=== PATIENT | male | born 2000 | race Caucasian/White ===

== ENCOUNTER 2022-02-22 08:19 | Emergency (ER) | payer MEDICAID ==
[~2022-02-22] VITALS: Ht 160 cm; Wt 54.4 kg
[2022-02-22 08:25] VITALS: BP 165/115
[2022-02-22 09:10] LABS: BASOPHILS # (AUTO) 0.1 K/uL (0.00-0.22); BASOPHILS % (AUTO) 0.5 % (0.0-2.0); EOSINOPHILS # (AUTO) 0.2 K/uL (0-0.4); EOSINOPHILS % (AUTO) 1.3 % (0.0-4.0); HEMATOCRIT 35.9 % (36-52); HEMOGLOBIN 12.3 g/dL (12.0-18.0); LYMPHOCYTES # (AUTO) 1.4 K/uL (2.0-11.5); LYMPHOCYTES % (AUTO) 11.9 % (20.5-51.1); MEAN CORPUSCULAR HEMOGLOBIN 30 pg (27-31); MEAN CORPUSCULAR HGB CONC 34 g/dL (33-37); MONOCYTES # (AUTO) 0.7 K/uL (0.8-1.0); MONOCYTES % (AUTO) 5.7 % (1.7-9.3); NEUTROPHILS # (AUTO) 9.6 K/uL (1.8-7.7); NEUTROPHILS % (AUTO) 80.6 % (42.2-75.2); PLATELET COUNT (AUTO) 443 K/uL (140-450); RED BLOOD CELL COUNT(AUTO) 4.17 MIL/uL (4.20-6.10); RED CELL DISTRIBUTION WIDTH 16.3 % (11.6-13.7); WHITE BLOOD COUNT (AUTO) 11.9 K/uL (4.8-10.8)
[2022-02-22 09:27] LABS: ALBUMIN 3.1 g/dL (3.4-5.0); ANION GAP 14.7 (8-16); CARBON DIOXIDE 23.2 mmol/L (21-32); CREATININE 0.6 mg/dL (0.6-1.3); POTASSIUM 3.9 mmol/L (3.5-5.1); TOTAL BILIRUBIN 0.1 mg/dL (0.0-1.0)
[2022-02-22] MEDS: NACL 0.9% 1,000 ML IV ONE (09:35)
[2022-02-22 10:50] VITALS: BP 146/104
[2022-02-22 12:05] VITALS: BP 146/86
[2022-02-22] MEDS ORDERED: LORazepam 2 MG/ML VIAL IVP ONE (12:05)
[2022-02-23] MEDS ORDERED: RISP0.5T3 PO (04:13)
[2022-02-23] MEDS ORDERED: PTU50 PO (04:15)
[2022-02-23] MEDS ORDERED: BACL10TA4 PO (04:16)
[2022-02-23] MEDS ORDERED: VALP250S5 GT (04:29)
[2022-02-23] MEDS ORDERED: SCOP0.333 TD (04:29)
[2022-02-23] MEDS ORDERED: ONDA-188 IVP (04:29)
[2022-02-23] MEDS ORDERED: PB65I GT (04:29)
[2022-02-23] MEDS ORDERED: DIAZ10TA7 GT (04:29)
[2022-02-23] MEDS ORDERED: LANS15EC28 GT (04:29)
[2022-02-23] MEDS ORDERED: BENZ-315 GT (04:29)
== END 2022-02-22 12:08 ==
LOC: MED 08:19
DX: R11.10 Vomiting, unspecified (principal); Z20.822 Contact with and (suspected) exposure to COVID-19; J44.9 Chronic obstructive pulmonary disease, unspecified; K21.9 Gastro-esophageal reflux disease without esophagitis; I10 Essential (primary) hypertension; Z79.899 Other long term (current) drug therapy; Z98.890 Other specified postprocedural states; Z86.73 Personal history of transient ischemic attack (TIA), and cerebral infarction without residual deficits
CPT/HCPCS: 36415; 71045; 80053; 83605; 83690; 85025; 86886; 86900; 86901; 87426; 93005; 96360; 99285; J7030; Q0092

== ENCOUNTER 2022-02-23 03:46 | Inpatient (IN) | payer MEDICAID ==
--- NOTE | 2022-01-31 19:42 | NUR ---
GET THE REPORT FROM MORNING NURSE ANNAMARIE, CALL LIGHT IS WITHIN THE REACH ,WILL CONTINUE TO MONITOR PATIENT.
[~2022-02-23] VITALS: Ht 157.5 cm; Wt 54.0 kg
[2022-02-23] VITALS (7 sets, daily range): BP systolic 137–161; BP diastolic 76–115
--- NOTE | 2022-02-23 03:47 | NUR ---
Tequila alfonso in [facility] - 02/23/22 at 0348 by [facility] PT BIBA ALS TO ER BED 10
--- NOTE | 2022-02-23 03:48 | NUR ---
JOSSELINE RODRÍGUEZ ALS TO ER BED 01
[2022-02-23] MEDS ORDERED: PANTOPRAZOLE 40 MG INJ VIAL IVP ONE (03:55)
[2022-02-23] MEDS ORDERED: ONDANSETRON 4 MG/2 ML VIAL IVP ONE (03:55)
[2022-02-23] MEDS ORDERED: NACL 0.9% 1,000 ML IV SCH (04:05)
[2022-02-23] MEDS ORDERED: RISP0.5T3 PO (04:13)
[2022-02-23] MEDS ORDERED: PTU50 PO (04:15)
[2022-02-23] MEDS ORDERED: BACL10TA4 PO (04:16)
[2022-02-23] MEDS ORDERED: BENZ-315 GT (04:29)
[2022-02-23] MEDS ORDERED: VALP250S5 GT (04:29)
[2022-02-23] MEDS ORDERED: ONDA-188 IVP (04:29)
[2022-02-23] MEDS ORDERED: PB65I GT (04:29)
[2022-02-23] MEDS ORDERED: LANS15EC28 GT (04:29)
[2022-02-23] MEDS ORDERED: SCOP0.333 TD (04:29)
[2022-02-23] MEDS ORDERED: DIAZ10TA7 GT (04:29)
--- NOTE | 2022-02-23 04:44 | NUR ---
pt transported to CT with RT.
--- NOTE | 2022-02-23 05:32 | NUR ---
pt is a hard stick. unable to draw labs.
--- NOTE | 2022-02-23 06:30 | NUR ---
pt was found putting his finger in the back of his throat making himself vommit. pt vomitted green emesis. Pt was cleaned and was repositioned sidelying facing right with HOB at 30 degrees.
--- NOTE | 2022-02-23 06:40 | NUR ---
autopsy assistant at bedside
[2022-02-23 07:15] LABS: BASOPHILS # (AUTO) 0.1 K/uL (0.00-0.22); BASOPHILS % (AUTO) 0.5 % (0.0-2.0); EOSINOPHILS % (AUTO) 0.1 % (0.0-4.0); HEMATOCRIT 39.7 % (36-52); HEMOGLOBIN 13.4 g/dL (12.0-18.0); LYMPHOCYTES # (AUTO) 1.8 K/uL (2.0-11.5); LYMPHOCYTES % (AUTO) 10.7 % (20.5-51.1); MEAN CORPUSCULAR HEMOGLOBIN 29 pg (27-31); MEAN CORPUSCULAR HGB CONC 34 g/dL (33-37); MEAN CORPUSCULAR VOLUME 85.5 fL (80-94); MONOCYTES % (AUTO) 5.7 % (1.7-9.3); NEUTROPHILS # (AUTO) 14.2 K/uL (1.8-7.7); PLATELET COUNT (AUTO) 501 K/uL (140-450); RED BLOOD CELL COUNT(AUTO) 4.64 MIL/uL (4.20-6.10); RED CELL DISTRIBUTION WIDTH 16.3 % (11.6-13.7); WHITE BLOOD COUNT (AUTO) 17.1 K/uL (4.8-10.8)
[2022-02-23 07:16] LABS: ANION GAP 20.3 (8-16); CARBON DIOXIDE 21.1 mmol/L (21-32); CREATININE 0.9 mg/dL (0.6-1.3); POTASSIUM 3.4 mmol/L (3.5-5.1)
--- NOTE | 2022-02-23 07:17 | NUR ---
handoff to JAYDEN Hernandez. Pt is awake, afebrile. IV fluids still infusing. Bed lock and low. Vital signs stable.
--- NOTE | 2022-02-23 07:24 | NUR ---
ASSUMED CARE FOR PT. PT AWAKE. IV FLUIDS INFUSING, VS: BP 143/112, R 24, O2 98% ROOM AIR, HR 126.
[2022-02-23 07:26] LABS: TOTAL BILIRUBIN 0.3 mg/dL (0.0-1.0)
[2022-02-23 07:27] LABS: ALBUMIN 3.4 g/dL (3.4-5.0)
--- NOTE | 2022-02-23 07:35 | NUR ---
patient arrived from outside facility with sutures in trach - wounds noted under and around flange where sutures were in place - after old sutures were removed a new dressing was placed. will inform nursing of wounds from old sutures for documentation. noted also old wound under/near trach tie that appears from a line that was placed in patients neck at some point.
--- NOTE | 2022-02-23 07:51 | NUR ---
PT MOVED TO BED 03, RT AT BEDSIDE TO ASSIST.
--- NOTE | 2022-02-23 08:10 | NUR ---
# 15 FR Straight catheter utilizing sterile technique. Immediate return of 80 ml lane/clear urine noted. Urine sample collected and sent to lab. Pt tolerated procedure well
--- NOTE | 2022-02-23 08:14 | NUR ---
ESTEFANIA handed to CPT Aaliyah at ER bedside
[2022-02-23] MEDS ORDERED: MORPHINE SULFATE 4 MG/ML SYR IVP PRN (08:55)
--- NOTE | 2022-02-23 08:56 | NUR ---
XR AT PT BEDSIDE
[2022-02-23] MEDS ORDERED: KCL 20 MEQ/WATER INJ PREMIX 100 ML IV ONE (09:00)
[2022-02-23 09:12] LABS: PROTHROMBIN TIME 10.5 secs (10.8-13.4)
[2022-02-23 09:15] LABS: APPEARANCE,URINE HAZY (CLEAR); BILIRUBIN,URINE NEGATIVE (NEGATIVE); BLOOD, URINE NEGATIVE (NEGATIVE); COLOR,URINE YELLOW (YELLOW); LEUKOCYTE ESTERASE ,URINE NEGATIVE (NEGATIVE); NITRITE, URINE NEGATIVE (NEGATIVE); UGLUCOSE NEGATIVE (NEGATIVE)
--- NOTE | 2022-02-23 09:17 | NUR ---
Patient will be admitted to care of . Admited to ICU . Will go to room 3. Belongings list completed. Report to JAYDEN DE LUNA.
--- NOTE | 2022-02-23 09:20 | NUR ---
Transported patient to icu from ED - patient placed back on vent in the icu - no distress noted.
--- NOTE | 2022-02-23 09:30 | NUR ---
RECEIVED PATIENT FROM ER NURSE VIA ELSY. PT ADMITTED FOR SMALL BOWEL OBSTRUCTION. PT IS AOX0, NONVERBAL. RESPIRATIONS EVEN AND UNLABORED. ON TRACH TO VENT AC/PC FIO2 28%, RATE 24, PEEP 5. NO DISTRESS NOTED. SKIN IS WARM, DRY, AND INTACT. IV SITE ON LAC 20 INFUSING FLUIDS WELL. ABD IS SOFT, ROUND AND DISTENDED. NG TUBE PLACED, NO RESIDUAL NOTED. FLACC 0. PLAN OF CARE DISCUSSED. SAFETY PRECAUTIONS IN PLACE. CALL LIGHT WITHIN REACH. WILL CONTINUE TO MONITOR.
[2022-02-23 09:34] LABS: RBC,URINE 0 /HPF (0-5); WBC,URINE 0-5 /HPF (0-5)
[2022-02-23 09:35] LABS: HYALINE CASTS, URINE 0-10 /LPF (None Seen); URINE AMORPHOUS URATE 1+ /HPF (None Seen)
[2022-02-23] MEDS ORDERED: HYDROcodone/APAP 5/325 MG 1 TAB TAB PO PRN (09:45)
[2022-02-23] MEDS ORDERED: MAG SULF 2000 MG/WATER PREMIX 50 ML IV PRN (09:45)
[2022-02-23] MEDS ORDERED: POTASSIUM CHLORIDE 10 MEQ TABER PO PRN (09:45)
[2022-02-23] MEDS ORDERED: DOCUSATE SODIUM 100 MG GELCAP PO PRN (09:45)
[2022-02-23] MEDS ORDERED: ACETAMINOPHEN 325 MG TAB PO PRN (09:45)
[2022-02-23] MEDS ORDERED: ZOLPIDEM 5 MG TAB PO PRN (09:45)
--- NOTE | 2022-02-23 09:45 | NUR ---
REQUESTED NON-BEHAVIORAL RESTRAINTS FROM . NOTIFIED MD THAT PT KEEPS PULLING LINES AND TUBES AND IS AWARE.
--- NOTE | 2022-02-23 09:50 | NUR ---
XR TECH AT BEDSIDE TO VERIFY TUBE PLACEMENT
[2022-02-23] MEDS: NACL 0.9% 1,000 ML IV SCH (09:59)
--- NOTE | 2022-02-23 10:00 | NUR ---
SOFT WRIST RESTRAINTS ORDERED AND PLACED ON PATIENT. WILL MONITOR FOR SKIN BREAKDOWN
[2022-02-23 10:18] LABS: CHOL/HDL RATIO 3.1 (1-4.5); MAGNESIUM 2.6 mg/dL (1.8-2.4); PHOSPHORUS 4.5 mg/dL (2.5-4.9); THYROID STIMULATING HORMONE 1.75 uIU/mL (0.34-3.74)
[2022-02-23] MEDS ORDERED: VALPROIC ACID 250 MG GT/PO SCH (13:00)
[2022-02-23] MEDS: PIPERACILLIN/TAZOBACTAM 3.375 GM in DEXTROSE 5% 50 ML IV SCH ×2 (13:17→21:00)
[2022-02-23] MEDS: diazePAM 5 MG TAB GT SCH ×2 (13:17→17:00)
[2022-02-23] MEDS: VALPROIC ACID 250 MG/5 ML UDC GT SCH ×2 (13:17→17:00)
--- NOTE | 2022-02-23 13:37 | NUR ---
ALL SCHEDULED MEDS GIVEN. PT IS STABLE. NO DISTRESS NOTED. WILL CONTINUE TO MONITOR
[2022-02-23 14:12] LABS: BARBITURATE, URINE POSITIVE ng/ml (NEG <=200); BENZODIAZEPINE, URINE POSITIVE ng/mL (NEG <=200); CANNABINOID, URINE NEGATIVE ng/mL (NEG <=50); COCAINE, URINE NEGATIVE ng/mL (NEG <=300); OPIATE, URINE NEGATIVE ng/mL (NEG <=2000); PHENCYCLIDINE SCREEN,URINE NEGATIVE ng/mL (NEG <=25)
--- NOTE | 2022-02-23 15:30 | NUR ---
RT AT BEDSIDE
--- NOTE | 2022-02-23 17:34 | NUR ---
RECEIVED ORDERS FOR PATIENT TO BE ON LOW INTERMITTENT SUCTION
--- NOTE | 2022-02-23 19:11 | NUR ---
RECEIVED PT TRACH TO VENT WITH A SHILEY 8 ON A Akashi The[employer]SCAPE R860 VENTILATOR SETTINGS AC/PC 26, RR18, PEEP+5, FIO2 25%. NO SIGNS OF RESPIRATORY DISTRESS NOTED AT THIS TIME PT'S CURRENT SATURATION IS 100%. ANTERIOR AUSCULTATION REVEALED BS COARSE CRACKLES THROUGHOUT ALL LUNG LARSEN, SXN SMALL WHITE FROTHY SECRETIONS, STRONG COUGH AND GAG NOTED. SUCTION ALANIS AND HME REPLACED, ORAL CARE DONE, HOB ELEVATED, AMBU BAG AT BEDSIDE, VENT PLUGGED INTO RED OUTLET. WILL CONTINUE TO MONITOR.
--- NOTE | 2022-02-23 19:21 | NUR ---
ENDORSED TO MANAGER SOCIAL RESPONSIBILITY NURSE FOR CONTINUITY OF CARE. PT IS STABLE.
--- NOTE | 2022-02-23 20:45 | NUR ---
TRANSFERRED PT TO [facility]/TELE ROOM 108 ON VENT WITH NO COMPLICATIONS. MACHINE IS PLUGGED INTO RED OUTLET, ALARMS ARE ON AND AUDIBLE, BVM AT BED SIDE, SUCTION WAS SETUP, CONTINUOS MONITOR IN ROOM, HOB ELEVATED. WILL CONTINUE TO MONITOR.
--- NOTE | 2022-02-23 20:45 | NUR ---
PT TRANSFERRED BY RT AND RN'S TO [facility] FLOOR ROOM 108A. TELEPHONE REPORT GIVEN TO JAYDEN CHAHAL. PT IN NO ACUTE DISTRESS AT THE TIME OF TRANSFER TOLERATED WELL. PT IN ROOM 108A ON TRACH TO VENT ON SETTINGS ACPC, FIO2 28%, R 24, PEEP 5%, O2 SAT 96%. PT AWAKE, NON VERBAL, MADE EYE CONTACT. 20 G TO LEFT AC PRESENT. PEG TUBE AND NGT TO LEFT NARES PRESENT. PT INCONTINENT WITH NO VELASCO CATHETER. SKIN INTACT. BILATERAL SOFT WRIST RESTRAINTS PRESENT WITH NO SIGNS OF INJURY. ALL SAFETY MEASURES IN PLACE, BED LOCKED AT LOWEST POSITION IN SEMI FOWLERS POSITION.
[2022-02-23] MEDS: BENZTROPINE 1 MG TAB GT SCH (21:00)
[2022-02-23] MEDS: risperiDONE 1 MG TAB PO SCH (21:00)
[2022-02-23] MEDS ORDERED: PHENobarbital 65 MG/ML VIAL IM SCH (21:00)
[2022-02-23] MEDS ORDERED: NON-FORMULARY ITEM (Lansoprazole* (Prevacid 24Hr*) 15 MG) GT/PO SCH (21:00)
[2022-02-24] VITALS: BP 158/90
--- NOTE | 2022-02-24 00:04 | NUR ---
PATIENT CAME FROM ICU TO 108-A ROOM 2041 PATIENT AWAKE SMILING NO SIGNS OF PAIN OR DISTRESS. IV OUT AT UPPER LEFT ARM. START A 22 GA IN LEFT INDEX FINGER. PATIENT IV INFUSING NS 60 HOUR. PATIENT HUNG ZOSYN 3.375MG DUE AGAIN AT 05. TEMP 97.5 LUNGS CLEAR HAS GT-TUBE CLAMPED AND NGT TO LOW SUCTION. NO DRIN YET. PATIENT NPO.
--- NOTE | 2022-02-24 00:10 | NUR ---
PATIENT HAS WRIST RESTRAINT ON TO RENEW IN A.M AT 10 A.M.
[2022-02-24 04:00] VITALS: BP 149/94
[2022-02-24] MEDS: PIPERACILLIN/TAZOBACTAM 3.375 GM in DEXTROSE 5% 50 ML IV SCH ×3 (05:00→20:20)
--- NOTE | 2022-02-24 05:43 | NUR ---
AT 0030 PATIENT HAS X1 EPISODE OF EMESIS DAEK GREEN IN COLOR. PATIENT HAS 150 OF DRAINAGE IN CANISTER GREEN IN COLOR R.T. WITNESS EMESIS.
[2022-02-24] MEDS: LANSOPRAZOLE 30 MG CAPDR PO SCH (06:29)
[2022-02-24] MEDS: NACL 0.9% 1,000 ML IV SCH ×2 (06:30→21:00)
--- NOTE | 2022-02-24 07:10 | NUR ---
Received report from pm nurse. Pt resting in bed, awake, no signs of distress. NGT to left nostril intact, remains on low intermittent suction. Trach to vent in place: AC/PC 24% FiO2. Left hand IV 22G intact with ongoing IVF NS @ 60ml/hr. HOB elevated @ 35.
[2022-02-24 07:27] LABS: BASOPHILS # (AUTO) 0.1 K/uL (0.00-0.22); BASOPHILS % (AUTO) 0.5 % (0.0-2.0); EOSINOPHILS % (AUTO) 0.1 % (0.0-4.0); HEMATOCRIT 36.9 % (36-52); HEMOGLOBIN 12.5 g/dL (12.0-18.0); LYMPHOCYTES # (AUTO) 1.8 K/uL (2.0-11.5); LYMPHOCYTES % (AUTO) 9.9 % (20.5-51.1); MEAN CORPUSCULAR HEMOGLOBIN 30 pg (27-31); MEAN CORPUSCULAR HGB CONC 34 g/dL (33-37); MEAN CORPUSCULAR VOLUME 86.8 fL (80-94); MONOCYTES # (AUTO) 1.2 K/uL (0.8-1.0); MONOCYTES % (AUTO) 6.5 % (1.7-9.3); NEUTROPHILS # (AUTO) 15.1 K/uL (1.8-7.7); PLATELET COUNT (AUTO) 428 K/uL (140-450); RED BLOOD CELL COUNT(AUTO) 4.25 MIL/uL (4.20-6.10); RED CELL DISTRIBUTION WIDTH 16.2 % (11.6-13.7); WHITE BLOOD COUNT (AUTO) 18.2 K/uL (4.8-10.8)
[2022-02-24 07:41] LABS: MAGNESIUM 2.5 mg/dL (1.8-2.4); PHOSPHORUS 2.9 mg/dL (2.5-4.9)
[2022-02-24 08:00] VITALS: BP 126/72
[2022-02-24 08:11] LABS: ANION GAP 20.5 (8-16); CARBON DIOXIDE 21.9 mmol/L (21-32); CREATININE 0.8 mg/dL (0.6-1.3); POTASSIUM 3.4 mmol/L (3.5-5.1)
--- NOTE | 2022-02-24 08:35 | NUR ---
PATIENT HAS BEEN SCREENED AND CATEGORIZED HIGH NUTRITION RISK. PATIENT WILL BE SEEN WITHIN 1-2 DAYS OF ADMISSION. 02/24/22 RECEIVED REFERRAL FOR TUBE FEEDING AND VOMITING OVER THREE DAYS LEON[address] SU [address]
--- NOTE | 2022-02-24 08:42 | NUR ---
PT. WITH LOW LIZ SCALE AT MODERATE TO HIGH RISK, CONTINUE TO FOLLOW PRESSURE INJURY PREVENTION INTERVENTIONS. -POSITIONING: TURN AND REPOSITION PATIENT Q 2H OR SOONER USE PILLOWS TO KEEP BONY PROMINENCES FROM DIRECT CONTACT WITH SURFACES USE REPOSITIONING WEDGES TO PROVIDE 30-DEGREE ANGLE FOR SIDE LYING POSITIONS OFFLOADING OR FOAM DRESSING TO ALL TUBING TO PREVENT MEDICAL DEVICES RELATED PRESSURE INJURY -RE-EVALUATING AND MANAGING INCONTINENCE MONITOR SKIN CONDITION DURING POSITION CHANGE DO NOT MASSAGE REDNESS, BONY PROMINENCES FREQUENT NITISH-CARE AND PROVIDE BARRIER CREAMS PRN IF SOILING MOISTURE CONTROL BY OFFER BED MACEDO/URINAL /ABSORBENT PAD TO WICK AND HOLD MOISTURE KEEP SKIN DRY AND PROTECT FROM FRICTION -MANAGE FRICTION/SHEAR/MOBILITY KEEP HOB AT THE LOWEST LEVEL OF ELEVATION NO MORE THAN 30 DEGREE UNLESS OTHERWISE CONTRAINDICATED USE LIFT SHEET OR TRANSFER DEVICE TO MOVE PATIENT AND PREVENT LATERAL SHEER. PROTECT HEELS, ELBOWS BONY PROMINENCES WITH SKIN BERRIES OR FOAM DRESSING IF EXPOSED TO FRICTION OFFLOAD BILATERAL HEELS BY PLACING PILLOWS UNDER CALVES AT ALL TIMES, UNLESS OTHERWISE CONTRAINDICATED -PRESSURE REDISTRIBUTION SURFACE THERAPY BERE ISOFLEX MATTRESS -NUTRITION: PLEASE FOLLOW RD RECOMMENDATIONS AND OFFER NUTRITION SUPPLEMENTS IF ORDERED. PLEASE CONTACT WOUND CARE NURSE FOR ANY QUESTION AND CHANGE OF WOUND CONDITION.
[2022-02-24] MEDS: VALPROIC ACID 250 MG/5 ML UDC GT SCH ×3 (08:49→17:10)
[2022-02-24] MEDS: risperiDONE 1 MG TAB PO SCH ×2 (08:51→21:00)
[2022-02-24] MEDS: diazePAM 5 MG TAB GT SCH ×3 (08:51→17:10)
[2022-02-24] MEDS: BACLOFEN 10 MG TAB PO SCH (08:51)
[2022-02-24] MEDS: BENZTROPINE 1 MG TAB GT SCH ×2 (08:52→20:16)
[2022-02-24] MEDS ORDERED: propylthiouraciL 50 MG TAB PO SCH (09:00)
--- NOTE | 2022-02-24 09:40 | NUR ---
NGT suction held. Oral contrast administered via GT. Per radiologist, ok to use GT for contrast for small bowel follow-thru exam. Pt HOB kept elevated. No episode of vomiting.
[2022-02-24 12:00] VITALS: BP 135/91
--- NOTE | 2022-02-24 12:16 | NUR ---
02/24/22 RD INITIAL ASSESSMENT COMPLETED PLEASE REFER TO NUTRITION ASSESSMENT UNDER CARE ACTIVITY FOR ESTIMATED NUTRITIONAL NEEDS. 1. WHEN/IF MEDICALLY APPROPRIATE, RECOMMEND OSMOLITE 1.5 WITH A GOAL RATE OF 40 ML/HR -FWF: 50 ML Q6H OR PER MD -START AT 10 ML/HR AND INCREASE BY 10 ML Q6H TOLERATED -WILL PROVIDE 1440 KCAL AND 60 GM PROTEIN, MEETING 89% ESTIMATED KCAL AND 100% ESTIMATED PROTEIN NEEDS; ADEQUATE 2. MONITOR GI SYMPTOMS AND GASTRIC RESIDUALS 3. RD TO FOLLOW-UP 2-3 DAYS, HIGH RISK LEONCIO SU RD
--- NOTE | 2022-02-24 12:40 | NUR ---
PEG tube pulled out on accident during echocardiogram. Balloon intact and inflated. Peristoma intact, no bleeding. Saxena 16Fr inserted in place of GT. Dr Talha Mejias notified.
[2022-02-24 16:00] VITALS: BP 128/86
--- NOTE | 2022-02-24 16:48 | NUR ---
DC PLANNIN YRS OLD MALE PATIENT WAS ADMITTED FROM [facility] WITH A DX OF SMALL BOWEL OBSTRUCTION. 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 CT ABD/PELVIS SHOWED SBO. CXR NEGATIVE. RAPID COVID TEST NEGATIVE. ADMINISTERED IVF, IV ABX ZOSYN. CONSULTED WITH SURGEON DR PRESTON AND ID. ORDERED SMALL BOWEL SERIES XRAY. DC PLAN TO RETURN TO [facility] WHEN STABLE CM TO FOLLOW Addendum: 02/26/22 at 1606 by Yuliya Milner RN DC PLANNING: REPEAT KUB SHOED BOWEL GAS PATTERN SUGGESTED PARALYTIC ILEUS, PARTIAL OBSTRUCTION CAN NOT BE COMPLETELY EXCLUDED. CONTINUE IVF AND IV ABX ZOSYN. NEPHRO, GI,ID, AND SURGEON FOLLOWING. CM TO FOLLOW Addendum: 02/28/22 at 1155 by Yuliya Milner RN DC PLANNING: IMAGING STILL SHOWED SMALL BOWEL OBSTRUCTION ,NEW LAXATIVE REGIMEN ORDERED , WILL REPEAT KUB TOMORROW. CONTINUED IVF , AND HOME MEDS . NEPHRO AND ID FOLLOWING. DC PLAN TO RETURN TO [facility] OVER THE WEEKEND WHEN STABLE CM TO FOLLOW Addendum: 03/03/22 at 1038 by Yuliya Milner RN DC PLANNING: PATIENT HAS A DC ORDER TO RETURN TO [facility], FAXED PAPERWORK TO [facility] , SPOKE WITH KEYUR AT [facility] AND PATIENT CAN GO TO ROOM 3B UNDER THE CARE OF DR JASSO. ARRANGED TRANSPORT WILL CALL WITH [facility] . PER NURSE CURRAN PATIENT IS VOMITING AT THIS TIME AWAITING FOR MD CLEARANCE TO DISCHARGE. CM TO FOLLOW Addendum: 03/03/22 at 1457 by Yuliya Milner RN DC PLANNING: PATIENT IS GOING TO [facility] CAN GO TO ROOM NUMBER TO GIVE REPORT [phone] ARRANGED TRANSPORT WITH [facility] PROJECT GEOLOGIST TIME 4 PM NOTIFIED CADENCE CHARGE NURSE. CM TO FOLLOW
--- NOTE | 2022-02-24 17:11 | NUR ---
P.T. NOTES P.T. EVAL COMPLETED; REFER TO EVAL FOR DETAILS.
--- NOTE | 2022-02-24 18:50 | NUR ---
PT ON PC 26, RR18, PEEP5, AT 24%. VENT PLUGGED INTO RED OUTLET AND AMBU BAG IN PRESENT. PT WAS SLEEPING AND IN NO DISTRESS.
--- NOTE | 2022-02-24 19:50 | NUR ---
[id number] REPORT FROM WES Wheatley RN FOR CONTINUITY OF CARE. PT AWAKE , APHASIC, NPO EXCEPT MEDS. NGT TO LOW INTERMITTENT SUCTION. IV 24G L HAND POINTER FINGER INFUSING NS @60 ML/HR. SKIN INTACT. BILATERAL SOFT WRIST RESTRAINTS IN PLACE. CALL LIGHT WITHIN REACH. WILL CONTINUE WITH FREQ ROUNDS.
[2022-02-24 20:00] VITALS: BP 136/92
--- NOTE | 2022-02-24 20:30 | NUR ---
ARNULFO FROM CT CAME TO TRANSPORT PT FOR CT OF ABD WITHOUT CONTRAST. RT AT BEDSIDE BAGGING PT DURING TRANSPORT. ON PORTABLE TELE MONITOR RN ACCOMPANIED PT FOR TEST.
--- NOTE | 2022-02-24 20:30 | NUR ---
TOOK PT TO CT. NO COMPLICATIONS. PUT PT BACK ON VENT WHEN RETURNED.
--- NOTE | 2022-02-24 22:15 | NUR ---
FREQ ROUNDS. FOUND NG TUBE LYING ON BED. PT SNAGGED NG TUBE CONSTANTLY MOVING HEAD. REINSERTED 14FR NG TUBE IN L NARES. XRAY ORDERED TO CHECK FOR PLACEMENT AT 22:28. 22:45 RESULTS NG TUBE IN STOMACH. HOOKED NG TUBE TO LOW INTERMITTENT SUCTION. CALL LIGHT WITHIN REACH WILL CONTINUE TO MONITOR.
[2022-02-25] VITALS: BP 136/72
--- NOTE | 2022-02-25 00:30 | NUR ---
FREQ ROUNDS.PT RESTING IN BED THRASHING HEAD FROM SIDE TO SIDE. REMAINS TRACH TO VENT: FIO2 24%, RATE 18, PEEP- 5 TV-45. BILATERAL SOFT WRIST RESTRAINTS IN PLACE TO DETER PT FROM PULLING AT LINES. CALL LIGHT WITHIN REACH. VSS AFEBRILE. O2 SAT 99%. NAD. CONTINUE TO MONITOR.
[2022-02-25] MEDS: NACL 0.9% 1,000 ML IV SCH (01:30)
--- NOTE | 2022-02-25 03:30 | NUR ---
FREQ ROUNDS CHECKED PT STABLE AND ASLEEP RR EVEN AND UNLABORED TRACH TO VENT WITH EQUAL CHEST RISE..ALL SAFETY MEASURES REMAIN IN PLACE. WILL CONTINUE TO MONITOR.
[2022-02-25 04:00] VITALS: BP 135/99
[2022-02-25] MEDS: PIPERACILLIN/TAZOBACTAM 3.375 GM in DEXTROSE 5% 50 ML IV SCH ×3 (04:04→20:26)
[2022-02-25] MEDS: LANSOPRAZOLE 30 MG CAPDR PO SCH (06:07)
--- NOTE | 2022-02-25 06:30 | NUR ---
FREQ ROUNDS CHECKED PT. PREVACID GRANULES GIVEN THROUGH NGT WITH WATER FLUSH. NG TUBE DRAINED 100 CC STOMACH CONTENTS. PT AWAKE, EYES OPEN DOES NOT TRACK WITH EYES. IV SITE L INDEX FINGER INTACT AND PATENT IVF NS @ 60CC/HR INFUSING PER PUMP. RR EVEN AND UNLABORED WITH EQUAL CHEST RISE. ALL SAFETY MEASURES IN PLACE. WILL CONTINUE TO MONITOR.
[2022-02-25 07:05] LABS: BASOPHILS % (AUTO) 0.4 % (0.0-2.0); EOSINOPHILS % (AUTO) 0.4 % (0.0-4.0); HEMATOCRIT 31.2 % (36-52); HEMOGLOBIN 10.7 g/dL (12.0-18.0); LYMPHOCYTES # (AUTO) 1.4 K/uL (2.0-11.5); MEAN CORPUSCULAR HEMOGLOBIN 30 pg (27-31); MEAN CORPUSCULAR HGB CONC 34 g/dL (33-37); MEAN CORPUSCULAR VOLUME 85.9 fL (80-94); MONOCYTES % (AUTO) 10.4 % (1.7-9.3); NEUTROPHILS # (AUTO) 7.6 K/uL (1.8-7.7); NEUTROPHILS % (AUTO) 74.8 % (42.2-75.2); PLATELET COUNT (AUTO) 378 K/uL (140-450); RED BLOOD CELL COUNT(AUTO) 3.64 MIL/uL (4.20-6.10); RED CELL DISTRIBUTION WIDTH 16.1 % (11.6-13.7); WHITE BLOOD COUNT (AUTO) 10.1 K/uL (4.8-10.8)
[2022-02-25 07:15] LABS: ANION GAP 16.4 (8-16); CARBON DIOXIDE 23.2 mmol/L (21-32); CREATININE 0.8 mg/dL (0.6-1.3)
[2022-02-25 07:25] LABS: MAGNESIUM 2.2 mg/dL (1.8-2.4); PHOSPHORUS 3.8 mg/dL (2.5-4.9)
[2022-02-25 07:36] LABS: POTASSIUM 2.6 mmol/L (3.5-5.1)
[2022-02-25 08:00] VITALS: BP 126/80
--- NOTE | 2022-02-25 08:00 | NUR ---
ENDORSED REPORT TO AM NURSE BROOKS RN FOR CONTINUITY OF CARE. PT IS STABLE.
[2022-02-25] MEDS ORDERED: KCL 20 MEQ/WATER INJ PREMIX 200 ML IV SCH (08:10)
[2022-02-25] MEDS: BACLOFEN 10 MG TAB PO SCH (09:37)
[2022-02-25] MEDS: BENZTROPINE 1 MG TAB GT SCH ×2 (09:38→20:23)
[2022-02-25] MEDS: diazePAM 5 MG TAB GT SCH ×3 (09:41→16:40)
[2022-02-25] MEDS: SCOPOLAMINE 1.5 MG/72 HR PATCH TD SCH (10:00)
--- NOTE | 2022-02-25 10:03 | NUR ---
received patient with hob >45. vent in place and trach . kept patient comfortable in bed.
[2022-02-25 12:00] VITALS: BP 163/113
[2022-02-25] MEDS: VALPROIC ACID 250 MG/5 ML UDC GT SCH ×3 (12:26→16:38)
--- NOTE | 2022-02-25 15:55 | NUR ---
DR PRESTON CALLED AND MADE AWARE OF THE G TUBE CT DONE AND ORDERED TO START FEEDING THRU G TUBEPER BRANCH ACCOUNT EXECUTIVE/ PATRON ATTENDANT RECOMMENDATION. DC NG TUBE. 25 ML OUTPUT.
[2022-02-25 16:00] VITALS: BP 147/90
--- NOTE | 2022-02-25 16:12 | NUR ---
DC PLANNING SW ATTEMPTED TO MEET WITH PATIENT AT BEDSIDE HOWEVER, PATIENT IS NONVERBAL AND UNABLE TO RESPOND TO SW. SW OUTREACHED TO PATIENTS [facility], [facility]. SW SPOKE WITH PAULETTE ([facility] MOTION PICTURE OPERATOR) WHO REPORTED THAT PATIENT HAS BEEN IN [facility]ARE SINCE 02/15/22. PAULETTE REPORTS THAT PATIENT IS TRAYC TO VENT DEPENDENT AND HAS A GTUBE IN PLACE. PAULETTE REPORTS THAT PATIENT IS FULL ASSIST AND IS BED RIDDEN. PAULETTE REPORTS THAT FATHER IS ACTIVE IN PATIENTS CARE AND VISITS PATIENT OFTEN. DC PLAN IS FOR PATIENT TO RETURN BACK TO [facility] ONCE MEDICALLY CLEARED.
[2022-02-25] MEDS: risperiDONE 1 MG TAB PO SCH ×2 (16:49→20:24)
--- NOTE | 2022-02-25 19:30 | NUR ---
RECEIVED REPORT FROM AM NURSE FOR CONTINUITY OF CARE. PLAN OF CARE DISCUSSED. PLAN IS FOR PT TO GO BACK TO [facility] ONCE MEDICALLY CLEARED.PT IS BEDBOUND, TRACH TO VENT. G-TUBE FEEDING PATTIE AF TO BE STARTED. ALL SAFETY MEASURES IN PLACE. PT IS STABLE.
[2022-02-25 20:00] VITALS: BP 131/80
--- NOTE | 2022-02-25 21:30 | NUR ---
STARTED PT ON TUBE FEEDING PATTIE AF1.2 @ 10CC/HR. WITH 120CC H2O FLUSH Q 4HRS. HOLD TUBE FEEDING FOR 1 HR FOR RESIDUAL >200CC. CHECK RESIDUAL AFTER 1 HR.RESUME IF RESIDUAL <150. CONTINUE TO INCREASE RATE 20CC Q 2HRS TO A GOAL OF 5OCC/HR. HS MEDS GIVEN VIA G-TUBE AND TOLERATED WELL. ALL SAFETY MEASURES IN PLACE. WILL CONTINUE WITH FREQ ROUNDS.
[2022-02-25 22:50] LABS: CARBON DIOXIDE 21.9 mmol/L (21-32); CREATININE 0.6 mg/dL (0.6-1.3)
[2022-02-25 23:59] LABS: ANION GAP 17.3 (8-16); POTASSIUM 3.2 mmol/L (3.5-5.1)
[2022-02-26] VITALS: BP 121/94
--- NOTE | 2022-02-26 | NUR ---
TUBE FEEDING INCREASED TO 30CC/HR. PT TOLERATING IT WELL WITH NO RESIDUAL. INC BOWEL AND BLADDER. TURNED AND REPOSITIONED Q2HRS. NAD. VSS. CONTINUE WITH FREQ ROUNDS.
[2022-02-26 04:00] VITALS: BP 127/77
[2022-02-26] MEDS: NACL 0.9% 1,000 ML IV SCH ×2 (04:25→21:41)
[2022-02-26] MEDS: PIPERACILLIN/TAZOBACTAM 3.375 GM in DEXTROSE 5% 50 ML IV SCH ×3 (04:57→20:46)
--- NOTE | 2022-02-26 05:00 | NUR ---
INCREASED TUBE FEEDING RATE TO 30CC/ HR. BOWEL SOUNDS ACTIVE.TURNED AND REPOSITIONED Q 2HRS. SKIN IS INTACT. WILL CONTINUE TO MONITOR.
[2022-02-26] MEDS: LANSOPRAZOLE 30 MG CAPDR PO SCH (06:13)
[2022-02-26 07:06] LABS: BASOPHILS % (AUTO) 0.5 % (0.0-2.0); EOSINOPHILS # (AUTO) 0.3 K/uL (0-0.4); EOSINOPHILS % (AUTO) 2.8 % (0.0-4.0); HEMATOCRIT 29.8 % (36-52); LYMPHOCYTES # (AUTO) 1.8 K/uL (2.0-11.5); MEAN CORPUSCULAR HEMOGLOBIN 29 pg (27-31); MEAN CORPUSCULAR HGB CONC 34 g/dL (33-37); MEAN CORPUSCULAR VOLUME 86.8 fL (80-94); MONOCYTES % (AUTO) 10.2 % (1.7-9.3); NEUTROPHILS # (AUTO) 6.5 K/uL (1.8-7.7); NEUTROPHILS % (AUTO) 67.5 % (42.2-75.2); PLATELET COUNT (AUTO) 319 K/uL (140-450); RED BLOOD CELL COUNT(AUTO) 3.43 MIL/uL (4.20-6.10); RED CELL DISTRIBUTION WIDTH 16.3 % (11.6-13.7); WHITE BLOOD COUNT (AUTO) 9.7 K/uL (4.8-10.8)
--- NOTE | 2022-02-26 07:10 | NUR ---
ENDORSED REPORT TO AM NURSE ANNAMARIE FOR CONTINUITY OF CARE. PT IS AWAKE TRACH TO VENT. IV 22G TO L INDEX FINGER WITH STABILIZATION BOARD INFUSING NS @60CC/HR. G-TUBE FEEDING VITAL AF 1.2 @ GOAL OF 50CC/HR NOW. NO RESIDUAL NOTED.REAINS ON BILATERAL SOFT WRIST RESTRAINTS TO PREVENT PT FROM PULLING .AT LINES AND EQUIPMENT. CALL LIGHT NEXT TO HEAD WITHIN REACH. CONTINUE TO MONITOR. PT IS STABLE.
--- NOTE | 2022-02-26 07:12 | NUR ---
RECEIVED PATIENT FROM BROADCAST DESIGNER NURSE FOR CONTINUITY OF CARE. PT IS AOX1, NONVERBAL. ABLE TO TRACK WITH EYES. RESPIRATIONS EVEN AND UNLABORED. ON TRACH TO VENT AC/PC FIO2 24%, RATE 18, PEEP 5. NO DISTRESS NOTED. SKIN IS WARM, DRY, AND INTACT. IV SITE ON LAC 20 INFUSING FLUIDS WELL. G-TUBE IN PLACE INFUSING TUBE FEEDING, NO RESIDUAL NOTED. FLACC 0. PLAN OF CARE DISCUSSED. SAFETY PRECAUTIONS IN PLACE. CALL LIGHT WITHIN REACH. WILL CONTINUE TO MONITOR.
[2022-02-26 07:16] LABS: MAGNESIUM 2.2 mg/dL (1.8-2.4)
[2022-02-26 07:28] LABS: ANION GAP 15.4 (8-16); CARBON DIOXIDE 20.7 mmol/L (21-32); CREATININE 0.6 mg/dL (0.6-1.3); POTASSIUM 3.1 mmol/L (3.5-5.1)
[2022-02-26 08:00] VITALS: BP 117/79
[2022-02-26] MEDS: SCOPOLAMINE 1.5 MG/72 HR PATCH TD SCH (08:45)
[2022-02-26] MEDS: VALPROIC ACID 250 MG/5 ML UDC GT SCH ×3 (08:47→16:58)
[2022-02-26] MEDS: BENZTROPINE 1 MG TAB GT SCH ×2 (08:47→20:44)
[2022-02-26] MEDS: propylthiouraciL 50 MG TAB PO SCH (08:48)
[2022-02-26] MEDS: risperiDONE 1 MG TAB PO SCH ×2 (08:48→20:45)
[2022-02-26] MEDS: diazePAM 5 MG TAB GT SCH ×3 (08:48→16:58)
[2022-02-26] MEDS: BACLOFEN 10 MG TAB PO SCH (08:48)
--- NOTE | 2022-02-26 09:00 | NUR ---
ALL SCHEDULED MEDS GIVEN. PT IS STABLE. NO DISTRESS NOTED. WILL CONTINUE TO MONITOR.
[2022-02-26 12:00] VITALS: BP_SYST 131; BP_DIAS 7; BP_DIAS 77
--- NOTE | 2022-02-26 12:30 | NUR ---
ALL SCHEDULED MEDS GIVEN. PT IS STABLE. NO DISTRESS NOTED. WILL CONTINUE TO MONITOR.
[2022-02-26] MEDS: POTASSIUM CHLORIDE 20% 40 MEQ/15 ML UDC GT PRN (12:41)
--- NOTE | 2022-02-26 13:20 | NUR ---
02/26/22 RD FOLLOW UP COMPLETED PLEASE REFER TO NUTRITION ASSESSMENT UNDER CARE ACTIVITY FOR ESTIMATED NUTRITIONAL NEEDS. 1. CONTINUE VITAL AF 1.2 @ 50 ML/HR TOLERATED -FWF: 150 ML Q4H -PROVIDES 1440 KCAL AND 90 GM PROTEIN, MEETING 89% ESTIMATED KCAL AND 100% ESTIMATED PROTEIN NEEDS; ADEQUATE 2. MONITOR GI SYMPTOMS AND GASTRIC RESIDUALS 3. RD TO FOLLOW-UP 2-3 DAYS, HIGH RISK LEONCIO SU RD
--- NOTE | 2022-02-26 14:10 | NUR ---
ASSISTED WITH CHANGING PATIENT. KEPT PATIENT CLEAN AND DRY. NO SIGNS OF SKIN BREAKDOWN. WILL CONTINUE TO MONITOR.
[2022-02-26 16:00] VITALS: BP 116/79
--- NOTE | 2022-02-26 17:30 | NUR ---
CHECKED ON PATIENT. PT IS STABLE. NO DISTRESS NOTED. WILL CONTINUE TO MONITOR.
--- NOTE | 2022-02-26 19:23 | NUR ---
ENDORSED TO CISCO CERTIFIED INTERNETWORK EXPERT NURSE FOR CONTINUITY OF CARE. PT IS STABLE.
--- NOTE | 2022-02-26 19:27 | NUR ---
RECEIVED REPORT FROM DAY SHIFT NURSE FOR CONTINUITY OF CARE. PT NON-VERBAL, ON TRACH TO VENT, FIO2 24%. G-TUBE FEEDING VITAL AF 1.2 RUNNING 50MLS/HR. ALL SAFETY MEASURES IN PLACE. WILL CONTINUE TO MONITOR.
[2022-02-26 20:00] VITALS: BP 139/96
--- NOTE | 2022-02-26 21:30 | NUR ---
DUE MEDICATIONS GIVEN. NO RESIDUAL NOTED. PT TOLERATED WELL. WILL CONTINUE TO MONITOR.
[2022-02-27] VITALS: BP 120/91
--- NOTE | 2022-02-27 | NUR ---
VITAL STABLE. NO S/SX OF DISTRESS. GIVEN PRN AMBIEN FOR SLEEP. WILL CONTINUE TO MONITOR.
[2022-02-27 04:00] VITALS: BP 137/89
[2022-02-27] MEDS: PIPERACILLIN/TAZOBACTAM 3.375 GM in DEXTROSE 5% 50 ML IV SCH ×3 (05:12→20:42)
--- NOTE | 2022-02-27 05:12 | NUR ---
TUBE FEEDING CHANGED. PT TOLERATED WELL. WILL CONTINUE TO MONITOR.
--- NOTE | 2022-02-27 06:00 | NUR ---
DUE MEDICATIONS GIVEN. NO RESIDUAL NOTED. PT CLEANED AND REPOSITIONED.PT TOLERATED WELL. WILL CONTINUE TO MONITOR
[2022-02-27] MEDS: LANSOPRAZOLE 30 MG CAPDR PO SCH (06:08)
--- NOTE | 2022-02-27 06:53 | NUR ---
PT IS STABLE. NO ACUTE EVENTS THROUGHOUT THE NIGHT. NO S/SX OF DISTRESS NOTED. NO COMPLAINS OF PAIN AT THIS MOMENT. ALL NEEDS ATTENDED. ALL PRECAUTIONS IN PLACE. WILL ENDORSE TO AM SHIFT NURSE.
[2022-02-27 07:06] LABS: BASOPHILS # (AUTO) 0.1 K/uL (0.00-0.22); BASOPHILS % (AUTO) 0.6 % (0.0-2.0); EOSINOPHILS # (AUTO) 0.3 K/uL (0-0.4); EOSINOPHILS % (AUTO) 2.9 % (0.0-4.0); HEMOGLOBIN 10.5 g/dL (12.0-18.0); LYMPHOCYTES # (AUTO) 1.9 K/uL (2.0-11.5); LYMPHOCYTES % (AUTO) 18.8 % (20.5-51.1); MEAN CORPUSCULAR HEMOGLOBIN 29 pg (27-31); MEAN CORPUSCULAR HGB CONC 34 g/dL (33-37); MEAN CORPUSCULAR VOLUME 85.8 fL (80-94); MONOCYTES # (AUTO) 0.6 K/uL (0.8-1.0); NEUTROPHILS # (AUTO) 7.3 K/uL (1.8-7.7); NEUTROPHILS % (AUTO) 71.7 % (42.2-75.2); PLATELET COUNT (AUTO) 269 K/uL (140-450); RED BLOOD CELL COUNT(AUTO) 3.61 MIL/uL (4.20-6.10); WHITE BLOOD COUNT (AUTO) 10.2 K/uL (4.8-10.8)
[2022-02-27 07:10] LABS: ANION GAP 15.4 (8-16); CARBON DIOXIDE 21.6 mmol/L (21-32); CREATININE 0.4 mg/dL (0.6-1.3)
[2022-02-27 07:27] LABS: MAGNESIUM 2.1 mg/dL (1.8-2.4); PHOSPHORUS 3.1 mg/dL (2.5-4.9)
[2022-02-27 08:00] VITALS: BP 135/83
--- NOTE | 2022-02-27 08:00 | NUR ---
RECEIVED REPORT FROM [facility]. PT RESPONSIVE TO VERBAL STIMULI. HOB ELEVATED. NO SOB OR RESPIRATORY DISTRESS. TRACH TO VENT. FIO2 @ 21%. GTUBE FEEDING INFUSING. NO SIGNS OF NAUSEA. IVF INFUSING. DRESSING C/D/I. NEEDS ALL MET AT THIS TIME. SAFETY MEASURES IN PLACE. WILL CONTINUE TO MONITOR CLOSELY.
--- NOTE | 2022-02-27 08:26 | NUR ---
RECEIVED PT ON PC 26, RR18, +5, AND 24% FIO2. AWAKE AND IN NO DISTRESS. CHANGED OUT DRAIN SPONGE, ORAL CARE AND SUCTIONED MODERATE AMOUNT OF YELLOW SECRETIONS.
[2022-02-27] MEDS: diazePAM 5 MG TAB GT SCH ×3 (09:22→17:35)
[2022-02-27] MEDS: VALPROIC ACID 250 MG/5 ML UDC GT SCH ×3 (09:22→17:35)
[2022-02-27] MEDS: BENZTROPINE 1 MG TAB GT SCH ×2 (09:22→20:41)
[2022-02-27] MEDS: propylthiouraciL 50 MG TAB PO SCH (09:23)
[2022-02-27] MEDS: risperiDONE 1 MG TAB PO SCH ×2 (09:23→20:42)
[2022-02-27] MEDS: BACLOFEN 10 MG TAB PO SCH (09:23)
[2022-02-27] MEDS: POTASSIUM CHLORIDE 20% 40 MEQ/15 ML UDC GT PRN (09:23)
--- NOTE | 2022-02-27 09:35 | NUR ---
SCHEDULED MEDS GIVEN VIA GTUBE. 0 ML RESIDUAL. PT TOLERATED WELL. HOB ELEVATED. TRACH TO VENT. PT IN NO DISTRESS. NEEDS ALL MET. SOFT WRIST RESTRAINTS IN PLACE. BILATERAL UPPER EXTREMITIES WITH GOOD C/S/M. SAFETY MEASURES IN PLACE.
[2022-02-27 12:00] VITALS: BP 125/91
--- NOTE | 2022-02-27 12:00 | NUR ---
PT RESTING. HOB ELEVATED. NO SOB OR RESPIRATORY DISTRESS. TRACH TO VENT. 0 RESIDUAL OF GTUBE FEEDING. PT TOLERATING WELL. IVF INFUSING. PT WITH GOOD C/S/M ON BILATERAL UPPER EXTREMITIES. NEEDS ALL MET AT THIS TIME. SAFETY MEASURES IN PLACE.
[2022-02-27] MEDS: NACL 0.9% 1,000 ML IV SCH (12:15)
[2022-02-27 16:00] VITALS: BP 120/98
--- NOTE | 2022-02-27 18:40 | NUR ---
PT WITH 0 RESIDUAL VIA GTUBE. HOB ELEVATED. TOLERATING GTUBE FEEDING. IVF INFUSING. TRACH TO VENT. NO SOB OR RESPIRATORY DISTRESS NOTED. BILATERAL SOFT RESTRAINTS IN PLACE. PT WITH GOOD C/S/M ON BILATERAL EXTREMITIES. ROUNDS CONDUCTED THROUGHOUT MY SHIFT. SAFETY MEASURES IN PLACE.
--- NOTE | 2022-02-27 19:00 | NUR ---
REPORT GIVEN TO NIGHTSHIFT RN FOR CONTINUITY OF CARE.
[2022-02-27 20:00] VITALS: BP 139/85
--- NOTE | 2022-02-27 20:00 | NUR ---
RECEIVED REPORT FROM DAY SHIFT NURSE FOR CONTINUITY OF CARE. PT NON-VERBAL, ON TRACH TO VENT, FIO2 24%. G-TUBE FEEDING VITAL AF 1.2 RUNNING 50MLS/HR. ST ON TELE 111.ALL SAFETY MEASURES IN PLACE. WILL CONTINUE TO MONITOR.
[2022-02-27] MEDS ORDERED: CRUSHER, PILL MC ONE (20:38)
--- NOTE | 2022-02-27 21:00 | NUR ---
DUE MEDICATIONS GIVEN. 15MLS RESIDUAL ASPIRATED. PT TOLERATED WELL. WILL CONTINUE TO MONITOR.
[2022-02-28] VITALS: BP 127/91
--- NOTE | 2022-02-28 | NUR ---
VITAL STABLE.PT ASLEEP. NO S/SX OF DISTRESS.BREATHING EQUAL AND UNLABORED.ALL PRECAUTIONS IN PLACE.WILL CONTINUE TO MONITOR
--- NOTE | 2022-02-28 02:23 | NUR ---
CLEANED AND CHANGED. PT TOLERATED WELL. NO DISTRESS NOTED. ALL PRECAUTIONS IN PLACE. WILL CONTINUE TO MONITOR.
[2022-02-28 04:00] VITALS: BP 120/94
[2022-02-28] MEDS: LANSOPRAZOLE 30 MG CAPDR PO SCH (05:54)
--- NOTE | 2022-02-28 05:54 | NUR ---
TUBE FEEDING CHANGED. PT TOLERATED WELL. WILL CONTINUE TO MONITOR.
--- NOTE | 2022-02-28 05:58 | NUR ---
DUE MEDICATIONS GIVEN. PT TOLERATED WELL. NO DISTRESS NOTED.WILL CONTINUE TO MONITOR.
[2022-02-28] MEDS: NACL 0.9% 1,000 ML IV SCH ×2 (06:32→23:05)
[2022-02-28 07:08] LABS: BASOPHILS % (AUTO) 0.5 % (0.0-2.0); EOSINOPHILS # (AUTO) 0.6 K/uL (0-0.4); HEMATOCRIT 27.8 % (36-52); HEMOGLOBIN 9.6 g/dL (12.0-18.0); LYMPHOCYTES # (AUTO) 2.3 K/uL (2.0-11.5); LYMPHOCYTES % (AUTO) 35.2 % (20.5-51.1); MEAN CORPUSCULAR HEMOGLOBIN 30 pg (27-31); MEAN CORPUSCULAR HGB CONC 35 g/dL (33-37); MEAN CORPUSCULAR VOLUME 86.2 fL (80-94); MONOCYTES # (AUTO) 0.4 K/uL (0.8-1.0); MONOCYTES % (AUTO) 6.1 % (1.7-9.3); NEUTROPHILS # (AUTO) 3.3 K/uL (1.8-7.7); NEUTROPHILS % (AUTO) 49.2 % (42.2-75.2); PLATELET COUNT (AUTO) 276 K/uL (140-450); RED BLOOD CELL COUNT(AUTO) 3.22 MIL/uL (4.20-6.10); WHITE BLOOD COUNT (AUTO) 6.7 K/uL (4.8-10.8)
[2022-02-28 07:17] LABS: MAGNESIUM 1.9 mg/dL (1.8-2.4)
[2022-02-28 07:20] LABS: ANION GAP 15.8 (8-16); CARBON DIOXIDE 20.6 mmol/L (21-32); CREATININE 0.4 mg/dL (0.6-1.3); POTASSIUM 3.4 mmol/L (3.5-5.1)
[2022-02-28 08:00] VITALS: BP 133/91
--- NOTE | 2022-02-28 08:00 | NUR ---
RECEIVED REPORT FROM NIGHTSHIFT RN. PT RESPONSIVE TO VERBAL STIMULI. HOB ELEVATED. NO SOB OR RESPIRATORY DISTRESS. TRACH TO VENT. FIO2 @ 24%. GTUBE FEEDING INFUSING. 0 RESIDUAL. NO SIGNS OF NAUSEA. IVF INFUSING. DRESSING C/D/I. BILATERAL SOFT WRIST RESTRAINTS ON WITH GOOD C/S/M. NEEDS ALL MET AT THIS TIME. SAFETY MEASURES IN PLACE. WILL CONTINUE TO MONITOR CLOSELY.
[2022-02-28] MEDS: BACLOFEN 10 MG TAB PO SCH (08:48)
[2022-02-28] MEDS: VALPROIC ACID 250 MG/5 ML UDC GT SCH ×3 (08:48→16:45)
[2022-02-28] MEDS: risperiDONE 1 MG TAB PO SCH ×2 (08:49→21:00)
[2022-02-28] MEDS: propylthiouraciL 50 MG TAB PO SCH (08:49)
[2022-02-28] MEDS: diazePAM 5 MG TAB GT SCH ×3 (08:49→16:46)
[2022-02-28] MEDS: BENZTROPINE 1 MG TAB GT SCH ×2 (08:50→21:00)
[2022-02-28] MEDS: SCOPOLAMINE 1.5 MG/72 HR PATCH TD SCH (08:55)
[2022-02-28] MEDS ORDERED: bisacodyL 10 MG SUPP RC PRN (09:00)
[2022-02-28] MEDS ORDERED: bisacodyL 10 MG SUPP RC SCH (09:15)
--- NOTE | 2022-02-28 10:56 | NUR ---
RECEIVED ON A [employer]APE R860 VENTILATOR PLUGGED INTO RED OUTLET TOLERATING WELL WITHOUT ADVERSE REACTIONS NOTED TO A ALYSSALEY #8 AIRWAY SECURED WITH A MARGO TRACH TIE CUFF PRESSURE CHECKED NOTED AMBI BAG AT BEDSIDE RESTING WELL GOOD CHEST RISE NO SUCTIONING AT THIS TIME AIRWAY PATENT JOB HONER TO MONITOR
[2022-02-28 12:00] VITALS: BP 132/97
--- NOTE | 2022-02-28 13:00 | NUR ---
PT REPOSITIONED. HOB ELEVATED. IN NO DISTRESS. FIO2 24%. VSS. 0 ML RESIDUAL VIA GTUBE. GTUBE FEEDING RESTARTED. NEEDS ALL MET. SAFETY MEASURES IN PLACE. WILL MONITOR.
[2022-02-28] MEDS: DOCUSATE 100 MG/10 ML UDC GT SCH ×2 (13:04→21:00)
[2022-02-28 16:00] VITALS: BP 151/102
--- NOTE | 2022-02-28 16:00 | NUR ---
CONTACTED DR YIP REGARDING PT'S HEART RATE IN THE 120'S. DR YORK FOR EKG.
[2022-02-28] MEDS: POTASSIUM CHLORIDE 20% 40 MEQ/15 ML UDC GT PRN (16:45)
--- NOTE | 2022-02-28 17:33 | NUR ---
RESTING COMFORTABLY TOLERATING VENTILATORY SUPPORT WITHOUT COMPLICATIONS NOTED EQUAL CHEST RISE DEEP TRACHEAL SUCTION FOR LARGE THIN PALE YELLOW SECRETIONS AIRWAY PATENT
--- NOTE | 2022-02-28 18:15 | NUR ---
CONTACTED DR. YIP AND DR. MCFARLAND AND ENDORSED EKG RESULTS. NEW ORDERS INPUTTED. SEE ORDER HISTORY.
--- NOTE | 2022-02-28 18:35 | NUR ---
KUB COMPLETED AT BEDSIDE.
--- NOTE | 2022-02-28 18:47 | NUR ---
GTUBE DRESSING CHANGED. CLEANSED SITE WITH NS, PAT DRY WITH GAUZE, DRESSING APPLIED. PT WITH 0 ML RESIDUAL. HOB ELEVATED. NO SOB. IN NO ACUTE DISTRESS. TRACH TO VENT. FIO2 24%. HR CURRENTLY 118. PT REPOSITIONED. NEEDS ALL MET. WILL ENDORSE POC TO NIGHTSHIFT.
--- NOTE | 2022-02-28 19:33 | NUR ---
REPORT GIVEN TO NIGHTSHIFT RNTIRSO FOR CONTINUITY OF CARE.
[2022-02-28 20:00] VITALS: BP 130/72
[2022-02-28] MEDS: METOPROLOL 25 MG TAB GT SCH (21:00)
[2022-03-01] VITALS: BP 127/70
--- NOTE | 2022-03-01 | NUR ---
PATIENT AWAKE NOT ALERT HAS TRACH TO VENT AC 16, TV 500, FI02 24%, PEEP5, SAT 100%. LUNGS DIMINISH SINUS TACH. TEMP 97 HAS NS INFUSING IN LEFT FINGER 22GA. PATIENT. PATIENT HAS VITAL 50 HOUR 10CC RESIDUAL 2000. MID NITE 25CC. PATIENT RECEIVING 120CC H20 Q FOUR HOURS. PATIENT INCONTINENT SKIN INTACT. SUCTION THIN SECRETION, NO DISTRESS NOTED. PATIENT HAS WRIST RESTRAINTS ON BOTH WRIST. PATIENT IS MENTALLY CHALLENGE.
[2022-03-01 04:00] VITALS: BP 129/72
[2022-03-01] MEDS: METOPROLOL 25 MG TAB GT SCH ×3 (05:30→21:34)
[2022-03-01] MEDS: LANSOPRAZOLE 30 MG CAPDR PO SCH (06:30)
[2022-03-01] MEDS: ONDANSETRON 4 MG/2 ML VIAL IM/IVP PRN (06:45)
--- NOTE | 2022-03-01 07:30 | NUR ---
RECEIVED PATIENT FROM CORE MICROARCHITECT NURSE FOR CONTINUITY OF CARE. PT IS AOX1, NONVERBAL. ABLE TO TRACK WITH EYES. RESPIRATIONS EVEN AND UNLABORED. ON TRACH TO VENT AC/PRVC FIO2 24%, RATE 16, PEEP 5. NO DISTRESS NOTED. SKIN IS WARM, DRY, AND INTACT. IV SITE ON L INDEX FINGER INFUSING FLUIDS WELL. G-TUBE IN PLACE INFUSING TUBE FEEDING, NO RESIDUAL NOTED. FLACC 0. PLAN OF CARE DISCUSSED. SAFETY PRECAUTIONS IN PLACE. CALL LIGHT WITHIN REACH. WILL CONTINUE TO MONITOR.
--- NOTE | 2022-03-01 07:40 | NUR ---
RECEIVED ON A GE CARESCAPE R860 WITH COMPRESSOR ON AND FUNCTIONING WELL PLUGGED INTO RED OUTLET TOLERATING WELL WITHOUT ADVERSE REACTIONS NOTED TO SELENA #8 AIRWAY SECURED WITH A MARGO TRACH TIE CUFF PRESSURE CHECKED NOTED AMBU BAG AT BEDSIDE LOC AWAKE GOOD CHEST RISE DEEP TRACHEAL SUCTION FOR LARGE THIN/FROTHY PALE YELLOW SECRETIONS AIRWAY PATENT PATIENT PRESENTING WITH EMESIS AT THIS TIME TRACH CARE PROVIDED KENNEDI/RN AWARE
--- NOTE | 2022-03-01 07:41 | NUR ---
WITH EPISODE OF EMESIS, WILL GIVE ZOFRAN WHEN DUE, TUBE FEEDING TURNED OFF, ORAL CARE AND TRACH CARE DONE BY RT
[2022-03-01 08:00] VITALS: BP 114/64
[2022-03-01] MEDS: risperiDONE 1 MG TAB PO SCH ×2 (09:00→21:34)
[2022-03-01] MEDS: BACLOFEN 10 MG TAB PO SCH (09:00)
[2022-03-01] MEDS: propylthiouraciL 50 MG TAB PO SCH (09:00)
[2022-03-01 09:15] LABS: BASOPHILS # (AUTO) 0.1 K/uL (0.00-0.22); BASOPHILS % (AUTO) 0.5 % (0.0-2.0); EOSINOPHILS # (AUTO) 0.3 K/uL (0-0.4); EOSINOPHILS % (AUTO) 2.6 % (0.0-4.0); HEMATOCRIT 34.4 % (36-52); HEMOGLOBIN 11.5 g/dL (12.0-18.0); LYMPHOCYTES # (AUTO) 1.4 K/uL (2.0-11.5); LYMPHOCYTES % (AUTO) 13.8 % (20.5-51.1); MEAN CORPUSCULAR HEMOGLOBIN 29 pg (27-31); MEAN CORPUSCULAR HGB CONC 33 g/dL (33-37); MEAN CORPUSCULAR VOLUME 86.5 fL (80-94); MONOCYTES # (AUTO) 0.6 K/uL (0.8-1.0); MONOCYTES % (AUTO) 5.7 % (1.7-9.3); NEUTROPHILS # (AUTO) 7.9 K/uL (1.8-7.7); NEUTROPHILS % (AUTO) 77.4 % (42.2-75.2); PLATELET COUNT (AUTO) 323 K/uL (140-450); RED BLOOD CELL COUNT(AUTO) 3.98 MIL/uL (4.20-6.10); WHITE BLOOD COUNT (AUTO) 10.2 K/uL (4.8-10.8)
--- NOTE | 2022-03-01 09:20 | NUR ---
DUE MEDS GIVEN VIA GT, TOLERATED WELL
[2022-03-01 09:55] LABS: ANION GAP 13.1 (8-16); CARBON DIOXIDE 28.1 mmol/L (21-32); CREATININE 0.5 mg/dL (0.6-1.3); POTASSIUM 3.2 mmol/L (3.5-5.1)
[2022-03-01] MEDS: DOCUSATE 100 MG/10 ML UDC GT SCH ×2 (09:59→21:00)
[2022-03-01] MEDS: diazePAM 5 MG TAB GT SCH ×3 (09:59→16:56)
[2022-03-01] MEDS: VALPROIC ACID 250 MG/5 ML UDC GT SCH ×3 (09:59→16:56)
[2022-03-01] MEDS: BENZTROPINE 1 MG TAB GT SCH ×2 (09:59→21:32)
[2022-03-01] MEDS ORDERED: POLYETHYLENE GLYCOL 17 GM/PKT PO SCH (10:15)
[2022-03-01] MEDS ORDERED: SODIUM PHOSPHATE 118 ML ENEM RC SCH (10:15)
--- NOTE | 2022-03-01 10:25 | NUR ---
(03/01/22) RD FOLLOW UP COMPLETED PLEASE REFER TO NUTRITION PROGRESS NOTE UNDER CARE ACTIVITY FOR ESTIMATED NUTRITION NEEDS. RD RECOMMENDATIONS: 1. CONTINUE VITAL AF 1.2 @ 50 ML/HR TOLERATED -FWF: 150 ML Q4H -PROVIDES 1440 KCAL AND 90 GM PROTEIN, MEETING 89% ESTIMATED KCAL AND 100% ESTIMATED PROTEIN NEEDS; ADEQUATE 2. MONITOR GI SYMPTOMS AND GASTRIC RESIDUALS 3. RD TO FOLLOW-UP 2-3 DAYS, HIGH RISK JOAN DAVIS, , RDN
--- NOTE | 2022-03-01 11:21 | NUR ---
NO INDICATION FOR PULMONARY DISTRESS NOTED EQUAL CHEST RISE DEEP TRACHEA; SUCTION FOR LARGE THIN/FROTHY SECRETIONS AIRWAY PATENT
[2022-03-01 12:00] VITALS: BP 119/87
[2022-03-01] MEDS ORDERED: HYDRAGUARD CREAM TP SCH (12:15)
--- NOTE | 2022-03-01 12:17 | NUR ---
PT ASLEEP IN BED AT THIS TIME, NO APPARENT DISTRESS
--- NOTE | 2022-03-01 13:00 | NUR ---
ENEMA GIVEN ORDERED
--- NOTE | 2022-03-01 13:50 | NUR ---
PT WAS STABLE ASLEEP. SUCTIONED FOR MODERATE CLEAR FROTHY SECRETIONS. CHEST HAD EVEN CHEST RISE. TATI PERAZA
--- NOTE | 2022-03-01 14:00 | NUR ---
WITH MODERATE BM, NITISH CARE DONE
[2022-03-01] MEDS: NACL 0.9% 1,000 ML IV SCH (14:58)
[2022-03-01 16:00] VITALS: BP 120/87
--- NOTE | 2022-03-01 17:31 | NUR ---
STABLE RESTING COMFORTABLY TOLERATING VENTILATORY SUPPORT WITHOUT ADVERSE REACTIONS NOTED EQUAL CHEST RISE DEEP TRACHEAL SUCTION FOR SMALL THIN PALE YELLOW SECRETIONS AIRWAY PATENT
--- NOTE | 2022-03-01 18:41 | NUR ---
RESPIRATIONS EVEN AND UNLABORED WITH NO APPARENT S/SX OF ACUTE DISTRESS.
[2022-03-01] MEDS: POTASSIUM CHLORIDE 20% 40 MEQ/15 ML UDC GT PRN (19:30)
[2022-03-01 20:00] VITALS: BP 119/72
[2022-03-01] MEDS: POLYETHYLENE GLYCOL 17 GM/PKT GT SCH (21:00)
--- NOTE | 2022-03-01 22:35 | NUR ---
PATIENT SLEEPING HAS TRACH TO VENT RATE 16, TV 500, FI02 24% PEEP 5 SAT 98% LUNGS DIMINISH ON MONITOR SINUS TEMP 97.3 HAS GT-TUBE VITAL 50 HOUR INFUSING WITH WATER FLUSH 120 CC EVERY FOUR HOURS. 1999 NO RESIDUAL. HAS NS INFUSING 60 HOUR. NO DISTRESS NOTED.
[2022-03-02] VITALS: BP 104/54
[2022-03-02] MEDS: LORazepam 2 MG/ML VIAL IM/IVP PRN ×2 (02:51→11:02)
[2022-03-02 04:00] VITALS: BP 106/55
[2022-03-02] MEDS: METOPROLOL 25 MG TAB GT SCH ×3 (04:51→21:06)
[2022-03-02] MEDS: ONDANSETRON 4 MG/2 ML VIAL IM/IVP PRN (05:45)
[2022-03-02] MEDS: LANSOPRAZOLE 30 MG CAPDR PO SCH (06:15)
[2022-03-02] MEDS: NACL 0.9% 1,000 ML IV SCH (06:48)
--- NOTE | 2022-03-02 07:30 | NUR ---
RECEIVED PATIENT FROM PERMIT AGENT NURSE FOR CONTINUITY OF CARE. PT IS AOX1, NONVERBAL. ABLE TO TRACK WITH EYES. RESPIRATIONS EVEN AND UNLABORED. ON TRACH TO VENT AC/PRVC FIO2 24%, VT 500 RATE 16, PEEP 5. NO DISTRESS NOTED. SKIN IS WARM, DRY, AND INTACT. IV SITE ON L INDEX FINGER INFUSING FLUIDS WELL. G-TUBE IN PLACE INFUSING TUBE FEEDING, NO RESIDUAL NOTED. FLACC 0. PLAN OF CARE DISCUSSED. SAFETY PRECAUTIONS IN PLACE. CALL LIGHT WITHIN REACH. WILL CONTINUE TO MONITOR.
[2022-03-02 08:00] VITALS: BP 138/90
--- NOTE | 2022-03-02 09:45 | NUR ---
ALL SCHEDULED MEDS GIVEN. PT IS STABLE. NO DISTRESS NOTED. WILL CONTINUE TO MONITOR.
[2022-03-02] MEDS: diazePAM 5 MG TAB GT SCH ×3 (09:46→16:58)
[2022-03-02] MEDS: BACLOFEN 10 MG TAB PO SCH (09:47)
[2022-03-02] MEDS: BENZTROPINE 1 MG TAB GT SCH ×2 (09:47→21:06)
[2022-03-02] MEDS: risperiDONE 1 MG TAB PO SCH ×2 (09:47→21:05)
[2022-03-02] MEDS: POLYETHYLENE GLYCOL 17 GM/PKT GT SCH ×2 (09:50→21:07)
[2022-03-02] MEDS: VALPROIC ACID 250 MG/5 ML UDC GT SCH ×3 (09:50→16:58)
[2022-03-02] MEDS: propylthiouraciL 50 MG TAB PO SCH (09:51)
[2022-03-02] MEDS: DOCUSATE 100 MG/10 ML UDC GT SCH ×2 (09:59→21:07)
--- NOTE | 2022-03-02 11:02 | NUR ---
PATIENT SHOWED INCREASED AGITATION. ADMINISTERED PRN ATIVAN PER MD ORDERED
[2022-03-02 12:00] VITALS: BP 113/70
[2022-03-02] MEDS: POTASSIUM CHLORIDE 20% 40 MEQ/15 ML UDC GT PRN (12:36)
--- NOTE | 2022-03-02 15:45 | NUR ---
CHECKED ON PATIENT. PT IS STABLE. NO DISTRESS NOTED. WILL CONTINUE TO MONITOR.
[2022-03-02 16:00] VITALS: BP 136/97
--- NOTE | 2022-03-02 17:30 | NUR ---
GET REPORT FROM MORNING NURSE ANNAMARIE, WILL CONTINUE TO MONITOR PATIENT. Addendum: 03/02/22 at 2136 by Precious Aguirre RN THIS IS FOR 0 ACCIDENTALLY PUT WRONG TIME.
--- NOTE | 2022-03-02 18:00 | NUR ---
DR. SANDOVAL AT PATIENT'S BEDSIDE ASSESSING PATIENT.
[2022-03-02] MEDS ORDERED: KCL 20 MEQ/WATER INJ PREMIX 200 ML IV ONE ×2 (18:20)
[2022-03-02] MEDS ORDERED: KCL 20 MEQ/WATER INJ PREMIX 200 ML IV SCH (18:40)
[2022-03-02 19:09] LABS: BASOPHILS % (AUTO) 0.5 % (0.0-2.0); EOSINOPHILS # (AUTO) 0.3 K/uL (0-0.4); EOSINOPHILS % (AUTO) 3.7 % (0.0-4.0); HEMATOCRIT 29.9 % (36-52); HEMOGLOBIN 10.2 g/dL (12.0-18.0); LYMPHOCYTES # (AUTO) 2.1 K/uL (2.0-11.5); LYMPHOCYTES % (AUTO) 26.6 % (20.5-51.1); MEAN CORPUSCULAR HEMOGLOBIN 30 pg (27-31); MEAN CORPUSCULAR HGB CONC 34 g/dL (33-37); MEAN CORPUSCULAR VOLUME 86.5 fL (80-94); MONOCYTES # (AUTO) 0.6 K/uL (0.8-1.0); MONOCYTES % (AUTO) 7.2 % (1.7-9.3); NEUTROPHILS # (AUTO) 4.8 K/uL (1.8-7.7); PLATELET COUNT (AUTO) 275 K/uL (140-450); RED BLOOD CELL COUNT(AUTO) 3.46 MIL/uL (4.20-6.10); RED CELL DISTRIBUTION WIDTH 17.2 % (11.6-13.7); WHITE BLOOD COUNT (AUTO) 7.8 K/uL (4.8-10.8)
[2022-03-02 19:18] LABS: CARBON DIOXIDE 22.8 mmol/L (21-32); CREATININE 0.4 mg/dL (0.6-1.3); POTASSIUM 3.8 mmol/L (3.5-5.1)
--- NOTE | 2022-03-02 19:35 | NUR ---
ENDORSED TO TURF FARMER NURSE FOR CONTINUITY OF CARE. PT IS STABLE.
[2022-03-02 20:00] VITALS: BP 115/64
--- NOTE | 2022-03-02 20:00 | NUR ---
PATIENT IS LYING ON BED, PATIENT IS ON VENT MODE AC /PRVC . PEEP-5. FIO2 -24 VT-500, PATIENT HAS PATENT G- TUBE,VITAL SIGN IS WITHIN THE NORMAL RANGE, CALL LIGHT IS WITHIN THE RANGE, WILL CONTINUE TO MONITOR PATIENT.
--- NOTE | 2022-03-02 21:27 | NUR ---
ALL SCHEDULE MEDICATION IS GIVEN PER DOCTOR ORDER,WILL CONTINUE TO MONITOR PATIENT.
[2022-03-03] VITALS: BP 104/61
--- NOTE | 2022-03-03 | NUR ---
PATIENT IS LYING ON BED, VITAL SIGH IS WITHIN THE NORMAL RANGE ,CALL LIGHT IS WITHIN THE REACH,WILL CONTINUE TO MONITOR PATIENT.
[2022-03-03] MEDS: NACL 0.9% 1,000 ML IV SCH (00:35)
[2022-03-03 04:00] VITALS: BP 139/97
--- NOTE | 2022-03-03 04:00 | NUR ---
PATIENT IS LYING ON BED, VITAL SIGH IS WITHIN THE NORMAL RANGE ,CALL LIGHT IS WITHIN THE REACH,WILL CONTINUE TO MONITOR PATIENT.
[2022-03-03] MEDS: METOPROLOL 25 MG TAB GT SCH ×2 (05:40→13:00)
[2022-03-03] MEDS: LANSOPRAZOLE 30 MG CAPDR PO SCH (05:41)
--- NOTE | 2022-03-03 06:18 | NUR ---
PATIENT IS LYING ON BED, VITAL SIGH IS WITHIN THE NORMAL RANGE ,ALL SCHEDULE MEDS ARE GIVEN PER DR ORDER,CALL LIGHT IS WITHIN THE REACH,WILL CONTINUE TO MONITOR PATIENT.
--- NOTE | 2022-03-03 07:18 | NUR ---
GAVE REPORT MORNING NURSE MAGDY FOR CONTINUS OF CARE,PATIENT IS STABLE.
--- NOTE | 2022-03-03 08:14 | NUR ---
REPORT RECEIVED, PT AWAKE IN BED, [id number]
[2022-03-03] MEDS: DOCUSATE 100 MG/10 ML UDC GT SCH (09:00)
[2022-03-03] MEDS: diazePAM 5 MG TAB GT SCH ×2 (09:00→13:18)
[2022-03-03] MEDS: SCOPOLAMINE 1.5 MG/72 HR PATCH TD SCH ×3 (09:00→13:18)
[2022-03-03] MEDS: POLYETHYLENE GLYCOL 17 GM/PKT GT SCH (09:00)
[2022-03-03] MEDS: BENZTROPINE 1 MG TAB GT SCH (09:00)
[2022-03-03] MEDS: risperiDONE 1 MG TAB PO SCH (09:00)
[2022-03-03] MEDS: BACLOFEN 10 MG TAB PO SCH (09:00)
[2022-03-03] MEDS: VALPROIC ACID 250 MG/5 ML UDC GT SCH ×2 (09:00→13:18)
[2022-03-03] MEDS ORDERED: BISA-218 RC (09:32)
[2022-03-03] MEDS ORDERED: PHEN20EL30 GT (09:32)
[2022-03-03] MEDS ORDERED: VALP-22 GT (09:32)
[2022-03-03] MEDS ORDERED: POLY17PD46 GT (09:32)
[2022-03-03] MEDS ORDERED: METO25TA GT (09:32)
[2022-03-03] MEDS ORDERED: LANS30EC68 PO (09:32)
[2022-03-03] MEDS ORDERED: DOCU150L25 GT (09:32)
[2022-03-03] MEDS: propylthiouraciL 50 MG TAB PO SCH (09:39)
[2022-03-03] MEDS: ONDANSETRON 4 MG/2 ML VIAL IM/IVP PRN (11:05)
[2022-03-03 12:36] VITALS: BP 111/67
--- NOTE | 2022-03-03 16:36 | NUR ---
PT LEFT TI [facility] WITH AMBULANCE , iV [id number]
== END 2022-03-03 15:57 | DRG 720 ==
LOC: MED 03:46 → MIC 08:47 → MTU 20:40
PROC: 5A1955Z Respiratory Ventilation, Greater than 96 Consecutive Hours (ICD-10-PCS; principal; 2022-02-23)
DX: A41.9 Sepsis, unspecified organism (principal); J18.9 Pneumonia, unspecified organism; J96.10 Chronic respiratory failure, unspecified whether with hypoxia or hypercapnia; J44.9 Chronic obstructive pulmonary disease, unspecified; E87.0 Hyperosmolality and hypernatremia; K56.7 Ileus, unspecified; K92.0 Hematemesis; E86.0 Dehydration; E83.41 Hypermagnesemia; F29 Unspecified psychosis not due to a substance or known physiological condition; F79 Unspecified intellectual disabilities; G40.909 Epilepsy, unspecified, not intractable, without status epilepticus; I10 Essential (primary) hypertension; R25.2 Cramp and spasm; E87.6 Hypokalemia; G80.9 Cerebral palsy, unspecified; K21.9 Gastro-esophageal reflux disease without esophagitis; Z20.822 Contact with and (suspected) exposure to COVID-19; E05.90 Thyrotoxicosis, unspecified without thyrotoxic crisis or storm; N39.0 Urinary tract infection, site not specified; Z93.1 Gastrostomy status; Z98.2 Presence of cerebrospinal fluid drainage device; Z93.0 Tracheostomy status; Z79.899 Other long term (current) drug therapy; Z86.73 Personal history of transient ischemic attack (TIA), and cerebral infarction without residual deficits
CPT/HCPCS: 36415; 71045; 74018; 74150; 74250; 80048; 80053; 80184; 80305; 81001; 82140; 83036; 83605; 83690; 83735; 83880; 84100; 84134; 84436; 84443; 85025; 85610; 85730; 87040; 93005; 94003; 96374; 96375; 97163-GP; 99285; C9113; J2060; J2405; J2543; J3480; J7060; Q0092

== ENCOUNTER 2022-03-03 21:22 | Emergency (ER) | payer MEDICAID ==
[~2022-03-03] VITALS: Ht 154.9 cm; Wt 49.9 kg
[~2022-03-03 21:22] MED LIST: BACL10TA4 PO; BENZ-315 GT; BISA-218 RC; DIAZ10TA7 GT; DOCU150L25 GT; LANS15EC28 GT; LANS30EC68 PO; METO25TA GT; ONDA-188 IVP; PB65I GT; PHEN20EL30 GT; POLY17PD46 GT; PTU50 PO; RISP0.5T3 PO; SCOP0.333 TD; VALP-22 GT; VALP250S5 GT
[2022-03-03 21:27] VITALS: BP 120/82
--- NOTE | 2022-03-03 21:28 | NUR ---
21 YO/[place] [facility] [place]OD[place] OF EMESIS OF BLOOD DESCRIBED TARRY DARK RED BLOOD. PER [facility] PT WAS HERE EARLIER TODAY AT 1600 AND DISCHARGED. PT IS TRACH TO VENT W SETTINGS AT AC/VC, 50% FiO2, 400Vt, PEEP 5, NON-VERBAL GCS 10, PT HAS G-TUBE. NO SIGNS OF PAIN, N/V AT THIS TIME. PT LAYING IN BED LOCKED IN LOWEST POSITION, X2 SIDERAILS UP, IN GOWN, CONNECTED TO MONITOR. BREATHING EVEN AND UNLABORED. WILL CONTINUE TO MONITOR. NKA PMH: CEREBRAL PALSY, CHRONIC RESP FAILURE, EPILEPSY, HTN(SEE CHART)
--- NOTE | 2022-03-03 21:29 | NUR ---
PT BIBA AND PLACED ON AC/VC 400 +5 f12 50% ALARMS ARE ON AND AUDIBLE VENT PLUGGED INTO RED OUTLET PT HAS PATENT/SECURED SHILEY FLEXIBLE TRACH ( 8CN85h - 7.5 INNER CANNULA) TRACH CUFF WAS DEFLATED AND WAS RE-INFLATED TO MOV AND RECIEVING ADEQUATE VOL AT THIS TIME WILL CONTINUE TO MONITOR
[2022-03-03 21:38] VITALS: BP 120/82
--- NOTE | 2022-03-03 22:11 | NUR ---
VENT SETTING CHANGED TO 30% FiO2, O2 SAT 99%, BREATHING EVEN AND UNLABORED.
[2022-03-03 22:33] LABS: BASOPHILS # (AUTO) 0.1 K/uL (0.00-0.22); BASOPHILS % (AUTO) 0.5 % (0.0-2.0); EOSINOPHILS # (AUTO) 0.1 K/uL (0-0.4); EOSINOPHILS % (AUTO) 1.1 % (0.0-4.0); HEMATOCRIT 33.3 % (36-52); HEMOGLOBIN 11.1 g/dL (12.0-18.0); LYMPHOCYTES # (AUTO) 1.7 K/uL (2.0-11.5); LYMPHOCYTES % (AUTO) 14.3 % (20.5-51.1); MEAN CORPUSCULAR HEMOGLOBIN 29 pg (27-31); MEAN CORPUSCULAR HGB CONC 33 g/dL (33-37); MEAN CORPUSCULAR VOLUME 86.3 fL (80-94); MONOCYTES # (AUTO) 0.8 K/uL (0.8-1.0); MONOCYTES % (AUTO) 6.8 % (1.7-9.3); NEUTROPHILS # (AUTO) 9.1 K/uL (1.8-7.7); NEUTROPHILS % (AUTO) 77.3 % (42.2-75.2); PLATELET COUNT (AUTO) 309 K/uL (140-450); RED BLOOD CELL COUNT(AUTO) 3.87 MIL/uL (4.20-6.10); RED CELL DISTRIBUTION WIDTH 17.5 % (11.6-13.7); WHITE BLOOD COUNT (AUTO) 11.7 K/uL (4.8-10.8)
[2022-03-03 22:55] LABS: PROTHROMBIN TIME 10.5 secs (10.8-13.4)
[2022-03-03 23:02] LABS: ANION GAP 12.9 (8-16); CARBON DIOXIDE 28.4 mmol/L (21-32); POTASSIUM 3.3 mmol/L (3.5-5.1)
[2022-03-03 23:03] LABS: ALBUMIN 3.3 g/dL (3.4-5.0); CREATININE 0.5 mg/dL (0.6-1.3); TOTAL BILIRUBIN 0.2 mg/dL (0.0-1.0)
--- NOTE | 2022-03-03 23:22 | NUR ---
XRAY AT BEDSIDE
--- NOTE | 2022-03-03 23:35 | NUR ---
PT AWAKE IN BED, SMILING, NO SIGNS OF PAIN, NAUSEA, NO EMESIS EPISODES. CONNECTED TO MONITOR, BREATHING EVEN AND UNLABORED. WILL CONTINUE TO MONITOR.
--- NOTE | 2022-03-04 01:15 | NUR ---
SPOKE W PHYLLIS FROM [facility] [place] TO PROVIDE W UPDATE ON PT STATUS DISCHARGE AND INFORMED TRANSPORTATION BACK TO [facility] [place] IS BEING ARRANGED.
[2022-03-04 01:56] VITALS: BP 133/72
--- NOTE | 2022-03-04 03:19 | NUR ---
PT APPEARS TO BE RESTING W EYES CLOSED IN SUPINE POSITION HOB ELEVATED. CONNECTED TO MONITOR. BREATHING EVEN AND UNLABORED. WILL CONTINUE TO MONITOR.
--- NOTE | 2022-03-04 03:22 | NUR ---
Patient discharged with v/s stable. Written and verbal after care instructions sent with [facility] to nursing facility. [facility] transport to senior living. Advised to follow up with PMD.
[2022-03-04 03:27] VITALS: BP 116/79
== END 2022-03-04 03:22 | disposition home or self-care (01) ==
LOC: MED 21:22
DX: R11.10 Vomiting, unspecified (principal); J44.9 Chronic obstructive pulmonary disease, unspecified; K21.9 Gastro-esophageal reflux disease without esophagitis; I10 Essential (primary) hypertension; J96.10 Chronic respiratory failure, unspecified whether with hypoxia or hypercapnia; Z86.73 Personal history of transient ischemic attack (TIA), and cerebral infarction without residual deficits; Z86.69 Personal history of other diseases of the nervous system and sense organs; Z98.890 Other specified postprocedural states; Z79.899 Other long term (current) drug therapy
CPT/HCPCS: 36415; 74018; 80053; 85025; 85610; 85730; 86886; 86900; 86901; 99285; Q0092

== ENCOUNTER 2022-05-17 14:37 | Inpatient (IN) | payer MEDICAID ==
[~2022-05-17] VITALS: Ht 152.4 cm; Wt 63.5 kg
[~2022-05-17 14:37] MED LIST changes: +CALC667C3 PO; +CEFE1SOL IV; +METO-485 PO; -METO25TA GT; +METO50TA99 GT; +PANT40EC PO
[2022-05-17 14:40] VITALS: BP 120/90
[2022-05-17 14:48] VITALS: BP 108/55
--- NOTE | 2022-05-17 14:58 | NUR ---
TRANSFERRED TO RADIOLOGY FOR CT SCAN OF THE HEAD REMOVED FROM VENTILATOR PLACED ON SUPPLEMENTAL OXYGEN VIA E-TANK AT 15 LPM TO E/INLINE SUCTION CATHETER/TRACHEOSTOMY TUBE BAG DEPRESSION EVERY 6 SECONDS TOLERATED TRANSFER AND PROCEDURE WELL WITHOUT ANY COMPLICATIONS SATURATION 100% HR 108 Addendum: 05/17/22 at 1622 by SILVANO CORRECT TRANSFER TIME 9320
--- NOTE | 2022-05-17 15:01 | NUR ---
DR FLOWER AT BEDSIDE EVALUATING PT
--- NOTE | 2022-05-17 15:16 | NUR ---
RAD AT BEDSIDE
--- NOTE | 2022-05-17 16:05 | NUR ---
PATIENT TAKEN TO CT VIA JAYDEN CHIN AND RT ACCOMPANIED PRODUCTION LINE
--- NOTE | 2022-05-17 16:31 | NUR ---
MADELINE SWAB COLLECTED AND WALKED TO LAB
--- NOTE | 2022-05-17 16:55 | NUR ---
LAB BEDSIDE FOR BLOOD DRAW
--- NOTE | 2022-05-17 17:00 | NUR ---
# 15 FR STRAIGHT catheter utilizing sterile technique INSERTED. Immediate return of 20 ML YELLOW CLOUDY urine noted. Urine sample collected and sent to lab. Pt tolerated procedure .
--- NOTE | 2022-05-17 17:10 | NUR ---
21/M [place] [facility] [place] EMS STAFF CALLED 911 STATING PATIENT WAS "MORE ALTERED THAN USUAL." PATIENT IS NONVERBAL AND NONAMBULATORY AT BASELINE, EMS STATING THAT STAFF ALSO STATED "PATIENT APPEARED SOB" PATIENT IS TRACH TO VENT, OXYGEN 99% ON SCENE AND UPON ARRIVAL TO ED. PATIENT PLACED IN GOWN ON BEDSIDE SUPERVISOR COMPUTER OPERATIONS, DR. CHING GUAN UPON PATIENTS ARRIVAL.
[2022-05-17 17:13] LABS: BASOPHILS # (AUTO) 0.1 K/uL (0.00-0.22); BASOPHILS % (AUTO) 0.5 % (0.0-2.0); EOSINOPHILS % (AUTO) 0.3 % (0.0-4.0); HEMATOCRIT 34.5 % (36-52); HEMOGLOBIN 11.1 g/dL (12.0-18.0); LYMPHOCYTES # (AUTO) 2.3 K/uL (2.0-11.5); LYMPHOCYTES % (AUTO) 18.8 % (20.5-51.1); MEAN CORPUSCULAR HEMOGLOBIN 26 pg (27-31); MEAN CORPUSCULAR HGB CONC 32 g/dL (33-37); MEAN CORPUSCULAR VOLUME 81.6 fL (80-94); MONOCYTES # (AUTO) 0.8 K/uL (0.8-1.0); MONOCYTES % (AUTO) 6.4 % (1.7-9.3); PLATELET COUNT (AUTO) 500 K/uL (140-450); RED BLOOD CELL COUNT(AUTO) 4.22 MIL/uL (4.20-6.10); RED CELL DISTRIBUTION WIDTH 18.8 % (11.6-13.7); WHITE BLOOD COUNT (AUTO) 12.1 K/uL (4.8-10.8)
--- NOTE | 2022-05-17 17:30 | NUR ---
PATIENT NOTED WITH RIGHT UPPER ARM PICC LINE, PER DR. CHING BREWSTER OKAY TO BE USED.
[2022-05-17 17:41] VITALS: BP 120/87
[2022-05-17] MEDS ORDERED: METOPROLOL 50 MG TAB GT ONE (18:00)
[2022-05-17] MEDS ORDERED: VALPROIC ACID 250 MG/5 ML UDC GT SCH (18:00)
[2022-05-17 18:18] LABS: APPEARANCE,URINE CLEAR (CLEAR); BILIRUBIN,URINE 1+ (NEGATIVE); BLOOD, URINE NEGATIVE (NEGATIVE); COLOR,URINE DARK YELLOW (YELLOW); LEUKOCYTE ESTERASE ,URINE NEGATIVE (NEGATIVE); NITRITE, URINE NEGATIVE (NEGATIVE); UGLUCOSE NEGATIVE (NEGATIVE)
[2022-05-17] MEDS ORDERED: risperiDONE 1 MG TAB GT SCH (18:25)
[2022-05-17] MEDS ORDERED: CRUSHER, PILL MC ONE (18:26)
[2022-05-17] MEDS ORDERED: METOPROLOL 5 MG/5 ML VIAL IVP ONE (18:40)
--- NOTE | 2022-05-17 19:30 | NUR ---
Pt report given to NENA CARPENTER. Transfer of care at this time.
--- NOTE | 2022-05-17 19:33 | NUR ---
HANDOFF RECEIVED FROM YOUNG CARPENTER
[2022-05-17 19:35] VITALS: BP 110/66
[2022-05-17 20:44] LABS: ALBUMIN 2.8 g/dL (3.4-5.0); ANION GAP 16.2 (8-16); ASPARTATE AMINOTRANSFERASE 19 U/L (15-37); CARBON DIOXIDE 31.3 mmol/L (21-32); CHLORIDE 101 mmol/L (98-107); GFR ARICAN-AMERICAN 120 mL/min (>90); GLUCOSE 94 mg/dL (74-106); SODIUM SERUM 146 mmol/L (136-145); TOTAL BILIRUBIN 0.2 mg/dL (0.0-1.0); UREA NITROGEN, BLOOD 48 mg/dL (7-18)
[2022-05-17 20:48] LABS: POTASSIUM 2.5 mmol/L (3.5-5.1)
--- NOTE | 2022-05-17 20:48 | NUR ---
LAB CALLED CRITICAL VALUE POTASSIUM 2.7 AWARE
[2022-05-17] MEDS ORDERED: POTASSIUM CHLORIDE 20% 40 MEQ/15 ML UDC GT ONE (20:50)
[2022-05-17] MEDS ORDERED: KCL 20 MEQ/WATER INJ PREMIX 100 ML IV ONE ×2 (20:50→20:56)
[2022-05-17] MEDS ORDERED: POTASSIUM CHLORIDE 20% 40 MEQ/15 ML UDC ONE (20:55)
[2022-05-17] MEDS ORDERED: NACL 0.9% 1,000 ML IV ONE (21:35)
[2022-05-17] MEDS ORDERED: CEFEPIME 1,000 MG in DEXTROSE 5% 50 ML IV ONE (22:05)
[2022-05-17] MEDS ORDERED: LACTULOSE 20 GM/30 ML UDC GT ONE (22:10)
[2022-05-17] MEDS ORDERED: CEFEPIME 1,000 MG VIAL ONE (23:31)
[2022-05-17] MEDS ORDERED: LACTULOSE 20 GM/30 ML UDC ONE (23:31)
[2022-05-18] MEDS ORDERED: HYDROcodone/APAP 7.5/325 MG 1 TAB PO PRN (01:05)
[2022-05-18] MEDS ORDERED: ONDANSETRON 4 MG/2 ML VIAL IM/IVP PRN (01:05)
[2022-05-18] MEDS ORDERED: ACETAMINOPHEN 325 MG TAB PO PRN (01:05)
[2022-05-18] MEDS ORDERED: guaiFENesin DM 200/20 MG-10 ML 10 ML UDC PO PRN (01:05)
[2022-05-18] MEDS ORDERED: POTASSIUM CHLORIDE 10 MEQ TABER PO PRN (01:05)
[2022-05-18] MEDS ORDERED: DOCUSATE SODIUM 100 MG GELCAP PO PRN (01:05)
[2022-05-18] MEDS ORDERED: ZOLPIDEM 5 MG TAB PO PRN (01:05)
[2022-05-18] MEDS ORDERED: ALBUTEROL SULFATE/IPRATROPIU 3 ML SOL IH PRN (01:10)
[2022-05-18] MEDS ORDERED: NACL 0.9% 1,500 ML IV ONE (01:10)
[2022-05-18] MEDS ORDERED: BACLOFEN 10 MG TAB PO PRN ×2 (01:15→07:27)
[2022-05-18] MEDS: NACL 0.9% 1,000 ML IV SCH ×3 (01:50→23:19)
[2022-05-18] MEDS ORDERED: PIPERACILLIN/TAZOBACTAM 3.375 GM VIAL IV ONE ×3 (02:29→20:34)
[2022-05-18] MEDS: PIPERACILLIN/TAZOBACTAM 3.375 GM in DEXTROSE 5% 50 ML IV SCH ×4 (02:42→20:38)
[2022-05-18] MEDS ORDERED: CRUSHER, PILL MC ONE (05:14)
[2022-05-18] MEDS: METOPROLOL 50 MG TAB GT SCH ×3 (05:43→21:00)
--- NOTE | 2022-05-18 05:49 | NUR ---
PATIENT SHOWING SIGNS OF RESTLESSNESS DURING SLEEPING HOURS. ATTEMPTED MULTIPLE TIMES TO ADJUST PATIENT FOR COMFORT. COMFORT MEASURES SUCCESSFUL. PATIENT DISLODGED TRACH TUBE 5 TIMES. RT NOTIFIED AND TRACH SECUREMENT DEVICE PUT IN PLACE. PATIENT TOLERATED G-TUBE MEDS OK. NO SIGNS OF RESPIRATORY DEPRESSION DURING SLEEP.
[2022-05-18 07:24] LABS: BASOPHILS # (AUTO) 0.1 K/uL (0.00-0.22); BASOPHILS % (AUTO) 0.5 % (0.0-2.0); EOSINOPHILS % (AUTO) 0.4 % (0.0-4.0); HEMATOCRIT 29.7 % (36-52); HEMOGLOBIN 9.6 g/dL (12.0-18.0); LYMPHOCYTES # (AUTO) 1.6 K/uL (2.0-11.5); LYMPHOCYTES % (AUTO) 13.5 % (20.5-51.1); MEAN CORPUSCULAR HEMOGLOBIN 26 pg (27-31); MEAN CORPUSCULAR HGB CONC 32 g/dL (33-37); MEAN CORPUSCULAR VOLUME 81.6 fL (80-94); MONOCYTES # (AUTO) 0.6 K/uL (0.8-1.0); MONOCYTES % (AUTO) 4.8 % (1.7-9.3); NEUTROPHILS # (AUTO) 9.4 K/uL (1.8-7.7); NEUTROPHILS % (AUTO) 80.8 % (42.2-75.2); PLATELET COUNT (AUTO) 482 K/uL (140-450); RED BLOOD CELL COUNT(AUTO) 3.64 MIL/uL (4.20-6.10); RED CELL DISTRIBUTION WIDTH 18.4 % (11.6-13.7); WHITE BLOOD COUNT (AUTO) 11.6 K/uL (4.8-10.8)
--- NOTE | 2022-05-18 07:30 | NUR ---
REPORT RECEIVED FROM NENA CARPENTER. TRANSFER OF CARE AT THIS TIME
[2022-05-18 07:39] LABS: PROTHROMBIN TIME 10.4 secs (10.8-13.4)
[2022-05-18 07:46] LABS: ANION GAP 15.7 (8-16); CREATININE 0.7 mg/dL (0.6-1.3); POTASSIUM 3.7 mmol/L (3.5-5.1)
[2022-05-18 08:19] VITALS: BP 110/90
[2022-05-18] MEDS: ALBUTEROL SULFATE/IPRATROPIU 3 ML SOL IH SCH ×3 (08:19→19:13)
[2022-05-18] MEDS ORDERED: risperiDONE 1 MG TAB GT SCH (09:00)
[2022-05-18] MEDS ORDERED: METOCLOPRAMIDE 10 MG TAB PO SCH (09:00)
[2022-05-18] MEDS ORDERED: DIVALPROEX 500 MG TABEC PO ONE (10:14)
[2022-05-18 10:21] VITALS: BP 148/95
[2022-05-18] MEDS: BENZTROPINE 1 MG TAB GT SCH ×2 (10:39→21:56)
[2022-05-18] MEDS: risperiDONE 1 MG TAB PO SCH ×2 (10:42→21:58)
[2022-05-18 10:46] LABS: MAGNESIUM 3.1 mg/dL (1.8-2.4); PHOSPHORUS 3.6 mg/dL (2.5-4.9); THYROID STIMULATING HORMONE 1.51 uIU/mL (0.34-3.74)
[2022-05-18] MEDS: VALPROIC ACID 250 MG/5 ML UDC GT SCH ×3 (10:46→18:27)
[2022-05-18] MEDS: PANTOPRAZOLE 40 MG TABEC PO SCH (10:50)
[2022-05-18] MEDS: PHENobarbital 30 MG TAB GT SCH ×2 (10:52→21:57)
--- NOTE | 2022-05-18 11:00 | NUR ---
PT SOILED GOWN AND LINENS CHANGED. PT PROVIDED WITH NEW BLANKETS. PT REPOSITIONED.
[2022-05-18 11:26] LABS: FREE T4 (FREE THYROXINE) 0.81 ng/dL (0.76-1.46)
--- NOTE | 2022-05-18 11:40 | NUR ---
PT AT REST AND NON COMBATIVE, RESPIRATIONS EVEN AND UNLABORED. NO VISIBLE DISTRESS
[2022-05-18 11:46] LABS: CHOL/HDL RATIO 4.1 (1-4.5)
[2022-05-18 13:13] VITALS: BP 129/89
[2022-05-18 13:19] LABS: VALPROIC ACID 28 ug/ml (50-100)
[2022-05-18] MEDS ORDERED: METOPROLOL 50 MG TAB ONE (14:21)
[2022-05-18 14:30] LABS: PHENOBARBITAL 40 ug/ml (15-40)
[2022-05-18] MEDS: METOCLOPRAMIDE 10 MG TAB PO SCH ×2 (16:12→18:28)
--- NOTE | 2022-05-18 16:15 | NUR ---
PT PULLED IV OUT. PICC LINE ORDER IN PLACE
--- NOTE | 2022-05-18 17:49 | NUR ---
Patient will be admitted to care of [facility]. Admited to TELE. Will go to roomB 108. Belongings list completed. Report to JEREMY CARPENTER.
--- NOTE | 2022-05-18 18:00 | NUR ---
RECEIVED PT FROM EMERGENCY DEPARTMENT VIA [employer]. PT BREATHING EFFORTLESSLY ON TRACH TO VENT WITH SETTINGS: FIO2-24, VT-450, R-16, FLOW-35, PEEP-5, PMAX-40. PT HAS PICC LINE AT RIGHT UPPER ARM BUT, PER REPORT FROM NURSE VAZQUEZ, LINE IS NOT FUNCTIONING. PER REPORT FROM NURSE VAZQUEZ, PERIPHERAL IV LINE PLACEMENT ATTEMPTED IN ED BUT NOT SUCCESSFUL AND ORDER HAS BEEN PLACED FOR ANOTHER PICC LINE--SAME CANNOT BE DONE UNTIL TOMORROW. PT HAS G-TUBE IN PLACE AND, PER REPORT, PT LAST RECEIVED MEDS VIA G-TUBE IN ED AT 1500. VITAL SIGNS UPON ADMISSION: T-97.9, P-96, BP-115/75, R-16, O2 SAT 100%. SKIN INTACT EXCEPT FOR DRESSING AT CHIN WHICH REPORTING NURSE VAZQUEZ STATED IS DUE TO SKIN TEAR FROM PT SCRATCHING HIMSELF TODAY. Addendum: 05/18/22 at 2022 by Kelsie Aceves RN PER NURSE VAZQUEZ, DR YIP HAS ALREADY BEEN MADE AWARE THAT PT'S CURRENT PICC LINE IS NOT WORKING, NEW PICC LINE PLACEMENT CANNOT BE DONE UNTIL TOMORROW, AND ATTEMPTS AT PLACING A PERIPHERAL IV LINE WERE NOT SUCCESSFUL.
--- NOTE | 2022-05-18 18:30 | NUR ---
MRSA NASAL SWAB TAKEN AT 1810 AND SENT TO LAB. NO RESIDUAL FROM G-TUBE--1700 MED (NOT YET ADMIN IN ED), ALONG WITH 1900 MED, ADMIN VIA G-TUBE.
--- NOTE | 2022-05-18 19:50 | NUR ---
REPORT PROVIDED TO RETAIL BUSINESS DEVELOPMENT MANAGER NURSES, ADAN. SAFETY MEASURES ARE IN PLACE.
--- NOTE | 2022-05-18 19:51 | NUR ---
RECEIVED PT FROM MORNING SHIFT NURSE. PT IS APHASIC AND BEDBOUND. PT IS ON TRACH TO VENT WITH FI01 24%, VT 450, RATE OF 16 AND PEEP OF 5. PT PICC LINE IS NOT WORKING, MORNING SHIFT NURSE ENDORSE THAT TOMORROW MORNING WILL INSERT A NEW ONE. PT HAS A TUBE FEEDING OF GLUCERNA 1.2 START WITH 10ML AND INCREASE TO 10 ML EVERY 6 HRS. WITH THE WATER FLUSH OF 200 EVERY 4 HRS AND THE GOAL IS 40. PT HAS SKIN TEAR ON HIS CHIN. ALL SAFETY MEASURES IMPLEMENTED. CALL LIGHT WITHIN REACH, BED IN LOW POSITION AND BED WHEELS LOCK.
[2022-05-18 20:00] VITALS: BP 115/73
--- NOTE | 2022-05-18 20:15 | NUR ---
PT INSERTED IV ON LEFT HAND GAUGE 24. IV IS PATENT AND INTACT, COVERED WITH BANDAGE FOR SECURITY. ALL SAFETY MEASURES IMPLEMENTED. CALL LIGHT WITHIN REACH. BED WHEELS LOCK AND IN LOW POSITION.
--- NOTE | 2022-05-18 20:38 | NUR ---
SCHEDULE MEDICATION WAS GIVEN TO PT PER MD ORDER. PT TOLERATE IT WELL. ALL SAFETY MEASURES IMPLEMENTED. CALL LIGHT WITHIN REACH, BED WHEELS ON LOCK AND BED PLACE IN LOW POSITION.
--- NOTE | 2022-05-18 20:40 | NUR ---
G-TUBE FEEDING OF GLUCERNA 1.2 RUNNING AT 10ML WITH WATER FLUSH OF 200 EVERY 4 HRS. WAS GIVEN. PT TOLERATE IT WELL. ALL SAFETY MEASURES IMPLEMENTED. CALL LIGHT WITHIN REACH, BED WHEELS ON LOCK AND BED IN LOW POSITION.
--- NOTE | 2022-05-18 21:56 | NUR ---
NOTIFIED DR. YIP REGARDING GIVING LOPRESSOR 50MG WITH BP 115/[address] YIP REPLIED AND SAID TO HOLD THE LOPRESSOR 50MG TONIGHT.
--- NOTE | 2022-05-18 21:58 | NUR ---
ALL SCHEDULED MEDICATION WAS GIVEN TO PT PER MD ORDER. PT TOLERATE IT WELL. ALL SAFETY MEASURES IMPLEMENTED. CALL LIGHT WITHIN REACH, BED WHEELS LOCKED AND PLACE IN LOW POSITION.
[2022-05-19] VITALS: BP 131/91
[2022-05-19] MEDS ORDERED: PIPERACILLIN/TAZOBACTAM 3.375 GM VIAL IV ONE (01:54)
[2022-05-19] MEDS: PIPERACILLIN/TAZOBACTAM 3.375 GM in DEXTROSE 5% 50 ML IV SCH ×4 (01:58→20:46)
--- NOTE | 2022-05-19 01:58 | NUR ---
SCHEDULED MEDICATION WAS GIVEN TO PT PER MD ORDER. PT TOLERATE IT WELL. CALL LIGHT WITHIN REACH. ALL SAFETY MEASURES IMPLEMENTED.
[2022-05-19 04:00] VITALS: BP 120/74
--- NOTE | 2022-05-19 04:30 | NUR ---
MORNING CARE WAS DON TO PT. CLEANED AND CHANGED DIAPER AND LINENS. ORAL CARE, SUCTION WAS ALSO DONE. ALL SAFETY MEASURES IMPLEMENTED. CALL LIGHT WITHIN REACH. WHEEL BED LOCK AND BED IN LOW POSITION.
[2022-05-19] MEDS: METOPROLOL 50 MG TAB GT SCH ×3 (05:00→21:00)
--- NOTE | 2022-05-19 05:52 | NUR ---
NOTIFIED DR. YIP REGARDING GIVING LOPRESSOR 50MG WITH BP 120/74 AND P 97. WILL WAIT FOR THE RESPONSE OF DR. YIP
--- NOTE | 2022-05-19 06:30 | NUR ---
LOPRESSOR NOT GIVEN, NOTIFIED DR. YIP AWAITING FOR REPLY. WILL ENDORSE TO MORNING NURSE.
--- NOTE | 2022-05-19 07:00 | NUR ---
RECEIVED PT ON AC 450, RR16, +5, 24%. AMBUBAG AT BEDSIDE, ALARMS ARE SET AND AUDIBLE, WHEELS ARE LOCKED. BILATERAL COARSE BREATH SOUNDS, MODERATE THICK YELLOW SECRETIONS WHEN SUCTIONED, PT TOLERATED BREATHING TREATMENT WELL, CHANGED TRACH DRESSING, YELLOW SECRETIONS ON DRESSING. EQUAL CHEST RISE. PT RESTING. WILL CONTINUE TO MONITOR.
[2022-05-19 07:02] LABS: ANION GAP 12.5 (8-16); CARBON DIOXIDE 29.4 mmol/L (21-32); CREATININE 0.7 mg/dL (0.6-1.3)
[2022-05-19 07:05] LABS: BASOPHILS % (AUTO) 0.7 % (0.0-2.0); EOSINOPHILS # (AUTO) 0.1 K/uL (0-0.4); EOSINOPHILS % (AUTO) 1.6 % (0.0-4.0); HEMATOCRIT 27.4 % (36-52); LYMPHOCYTES # (AUTO) 1.4 K/uL (2.0-11.5); LYMPHOCYTES % (AUTO) 21.2 % (20.5-51.1); MEAN CORPUSCULAR HEMOGLOBIN 27 pg (27-31); MEAN CORPUSCULAR HGB CONC 33 g/dL (33-37); MEAN CORPUSCULAR VOLUME 82.3 fL (80-94); MONOCYTES # (AUTO) 0.4 K/uL (0.8-1.0); MONOCYTES % (AUTO) 6.3 % (1.7-9.3); NEUTROPHILS # (AUTO) 4.7 K/uL (1.8-7.7); NEUTROPHILS % (AUTO) 70.2 % (42.2-75.2); PLATELET COUNT (AUTO) 401 K/uL (140-450); RED BLOOD CELL COUNT(AUTO) 3.33 MIL/uL (4.20-6.10); RED CELL DISTRIBUTION WIDTH 18.2 % (11.6-13.7); WHITE BLOOD COUNT (AUTO) 6.7 K/uL (4.8-10.8)
--- NOTE | 2022-05-19 07:30 | NUR ---
RECEIVED REPORT FROM CLERICAL ADVISER FOR CONTINUE CARE. PT IN RESTING ON BED, ON TRACH VENT. PT IS APHASIC, IV ON LEFT AND WITH 24G. PER REPORT, PT HAS SKIN TEAR ON RIGHT SMALLS. PT ON GLUCERNA 1.2 20ML/HR CURRENTLY. PENDING PICC LINE INSERTION TODAY. POINT OF CARE DISCUSSES. WILL CONTINUE TO MONITOR.
--- NOTE | 2022-05-19 07:32 | NUR ---
PT IS STABLE. ENDORSED PT TO MORNING SHIFT NURSE FOR CONTINUITY OF CARE.
[2022-05-19] MEDS: ALBUTEROL SULFATE/IPRATROPIU 3 ML SOL IH SCH ×3 (07:35→19:10)
[2022-05-19 07:42] LABS: POTASSIUM 2.9 mmol/L (3.5-5.1)
--- NOTE | 2022-05-19 07:42 | NUR ---
RECEIVED REPORT FOR LAB FOR CRITICAL LAB VALUE K 2.9, CONTACTED YEE AREVALO MD TO RESPONSE.
[2022-05-19 08:00] VITALS: BP 139/97
--- NOTE | 2022-05-19 08:36 | NUR ---
PT. WITH LOW LIZ SCALE AT MODERATE TO HIGH RISK, CONTINUE TO FOLLOW PRESSURE INJURY PREVENTION INTERVENTIONS. -POSITIONING: TURN AND REPOSITION PATIENT Q 2H OR SOONER USE PILLOWS TO KEEP BONY PROMINENCES FROM DIRECT CONTACT WITH SURFACES USE REPOSITIONING WEDGES TO PROVIDE 30-DEGREE ANGLE FOR SIDE LYING POSITIONS OFFLOADING OR FOAM DRESSING TO ALL TUBING TO PREVENT MEDICAL DEVICES RELATED PRESSURE INJURY -RE-EVALUATING AND MANAGING INCONTINENCE MONITOR SKIN CONDITION DURING POSITION CHANGE DO NOT MASSAGE REDNESS, BONY PROMINENCES FREQUENT NITISH-CARE AND PROVIDE BARRIER CREAMS PRN IF SOILING MOISTURE CONTROL BY OFFER BED MACEDO/URINAL /ABSORBENT PAD TO WICK AND HOLD MOISTURE KEEP SKIN DRY AND PROTECT FROM FRICTION -MANAGE FRICTION/SHEAR/MOBILITY KEEP HOB AT THE LOWEST LEVEL OF ELEVATION NO MORE THAN 30 DEGREE UNLESS OTHERWISE CONTRAINDICATED USE LIFT SHEET OR TRANSFER DEVICE TO MOVE PATIENT AND PREVENT LATERAL SHEER. PROTECT HEELS, ELBOWS BONY PROMINENCES WITH SKIN BERRIES OR FOAM DRESSING IF EXPOSED TO FRICTION OFFLOAD BILATERAL HEELS BY PLACING PILLOWS UNDER CALVES AT ALL TIMES, UNLESS OTHERWISE CONTRAINDICATED -PRESSURE REDISTRIBUTION SURFACE THERAPY BERE ISOFLEX MATTRESS -NUTRITION: PLEASE FOLLOW RD RECOMMENDATIONS AND OFFER NUTRITION SUPPLEMENTS IF ORDERED. PLEASE CONTACT WOUND CARE NURSE FOR ANY QUESTION AND CHANGE OF WOUND CONDITION
--- NOTE | 2022-05-19 08:50 | NUR ---
PATIENT HAS BEEN SCREENED AND CATEGORIZED HIGH NUTRITION RISK. PATIENT WILL BE SEEN WITHIN 1-2 DAYS OF ADMISSION. 05/19/[address]
[2022-05-19] MEDS: PANTOPRAZOLE 40 MG TABEC PO SCH (09:27)
[2022-05-19] MEDS: PHENobarbital 30 MG TAB GT SCH ×2 (09:28→21:00)
[2022-05-19] MEDS: VALPROIC ACID 250 MG/5 ML UDC GT SCH ×3 (09:28→16:03)
[2022-05-19] MEDS: risperiDONE 1 MG TAB PO SCH ×2 (09:28→21:00)
[2022-05-19] MEDS: BENZTROPINE 1 MG TAB GT SCH ×2 (09:28→21:00)
--- NOTE | 2022-05-19 09:28 | NUR ---
MEDICATION ADMINISTERED VIA G TUBE, NOTED 10ML RESIDUAL, FLUSHED 30ML WATER BEFORE AND AFTER MEDICATION, PT TOLERATED WELL. ALL SAFETY MEASURE IN PLACE, CALL LIGHT WITHIN REACH.
[2022-05-19] MEDS: KCL 20 MEQ/WATER INJ PREMIX 200 ML IV SCH ×2 (09:30→13:37)
[2022-05-19] MEDS ORDERED: CRUSHER, PILL MC ONE (09:33)
[2022-05-19] MEDS: NACL 0.9% 1,000 ML IV SCH ×2 (09:36→21:33)
--- NOTE | 2022-05-19 10:30 | NUR ---
PT RESTING ON BED, NO DISTRESS NOTED. NOTED PT HAS ONE TIME BM AT THIS TIME, STAFF HELPED CLEANED PT AND REPOSITIONED. WILL CONTINUE TO MONITOR.
[2022-05-19] MEDS: METOCLOPRAMIDE 10 MG TAB PO SCH ×3 (10:40→18:59)
--- NOTE | 2022-05-19 10:40 | NUR ---
SPUTUM CULTURE COLLECTED.
--- NOTE | 2022-05-19 10:53 | NUR ---
NOTIFIED PICC SERVICE
[2022-05-19 12:00] VITALS: BP 132/88
--- NOTE | 2022-05-19 13:34 | NUR ---
CALLED PHARMACY REGARDING NEED 20MEQ/100ML POTASSIUM DUE TO MD ORDER 40MEQ, 20MEQ ADMIN AT 0930, NEED ADMIN SECOND 20MEQ.
--- NOTE | 2022-05-19 14:27 | NUR ---
CALLED CONTACT FROM PATIENTS MEDICAL LIST TO OBTAIN CONSENT FOR PICC PLACEMENT. NONFUNCTION PHONE NUMBERS FOR FATHER. ZAC UNAVAILABLE. NOTIFIED MD, STATED HE IS CONSERVED AND IT IS MEDICALLY NECESSITY, DOES NOT NEED CONSENT. TE REAL NOTIFIED, NEEDING KIT. US VASCULAR GUIDED ACCESS ORDER PLACED.
--- NOTE | 2022-05-19 14:36 | NUR ---
RIGHT UPPER ARM PICC LINE REMOVED, CATH IN PLACE. PT TOLERATED REMOVAL. ALL SAFETY MEASURES IN PLACE, CALL LIGHT WITHIN REACH. WILL CONTINUE TO MONITOR.
[2022-05-19 16:00] VITALS: BP 120/79
--- NOTE | 2022-05-19 16:03 | NUR ---
PT FLACC SCORE 6, MEDICATED PT WITH PAIN MEDICATION MD ORDERED.
--- NOTE | 2022-05-19 16:27 | NUR ---
05/19/22 RD INITIAL ASSESSMENT COMPLETED PLEASE REFER TO NUTRITION ASSESSMENT UNDER CARE ACTIVITY FOR ESTIMATED NUTRITIONAL NEEDS. 1. RECOMMEND VITAL AF 1.2 WITH A GOAL RATE OF 50 ML/HR -FWF: 200 ML Q6H OR PER MD -START AT 20 ML/HR AND INCREASE BY 20 ML Q4H TOLERATED -WILL PROVIDE 100% OF ESTIMATED NUTRIENT NEEDS AND GASTRIC RESIDUALS 2. MONITOR NUTRITION-RELATED LAB VALUES 3. RD TO FOLLOW-UP 2-3 DAYS, HIGH RISK LEONCIO SU RD
--- NOTE | 2022-05-19 16:38 | NUR ---
MIDLINE PLACED TO LEFT UPPER ARM, DOUBLE LUMEN. PT TOLERATED INSERTION. PER HOUSE SOUP, NO CXR NEEDED FOR MIDLINE. ALL SAFETY MEASURES IN PLACE, CALL LIGHT WITHIN REACH. WILL CONTINUE TO MONITOR.
--- NOTE | 2022-05-19 17:21 | NUR ---
PT TOLERATING TUBE FEEDING, INCREASED PER RECOMMENDATION OF FNS BY 20ML, REACHED FEEDING GOAL OF 50. PT MIDLINE PATENT AND INTACT, POTASSIUM COMPLETED ADMINISTERING, SWITCHED TO NS. ALL SAFETY MEASURES IN PLACE. CALL LIGHT WITHIN REACH. WILL CONTINUE TO MONITOR.
--- NOTE | 2022-05-19 19:00 | NUR ---
PT RESTING ON BED WITH TRACH VENT, G TUBE SIDE INTACT. WILL ENDORSE TO CLOTHES PRESSER FOR CONTINUE CARE. POINT OF CARE WILL BE DISCUSSED. PT STABLE AT THIS TIME.
--- NOTE | 2022-05-19 19:16 | NUR ---
RECEIVED ENDORSEMENT FROM DAY SHIFT NURSE FOR CONTINUITY OF PT CARE.
[2022-05-19 20:00] VITALS: BP 132/97
--- NOTE | 2022-05-19 20:25 | NUR ---
PT IS AWAKE, NON VERBAL. PT IS ON STABLE CONDITION. RESPONSIVE ON STIMULI.
[2022-05-20] VITALS (7 sets, daily range): BP systolic 115–157; BP diastolic 70–100
--- NOTE | 2022-05-20 00:40 | NUR ---
PT HAS LARGE BM, SLIGHTLY LOOSE.
[2022-05-20] MEDS: PIPERACILLIN/TAZOBACTAM 3.375 GM in DEXTROSE 5% 50 ML IV SCH ×3 (02:34→14:12)
--- NOTE | 2022-05-20 03:00 | NUR ---
PT SLEEPING ON & OFF, NO FACIAL GRIMACING OR DISCOMFORT.
[2022-05-20] MEDS: METOPROLOL 50 MG TAB GT SCH ×2 (05:25→12:22)
[2022-05-20] MEDS: ALBUTEROL SULFATE/IPRATROPIU 3 ML SOL IH SCH (07:06)
[2022-05-20 07:15] LABS: ANION GAP 14.6 (8-16); CARBON DIOXIDE 27.3 mmol/L (21-32); CREATININE 0.5 mg/dL (0.6-1.3); POTASSIUM 3.9 mmol/L (3.5-5.1)
[2022-05-20 07:31] LABS: BASOPHILS % (AUTO) 0.4 % (0.0-2.0); EOSINOPHILS # (AUTO) 0.3 K/uL (0-0.4); EOSINOPHILS % (AUTO) 2.7 % (0.0-4.0); HEMOGLOBIN 10.8 g/dL (12.0-18.0); LYMPHOCYTES % (AUTO) 9.8 % (20.5-51.1); MEAN CORPUSCULAR HEMOGLOBIN 27 pg (27-31); MEAN CORPUSCULAR HGB CONC 33 g/dL (33-37); MEAN CORPUSCULAR VOLUME 83.1 fL (80-94); MONOCYTES # (AUTO) 0.4 K/uL (0.8-1.0); NEUTROPHILS # (AUTO) 8.9 K/uL (1.8-7.7); NEUTROPHILS % (AUTO) 83.1 % (42.2-75.2); PLATELET COUNT (AUTO) 456 K/uL (140-450); RED BLOOD CELL COUNT(AUTO) 3.96 MIL/uL (4.20-6.10); RED CELL DISTRIBUTION WIDTH 17.8 % (11.6-13.7); WHITE BLOOD COUNT (AUTO) 10.7 K/uL (4.8-10.8)
--- NOTE | 2022-05-20 07:36 | NUR ---
RECEIVED REPORT FROM BRIM PLATER NURSE FOR CONTINUITY OF CARE. PT AWAKE IN BED, NON VERBAL. ON TRACH TO VENT WITH SETTINGS FIO2 24% PEEP 5 VT 450 RATE 16. FLACC O. WITH HERI PICC LINE ON SALINE LOCK. GT IN PLACE BUT FEEDING PUMP CURRENTLY OFF, PER BRIM PLATER NURSE GT WAS TURNED OFF DUE TO PT HAD EPISODE OF X1 VOMITING AROUND 6AM. ALSO NOTED WITH BILATERAL FOOT NON PITTING EDEMA. ALL SAFETY MEASURES IN PLACE.
[2022-05-20] MEDS: PANTOPRAZOLE 40 MG TABEC PO SCH (08:54)
[2022-05-20] MEDS: VALPROIC ACID 250 MG/5 ML UDC GT SCH ×2 (08:54→13:12)
[2022-05-20] MEDS: PHENobarbital 30 MG TAB GT SCH (08:55)
[2022-05-20] MEDS: BENZTROPINE 1 MG TAB GT SCH (08:55)
[2022-05-20] MEDS: risperiDONE 1 MG TAB PO SCH (08:55)
[2022-05-20] MEDS: NACL 0.9% 1,000 ML IV SCH (09:18)
--- NOTE | 2022-05-20 09:18 | NUR ---
SCHEDULED AM MEDICATIONS GIVEN ORDERED. NO GT RESIDUAL NOTED. PRN ZOFRAN GIVEN, PT HAD X1 EPISODE OF SMALL VOMIT. ALSO NOTED PT PUTTING HIS HAND INSIDE HIS MOUTH THEN GAGGING. ENCOURAGED PT NOT TO. WILL MONITOR.
--- NOTE | 2022-05-20 10:08 | NUR ---
DR YIP MADE AWARE OF PT'S ST [id number] ON THE MONITOR. AWAITING RESPONSE
[2022-05-20] MEDS: METOCLOPRAMIDE 10 MG TAB PO SCH (10:55)
[2022-05-20] MEDS ORDERED: IV Zosyn IA (12:01)
--- NOTE | 2022-05-20 13:41 | NUR ---
PT FOR DISCHARGE, TRIED TO CALL FATHER [phone] BUT UNABLE TO REACH. CALLED ZAC [phone] AND SPOKE WITH BERHANE AND STATED SHE WILL LET ZAC KNOW ABOUT THE CALL.
--- NOTE | 2022-05-20 13:54 | NUR ---
CALLED [facility] SPOKE WITH JAYDEN PLAZA AND GAVE REPORT.
[2022-05-20 15:06] LABS: T4 (THYROXINE) 5.1 ug/dL (4.5-12.0)
--- NOTE | 2022-05-20 15:35 | NUR ---
PT DISCHARGED TO [facility] [place] PICKED UP BY [facility] VIA GURNEY WITH BELONGINGS AND PAPERWORKS. PICC LINE AND RIGHT HAND IV LINE REMAINS PT WILL CONTINUE IV ATB AT [facility].
[2022-05-27] MEDS ORDERED: IV Vancomycin IV (11:07)
[2022-05-27] MEDS ORDERED: IV Zosyn IA (11:07)
== END 2022-05-20 15:15 | DRG 720 ==
LOC: MED 14:37 → MTU 22:11
PROVIDERS: ADMIT Family Medicine; ATTEND Family Medicine
PROC: 5A1945Z Respiratory Ventilation, 24-96 Consecutive Hours (ICD-10-PCS; principal; 2022-05-17)
PROC: 05HY33Z Insertion of Infusion Device into Upper Vein, Percutaneous Approach (ICD-10-PCS; 2022-05-19)
PROC: B54NZZA Ultrasonography of Left Upper Extremity Veins, Guidance (ICD-10-PCS; 2022-05-19)
DX: A41.9 Sepsis, unspecified organism (principal); J96.20 Acute and chronic respiratory failure, unspecified whether with hypoxia or hypercapnia; J69.0 Pneumonitis due to inhalation of food and vomit; G93.41 Metabolic encephalopathy; E43 Unspecified severe protein-calorie malnutrition; D63.8 Anemia in other chronic diseases classified elsewhere; E87.0 Hyperosmolality and hypernatremia; Z99.11 Dependence on respirator [ventilator] status; Z93.0 Tracheostomy status; E86.0 Dehydration; G80.9 Cerebral palsy, unspecified; R13.10 Dysphagia, unspecified; G40.909 Epilepsy, unspecified, not intractable, without status epilepticus; E87.6 Hypokalemia; I10 Essential (primary) hypertension; Z20.822 Contact with and (suspected) exposure to COVID-19; E78.2 Mixed hyperlipidemia; R62.50 Unspecified lack of expected normal physiological development in childhood; Z68.27 Body mass index [BMI] 27.0-27.9, adult; Z79.899 Other long term (current) drug therapy; Z98.2 Presence of cerebrospinal fluid drainage device
CPT/HCPCS: 36415; 70450; 71045; 80048; 80053; 80184; 81003; 82140; 82150; 83036; 83605; 83690; 83735; 84100; 84436; 84439; 84443; 84479; 84484; 85025; 85610; 85730; 87040; 87070; 87081; 87205; 89220; 93005; 94002; 94003; 94640; 96365; 96375; 99285; J0692; J2405; J2543; J3480; J3490; J7060; J8597; Q0092

== ENCOUNTER 2022-07-30 17:18 | Inpatient (IN) | payer MEDICAID ==
[~2022-07-30] VITALS: Ht 147.3 cm; Wt 36.7 kg
[~2022-07-30 17:18] MED LIST changes: -BENZ-315 GT; -BISA-218 RC; -CEFE1SOL IV; +IV Vancomycin IV; +IV Zosyn IA; -LANS15EC28 GT; -LANS30EC68 PO; +MAGN400S60 GT; +MULT-1328 GT; -ONDA-188 IVP; -PB65I GT; -PHEN20EL30 GT; +PHEN20EL30 PO; -RISP0.5T3 PO; -SCOP0.333 TD; +SCOP0.333 TP; -VALP-22 GT; +ZINC220C9 GT
--- NOTE | 2022-07-30 17:19 | NUR ---
PT BIBA TO BED 01.
[2022-07-30 17:22] VITALS: BP 126/76
[2022-07-30 17:37] VITALS: BP 126/85
--- NOTE | 2022-07-30 17:50 | NUR ---
21/M BIBA FROM [facility] D/T FOREIGN OBJECT FOUND ON KUB DONE TODAY. PER EMS, KUB SHOWED METALLIC OBJECT IN RLQ. PT IS TRACHED AND VENTED. RT AT BEDSIDE FOR VENT SETUP. PT DOES NOT APPEAR TO BE IN DISTRESS. VITALS STABLE. IV ESTABLISHED ON R AC 20G. PRESENTS WITH IV ON R HAND PRIOR TO ARRIVAL. NKA PMH: COPD, EPILEPSY, CEREBRAL PALSY, GERD, ULCERATIVE ESOPHAGITIS
--- NOTE | 2022-07-30 17:52 | NUR ---
PRESENTS WITH NG TUBE INSERTED PRIOR TO ARRIVAL. ERMD AWARE.
--- NOTE | 2022-07-30 18:03 | NUR ---
XR AT BEDSIDE
[2022-07-30 18:14] LABS: BASOPHILS % (AUTO) 0.4 % (0.0-2.0); EOSINOPHILS # (AUTO) 0.2 K/uL (0-0.4); EOSINOPHILS % (AUTO) 1.8 % (0.0-4.0); HEMATOCRIT 31.9 % (36-52); HEMOGLOBIN 10.3 g/dL (12.0-18.0); LYMPHOCYTES # (AUTO) 1.5 K/uL (2.0-11.5); LYMPHOCYTES % (AUTO) 15.1 % (20.5-51.1); MEAN CORPUSCULAR HEMOGLOBIN 28 pg (27-31); MEAN CORPUSCULAR HGB CONC 32 g/dL (33-37); MEAN CORPUSCULAR VOLUME 86.5 fL (80-94); MONOCYTES # (AUTO) 0.6 K/uL (0.8-1.0); MONOCYTES % (AUTO) 6.3 % (1.7-9.3); NEUTROPHILS # (AUTO) 7.8 K/uL (1.8-7.7); NEUTROPHILS % (AUTO) 76.4 % (42.2-75.2); PLATELET COUNT (AUTO) 291 K/uL (140-450); RED BLOOD CELL COUNT(AUTO) 3.68 MIL/uL (4.20-6.10); RED CELL DISTRIBUTION WIDTH 17.7 % (11.6-13.7); WHITE BLOOD COUNT (AUTO) 10.2 K/uL (4.8-10.8)
--- NOTE | 2022-07-30 18:39 | NUR ---
COVID SWAB COLLECTED
[2022-07-30 18:51] LABS: ALBUMIN 2.1 g/dL (3.4-5.0); ANION GAP 12.3 (8-16); CARBON DIOXIDE 27.7 mmol/L (21-32); CREATININE 0.7 mg/dL (0.6-1.3); TOTAL BILIRUBIN 0.2 mg/dL (0.0-1.0)
[2022-07-30] MEDS ORDERED: MORPHINE SULFATE 2 MG/ML SYR IVP PRN (19:15)
[2022-07-30] MEDS ORDERED: DOCUSATE SODIUM 100 MG GELCAP PO PRN (19:15)
[2022-07-30] MEDS ORDERED: MAG SULF 2000 MG/WATER PREMIX 50 ML IV PRN (19:15)
[2022-07-30] MEDS ORDERED: POTASSIUM CHLORIDE 10 MEQ TABER PO PRN (19:15)
[2022-07-30] MEDS ORDERED: ZOLPIDEM 10 MG TAB PO PRN (19:15)
[2022-07-30] MEDS ORDERED: ACETAMINOPHEN 325 MG TAB PO PRN (19:15)
[2022-07-30] MEDS ORDERED: INSULIN LISPRO SLIDING SCALE 100 UNITS/ML VIAL SUBQ PRN (19:20)
--- NOTE | 2022-07-30 19:21 | NUR ---
RECEIVED REPORT FROM AM RN FOR CONTINUATION OF CARE. PT ELEVATED TO 45 DEGREES AWAKE AND ATTACHED TO TRACH TO VENT. ELEVATED HEART RATE AT 100-115, BP SUSTAINED-WNL. PT IV SITE TO THE RIGHT AC AND THE RIGHT HAND ARE ABLE TO FLUSH WELL WITHOUT PAIN, REDNESS, WARMTH, AND DISCHARGE AT THE SITE. PT SAFETY MEASURES ARE IN PLACE AND ATTACHED TO THE SECOND RIGGER.
[2022-07-30 19:52] VITALS: BP 108/73
[2022-07-30] MEDS: DEXT 5% /NACL 0.9% 1,000 ML IV SCH (20:22)
[2022-07-30] MEDS: DOCUSATE 100 MG/10 ML UDC GT SCH (21:00)
[2022-07-30] MEDS: POLYETHYLENE GLYCOL 17 GM/PKT GT SCH (21:00)
[2022-07-30] MEDS: BLOOD GLUCOSE MONITORING 1 DEV DEV FS SCH (21:00)
--- NOTE | 2022-07-30 22:07 | NUR ---
PT DISCONNECTED SELF OFF THE TRACH TUBING. PT DESATURATED DOWN TO 80s. PT CONNECTED BACK ON THE VENTILATED AND BROUGHT BACK UP TO 95% AND ABOVE. SUCTIONED PT WELL- THICK WHTIE MUCUS EXCRETIONS CAME OUT.
[2022-07-30] MEDS: METOPROLOL 50 MG TAB GT SCH (22:20)
[2022-07-31 00:45] VITALS: BP 72/31
--- NOTE | 2022-07-31 01:31 | NUR ---
provided pericare for patient. patient tolerated well.
--- NOTE | 2022-07-31 01:41 | NUR ---
Patient will be admitted to care of MD Hercules. Admited to telemetry. Will go to room 124b. Belongings list completed. Report to Diana CARPENTER.
--- NOTE | 2022-07-31 01:48 | NUR ---
TRANSFERRED PT FROM ER BED 1 TO RM 124B ON VENT NO SIGNS OF RESPIRATORY DISTRESS NOTED AT THIS TIME. DEEP TRACHEAL SXN FOR SMALL PALE/YELLOW THICK SECRETIONS. HOB ELEVATED, AMBU BAG AT BEDSIDE, VENT PLUGGED INTO RED OUTLET, ALARMS ARE ON AND AUDIBLE. WILL CONTINUE TO MONITOR.
--- NOTE | 2022-07-31 02:00 | NUR ---
NEW ADMISSION PT ARRIVED ON [facility] UNIT VIA GURNEY ACCOMPANIED BY RT. PT TRACH TO VENT NONVERBAL A&OX0 DX: FOREIGN BODY IN ABDOMEN RLQ. MENTALLY DELAYED. TRANSFERRED FROM [facility] TO ER TO [facility]. NG-TUBE TO GRAVITY. G-TUBE DEPENDENT. NPO. NO FOOD. IV D5NS@50CC/HR RAC 20G. IV 24G R HAND 24G. VENT SETTINGS: FIO2-32%, TV-450, RATE-14BPM, PEEP-5. VSS; BP-149/97, P-111, RR-22, T4CNJ=11% T-98.5 TEMPORAL. SKIN WITH HEALED COCCYX ULCER. ON TELE ST HR 104 BPM. PT IS BEDBOUND. SEIZURE PRECAUTIONS IN PLACE. FALL PRECAUTIONS IN PLACE. BED KIN LOW AND LOCKED POSITION. CONTINUE TO CLOSELY MONITOR. PT PLACED CLOSE TO NURSES STATION.
[2022-07-31 04:51] VITALS: BP 126/76
[2022-07-31] MEDS: METOPROLOL 50 MG TAB GT SCH ×3 (05:00→20:57)
[2022-07-31 05:56] LABS: BASOPHILS % (AUTO) 0.3 % (0.0-2.0); EOSINOPHILS # (AUTO) 0.1 K/uL (0-0.4); HEMATOCRIT 30.8 % (36-52); HEMOGLOBIN 10.2 g/dL (12.0-18.0); LYMPHOCYTES # (AUTO) 1.2 K/uL (2.0-11.5); LYMPHOCYTES % (AUTO) 11.7 % (20.5-51.1); MEAN CORPUSCULAR HEMOGLOBIN 28 pg (27-31); MEAN CORPUSCULAR HGB CONC 33 g/dL (33-37); MEAN CORPUSCULAR VOLUME 85.5 fL (80-94); MONOCYTES # (AUTO) 0.6 K/uL (0.8-1.0); MONOCYTES % (AUTO) 5.9 % (1.7-9.3); NEUTROPHILS # (AUTO) 8.1 K/uL (1.8-7.7); NEUTROPHILS % (AUTO) 81.1 % (42.2-75.2); PLATELET COUNT (AUTO) 271 K/uL (140-450); RED CELL DISTRIBUTION WIDTH 17.6 % (11.6-13.7)
[2022-07-31 06:36] LABS: ANION GAP 12.9 (8-16); CARBON DIOXIDE 27.5 mmol/L (21-32); CREATININE 0.4 mg/dL (0.6-1.3); POTASSIUM 3.4 mmol/L (3.5-5.1)
[2022-07-31] MEDS: BLOOD GLUCOSE MONITORING 1 DEV DEV FS SCH ×4 (07:15→21:05)
--- NOTE | 2022-07-31 07:59 | NUR ---
ENDORSED PATIENT TO AM NURSE YENNY RN FOR CONTINUITY OF CARE. BS=82 NO INSULIN COVERAGE PER SLIDING SCALE GIVEN. PT IS STABLE. ALL NEEDS MET THROUGHOUT THE SHIFT.
[2022-07-31 08:00] VITALS: BP 141/92
--- NOTE | 2022-07-31 08:00 | NUR ---
RECEIVE ENDORSEMENT FROM PM SHIFT NURSE THAT PATIENT REST IN BED, AMBULATORY, D5NS INFUSING VIA PIV AT R. FOREARM 22G. ON ROOM AIR, WILL CONTINUE TO MONITOR Addendum: 07/31/22 at 1806 by Ninoska Ray RN WRONG PATIENT RECEIVE ENDORSEMENT FROM PM SHIFT NURSE THAT PATIENT REST IN BED, NON-VERBAL, NG-TUBE FOR DRAIN BY GRAVITY, PIV AT RAC 20G INFUSING D5NS @50ML/HR. WILL CONTINUE TO MONITOR
--- NOTE | 2022-07-31 08:08 | NUR ---
RECEIVED ON A [employer] R860 VENTILATOR PLUGGED INTO RED OUTLET TOLERATING WELL WITHOUT ADVERSE REACTIONS NOTED TO A PORTEX #8 AIRWAY CUFF PRESSURE CHECKED NOTED LOC AWAKE STABLE EQUAL CHEST RISE DEEP TRACHEAL SUCTION FOR MODERATE THIN YELLOW SECRETIONS AIRWAY PATENT
[2022-07-31] MEDS: diazePAM 5 MG TAB GT SCH ×3 (08:53→17:18)
[2022-07-31] MEDS: CALCIUM ACETATE 667 MG TAB PO SCH ×3 (08:53→17:19)
[2022-07-31] MEDS: BACLOFEN 10 MG TAB PO SCH ×3 (08:54→17:18)
[2022-07-31] MEDS: propylthiouraciL 50 MG TAB PO SCH (08:54)
[2022-07-31] MEDS: DOCUSATE 100 MG/10 ML UDC GT SCH ×2 (08:55→20:57)
[2022-07-31] MEDS: POLYETHYLENE GLYCOL 17 GM/PKT GT SCH ×2 (08:55→20:57)
[2022-07-31] MEDS: MAGNESIUM HYDROXIDE 2400 MG/30 ML UDC GT SCH (08:55)
--- NOTE | 2022-07-31 09:19 | NUR ---
PATIENT HAS BEEN SCREENED AND CATEGORIZED HIGH NUTRITION RISK. PATIENT WILL BE SEEN WITHIN 1-2 DAYS OF ADMISSION. CONSULT RECEIVED FOR TUBE FEEDING LEONCIO SU RD
[2022-07-31 12:00] VITALS: BP 138/89
--- NOTE | 2022-07-31 12:02 | NUR ---
07/31/22 RD INITIAL ASSESSMENT COMPLETED PLEASE REFER TO NUTRITION ASSESSMENT UNDER CARE ACTIVITY FOR ESTIMATED NUTRITIONAL NEEDS. 1. WHEN/IF MEDICALLY APPROPRIATE, RECOMMEND JEVITY 1.2 WITH A GOAL RATE OF 50 ML/HR WITH PROSOURCE BID -FWF: 150 ML Q6H OR PER MD -START AT 20 ML/HR AND INCREASE BY 10 ML Q4H TOLERATED -WILL PROVIDE 1440 KCAL AND 66 GM PROTEIN, MEETING 100% OF ESTIMATED NUTRIENT NEEDS 2. MONITOR NUTRITION-RELATED LAB VALUES 3. RD TO FOLLOW-UP 2-3 DAYS, HIGH RISK LEONCIO SU RD
--- NOTE | 2022-07-31 14:14 | NUR ---
DC PLANNING PATIENT ATTEMPTED TO MEET WITH PATIENT AT BEDSIDE HOWEVER, PATIENT IS NONVERBAL. SW OUTREACHED TO PATIENTS [facility]. SW SPOKE WITH PAULETTE ([facility] [employer]) AND INNA ([facility] SW) WHO REPORT THAT PATIENT HAS BEEN IN [facility]ARE SINCE 02/15/22. PATIENT IS TRAYC/VENT DEPENDENT AND HAS GTUBE IN PLACE. PATIENT IS TOTAL CARE AND IS BEDBOUND. PATIENT IS [facility] CONNECTED, IR WORKER IS ASAD FERREIRA [phone]. PAULETTE REPORTS THAT FATHER IS NOT ACTIVE IN PATIENTS CARE. PAULETTE REPORTS ATTEMPTING TO GET FATHERS PHNE NUMBER FROM IRC WORKER HOWEVER, PHONE NUMBER IS NOT A WORKING PHONE NUMBER. DC PLAN IS FOR PATIENT TO RETURN BACK TO [facility] ONCE MEDICALLY CLEARED. Addendum: 08/08/22 at 1551 by Carlitos Presley SS SPOKE WITH PAULETTE [phone], [facility] ADMIN, WHO REPORTS THAT PATIENT WILL BE GOING TO ROOM 20A. CALLED [facility] AND SPOKE WITHUMER. TRANSPORTATION COSMETIC MAKER, SET FOR 1900. ENDORSE TO PT NURSE.
--- NOTE | 2022-07-31 14:17 | NUR ---
STABLE RESTING COMFORTABLY GOOD CHEST RISE DEEP TRACHEAL SUCTION FOR MODERATE THIN YELLOW SECRETIONS AIRWAY PATENT
--- NOTE | 2022-07-31 15:00 | NUR ---
CALL PATIENT'S SON, MATT ([phone]), AND INFORM HIM THAT PATIENT IS DISCHARGE TODAY. PER MATT, FAMILY IS UNABLE TO PICK PATIENT UP AFTER 1600. WILL CONTINUE TO MONITOR Addendum: 07/31/22 at 1754 by Ninoska Ray RN WRONG PATIENT
[2022-07-31] MEDS: DEXT 5% /NACL 0.9% 1,000 ML IV SCH (15:29)
[2022-07-31 16:00] VITALS: BP 144/80
--- NOTE | 2022-07-31 19:28 | NUR ---
ENDORSE PATIENT TO PM SHIFT NURSE WHILE PATIENT REST IN BED, NON-VERBAL, NG-TUBE FOR DRAIN BY GRAVITY, PIV AT RAC 20G INFUSING D5NS @50ML/HR, TRACH TO VENT FIO2 @28% PEEP=5
--- NOTE | 2022-07-31 19:30 | NUR ---
RECEIVED BEDSIDE REPORT FROM DAY SHIFT RN FOR CONTINUITY OF CARE. PT AWAKE. PT IS APHASIC. PT IS TRACH TO VENT. SETTINGS: FIO2 28%, VT 450, RT 14, PEEP 5. PT HAS GTUBE WITH NO FEEDING. PT HAS NG TUBE PLACED GRAVITY SUCTION. PT HAS RIGHT AC 20 GAUGE WITH D5 NS AT 50 CC/HR. WILL CONTINUE TO MONITOR THE PT.
[2022-07-31 20:00] VITALS: BP 120/85
--- NOTE | 2022-07-31 21:11 | NUR ---
SCHEDULE MEDS GIVEN. NO ADVERSE REACTION NOTED. WILL CONTINUE TO MONITOR THE PT.
--- NOTE | 2022-07-31 23:16 | NUR ---
PT MAGNESIUM IS 1.7. MAG RIDER GIVEN PER MD ORDER.
[2022-08-01] VITALS: BP 149/71
--- NOTE | 2022-08-01 | NUR ---
PT WAS CLEANED AND CHANGED. TOLERATED IT WELL. PT SATING 97%. WILL CONTINUE TO MONITOR THE PT.
--- NOTE | 2022-08-01 03:20 | NUR ---
PT IS AWAKE IN BED. PT IS NOT IN ANY RESPIRATORY DISTRESS. PT IS SATING 98%. PT WAS CLEANED AND CHANGED. PT HAD SMALL BM. WILL CONTINUE TO MONITOR THE PT.
[2022-08-01 04:00] VITALS: BP 130/96
[2022-08-01] MEDS: METOPROLOL 50 MG TAB GT SCH ×3 (05:27→21:47)
--- NOTE | 2022-08-01 05:38 | NUR ---
SCHEDULE MEDICATIONS GIVEN. NO ADVERSE REACTION NOTED. WILL CONTINUE TO MONITOR THE PT.
[2022-08-01 05:49] LABS: BASOPHILS % (AUTO) 0.3 % (0.0-2.0); EOSINOPHILS # (AUTO) 0.2 K/uL (0-0.4); HEMATOCRIT 32.8 % (36-52); HEMOGLOBIN 10.8 g/dL (12.0-18.0); LYMPHOCYTES # (AUTO) 1.3 K/uL (2.0-11.5); LYMPHOCYTES % (AUTO) 18.4 % (20.5-51.1); MEAN CORPUSCULAR HEMOGLOBIN 28 pg (27-31); MEAN CORPUSCULAR HGB CONC 33 g/dL (33-37); MEAN CORPUSCULAR VOLUME 85.3 fL (80-94); MONOCYTES # (AUTO) 0.5 K/uL (0.8-1.0); MONOCYTES % (AUTO) 6.5 % (1.7-9.3); NEUTROPHILS # (AUTO) 5.1 K/uL (1.8-7.7); NEUTROPHILS % (AUTO) 71.8 % (42.2-75.2); PLATELET COUNT (AUTO) 302 K/uL (140-450); RED BLOOD CELL COUNT(AUTO) 3.85 MIL/uL (4.20-6.10); RED CELL DISTRIBUTION WIDTH 17.8 % (11.6-13.7); WHITE BLOOD COUNT (AUTO) 7.1 K/uL (4.8-10.8)
[2022-08-01 05:55] LABS: ANION GAP 14.8 (8-16); CARBON DIOXIDE 25.7 mmol/L (21-32); CREATININE 0.5 mg/dL (0.6-1.3); POTASSIUM 3.5 mmol/L (3.5-5.1)
[2022-08-01] MEDS: BLOOD GLUCOSE MONITORING 1 DEV DEV FS SCH ×4 (06:48→21:00)
--- NOTE | 2022-08-01 07:10 | NUR ---
RECEIVED ON A [employer]System[employer]APE R860 VENTILATOR PLUGGED INTO RED OUTLET TOLERATING WELL WITHOUT ADVERSE REACTIONS NOTED TO PORTEX DCT #8 AIRWAY SECURED WITH A MARGO TRACH TIE CUFF PRESSURE CHECKED NOTED AMBU BAG AT BEDSIDE LOC AWAKE STABLE EQUAL CHEST RISE DEEP TRACHEAL SUCTION FOR SMALL THIN PALE YELLOW SECRETIONS AIRWAY
--- NOTE | 2022-08-01 07:32 | NUR ---
ENDORSED PT TO DAY SHIFT RN FOR CONTINUITY OF CARE. PT IS STABLE.
[2022-08-01 08:00] VITALS: BP 133/93
[2022-08-01] MEDS: POLYETHYLENE GLYCOL 17 GM/PKT GT SCH ×2 (08:57→21:46)
[2022-08-01] MEDS: MAGNESIUM HYDROXIDE 2400 MG/30 ML UDC GT SCH (08:57)
[2022-08-01] MEDS: DOCUSATE 100 MG/10 ML UDC GT SCH ×2 (08:58→21:46)
[2022-08-01] MEDS: CALCIUM ACETATE 667 MG TAB PO SCH ×3 (08:58→16:06)
[2022-08-01] MEDS: propylthiouraciL 50 MG TAB PO SCH (08:58)
[2022-08-01] MEDS: diazePAM 5 MG TAB GT SCH ×3 (08:59→16:06)
[2022-08-01] MEDS: BACLOFEN 10 MG TAB PO SCH ×3 (08:59→16:06)
[2022-08-01] MEDS: DEXT 5% /NACL 0.9% 1,000 ML IV SCH (09:17)
--- NOTE | 2022-08-01 10:13 | NUR ---
CALLED DR. LAN BENITO AT [facility] [phone] TO REVIEW PATIENT PULMONARY STATUS JUVENAL/EXCHANGE TO PAGE PURVI GALVEZ; PATIENT INFORMATION AND CALL BACK NUMBER GIVEN
--- NOTE | 2022-08-01 10:16 | NUR ---
CALL BACK FROM DR. LAN BENITO ; REVIEWED PATIENT PULMONARY STATUS; TORBO: HHN Q6WA AND Q4 PRN FOR SOB/WHEEZE; OXYGEN SATURATION GREATER THAN 90%
--- NOTE | 2022-08-01 11:12 | NUR ---
1112- BLOOD GLUCOSE 69. PATIENT NPO. D50 1AMP IVP GIVEN. Abilio VALADEZ RN
[2022-08-01] MEDS: DEXTROSE 50% 50 ML SYR IVP PRN ×2 (11:56→16:06)
--- NOTE | 2022-08-01 11:58 | NUR ---
BLOOD GLUCOSE RECHECKED AND IS 159. PATIENT STABLE. Abilio VALADEZ RN
[2022-08-01 12:00] VITALS: BP 123/87
--- NOTE | 2022-08-01 12:00 | NUR ---
STABLE GOOD CHEST RISE DEEP TRACHEAL SUCTION FOR MODERATE THIN PALE YELLOW SECRETIONS AIRWAY PATENT
[2022-08-01] MEDS ORDERED: ALBUTEROL SULFATE/IPRATROPIU 3 ML SOL IH PRN (12:30)
--- NOTE | 2022-08-01 13:38 | NUR ---
ASLEEP RESTING COMFORTABLY EQUAL CHEST RISE DEEP TRACHEAL SUCTION FOR MODERATE THIN YELLOW "WATERY" SECRETIONS AIRWAY PATENT
[2022-08-01 16:00] VITALS: BP 125/88
--- NOTE | 2022-08-01 16:05 | NUR ---
NO EVIDENCE FOR PULMONARY DISTRESS NOTED STABLE GOOD CHEST RISE
--- NOTE | 2022-08-01 16:10 | NUR ---
PATIENT BLOOD GLUCOSE IS 67. PATIENT IS ASYMPTOMATIC BUT NPO WITH NO TUBE FEEDING INFUSING AT THIS TIME. 1 AMP D50 IV GIVEN. WILL NOTIFY DOCTOR AND FOLLOW UP BLOOD SUGAR LEVEL. Abilio VALADEZ RN.
--- NOTE | 2022-08-01 16:36 | NUR ---
DR. BENITO CALLED AND NOTIFIED OF LOW BLOOD GLUCOSE LEVELS AND INTERVENTIONS. NEW ORDERS TO CHANGE IVF TO DEXTROSE 10%@50ML/HR. Abilio VALADEZ RN.
--- NOTE | 2022-08-01 17:05 | NUR ---
PATIENT BLOOD GLUCOSE NOW 173. Abilio VALADEZ RN.
[2022-08-01] MEDS: DEXTROSE 10% 1,000 ML IV SCH (17:07)
--- NOTE | 2022-08-01 19:00 | NUR ---
PT RECEIVED FROM DAY SHIFT RT ON AC/VC 450VT, RR14, PEEP5, 28% FIO2. PT IS NOT IN ANY CURRENT RESPIRATORY DISTRESS. PT IS ASSESSED AND GIVEN BREATHING TREATMENT. PT TOLERATED TX WELL. VENT IS PLUGGED INTO RED OUTLET, WHEELS LOCKED, AMBU BAG AT BEDSIDE, ALARMS ARE SET AND AUDIBLE.
--- NOTE | 2022-08-01 19:20 | NUR ---
RECEIVED BEDSIDE REPORT FROM DAY SHIFT RN FOR CONTINUITY OF CARE. PT AWAKE. PT IS APHASIC. PT IS TRACH TO VENT. SETTINGS: FIO2 28%, VT 450, RT 14, PEEP 5. PT HAS GTUBE WITH NO FEEDING. PT HAS NG TUBE PLACED GRAVITY SUCTION. PT HAS RIGHT AC 20 GAUGE WITH D10 AT 50 CC/HR. WILL CONTINUE TO MONITOR THE PT.
[2022-08-01 20:00] VITALS: BP 128/90
--- NOTE | 2022-08-01 21:00 | NUR ---
PT REMOVED NG TUBE. SCLEROSCOPE TESTER DOCTOR PHI MADE AWARE. DOCTOR REPLIED TO KEEP NG TUBE OFF AND WILL BE SEEN IN THE MORNING. NO ORDERS TO REINSERT NG TUBE.
--- NOTE | 2022-08-01 21:50 | NUR ---
SCHEDULE MEDICATIONS GIVEN.. NO ADVERSE REACTION NOTED. WILL CONTINUE TO MONITOR THE PT.
[2022-08-02] VITALS: BP 127/57
--- NOTE | 2022-08-02 01:00 | NUR ---
RT ASSISTED IN TRACH CARE WITH FELLOW RT. PT TOLERATED TRACH CARE WELL AND NURSE MADE AWARE OF IRRITATED STOMA SITE.
[2022-08-02 04:00] VITALS: BP 137/95
[2022-08-02] MEDS: METOPROLOL 50 MG TAB GT SCH ×3 (04:19→21:21)
--- NOTE | 2022-08-02 04:25 | NUR ---
SCHEDULE MEDICATION GIVEN. NO ADVERSE REACTION NOTED. WILL CONTINUE TO MONITOR THE PT.
--- NOTE | 2022-08-02 04:57 | NUR ---
PT WAS CLEANED AND CHANGED. PT HAD SMALL BM. NO FOREIGN OBJECT FOUND. TOLERATED IT WELL. WILL CONTINUE TO MONITOR THE PT.
--- NOTE | 2022-08-02 05:30 | NUR ---
ASSISTED IN TRANSPORT OF PT WITH VENTILATOR TO ICU BED #2. PT TOLERATED TRANSPORT WELL, PT IS NOT IN ANY CURRENT RESPIRATORY DISTRESS, AMBU BAG AT BEDSIDE, VENTILATOR WHEELS LOCKED AND ALARMS ARE SET AND AUDIBLE.
--- NOTE | 2022-08-02 05:45 | NUR ---
PT TRANSPORTED TO ICU BED 2 SAFELY AND PT IS STABLE. GAVE REPORT TO
[2022-08-02] MEDS: BLOOD GLUCOSE MONITORING 1 DEV DEV FS SCH ×4 (06:26→21:27)
[2022-08-02] MEDS: ALBUTEROL SULFATE/IPRATROPIU 3 ML SOL IH SCH ×3 (07:16→19:00)
[2022-08-02 07:29] LABS: BASOPHILS % (AUTO) 0.5 % (0.0-2.0); EOSINOPHILS # (AUTO) 0.3 K/uL (0-0.4); HEMATOCRIT 35.1 % (36-52); HEMOGLOBIN 11.5 g/dL (12.0-18.0); LYMPHOCYTES # (AUTO) 1.4 K/uL (2.0-11.5); LYMPHOCYTES % (AUTO) 18.1 % (20.5-51.1); MEAN CORPUSCULAR HEMOGLOBIN 28 pg (27-31); MEAN CORPUSCULAR HGB CONC 33 g/dL (33-37); MONOCYTES # (AUTO) 0.4 K/uL (0.8-1.0); MONOCYTES % (AUTO) 5.4 % (1.7-9.3); NEUTROPHILS # (AUTO) 5.4 K/uL (1.8-7.7); PLATELET COUNT (AUTO) 327 K/uL (140-450); RED BLOOD CELL COUNT(AUTO) 4.13 MIL/uL (4.20-6.10); RED CELL DISTRIBUTION WIDTH 18.2 % (11.6-13.7); WHITE BLOOD COUNT (AUTO) 7.5 K/uL (4.8-10.8)
--- NOTE | 2022-08-02 07:30 | NUR ---
RECEIVED PT ON TV450, RR14, +5, 28%. VENT PLUGGED INTO RED OUTLET, WHEELS ARE LOCKED AND AMBUBAG AT BEDSIDE, ALARMS ARE SET AND AUDIBLE. BREATH SOUNDS ARE COARSE ON AUSCULTATION, SATURATION ON 28% IS 99%.
[2022-08-02 07:35] LABS: ANION GAP 13.5 (8-16); CARBON DIOXIDE 26.7 mmol/L (21-32); CREATININE 0.6 mg/dL (0.6-1.3); POTASSIUM 3.2 mmol/L (3.5-5.1)
[2022-08-02 08:00] VITALS: BP 139/76
--- NOTE | 2022-08-02 08:15 | NUR ---
PATIENT AWAKE AND ALERT. NONVERBAL. NO COMMANDS FOLLOWED. LEGS CONTRACTED. MOVES ARMS.SPONTANEOUSLY. HEART SOUNDS REGULAR. MONITOR ST. PERIPHERAL PULSES PALPABLE. NO EDEMA NOTED. ANTERIOR/LATERAL BREATH SOUNDS CLEAR. TRACH TO VENT. AC/VC FIO2 28%/VT 450/RATE 14/PEEP5. SAO2 97%. ABDOMEN WITH ACTIVE BOWEL SOUNDS. ABDOMEN FLAT AND SOFT. INCONTINENT OF SOFT STOOL. GREEN IN COLOR. INCONTINENT OF URINE.
[2022-08-02] MEDS: CALCIUM ACETATE 667 MG TAB PO SCH ×3 (08:41→17:26)
[2022-08-02] MEDS: DOCUSATE 100 MG/10 ML UDC GT SCH ×2 (08:42→21:21)
[2022-08-02] MEDS: MAGNESIUM HYDROXIDE 2400 MG/30 ML UDC GT SCH (08:43)
[2022-08-02] MEDS: POLYETHYLENE GLYCOL 17 GM/PKT GT SCH ×2 (08:43→21:21)
[2022-08-02] MEDS: BACLOFEN 10 MG TAB PO SCH ×3 (08:44→17:25)
[2022-08-02] MEDS: diazePAM 5 MG TAB GT SCH ×3 (08:44→17:25)
[2022-08-02] MEDS: propylthiouraciL 50 MG TAB PO SCH (08:45)
[2022-08-02 12:00] VITALS: BP 107/89
[2022-08-02] MEDS: DEXTROSE 10% 1,000 ML IV SCH (13:12)
[2022-08-02] MEDS: POTASSIUM CHLORIDE 20% 40 MEQ/15 ML UDC GT PRN (13:27)
[2022-08-02 16:00] VITALS: BP 108/80
[2022-08-02] MEDS ORDERED: HYDRAGUARD CREAM TP ONE (16:10)
[2022-08-02] MEDS ORDERED: HYDRAGUARD CREAM TP PRN (16:20)
--- NOTE | 2022-08-02 19:13 | NUR ---
REPORT GIVEN TO JAYDEN HARP. PATIENT STABLE AND SLEEPING.
--- NOTE | 2022-08-02 19:28 | NUR ---
RECEIVED REPORT FROM JAYDEN BREWER. PT. BASHIR AT THIS TIME. PER REPORT PT. IS NON-VERBAL, BILATERAL LOWER EXTREMITIES CONTRACTED. ON TRACH TO VENT A/C VC RATE 14, TV 450, FIO2 28&, PEEP 5. IV TO RIGHT AC 20G RUNNING D10 AT 60 ML/HR. SINUS RHYTHM ON THE MONITOR. URINE INCONTINENT. NO S/S OF PAIN NOTED. WILL CONT. TO MONITOR.
[2022-08-02 20:00] VITALS: BP 122/93
--- NOTE | 2022-08-02 20:56 | NUR ---
TEXTED DR. YIP IF I CAN GIVE THE MEDS IN GT. PT. HAS AN EXISTING PEG TUBE AND NPO. PT. HAS A SCHEDULE MEDS FOR 2100 AND ACCORDING TO THE PREVIOUS REPORT, MEDS TAB GIVEN IN NGT. HOWEVER NGT PULLED OUT ON 08/01. WILL WAIT FOR HIS RESPONSE.
--- NOTE | 2022-08-02 21:09 | NUR ---
DR. YIP ANSWERED AND OK TO GIVE GT MED.
--- NOTE | 2022-08-02 22:30 | NUR ---
PT. DRESSING OF THE PERIPHERAL IV 20G, RIGHT AC CAME OFF. DRESSING CHANGED TO RIGHT AC. SITE NO S/S OF INFILTRATION, NO S/S OF INFECTION, SITE PATENT AND INTACT.
[2022-08-03] VITALS: BP 93/43
[2022-08-03 04:00] VITALS: BP 93/43
--- NOTE | 2022-08-03 04:53 | NUR ---
LAB CAME TO DRAW BLOOD AND PT. STRONGLY REFUSED. PER LAB THEY WILL COME LATER TO DRAW AGAIN. WILL ENDORSE TO THE NEXT SHIFT.
[2022-08-03] MEDS: METOPROLOL 50 MG TAB GT SCH ×3 (05:29→22:00)
[2022-08-03 07:18] LABS: BASOPHILS % (AUTO) 0.1 % (0.0-2.0); EOSINOPHILS % (AUTO) 0.2 % (0.0-4.0); HEMATOCRIT 36.8 % (36-52); HEMOGLOBIN 12.4 g/dL (12.0-18.0); LYMPHOCYTES # (AUTO) 0.8 K/uL (2.0-11.5); LYMPHOCYTES % (AUTO) 5.4 % (20.5-51.1); MEAN CORPUSCULAR HEMOGLOBIN 28 pg (27-31); MEAN CORPUSCULAR HGB CONC 34 g/dL (33-37); MEAN CORPUSCULAR VOLUME 82.8 fL (80-94); MONOCYTES # (AUTO) 0.6 K/uL (0.8-1.0); MONOCYTES % (AUTO) 3.7 % (1.7-9.3); NEUTROPHILS # (AUTO) 14.1 K/uL (1.8-7.7); NEUTROPHILS % (AUTO) 90.6 % (42.2-75.2); PLATELET COUNT (AUTO) 370 K/uL (140-450); RED BLOOD CELL COUNT(AUTO) 4.44 MIL/uL (4.20-6.10); WHITE BLOOD COUNT (AUTO) 15.6 K/uL (4.8-10.8)
[2022-08-03 07:26] LABS: ANION GAP 14.5 (8-16); CARBON DIOXIDE 24.7 mmol/L (21-32); CREATININE 0.5 mg/dL (0.6-1.3); POTASSIUM 3.2 mmol/L (3.5-5.1)
--- NOTE | 2022-08-03 07:30 | NUR ---
RECEIVED REPORT FROM JAYDEN HARP. PATIENT VOMITTING LIQUID BROWN FLUID. VOLUME APPROXIMATELY 200CC.
[2022-08-03] MEDS: BLOOD GLUCOSE MONITORING 1 DEV DEV FS SCH ×3 (07:38→18:02)
--- NOTE | 2022-08-03 07:43 | NUR ---
REPORT GIVEN TO JAYDEN ROBLERO FOR CONTINUITY OF CARE.
[2022-08-03 08:00] VITALS: BP 118/57
--- NOTE | 2022-08-03 08:15 | NUR ---
PATIENT AROUSES, SLEEPING CURRENTLY. MOVES EXTREMITIES. LEGS AND HANDS SLIGHTLY CONTRACTED. PATIENT NONVERBAL. HEART SOUNDS REGULAR. MONITOR ST WITH RATE 130'S. PATIENT AFEBRILE. PERIPHERAL PULSES PALPABLE. NO EDEMA. LEFT FA #22G IV WITH D10 AT 50CC/HR. TRACH TO VENT AC/VC FIO2 28%/VT 450/RATE 14/PEEP 5. SAO2 93-98%. ANTERIOR/LATERAL BREATH SOUNDS CTA BILATERALLY. ABDOMEN FLAT/SOFT. HYPERACTIVE BOWEL SOUNDS IN ALL QUAD. INCONTINENT OF URINE. BILATERAL MITTENS ON.
[2022-08-03] MEDS: propylthiouraciL 50 MG TAB PO SCH (09:02)
[2022-08-03] MEDS: POLYETHYLENE GLYCOL 17 GM/PKT GT SCH ×2 (09:02→22:00)
[2022-08-03] MEDS: diazePAM 5 MG TAB GT SCH ×3 (09:02→17:28)
[2022-08-03] MEDS: BACLOFEN 10 MG TAB PO SCH ×3 (09:02→17:28)
[2022-08-03] MEDS: DEXTROSE 10% 1,000 ML IV SCH (09:03)
[2022-08-03] MEDS: CALCIUM ACETATE 667 MG TAB PO SCH ×3 (09:03→17:28)
[2022-08-03] MEDS: MAGNESIUM HYDROXIDE 2400 MG/30 ML UDC GT SCH (09:03)
[2022-08-03] MEDS: DOCUSATE 100 MG/10 ML UDC GT SCH ×2 (09:03→22:00)
[2022-08-03] MEDS: POTASSIUM CHLORIDE 20% 40 MEQ/15 ML UDC GT PRN (09:05)
--- NOTE | 2022-08-03 11:00 | NUR ---
DR. YIP HERE TO SEE. UPDATED ON CONDITION, EMESIS, AND INCREASED HR. ORDER RECEIVED TO START TUBE FEEDING AT 20CC/HR.
[2022-08-03 12:00] VITALS: BP 105/73
--- NOTE | 2022-08-03 12:11 | NUR ---
08/03/22 RD FOLLOW UP COMPLETED. PLEASE REFER TO NUTRITION ASSESSMENT UNDER CARE ACTIVITY FOR ESTIMATED NUTRITIONAL NEEDS. 1. WHEN/IF MEDICALLY APPROPRIATE, RECOMMEND JEVITY 1.[address] 07/31/22 WITH A GOAL RATE OF 50 ML/HR WITH PROSOURCE BID -FWF: 150 ML Q6H OR PER MD -START AT 20 ML/HR AND INCREASE BY 10 ML Q4H TOLERATED -WILL PROVIDE 1440 KCAL AND 66 GM PROTEIN, MEETING 100% OF ESTIMATED NUTRIENT NEEDS 2. MONITOR NUTRITION-RELATED LAB VALUES 3. RD TO FOLLOW-UP 2-3 DAYS, HIGH RISK ANA WYATT RD
--- NOTE | 2022-08-03 13:00 | NUR ---
#22G IV BECAME DISLODGED. ARM SLIGHTLY EDEMATOUS AT UPPER ARM, POSSIBLE INFILTRATION OF IV. #22G PLACED IN LEFT AC. GOOD BLOOD RETURN. FLUSHES EASILY. MULTIPLE ATTEMPTS TO PLACE IV.
[2022-08-03 16:00] VITALS: BP 143/82
[2022-08-03] MEDS: ALBUTEROL SULFATE/IPRATROPIU 3 ML SOL IH SCH ×2 (17:39→20:50)
--- NOTE | 2022-08-03 19:30 | NUR ---
REPORT GIVEN TO JAYDEN CARTER. PATIENT TRANSFERRED VIA BED WITH RT.
[2022-08-03 20:00] VITALS: BP 153/115
--- NOTE | 2022-08-03 20:20 | NUR ---
RECEIVED PATIENT FROM ELECTRONICS LEAD EMMA FOR CONTINUITY OF CARE. PATIENT IS A&O X 0. PATIENT IS ON TRACH TO VENT, BREATHING IS NORMAL WITH SYMMETRICAL RISE AND FALL OF CHEST. IV IS A 22G LAC, RUNNING D10 AT 50. PATIENT HAS G-TUBE. PATIENT IS LYING IN BED SUPINE, MOVING HIS HEAD AROUND. BED IS IN LOWEST POSITION, WHEELS LOCKED, CALL LIGHT IN PLACE. WILL CONTINUE TO OBSERVE PATIENT.
--- NOTE | 2022-08-03 20:45 | NUR ---
TAM FROM RADIOLOGY CAME TO UNIT. INFORMED ME THAT PATIENT HAS A CT SCAN FOR ABDOMEN AND PELVIS IN THE MORNING PER DR TURCIOS OH. TAM INFORMED ME THAT PATIENT MUST BE TAKEN OFF FOOD AT 0600 TOMORROW FOR SCAN. I INFORMED TAM THAT PATIENT WILL BE TAKEN OFF FEEDING AT 0600.
--- NOTE | 2022-08-03 22:10 | NUR ---
ADMINISTERED 2100 MEDICATIONS TO PATIENT VIA G-TUBE. PATIENT TOLERATED WELL. PATIENT IS LYING ON RIGHT SIDE, MOVING ARMS UP AND DOWN AND MOVING HEAD BACK AND FORTH. BREATHING IS NORMAL WITH SYMMETRICAL RISE AND FALL OF CHEST. WILL CONTINUE TO OBSERVE PATIENT.
[2022-08-03] MEDS ORDERED: CRUSHER, PILL MC ONE (22:23)
[2022-08-04] VITALS (8 sets, daily range): BP systolic 90–158; BP diastolic 56–107
[2022-08-04] MEDS: BLOOD GLUCOSE MONITORING 1 DEV DEV FS SCH ×4 (00:31→18:00)
--- NOTE | 2022-08-04 00:32 | NUR ---
PATIENT WAS CHANGED AND NITISH CARE WAS GIVEN BY JORDYN CROSS. PATIENT'S BS WAS 122, NO COVERAGE WAS NEEDED. PATIENT TOLERATED BS CHECK AND CHANGING WELL. PATIENT IS LYING ON SIDE. PATIENT HAS BEEN ACTIVE, BUT SEEMS TO BE SETTLING DOWN. WILL CONTINUE TO OBSERVE PATIENT.
--- NOTE | 2022-08-04 02:30 | NUR ---
LOOKED IN ON PATIENT. PATIENT WAS VERY CALM, RESTING. VENTILATOR WAS WORKING APPROPRIATELY, O2 WAS 94%. IV WAS RUNNING D10 AT 50ML/HR. WILL CONTINUE TO OBSERVE PATIENT.
[2022-08-04 05:30] LABS: BASOPHILS # (AUTO) 0.1 K/uL (0.00-0.22); BASOPHILS % (AUTO) 0.4 % (0.0-2.0); EOSINOPHILS # (AUTO) 0.5 K/uL (0-0.4); EOSINOPHILS % (AUTO) 2.8 % (0.0-4.0); HEMATOCRIT 39.6 % (36-52); HEMOGLOBIN 13.2 g/dL (12.0-18.0); LYMPHOCYTES # (AUTO) 2.2 K/uL (2.0-11.5); LYMPHOCYTES % (AUTO) 13.1 % (20.5-51.1); MEAN CORPUSCULAR HEMOGLOBIN 28 pg (27-31); MEAN CORPUSCULAR HGB CONC 33 g/dL (33-37); MEAN CORPUSCULAR VOLUME 83.8 fL (80-94); MONOCYTES % (AUTO) 5.6 % (1.7-9.3); NEUTROPHILS # (AUTO) 13.3 K/uL (1.8-7.7); NEUTROPHILS % (AUTO) 78.1 % (42.2-75.2); PLATELET COUNT (AUTO) 415 K/uL (140-450); RED BLOOD CELL COUNT(AUTO) 4.73 MIL/uL (4.20-6.10); WHITE BLOOD COUNT (AUTO) 17.1 K/uL (4.8-10.8)
[2022-08-04] MEDS: DEXTROSE 10% 1,000 ML IV SCH (05:40)
[2022-08-04] MEDS: METOPROLOL 50 MG TAB GT SCH ×3 (05:41→21:00)
[2022-08-04 05:47] LABS: ANION GAP 12.8 (8-16); CARBON DIOXIDE 27.8 mmol/L (21-32); CREATININE 0.7 mg/dL (0.6-1.3); POTASSIUM 3.6 mmol/L (3.5-5.1)
--- NOTE | 2022-08-04 05:55 | NUR ---
ADMINISTERED 0500 MEDICATION VIA G-TUBE. PATIENT TOLERATED WELL. FEEDING WAS TURNED OFF AND BS WAS OBTAINED. BS WAS 110, NO COVERAGE WAS NEEDED. PATIENT'S O2 IS 95%. WILL CONTINUE TO OBSERVE PATIENT.
--- NOTE | 2022-08-04 06:30 | NUR ---
CHANGED PATIENT WITH JORDYN [place]. PATIENT HAD VOIDED AND HAD ONE BM. PATIENT'S SHEETS WERE CHANGED. PATIENT TOLERATED WELL. WILL CONTINUE TO OBSERVE PATIENT.
--- NOTE | 2022-08-04 07:12 | NUR ---
ENDORSED TO DAY SHIFT NURSE DARLIN FOR CONTINUITY OF CARE. PATIENT IS STABLE.
--- NOTE | 2022-08-04 07:30 | NUR ---
RECEIVED REPORT FROM NIGHTSHIFT NURSE. PT APHASIC. ST ON MONITOR TRACH TO VENT WITH FIO2 @ 24%. O2 SATURATION @ 93%, ON CONTINUOUS PULSE OX. HOB ELEVATED. NPO SINCE 0600. D10 @ 50 ML/HR ON LAC #22. NEEDS ALL MET AT THIS TIME. ALL SAFETY MEASURES IN PLACE.
--- NOTE | 2022-08-04 08:03 | NUR ---
TRANSFERRED TO RADIOLOGY FOR CT SCAN OF THE ABDOMEN/[place] [facility] REMOVED FROM VENTILATOR PLACED ON SUPPLEMENTAL OXYGEN AT 15 LPM VIA E-TANK AT 15LPM TO AMBU BAG/HME/INLINE SUCTION CATHETER/ENDOTRACHEAL TUBE BAG DEPRESSION VERY SIX SECONDS TOLERATED TRANSFERS AND PROCEDURE WELL WITHOUT COMPLICATIONS SATURATION 98%-100% HR LOW 120"S
[2022-08-04] MEDS: ALBUTEROL SULFATE/IPRATROPIU 3 ML SOL IH SCH ×3 (08:31→19:19)
--- NOTE | 2022-08-04 08:31 | NUR ---
RECEIVED ON A [employer]APE R860 VENTILATOR PLUGGED INTO RED OUTLET TOLERATING WELL WITHOUT ADVERSE REACTIONS NOTED TO A PORTEX DCT#8 AIRWAY SECURED WITH A MARGO TRACH TIE CUFF PRESSURE CHECKED NOTED AMBU BAG AT BEDSIDE STABLE EQUAL CHEST RISE DEEP TRACHEAL SUCTION FOR COPIOUS FROTHY TO THIN WHITE SECRETIONS AIRWAY PATENT
[2022-08-04] MEDS: CALCIUM ACETATE 667 MG TAB PO SCH ×3 (08:37→16:25)
[2022-08-04] MEDS: diazePAM 5 MG TAB GT SCH ×3 (08:37→16:25)
[2022-08-04] MEDS: MAGNESIUM HYDROXIDE 2400 MG/30 ML UDC GT SCH (08:37)
[2022-08-04] MEDS: DOCUSATE 100 MG/10 ML UDC GT SCH ×2 (08:37→21:00)
[2022-08-04] MEDS: POLYETHYLENE GLYCOL 17 GM/PKT GT SCH ×2 (08:38→21:00)
[2022-08-04] MEDS: BACLOFEN 10 MG TAB PO SCH ×3 (08:39→16:25)
[2022-08-04] MEDS: propylthiouraciL 50 MG TAB PO SCH (08:40)
--- NOTE | 2022-08-04 09:24 | NUR ---
VENTILATOR ALARM BEEPING. PT NOTED WITH VOMIT. 02 DESAT TO 86%. EXTRA PULSE OX APPLIED TO L BIG TOE. O2 SATURATION @ 90%. PT DESATURATING TO 86%. CONTACTED RT TO COME TO BEDSIDE.
--- NOTE | 2022-08-04 09:25 | NUR ---
CONTACTED DR. BENITO REGARDING PT WITH POSSIBLE ASPIRATION. PT NOTED WITH VOMIT. O2 SATURATION DESAT TO 82%. HEART RATE 125. ORDER TO TRANSFER TO ICU.
--- NOTE | 2022-08-04 09:26 | NUR ---
CONTACTED SPEECH LANGUAGE PATHOLOGY ASSISTANT FOR PT TRANSFER TO ICU.
--- NOTE | 2022-08-04 09:34 | NUR ---
PT CURRENTLY AT 92%. HR 139. CONTACTED RT AGAIN.
--- NOTE | 2022-08-04 09:38 | NUR ---
O2 SATURATION @ 84%. HR 138. RT AT BEDSIDE.
--- NOTE | 2022-08-04 09:41 | NUR ---
RT LEFT BEDSIDE. PT O2 SATURATION @ 90% CONTINUOUS PULSE OX. PT CHANGED. HOB @ HIGH FOWLERS. ALL SAFETY MEAUSURES IN PLACE.
--- NOTE | 2022-08-04 09:45 | NUR ---
RT BACK AT BEDSIDE AND STATES PT FIO2 CHANGED TO 45%. O2 SATURATION @ 98%. HOB ON HIGH FOWLERS. MITTENS RESTRAINTS IN PLACE. D10 @ 50 ML/HR ON LAC #22. NPO EXCEPT MEDS. NEEDS ALL MET AT THIS TIME. ALL SAFETY MEASURES IN PLACE.
--- NOTE | 2022-08-04 09:52 | NUR ---
CHANGED MODE TO PRVC TO MAINTAIN ADEQUATE Vt; INCREASED FIO2 TO 45% TO KEEP SATURATION GREATER THAN 90% DARLIN/RN NOTIFIED
--- NOTE | 2022-08-04 09:52 | NUR ---
RT CALLED TO BEDSIDE PRIOR PATIENT PRESENTING WITH EMESIS POSSIBLE ASPIRATION AND TRANSFER TO ICU LOC AWAKE AND ALERT GOOD CHEST RISE BREATH SOUNDS COARSE RALES BILATERAL DEEP TRACHEAL SUCTION FOR MODERATE THIN CLEAR TO BROWN SECRETIONS AIRWAY PATENT ENVIRONMENTAL HEALTH NURSE AT BEDSIDE FOR PATIENT PHYSICAL HYGIENE AND REPOSITION
--- NOTE | 2022-08-04 10:00 | NUR ---
TRANSFER TO ICU CANCELLED.
[2022-08-04] MEDS ORDERED: VANCOMYCIN PER PHARMACY MC PRN (10:55)
[2022-08-04] MEDS: PIPERACILLIN/TAZOBACTAM 3.375 GM in DEXTROSE 5% 50 ML IV SCH ×2 (12:24→18:15)
[2022-08-04] MEDS: VANCOMYCIN 500 MG in DEXTROSE 5% 100 ML IV SCH (12:37)
--- NOTE | 2022-08-04 14:25 | NUR ---
CONTACTED DR. BENITO REGARDING PT'S HR IN THE 156-161. ORDER METOPROLOL 12.5 MG VIA GTUBE ONCE. SEE EMAR FOR MEDICATION ADMINISTRATION. PT'S HOB HIGH FOWLERS. PRVC, FIO2 @ 45%, TV 450, PEEP, 5, RR 14. O2 SATURATION @ 98%. RR EVEN & UNLABORED. IVF INFUSING. NEEDS ALL MET AT THIS TIME. ALL SAFETY MEASURES IN PLACE.
--- NOTE | 2022-08-04 14:47 | NUR ---
STABLE GOOD CHEST RISE DEEP TRACHEAL SUCTION FOR SMALL THIN WHITES SECRETIONS
[2022-08-04] MEDS ORDERED: METOPROLOL 25 MG TAB GT SCH (15:00)
--- NOTE | 2022-08-04 15:49 | NUR ---
STABLE GOOD CHEST RISE AND AERATION THROUGHOUT BILATERAL LUNG LARSEN AIRWAY PATENT SATURATION 99% ON FIO2 OF 45% PEEP 5 cmH2O TITRATED FIO2 TO 40% DARLIN/RN NOTIFIED
--- NOTE | 2022-08-04 15:50 | NUR ---
CONTACTED MD REGARDING PT EMESIS AND HR IN THE 160'S. ORDER TO HOLD 1700 GTUBE MEDICATIONS. PRN ATIVAN AND ZOFRAN GIVEN. RT COMPLETED ASSESSMENT AT BEDSIDE. FIO2 DECREASED TO 40%, O2 SATURATION @ 98%. HOB SEMI-FOWLERS. PT REPOSITIONED. TOLERATED WELL. ALL SAFETY MEASURES IN PLACE.
[2022-08-04] MEDS: LORazepam 2 MG/ML VIAL IVP PRN (16:01)
[2022-08-04] MEDS: ONDANSETRON 4 MG/2 ML VIAL IVP PRN (16:04)
--- NOTE | 2022-08-04 16:30 | NUR ---
HR IN THE 140'S. O2 SATURATION @ 98%. HOB ELEVATED. PT STABLE AT THIS TIME. SOFT MITTENS IN PLACE. IVF INFUSING.
--- NOTE | 2022-08-04 18:55 | NUR ---
HR RANGE FROM 115-121. AFEBRILE. TRACH TO VENT WITH FIO2 @ 40%. O2 SATURATION @ 98%. HOB ELEVATED, SEMI FOWLERS. NEEDS ALL MET AT THIS TIME. ALL SAFETY MEASURES IN PLACE. PT STABLE.
--- NOTE | 2022-08-04 19:07 | NUR ---
REPORT GIVEN TO NIGHTSORFT NURSETANNER FOR CONTINUITY OF CARE.
--- NOTE | 2022-08-04 21:32 | NUR ---
BP : 90/ 58 , HAD WATERY BM - HOLD SCHED . METOPROLOL AT THIS TIME , AND SCHEDULED LAXATIVES - WILL CONT. TO MONITOR , WOF PROGRESSION OF WATERY BM AND HYPOTENSION . THE AM NURSE JUST GIVE STAT METOPROLOL THRU GT 6 HRS AGO , ON TELE MONITOR HR 115 . IVF INFUSING WELL - HOLD G TUBE FEEDING FOR THE MEANTIME ORDERED . Addendum: 08/04/22 at 2136 by Mandy Healy RN SLEEPY , BUT EASILY AROUSABLE - JUST GOT ATIVAN FROM AM SHIFT , O2 SAT 99 % - TRACH TO VENT . Addendum: 08/04/22 at 2137 by Mandy Healy RN BP 90/ 58 , BP MEAN 72 . NO S/SX OF ACUTE DISTRESS NOTED , RT AT BEDSIDE
--- NOTE | 2022-08-04 21:55 | NUR ---
DR CARDOZO AGREED W/ DR. BENITO - HOLD FEEDING EXCEPTS MED .- HE SAID HE WILL CHECK THE G TUBE PLACEMENT JOSHUA.
--- NOTE | 2022-08-04 23:04 | NUR ---
BP 130/85 , O2 SAT 99 % , HR 121 - WILL CONT. TO MONITOR . NO S/SX OF ACUTE DISTRESS NOTED .
[2022-08-05] VITALS: BP 130/80
[2022-08-05] MEDS: DEXTROSE 10% 1,000 ML IV SCH ×2 (00:25→20:25)
[2022-08-05] MEDS: BLOOD GLUCOSE MONITORING 1 DEV DEV FS SCH ×4 (00:32→17:55)
[2022-08-05] MEDS: PIPERACILLIN/TAZOBACTAM 3.375 GM in DEXTROSE 5% 50 ML IV SCH ×4 (00:38→17:57)
[2022-08-05] MEDS: VANCOMYCIN 500 MG in DEXTROSE 5% 100 ML IV SCH ×2 (01:00→12:47)
[2022-08-05 04:00] VITALS: BP 140/80
--- NOTE | 2022-08-05 05:30 | NUR ---
BP 140/82 , HR 130 - WILL GIVE SCHED . METOPROLOL / GT .
[2022-08-05] MEDS: METOPROLOL 50 MG TAB GT SCH ×3 (05:39→21:20)
--- NOTE | 2022-08-05 05:41 | NUR ---
DR Marlene CARDOZO MANIPULATED THE G TUBE - HE ADDED 5 CC ML OF WATER IN B TUBE BALLOON - WILL MONITOR IF THERE IS RE OCCURENCE OF VOMITING .
[2022-08-05 06:00] LABS: ANION GAP 13.2 (8-16); CARBON DIOXIDE 31.2 mmol/L (21-32); CREATININE 0.8 mg/dL (0.6-1.3); POTASSIUM 3.4 mmol/L (3.5-5.1)
--- NOTE | 2022-08-05 06:43 | NUR ---
NO OCCURENCE OF VOMITING NOTED UP TO THIS TIME , WILL ENDORSE TO AM SHIFT TO RESUME G TUBE FEEDING .
--- NOTE | 2022-08-05 07:22 | NUR ---
NO VOMITING , ENDORSED TO JAYDEN SAEED SHE HAVE TO RESUME G TUBE FEEDING DR. CARDOZO ORDERED , DARLIN RN VERBALIZES UNDERSTANDING . + BM 2X NOT WATERY .
--- NOTE | 2022-08-05 07:30 | NUR ---
RECEIVED PT FROM NIGHTSHIFT NURSE, TANNER. PT'S HOB ELEVATED. TRACH TO VENT. O2 SATURATION @ 96%. FIO2 @ 30%, PRVC. D10 INFUSING ON LAC #22. NEEDS ALL MET AT THIS TIME. ALL SAFETY MEASURES IN PLACE. PLAN TO CONTINUE GT FEEDING.
[2022-08-05 08:00] VITALS: BP 117/85
[2022-08-05] MEDS: CALCIUM ACETATE 667 MG TAB PO SCH ×3 (08:00→17:17)
[2022-08-05] MEDS: ALBUTEROL SULFATE/IPRATROPIU 3 ML SOL IH SCH ×3 (08:55→20:43)
[2022-08-05] MEDS: DOCUSATE 100 MG/10 ML UDC GT SCH ×2 (09:00→21:20)
[2022-08-05] MEDS: POLYETHYLENE GLYCOL 17 GM/PKT GT SCH ×2 (09:00→21:20)
[2022-08-05] MEDS: MAGNESIUM HYDROXIDE 2400 MG/30 ML UDC GT SCH (09:00)
--- NOTE | 2022-08-05 09:20 | NUR ---
PRN ZOFRAN GIVEN BEFORE MEDICATION ADMINISTRATION TO PREVENT PT VOMITING.
[2022-08-05] MEDS: ONDANSETRON 4 MG/2 ML VIAL IVP PRN ×2 (09:23→17:24)
[2022-08-05] MEDS: BACLOFEN 10 MG TAB PO SCH ×3 (09:50→17:16)
[2022-08-05] MEDS: POTASSIUM CHLORIDE 20% 40 MEQ/15 ML UDC GT PRN (09:50)
[2022-08-05] MEDS: propylthiouraciL 50 MG TAB PO SCH (09:50)
[2022-08-05] MEDS: diazePAM 5 MG TAB GT SCH ×3 (09:50→17:16)
--- NOTE | 2022-08-05 10:00 | NUR ---
ALL DUE MEDS ADMINISTERED. PT VOMITTED. PT SUCTIONED. O2 SATURATION @ 96% ON CONTINUOUS PULSE OX. CONTACTED DIGITAL COORDINATOR FOR HYGIENIC CARE. HOB HIGH FOWLERS. NEEDS ALL MET AT THIS TIME. ALL SAFETY MEASURES IN PLACE.
[2022-08-05 11:44] LABS: BASOPHILS % (AUTO) 0.3 % (0.0-2.0); EOSINOPHILS # (AUTO) 0.1 K/uL (0-0.4); EOSINOPHILS % (AUTO) 0.6 % (0.0-4.0); HEMATOCRIT 36.9 % (36-52); HEMOGLOBIN 12.5 g/dL (12.0-18.0); LYMPHOCYTES # (AUTO) 1.7 K/uL (2.0-11.5); LYMPHOCYTES % (AUTO) 12.8 % (20.5-51.1); MEAN CORPUSCULAR HEMOGLOBIN 28 pg (27-31); MEAN CORPUSCULAR HGB CONC 34 g/dL (33-37); MEAN CORPUSCULAR VOLUME 82.8 fL (80-94); MONOCYTES # (AUTO) 0.8 K/uL (0.8-1.0); MONOCYTES % (AUTO) 5.8 % (1.7-9.3); NEUTROPHILS # (AUTO) 10.6 K/uL (1.8-7.7); NEUTROPHILS % (AUTO) 80.5 % (42.2-75.2); PLATELET COUNT (AUTO) 404 K/uL (140-450); RED BLOOD CELL COUNT(AUTO) 4.46 MIL/uL (4.20-6.10); WHITE BLOOD COUNT (AUTO) 13.2 K/uL (4.8-10.8)
[2022-08-05 12:00] VITALS: BP 140/96
--- NOTE | 2022-08-05 12:00 | NUR ---
CONTACTED DR. BENITO AND DR. COLEY REGARDING PT VOMITING WITH EVERY GTUBE MEDICATION ADMINISTRATION AND FEEDING. DR. BENITO ORDER FOR NPO EXCEPT MEDS AND TO HOLD GT FEEDING FOR NOW.
--- NOTE | 2022-08-05 12:27 | NUR ---
PT HIGH FOWLERS. SCHEDULED MEDICATIONS GIVEN VIA GTUBE. PT VOMITED. O2 DESATURATION TO 86%. PT SUCTIONED WITH FIO2 @ 100%. PT CURRENTLY ON FIO2 30%, PRVC, WITH O2 SATURATION @ 97%. NEEDS ALL MET AT THIS TIME. ALL SAFETY MEASURES IN PLACE.
--- NOTE | 2022-08-05 15:34 | NUR ---
08/05/22 RD FOLLOW UP COMPLETED. PLEASE REFER TO NUTRITION ASSESSMENT UNDER CARE ACTIVITY FOR ESTIMATED NUTRITIONAL NEEDS. 1. WHEN/IF MEDICALLY APPROPRIATE, RECOMMEND JEVITY 1.[address] 07/31/22 WITH A GOAL RATE OF 50 ML/HR -FWF: 150 ML Q6H OR PER MD -START AT 20 ML/HR AND INCREASE BY 10 ML Q4H TOLERATED -WILL PROVIDE 1440 KCAL AND 66 GM PROTEIN, MEETING 100% OF ESTIMATED NUTRIENT NEEDS 2. WHEN/IF MEDICALLY APPROPRIATE, RECOMMEND PROSOURCE TID TO OPTIMIZE NUTRITIONAL NEEDS 3. MONITOR NUTRITION-RELATED LAB VALUES 4. RD TO FOLLOW-UP IN 2-3 DAYS PATIENT IS HIGH RISK. ANA WYATT RD
[2022-08-05 16:00] VITALS: BP 119/79
--- NOTE | 2022-08-05 17:30 | NUR ---
PRN ZOFRAN GIVEN. PT VOMIT AFTER GTUBE MEDS WERE GIVEN. PT TURNED ON LEFT SIDE, SUCTIONED. NO SIGNS OF ASPIRATION. NO O2 DESATURATION. O2 SATURATION @ 99%. PT CHANGED AND REPOSITIONED. HOB ELEVATED. NEEDS ALL MET AT THIS TIME. ALL SAFETY MEASURES IN PLACE.
--- NOTE | 2022-08-05 19:10 | NUR ---
REPORT GIVEN TO [facility] NURSE BROWN FOR CONTINUITY OF CARE.
--- NOTE | 2022-08-05 19:20 | NUR ---
REPORT RECEIVED FROM TRENT RN. CARE TAKEN OVER. PT IS WITH MITTENS RESTRAINTS, RELEASED AND CHECKED CIRCULATION AND SAFETY, PT WITH NO INJURIES. PLACED MITTEN RESTRAINTS BACK ON FOR PTS SAFETY. PT ON VENTILATOR, NO VELASCO. GTUBE, BUT NPO AT THIS TIME EXCEPT MEDS. PLAN OF CARE DISCUSSED. CALL LIGHT WITHIN REACH. WILL CONTINUE TO MONITOR.
[2022-08-05] MEDS: LORazepam 2 MG/ML VIAL IVP PRN (20:36)
[2022-08-05 21:17] VITALS: BP 149/111
--- NOTE | 2022-08-05 22:00 | NUR ---
PT WITH HEART RATE 145. GAVE ATIVAN AND MORPHINE PRN PER ORDERS. GAVE LOPRESSOR PER ORDER. HR REMAINS 136-146. NOTIFIED MD AND AT THIS TIME MD AWARE AND WILL CONTINUE TO MONITOR.
[2022-08-06] VITALS: BP 150/102
--- NOTE | 2022-08-06 | NUR ---
PT ASLEEP. NO S/SX OF DISTRESS. WILL CONTINUE TO MONITOR.
--- NOTE | 2022-08-06 03:00 | NUR ---
PT CLEANED AND CHANGED. PT TOLERATED WELL. NO DISTRESS NOTED. WILL CONTINUE TO MONITOR.
[2022-08-06 04:00] VITALS: BP 140/106
[2022-08-06] MEDS: METOPROLOL 50 MG TAB GT SCH ×3 (05:00→21:00)
--- NOTE | 2022-08-06 05:00 | NUR ---
SCHEDULED ANTIBIOTICS GIVEN.PT TOLERATED WELL. WILL CONTINUE TO MONITOR.
[2022-08-06 06:00] LABS: BASOPHILS % (AUTO) 0.3 % (0.0-2.0); EOSINOPHILS % (AUTO) 0.1 % (0.0-4.0); HEMATOCRIT 36.3 % (36-52); HEMOGLOBIN 12.2 g/dL (12.0-18.0); LYMPHOCYTES # (AUTO) 1.7 K/uL (2.0-11.5); LYMPHOCYTES % (AUTO) 10.7 % (20.5-51.1); MEAN CORPUSCULAR HEMOGLOBIN 28 pg (27-31); MEAN CORPUSCULAR HGB CONC 34 g/dL (33-37); MONOCYTES # (AUTO) 1.5 K/uL (0.8-1.0); MONOCYTES % (AUTO) 9.6 % (1.7-9.3); NEUTROPHILS # (AUTO) 12.6 K/uL (1.8-7.7); NEUTROPHILS % (AUTO) 79.3 % (42.2-75.2); PLATELET COUNT (AUTO) 417 K/uL (140-450); RED BLOOD CELL COUNT(AUTO) 4.33 MIL/uL (4.20-6.10); RED CELL DISTRIBUTION WIDTH 17.6 % (11.6-13.7); WHITE BLOOD COUNT (AUTO) 15.9 K/uL (4.8-10.8)
[2022-08-06 06:09] LABS: ANION GAP 13.8 (8-16); CARBON DIOXIDE 32.2 mmol/L (21-32)
[2022-08-06] MEDS: PIPERACILLIN/TAZOBACTAM 3.375 GM in DEXTROSE 5% 50 ML IV SCH ×5 (06:32→18:00)
[2022-08-06] MEDS: BLOOD GLUCOSE MONITORING 1 DEV DEV FS SCH ×4 (06:42→18:07)
--- NOTE | 2022-08-06 06:50 | NUR ---
PT STABLE. NO ACUTE S/SX OF DISTRESS AT THIS MOMENT. ALL NEEDS MET. ALL PRECAUTIONS IN PLACE.CALL LIGHT WITHIN REACH.WILL ENDORSE TO AM SHIFT NURSE.
[2022-08-06] MEDS: ALBUTEROL SULFATE/IPRATROPIU 3 ML SOL IH SCH ×3 (07:00→19:00)
[2022-08-06 08:00] VITALS: BP 134/96
[2022-08-06] MEDS: diazePAM 5 MG TAB GT SCH ×3 (09:02→17:59)
[2022-08-06] MEDS: propylthiouraciL 50 MG TAB PO SCH (09:03)
[2022-08-06] MEDS: CALCIUM ACETATE 667 MG TAB PO SCH ×3 (09:03→17:59)
[2022-08-06] MEDS: BACLOFEN 10 MG TAB PO SCH ×3 (09:03→17:59)
[2022-08-06] MEDS: DOCUSATE 100 MG/10 ML UDC GT SCH ×2 (09:03→21:00)
[2022-08-06] MEDS: MAGNESIUM HYDROXIDE 2400 MG/30 ML UDC GT SCH (09:04)
[2022-08-06] MEDS: POLYETHYLENE GLYCOL 17 GM/PKT GT SCH ×2 (09:04→21:00)
--- NOTE | 2022-08-06 10:27 | NUR ---
RECEIVE ENDORSEMENT FROM PM SHIFT WHILE PATIENT RES TIN BED, ON TEL.MONITOR, TRACH TO AYDEN ON AC/PRVC, FIO2 30, D10 INFUSING VIA L. AC 22g. WILL CONTINUE TO MONITOR
[2022-08-06] MEDS: POTASSIUM CHLORIDE 20% 40 MEQ/15 ML UDC GT PRN (11:01)
[2022-08-06 12:00] VITALS: BP 124/104
[2022-08-06] MEDS: VANCOMYCIN 500 MG in DEXTROSE 5% 100 ML IV SCH ×3 (12:47)
[2022-08-06] MEDS ORDERED: fentaNYL citrate 0.05 MG/ML VIAL ONE (12:57)
[2022-08-06] MEDS ORDERED: diphenhydrAMINE 50 MG/ML VIAL ONE (12:57)
[2022-08-06] MEDS ORDERED: MIDAZOLAM 2 MG/2 ML VIAL ONE ×2 (12:57→12:58)
--- NOTE | 2022-08-06 14:32 | NUR ---
OR GI TEAM IS HERE FOR EGD, FAN FOUND ABOUT 200ML CLEAR MIX WITH DARK BROWN STIP MUCUS LIKE FLUID ON THE RI SIDE OF BED AND SOME BROWN SLIMY ON PATIENT'S L. SHOULDER. WILL CONTINUE TO MONITOR
[2022-08-06] MEDS ORDERED: fentaNYL citrate 0.05 MG/ML VIAL IVP ONE (15:00)
[2022-08-06] MEDS ORDERED: MIDAZOLAM 2 MG/2 ML VIAL IVP ONE (15:00)
[2022-08-06 16:00] VITALS: BP 113/72
[2022-08-06] MEDS: DEXTROSE 10% 1,000 ML IV SCH (16:41)
--- NOTE | 2022-08-06 19:40 | NUR ---
ENDORSE PATIENT TO PM SHIFT NURSE WHILE PATIENT RESTING IN BED, ON TEL.MONITOR, TRACH TO AYDEN ON AC/PRVC, FIO2 30, D10 INFUSING VIA L. AC 22G. EGD DONE TODAY
[2022-08-06 20:00] VITALS: BP 125/72
--- NOTE | 2022-08-06 21:22 | NUR ---
CONTRAST PER GT GIVEN BY DR. MARGUERITE BURRELL VOMITING - FOR UPPER GI SERIES W/ KUB .
--- NOTE | 2022-08-06 23:23 | NUR ---
INFORM DR. SHANKS REGARDING SKIPPED SCHEDULED MEDS INCLUDING METOPROLOL 50MG/ GT BVEC. DR. EVERETT PUT PT. ON NPO , BECAUSE DR. EVERETT PLANNING TO DO PROCEDURE GI SERIES . BP 1217/ 69 , HR 122
[2022-08-06] MEDS ORDERED: LABETALOL 100 MG/20 ML VIAL IV SCH (23:55)
[2022-08-07] VITALS: BP 127/68
[2022-08-07] MEDS ORDERED: LABETALOL 20 MG/4 ML VIAL IVP ONE (00:31)
[2022-08-07] MEDS: VANCOMYCIN 500 MG in DEXTROSE 5% 100 ML IV SCH ×2 (00:55→12:28)
[2022-08-07] MEDS: BLOOD GLUCOSE MONITORING 1 DEV DEV FS SCH ×5 (01:00→23:34)
[2022-08-07] MEDS: PIPERACILLIN/TAZOBACTAM 3.375 GM in DEXTROSE 5% 50 ML IV SCH ×5 (01:00→23:34)
--- NOTE | 2022-08-07 01:11 | NUR ---
BP RE CHECK 110/ 62 - HR 118 , WILL CONT . TO MONITOR .
--- NOTE | 2022-08-07 02:39 | NUR ---
SIGNS OF NAUSEA NOTED VOMITED SMALL AMOUNT - WILL MEDICATE .
[2022-08-07] MEDS: ONDANSETRON 4 MG/2 ML VIAL IVP PRN (02:40)
[2022-08-07 04:00] VITALS: BP 117/72
--- NOTE | 2022-08-07 04:30 | NUR ---
FU;;Y AWAKE , NO S/SX OF ACUTE DISTRESS NOTED AT THIS TIME , PO2 SAT 99 %
[2022-08-07] MEDS: METOPROLOL 50 MG TAB GT SCH ×4 (05:00→22:00)
[2022-08-07 05:44] LABS: BASOPHILS % (AUTO) 0.3 % (0.0-2.0); EOSINOPHILS % (AUTO) 0.2 % (0.0-4.0); HEMATOCRIT 33.8 % (36-52); HEMOGLOBIN 11.3 g/dL (12.0-18.0); LYMPHOCYTES # (AUTO) 2.2 K/uL (2.0-11.5); LYMPHOCYTES % (AUTO) 17.7 % (20.5-51.1); MEAN CORPUSCULAR HEMOGLOBIN 28 pg (27-31); MEAN CORPUSCULAR HGB CONC 34 g/dL (33-37); MEAN CORPUSCULAR VOLUME 82.4 fL (80-94); MONOCYTES # (AUTO) 0.7 K/uL (0.8-1.0); MONOCYTES % (AUTO) 5.8 % (1.7-9.3); NEUTROPHILS # (AUTO) 9.3 K/uL (1.8-7.7); PLATELET COUNT (AUTO) 375 K/uL (140-450); RED CELL DISTRIBUTION WIDTH 18.1 % (11.6-13.7); WHITE BLOOD COUNT (AUTO) 12.3 K/uL (4.8-10.8)
[2022-08-07 05:51] LABS: ANION GAP 11.8 (8-16); CARBON DIOXIDE 35.9 mmol/L (21-32); CREATININE 0.9 mg/dL (0.6-1.3)
[2022-08-07 05:57] LABS: POTASSIUM 2.7 mmol/L (3.5-5.1)
--- NOTE | 2022-08-07 06:00 | NUR ---
ROUNDS , NO S/SX OF ACUTE DISTRESS NOTED AT THIS TIME , O2 SAT 99 % , NO VOMITING NOTED AT THIS TIME . Addendum: 08/07/22 at 0729 by Mandy Healy RN BP 129 / 77 , HR 121 . - WILL ENDORSE
[2022-08-07] MEDS: ALBUTEROL SULFATE/IPRATROPIU 3 ML SOL IH SCH ×3 (06:53→20:14)
--- NOTE | 2022-08-07 07:35 | NUR ---
RECEIVED PT ON ACVC 450,RR14,+5,30%. VENT PLUGGED INTO RED OUTLET, WHEELS ARE LOCKED AND AMBUBAG AT BEDSIDE, ALARMS ARE SET AND AUDIBLE. GOOD EQUAL CHEST RISE, COARSE BILATERAL BREATH SOUNDS, SATURATION 98%
--- NOTE | 2022-08-07 07:40 | NUR ---
ENDORSED - PT =- STABLE
[2022-08-07 08:00] VITALS: BP 129/84
--- NOTE | 2022-08-07 08:00 | NUR ---
RECEIVED IN BED AWAKE ASSESSMENT COMPLETED PLAN OPF CARE REVIEWED TRACH TO VENT NO DISTRESS NPO AT THIS TIME WILL CONTINUE TO MONITOR AND ASSESS
[2022-08-07] MEDS: MAGNESIUM HYDROXIDE 2400 MG/30 ML UDC GT SCH (08:51)
[2022-08-07] MEDS: POLYETHYLENE GLYCOL 17 GM/PKT GT SCH ×2 (08:52→22:00)
[2022-08-07] MEDS: diazePAM 5 MG TAB GT SCH ×3 (08:52→18:15)
[2022-08-07] MEDS: CALCIUM ACETATE 667 MG TAB PO SCH ×3 (08:52→18:15)
[2022-08-07] MEDS: DOCUSATE 100 MG/10 ML UDC GT SCH ×2 (08:52→21:59)
[2022-08-07] MEDS: BACLOFEN 10 MG TAB PO SCH ×3 (08:53→18:15)
[2022-08-07] MEDS: propylthiouraciL 50 MG TAB PO SCH (08:53)
[2022-08-07] MEDS: POTASSIUM CHLORIDE 20% 40 MEQ/15 ML UDC GT PRN (09:01)
[2022-08-07 12:00] VITALS: BP 132/81
--- NOTE | 2022-08-07 12:00 | NUR ---
NO SIGNIFICANT CHANGES AT THIS TIME
[2022-08-07] MEDS: DEXTROSE 10% 1,000 ML IV SCH (12:28)
--- NOTE | 2022-08-07 14:23 | NUR ---
08/07/22 RD FOLLOW UP COMPLETED PLEASE REFER TO NUTRITION ASSESSMENT UNDER CARE ACTIVITY FOR ESTIMATED NUTRITIONAL NEEDS. 1. WHEN/IF MEDICALLY APPROPRIATE, RECOMMEND CONTINUING JEVITY 1.2 WITH A GOAL RATE OF 50 ML/HR -FWF: 150 ML Q6H OR PER MD -START AT 20 ML/HR AND INCREASE BY 10 ML Q4H TOLERATED -WILL PROVIDE 1440 KCAL AND 66 GM PROTEIN, MEETING 100% OF ESTIMATED NUTRIENT NEEDS 2. WHEN/IF MEDICALLY APPROPRIATE, RECOMMEND PROSOURCE TID TO OPTIMIZE NUTRITIONAL NEEDS 3. MONITOR WEIGHT AND NUTRITION-RELATED LAB VALUES 4. RD TO FOLLOW-UP IN 3-5 DAYS PATIENT IS MODERATE RISK. LEONCIO SU RD
[2022-08-07 16:00] VITALS: BP 112/85
--- NOTE | 2022-08-07 16:00 | NUR ---
DR EVERETT IN WITH NEW ORDERS TO RESTART TUBE FEEDING IF OK WITH ATTENDING WILL MAKE ATTENDING AWARE
--- NOTE | 2022-08-07 17:00 | NUR ---
SPOKE WITH DR SHANKS AND MADE AWARE DR EVERETT ENDORSES OK TO RESTART TUBE FEEDING AT PREVIOUS RATE PER MD SHANKS OK TO RESTART TUBE FEEDING AT PREVIOUS RATE
--- NOTE | 2022-08-07 17:45 | NUR ---
TUBE FEEDING RESTARTED ORDERED [facility] 1.2 AT 20ML/HR WITH 150ML H2O FLUSH Q6 HOURS NO SIGNIFICANT CHANGES NOTED ALL NEEDS ANTICIPATED AND MET BY STAFF
--- NOTE | 2022-08-07 19:48 | NUR ---
GET THE REPORT FROM MORNING NURSE, PATIENT IS LYING ON BED,PATIENT IS APHASIC, PATIENT IS ON TRACH TO VENT, FIO2 30%, PEEP-5, ALL FALL PRECAUTION MEASURE ARE IN PLACE, CALL LIGHT IS WITHIN THE REACH, WILL CONTINUE TO MONITOR PATIENT.
[2022-08-07 20:00] VITALS: BP 145/100
--- NOTE | 2022-08-07 22:10 | NUR ---
PATIENT IS LYING ON BED, NO ANY SIGN OF SHORTNESS OF BREATH OR PAIN NOTED AT THIS TIME, VITAL SIGN IS WITHIN THE NORMAL RANGE, ALL SCHEDULE MEDICATION IS GIVEN PER DOCTOR ORDER, CALL LIGHT IS WITHIN THE REACH, WILL CONTINUE TO MONITOR PATIENT.
--- NOTE | 2022-08-07 23:34 | NUR ---
CHECKED PATIENT BLOOD SUGAR IS 110,NO INSULIN COVERAGE IS NEEDED AT THIS TIME, CALL LIGHT IS WITHIN THE REACH, WILL CONTINUE TO MONITOR PATIENT.
[2022-08-08] VITALS (7 sets, daily range): BP systolic 103–151; BP diastolic 65–101
--- NOTE | 2022-08-08 00:20 | NUR ---
PATIENT IS LYING ON BED, NO ANY SIGN OF PAIN OR RESPIRATORY DISTRESS NOTED AT THIS TIME, VITAL SIGN IS WITHIN THE NORMAL RANGE, ALL SCHEDULE MEDICATION IS GIVEN PER DOCTOR ORDER, CALL LIGHT IS WITHIN THE REACH, WILL CONTINUE TO MONITOR PATIENT.
[2022-08-08] MEDS: VANCOMYCIN 500 MG in DEXTROSE 5% 100 ML IV SCH ×2 (00:28→12:00)
--- NOTE | 2022-08-08 00:50 | NUR ---
CHANGED PATIENT AND REPOSITION , CALL LIGHT IS WITHIN THE REACH, WILL CONTINUE TO MONITOR PATIENT.
[2022-08-08] MEDS: METOPROLOL 50 MG TAB GT SCH ×3 (05:29→21:13)
[2022-08-08] MEDS: BLOOD GLUCOSE MONITORING 1 DEV DEV FS SCH ×3 (05:29→18:37)
[2022-08-08] MEDS: PIPERACILLIN/TAZOBACTAM 3.375 GM in DEXTROSE 5% 50 ML IV SCH ×3 (05:30→18:37)
--- NOTE | 2022-08-08 05:30 | NUR ---
PATIENT BLOOD SUGAR IS 112, NO INSULIN COVERAGE IS NEEDED AT THIS TIME, CALL LIGHT IS WITHIN THE REACH, WILL CONTINUE TO MONITOR PATIENT.
[2022-08-08 06:12] LABS: BASOPHILS % (AUTO) 0.3 % (0.0-2.0); EOSINOPHILS # (AUTO) 0.1 K/uL (0-0.4); EOSINOPHILS % (AUTO) 0.6 % (0.0-4.0); HEMATOCRIT 31.2 % (36-52); HEMOGLOBIN 10.5 g/dL (12.0-18.0); LYMPHOCYTES # (AUTO) 2.1 K/uL (2.0-11.5); LYMPHOCYTES % (AUTO) 20.1 % (20.5-51.1); MEAN CORPUSCULAR HEMOGLOBIN 28 pg (27-31); MEAN CORPUSCULAR HGB CONC 34 g/dL (33-37); MONOCYTES # (AUTO) 0.5 K/uL (0.8-1.0); MONOCYTES % (AUTO) 5.3 % (1.7-9.3); NEUTROPHILS # (AUTO) 7.7 K/uL (1.8-7.7); NEUTROPHILS % (AUTO) 73.7 % (42.2-75.2); PLATELET COUNT (AUTO) 373 K/uL (140-450); RED BLOOD CELL COUNT(AUTO) 3.81 MIL/uL (4.20-6.10); RED CELL DISTRIBUTION WIDTH 17.7 % (11.6-13.7); WHITE BLOOD COUNT (AUTO) 10.4 K/uL (4.8-10.8)
--- NOTE | 2022-08-08 06:17 | NUR ---
CHANGED AND REPOSITION PATIENT, WILL CONTINUE TO MONITOR PATIENT.
[2022-08-08 06:30] LABS: ANION GAP 13.3 (8-16); CARBON DIOXIDE 31.2 mmol/L (21-32); CREATININE 0.8 mg/dL (0.6-1.3)
--- NOTE | 2022-08-08 07:00 | NUR ---
RECEIVED PT ON PRVC 450,RR14,+5, 28%. WHEELS ARE LOCKED AND VENT IS PLUGGED INTO RED OUTLET, AMBUBAG AT BEDSIDE, ALARMS ARE SET AND AUDIBLE.
[2022-08-08] MEDS: ALBUTEROL SULFATE/IPRATROPIU 3 ML SOL IH SCH ×3 (07:09→20:13)
--- NOTE | 2022-08-08 07:11 | NUR ---
GAVE THE REPORT TO MORNING NURSE YENNY FOR CONTINUOS OF CARE, PATIENT IS STABLE.
[2022-08-08 07:27] LABS: POTASSIUM 2.5 mmol/L (3.5-5.1)
--- NOTE | 2022-08-08 08:33 | NUR ---
RECEIVE ENDORSEMENT FROM PM SHIFT WHILE PATIENT RESTING IN BED, ON TEL.MONITOR, TRACH TO AYDEN ON AC/PRVC, FIO2 28, PIV L. AC 22G SALINE LOCK, JEVITY 1.2 20ML/HR W/ H2O 150 FLUSH Q6HR. WILL CONTINUE TO MONITOR
[2022-08-08] MEDS: CALCIUM ACETATE 667 MG TAB PO SCH ×3 (09:26→17:52)
[2022-08-08] MEDS: diazePAM 5 MG TAB GT SCH ×3 (09:27→17:51)
[2022-08-08] MEDS: BACLOFEN 10 MG TAB PO SCH ×3 (09:27→17:51)
[2022-08-08] MEDS: propylthiouraciL 50 MG TAB PO SCH (09:27)
[2022-08-08] MEDS: POLYETHYLENE GLYCOL 17 GM/PKT GT SCH ×2 (09:28→21:14)
[2022-08-08] MEDS: MAGNESIUM HYDROXIDE 2400 MG/30 ML UDC GT SCH (09:28)
[2022-08-08] MEDS: DOCUSATE 100 MG/10 ML UDC GT SCH ×2 (09:28→21:14)
[2022-08-08] MEDS: POTASSIUM CHLORIDE 20% 40 MEQ/15 ML UDC GT PRN (09:30)
--- NOTE | 2022-08-08 19:11 | NUR ---
GIVEN REPORT TO JEANIE [place] [facility] [place]. PIV LAC 22G SALINE LOCK, TUBE FEED @20ML/HR W/ WATER FLUSHING 150 Q6HRS. ON TRACH TO AYDEN FIO2 28 Addendum: 08/08/22 at 1914 by Ninoska Ray RN SCHEDULED ENTERPRISE CLOUD ARCHITECT TIME 1900 BY WILL ENDORSE TO PM SHIFT
--- NOTE | 2022-08-08 19:38 | NUR ---
RECEIVED REPORT FROM DAY SHIFT NURSE YENNY. PATIENT IS AWAKE NON VERBAL, TRACH TO VENT. NO DISTRESS NOTED. G-TUBE FEEDING RUNNING AT 20 ML/HR TOLERATING WELL. NO RESIDUAL NOTED. HEAD OF BED ELEVATED. ALL SAFETY PRECAUTIONS ARE IN PLACE. IV ACCESS ON THE LAC 22 GAUGE. WILL CONTINUE TO MONITOR.
--- NOTE | 2022-08-08 19:38 | NUR ---
ENDORSEMENT PATIENT TO PM SHIFT WHILE PATIENT RESTING IN BED, ON TEL. MONITOR W/ SR/ST,DISCHARGE REPORT GIVEN TO JEANIE IN [facility], UNABLE TO GET HOLD OF PATIENT'S FATHER, NURSE INFORMED PATIENT'S NEXT KIN REGARDING TO TRANSFER ISSUE. PIV L. AC 22G. TRACH TO VENT W/ FIO2 28, JEVITY 1.2 INFUSING VIA G-TUBE AT 20ML/HR
--- NOTE | 2022-08-08 21:13 | NUR ---
ALL 2100 SCHEDULED MEDICATIONS ADMINISTERED PER MD ORDER.
--- NOTE | 2022-08-08 23:05 | NUR ---
PATIENT WAS [place]CHAR[place] [facility] [place] BY [facility]. REPORT GIVEN TO ISAIAH [facility] STAFF.
== END 2022-08-08 23:05 | DRG 254 ==
LOC: MED 17:18 → MTU 19:14 → MIC 08-02 05:45 → MTU 08-03 19:15
PROVIDERS: ADMIT Family Medicine; ATTEND Family Medicine
PROC: 5A1955Z Respiratory Ventilation, Greater than 96 Consecutive Hours (ICD-10-PCS; principal; 2022-07-30)
PROC: 0DJ08ZZ Inspection of Upper Intestinal Tract, Via Natural or Artificial Opening Endoscopic (ICD-10-PCS; 2022-08-07)
DX: T18.108A Unspecified foreign body in esophagus causing other injury, initial encounter (principal); J96.21 Acute and chronic respiratory failure with hypoxia; J69.0 Pneumonitis due to inhalation of food and vomit; T18.4XXA Foreign body in colon, initial encounter; E44.0 Moderate protein-calorie malnutrition; K31.5 Obstruction of duodenum; E87.0 Hyperosmolality and hypernatremia; E83.51 Hypocalcemia; E87.8 Other disorders of electrolyte and fluid balance, not elsewhere classified; E87.6 Hypokalemia; E83.42 Hypomagnesemia; D64.9 Anemia, unspecified; R13.10 Dysphagia, unspecified; G80.9 Cerebral palsy, unspecified; Z20.822 Contact with and (suspected) exposure to COVID-19; G40.909 Epilepsy, unspecified, not intractable, without status epilepticus; D72.810 Lymphocytopenia; K21.00 Gastro-esophageal reflux disease with esophagitis, without bleeding; I10 Essential (primary) hypertension; Z86.73 Personal history of transient ischemic attack (TIA), and cerebral infarction without residual deficits; Z93.0 Tracheostomy status; Z99.11 Dependence on respirator [ventilator] status; Z93.1 Gastrostomy status; Z68.1 Body mass index [BMI] 19.9 or less, adult
CPT/HCPCS: 36415; 71045; 74018; 80048; 80053; 80202; 82948; 83735; 85025; 87081; 94003; 94640; 99285; J1200; J2060; J2250; J2270; J2405; J2543; J3010; J3370; J3475; J3490; J7060; Q0092

== ENCOUNTER 2022-08-13 11:36 | Inpatient (IN) | payer MEDICAID ==
[~2022-08-13] VITALS: Ht 162.6 cm; Wt 40.4 kg
[~2022-08-13 11:36] MED LIST changes: -IV Vancomycin IV; -IV Zosyn IA
[2022-08-13 11:48] VITALS: BP 141/98
[2022-08-13] MEDS ORDERED: NACL 0.9% 500 ML IV SCH (12:00)
--- NOTE | 2022-08-13 12:00 | NUR ---
BIBA FROM [facility] D/T 1 EPISODE OF BLOODY EMESIS EARLY TODAY. DENIES ANY TRAUMA OR INJURY. DOES NOT SHOW ANY SIGNS OF DISTRESS, PRESENTS WITH GTUBE. ON NURSE PRACTITIONER PHYSICIAN ASSISTANT. NOT ACTIVELY VOMITING.
--- NOTE | 2022-08-13 12:30 | NUR ---
IV ESTABLISHED ON LEFT WRIST WITH 20G. BLOOD DRAWN. MADELINE COLLECTED
[2022-08-13 12:47] LABS: BASOPHILS # (AUTO) 0.1 K/uL (0.00-0.22); BASOPHILS % (AUTO) 1.2 % (0.0-2.0); EOSINOPHILS # (AUTO) 0.2 K/uL (0-0.4); EOSINOPHILS % (AUTO) 1.7 % (0.0-4.0); HEMATOCRIT 30.1 % (36-52); HEMOGLOBIN 10.2 g/dL (12.0-18.0); LYMPHOCYTES # (AUTO) 3.1 K/uL (2.0-11.5); LYMPHOCYTES % (AUTO) 29.2 % (20.5-51.1); MEAN CORPUSCULAR HEMOGLOBIN 28 pg (27-31); MEAN CORPUSCULAR HGB CONC 34 g/dL (33-37); MEAN CORPUSCULAR VOLUME 82.8 fL (80-94); MONOCYTES # (AUTO) 0.5 K/uL (0.8-1.0); MONOCYTES % (AUTO) 4.3 % (1.7-9.3); NEUTROPHILS # (AUTO) 6.7 K/uL (1.8-7.7); NEUTROPHILS % (AUTO) 63.6 % (42.2-75.2); PLATELET COUNT (AUTO) 546 K/uL (140-450); RED BLOOD CELL COUNT(AUTO) 3.64 MIL/uL (4.20-6.10); RED CELL DISTRIBUTION WIDTH 18.1 % (11.6-13.7); WHITE BLOOD COUNT (AUTO) 10.5 K/uL (4.8-10.8)
--- NOTE | 2022-08-13 12:47 | NUR ---
ATTEMPTED TO STRAIGHT CATH FOR URINE COLLECTION. NO URINE DRAINING. ERMD MADE AWARE.
--- NOTE | 2022-08-13 13:00 | NUR ---
RT CALLED TO HELP TRANSPORT PT FROM ER TO CT. PT WAS SUCCESSFULLY TRANSPORTED TO AND FROM CT WITH NO RESPIRATORY DISTRESS. VITALS WERE KEPT IN NORMAL RANGE. PT BROUGHT BACK TO ER BED 2 WITH VENT PLUGGED INTO RED OUTLET. WILL CONTINUE TO MONITOR.
[2022-08-13 13:03] LABS: PROTHROMBIN TIME 9.8 secs (10.8-13.4)
--- NOTE | 2022-08-13 13:15 | NUR ---
PT ACCOMPANIED TO CT WITH RT AND TECH
[2022-08-13 13:18] LABS: ALBUMIN 2.2 g/dL (3.4-5.0); ANION GAP 13.3 (8-16); ASPARTATE AMINOTRANSFERASE 35 U/L (15-37); CARBON DIOXIDE 29.5 mmol/L (21-32); CHLORIDE 100 mmol/L (98-107); CREATININE 0.6 mg/dL (0.6-1.3); GFR ARICAN-AMERICAN 217 mL/min (>90); GLUCOSE 72 mg/dL (74-106); POTASSIUM 3.8 mmol/L (3.5-5.1); SODIUM SERUM 139 mmol/L (136-145); TOTAL BILIRUBIN 0.1 mg/dL (0.0-1.0); UREA NITROGEN, BLOOD 24 mg/dL (7-18)
[2022-08-13] MEDS ORDERED: LORazepam 2 MG/ML VIAL IVP PRN (14:25)
[2022-08-13] MEDS ORDERED: MAG SULF 2000 MG/WATER PREMIX 50 ML IV PRN (14:25)
[2022-08-13] MEDS ORDERED: ACETAMINOPHEN 325 MG TAB PO PRN (14:25)
[2022-08-13] MEDS ORDERED: POTASSIUM CHLORIDE 10 MEQ TABER PO PRN (14:25)
[2022-08-13] MEDS ORDERED: ZOLPIDEM 10 MG TAB PO PRN (14:25)
[2022-08-13] MEDS ORDERED: DOCUSATE SODIUM 100 MG GELCAP PO PRN (14:25)
[2022-08-13] MEDS ORDERED: MORPHINE SULFATE 2 MG/ML SYR IVP PRN (14:25)
[2022-08-13] MEDS: PANTOPRAZOLE 40 MG INJ VIAL IVP SCH (14:37)
--- NOTE | 2022-08-13 15:40 | NUR ---
@ ASSISTED TRANSPORT PT FROM ER TO BED 124. VENT WAS PLUGGED INTO RED OUTLET AND AMBU BAG AT BEDSIDE. PT AIRWAY PATENT AND SECURE. NO DISTRESS NOTED WILL CONTINUE TO MONITOR.
--- NOTE | 2022-08-13 15:45 | NUR ---
Patient will be admitted to care of DR BENITO. Admited to TELE. Will go to [id number]. Belongings list completed. Report to ANNAMARIE CARPENTER.
[2022-08-13 16:00] VITALS: BP 120/85
--- NOTE | 2022-08-13 16:00 | NUR ---
RECEIVED PT REPORT FROM ER NURSE FOR CONTINUITY OF CARE. PT ADMITTED FOR GI BLEED. PT IS AOX0, NONVERBAL. RESPONDS TO VOICE AND TOUCH. [facility]. VENT SETTINGS AT 32% FIO2, VT 450, RATE 15, PEEP 5. NO DISTRESS NOTED. SKIN IS WARM,DRY, AND INTACT. IV SITE ON LEFT WRIST 20G. SALINE LOCKED. ABD IS SOFT, FLAT, AND NON-DISTENDED. BOWEL SOUNDS ACTIVE IN ALL QUADRANTS. HAS G-TUBE IN PLACE BUT CURRENTLY NPO. FLACC 0. PLAN OF CARE DISCUSSED. SAFETY PRECAUTIONS IN PLACE. CALL LIGHT WITHIN REACH. WILL CONTINUE TO MONITOR.
[2022-08-13] MEDS: METOCLOPRAMIDE 10 MG/10 ML SYRP UDC PO SCH (17:00)
[2022-08-13] MEDS: BACLOFEN 10 MG TAB PO SCH (17:00)
[2022-08-13] MEDS: diazePAM 5 MG TAB GT SCH (17:00)
[2022-08-13] MEDS: VALPROIC ACID 250 MG/5 ML UDC PO SCH (17:00)
[2022-08-13] MEDS: PIPERACILLIN/TAZOBACTAM 3.375 GM in DEXTROSE 5% 50 ML IV SCH ×2 (18:47→23:36)
--- NOTE | 2022-08-13 19:32 | NUR ---
ENDORSED TO PEOPLESOFT ADMINISTRATOR NURSE FOR CONTINUITY OF CARE. PT IS STABLE.
[2022-08-13 20:00] VITALS: BP 127/73
[2022-08-13] MEDS: POLYETHYLENE GLYCOL 17 GM/PKT GT SCH (21:00)
[2022-08-13] MEDS: DOCUSATE 100 MG/10 ML UDC GT SCH (21:00)
[2022-08-13] MEDS ORDERED: VALPROIC ACID 250 MG/5 ML UDC GT SCH (21:40)
[2022-08-13] MEDS ORDERED: levETIRAcetam 500 MG in NACL 0.9% 100 ML IV SCH (21:40)
[2022-08-13] MEDS ORDERED: diazePAM 5 MG TAB GT SCH (21:40)
--- NOTE | 2022-08-13 21:41 | NUR ---
NOTIFIED DR YIP REGARDING PATIENT MISSING SEIZURE MEDICATIONS TODAY DUE TO NPO STATUS. DR. YIP ORDERED TO GIVE KEPPRA 500MG IVX1, GIVEN DEPAKENE, VALIUM AND PHENOBARBITAL PO X1 VIA GTUBE. ALSO NOTIFIED HIM OF PATIENT'S HR-120S, OK TO GIVE METOPROL VIA GT ORDERED. WILL ASK DR. BENITO TO CHECK MEDICATIONS IN THE MORNING.
[2022-08-13] MEDS: METOPROLOL 50 MG TAB GT SCH (22:02)
[2022-08-13] MEDS ORDERED: levETIRAcetam 100 MG/ML VIAL IV ONE (22:14)
[2022-08-14] VITALS: BP 108/84
[2022-08-14 04:00] VITALS: BP 124/72
[2022-08-14] MEDS: METOPROLOL 50 MG TAB GT SCH ×3 (04:35→12:22)
[2022-08-14] MEDS: PIPERACILLIN/TAZOBACTAM 3.375 GM in DEXTROSE 5% 50 ML IV SCH ×3 (05:20→17:30)
[2022-08-14 05:51] LABS: ANION GAP 14.2 (8-16); CARBON DIOXIDE 27.1 mmol/L (21-32); CREATININE 0.6 mg/dL (0.6-1.3); POTASSIUM 3.3 mmol/L (3.5-5.1)
[2022-08-14 05:57] LABS: BASOPHILS % (AUTO) 0.7 % (0.0-2.0); EOSINOPHILS # (AUTO) 0.1 K/uL (0-0.4); EOSINOPHILS % (AUTO) 2.3 % (0.0-4.0); HEMATOCRIT 25.6 % (36-52); HEMOGLOBIN 8.6 g/dL (12.0-18.0); LYMPHOCYTES # (AUTO) 1.9 K/uL (2.0-11.5); LYMPHOCYTES % (AUTO) 35.5 % (20.5-51.1); MEAN CORPUSCULAR HEMOGLOBIN 28 pg (27-31); MEAN CORPUSCULAR HGB CONC 34 g/dL (33-37); MEAN CORPUSCULAR VOLUME 82.6 fL (80-94); MONOCYTES # (AUTO) 0.4 K/uL (0.8-1.0); MONOCYTES % (AUTO) 7.3 % (1.7-9.3); NEUTROPHILS # (AUTO) 2.9 K/uL (1.8-7.7); NEUTROPHILS % (AUTO) 54.2 % (42.2-75.2); PLATELET COUNT (AUTO) 455 K/uL (140-450); RED CELL DISTRIBUTION WIDTH 18.3 % (11.6-13.7); WHITE BLOOD COUNT (AUTO) 5.3 K/uL (4.8-10.8)
--- NOTE | 2022-08-14 07:30 | NUR ---
RECEIVED PT ON ACVC, 450,RR14, +5, 32%. WHEELS ARE LOCKED AND PLUGGED INTO RED OUTLET, AMBUBAG AT BEDSIDE AND ALARMS ARE SET AND AUDIBLE.
--- NOTE | 2022-08-14 07:30 | NUR ---
RECEIVED REPORT FROM NIGHTSHIFT NURSE. PT TRACH TO VENT. HOB ELEVATED. FIO2 @ 32%, TV450, RR14, PEEP 5. O2 SATURATION @ 99%. SEIZURE PRECAUTION IN PLACE. L WRIST #20 TKO. NEEDS ALL MET AT THIS TIME. ALL SAFETY MEASURES IN PLACE.
[2022-08-14 08:00] VITALS: BP 105/69
[2022-08-14] MEDS: MAGNESIUM HYDROXIDE 2400 MG/30 ML UDC GT SCH (09:09)
[2022-08-14] MEDS: VALPROIC ACID 250 MG/5 ML UDC PO SCH ×3 (09:09→17:29)
[2022-08-14] MEDS: POLYETHYLENE GLYCOL 17 GM/PKT GT SCH ×2 (09:09→22:12)
[2022-08-14] MEDS: DOCUSATE 100 MG/10 ML UDC GT SCH ×2 (09:09→22:12)
[2022-08-14] MEDS: BACLOFEN 10 MG TAB PO SCH ×3 (09:09→17:29)
[2022-08-14] MEDS: METOCLOPRAMIDE 10 MG/10 ML SYRP UDC PO SCH ×3 (09:09→17:29)
[2022-08-14] MEDS: propylthiouraciL 50 MG TAB PO SCH (09:10)
[2022-08-14] MEDS: diazePAM 5 MG TAB GT SCH ×3 (09:10→17:30)
[2022-08-14] MEDS: PANTOPRAZOLE 40 MG INJ VIAL IVP SCH (09:11)
[2022-08-14] MEDS: POTASSIUM CHLORIDE 20% 40 MEQ/15 ML UDC GT PRN (09:27)
--- NOTE | 2022-08-14 10:36 | NUR ---
PATIENT HAS BEEN SCREENED AND CATEGORIZED HIGH NUTRITION RISK. PATIENT WILL BE SEEN WITHIN 1-2 DAYS OF ADMISSION. 08/13/22-08/15/22 REVIEWED BY LEONCIO SU RD
[2022-08-14 12:00] VITALS: BP 111/68
--- NOTE | 2022-08-14 12:52 | NUR ---
DC PLANNING PATIENT ATTEMPTED TO MEET WITH PATIENT AT BEDSIDE HOWEVER, PATIENT IS NONVERBAL. CAPRI OUTREACHED TO PATIENTS SENIOR CARE CARE FACILITY. CAPRI SPOKE WITH PAULETTE ([facility] CONE WORKER) AND INNA ([facility] SW) WHO REPORT THAT PATIENT HAS BEEN IN SENIOR CARE CARE SINCE 02/15/22. PATIENT IS TRAYC/VENT DEPENDENT AND HAS GTUBE IN PLACE. PATIENT IS TOTAL CARE AND IS BEDBOUND. PATIENT IS [facility]CT[facility]; IRC WORKER IS ASAD FERREIRA [phone]. PAULETTE REPORTS THAT FATHER IS NOT ACTIVE IN PATIENTS CARE. PAULETTE REPORTS ATTEMPTING TO GET FATHERS PHONE NUMBER FROM IRC WORKER HOWEVER, PHONE NUMBER IS NOT A WORKING PHONE NUMBER. DC PLAN IS FOR PATIENT TO RETURN BACK TO [facility] ONCE MEDICALLY CLEARED. CAPRI OUTREACHED TO PATIENT IRC-SW, SANDRITA FERREIRA TO NOTIFY HER THAT PATIENT HAS BEEN ADMITTED TO [facility]. SANDRITA CONFIRMS NOT HAVING CONTACT INFO FOR PT'S FAMILY AND REPORTS NO KNOWN FAMILY INVOLVEMENT. SANDRITA REPORTS DC PLAN IS FOR PT TO RETURN TO [facility], WHEN MEDICALLY STABLE.
[2022-08-14 16:00] VITALS: BP 108/58
--- NOTE | 2022-08-14 19:22 | NUR ---
REPORT GIVEN TO NIGHTSMIFT NURSETANNER FOR CONTINUITY OF CARE.
[2022-08-14 20:00] VITALS: BP 105/60
--- NOTE | 2022-08-14 20:00 | NUR ---
NPO EXCEPTS MEDS , W/ G TUBE - NO/ HOLD G TUBE FEEDING YET - NO IVF - WILL REFER TO DR. BENITO , BP 95/60 , HR 96 , AFEBRILE , SLEEPING BUT EASILY AWAKEABLE , O2 SAT 98 % TRACH TO VENT .
[2022-08-14] MEDS: DEXT 5% /NACL 0.9% 1,000 ML IV SCH (20:29)
--- NOTE | 2022-08-14 20:32 | NUR ---
AWAKE , NO S/SX OF ACUTE DISTRESS NOTED AT THIS TIME , O2 SAT 99 %
--- NOTE | 2022-08-14 22:00 | NUR ---
BP 128 / 86 , HR 115 - O2 SAT 98 5 - WILL GIVE SCHED. MEDS .
--- NOTE | 2022-08-14 23:00 | NUR ---
KEEP BANGING THE HEAD AGAINST THE PILLOWS , SIDE RAILS PADDED , ENSURE PT'S SAFETY , SHOWS SIGNS OF AGITATION , BP 117/85 , HR 105 , O2 SAT 98 % , WILL MEDICATE
[2022-08-15] VITALS: BP 100/70
--- NOTE | 2022-08-15 | NUR ---
SLEEPY , BP WNL , O2 SAT WNL . TRACH TO VENT , ON TELE MPONITOR . WILL CONT. TO MONITOR .
[2022-08-15] MEDS: PIPERACILLIN/TAZOBACTAM 3.375 GM in DEXTROSE 5% 50 ML IV SCH ×4 (00:30→17:06)
--- NOTE | 2022-08-15 02:00 | NUR ---
SLEEPING , AROUSABLE BY TOUCH , BP 101/61 , O2 SAT 98 % , HR 91 , ON TELE MONITOR
[2022-08-15 04:00] VITALS: BP 96/60
--- NOTE | 2022-08-15 04:00 | NUR ---
ROUNDS , SLEEPING , AROUSABLE BY TOUCH AND SOUNDS , NO S/SX OF ACUTE DISTRESS NOTED , O2 SAT WNL , ON TELE MONITOR .
[2022-08-15] MEDS: METOPROLOL 50 MG TAB GT SCH ×3 (05:00→21:54)
[2022-08-15 05:46] LABS: ANION GAP 14.9 (8-16); CARBON DIOXIDE 27.3 mmol/L (21-32); CREATININE 0.6 mg/dL (0.6-1.3); POTASSIUM 3.2 mmol/L (3.5-5.1)
--- NOTE | 2022-08-15 06:00 | NUR ---
ROUNDS , O2 SAT 98 % ,NO S/SX OF ACUTE DISTRESS NOTED , ON TELE MONITOR .
[2022-08-15 06:01] LABS: BASOPHILS % (AUTO) 0.6 % (0.0-2.0); EOSINOPHILS # (AUTO) 0.1 K/uL (0-0.4); EOSINOPHILS % (AUTO) 1.6 % (0.0-4.0); HEMATOCRIT 22.8 % (36-52); HEMOGLOBIN 7.9 g/dL (12.0-18.0); LYMPHOCYTES # (AUTO) 1.7 K/uL (2.0-11.5); LYMPHOCYTES % (AUTO) 21.4 % (20.5-51.1); MEAN CORPUSCULAR HEMOGLOBIN 29 pg (27-31); MEAN CORPUSCULAR HGB CONC 35 g/dL (33-37); MEAN CORPUSCULAR VOLUME 83.2 fL (80-94); MONOCYTES # (AUTO) 0.5 K/uL (0.8-1.0); MONOCYTES % (AUTO) 6.5 % (1.7-9.3); NEUTROPHILS # (AUTO) 5.5 K/uL (1.8-7.7); NEUTROPHILS % (AUTO) 69.9 % (42.2-75.2); PLATELET COUNT (AUTO) 421 K/uL (140-450); RED BLOOD CELL COUNT(AUTO) 2.75 MIL/uL (4.20-6.10); RED CELL DISTRIBUTION WIDTH 18.6 % (11.6-13.7); WHITE BLOOD COUNT (AUTO) 7.9 K/uL (4.8-10.8)
[2022-08-15] MEDS: DEXT 5% /NACL 0.9% 1,000 ML IV SCH (06:18)
--- NOTE | 2022-08-15 07:13 | NUR ---
ENDORSED - PT - STABLE .
--- NOTE | 2022-08-15 07:30 | NUR ---
RECEIVED REPORT FROM NIGHTSHIFT NURSE. PT TRACH TO VENT. HOB ELEVATED. FIO2 @ 32%, TV450, RR14, PEEP 5. O2 SATURATION @ 98%. GTUBE ON LLQ. L WRIST #20 INFUSING WITH D5-1/2NS @ 100 ML/HR. BILATERAL SOFT RESTRAINTS WITH GOOD C/S/M. ON TELE, ST. NEEDS ALL MET AT THIS TIME. SEIZURE PRECAUTION IN PLACE. ALL SAFETY MEASURES IN PLACE.
[2022-08-15 08:00] VITALS: BP 111/70
[2022-08-15] MEDS: DEXT 5% / NACL 0.45% 1,000 ML IV SCH ×2 (08:26→22:03)
--- NOTE | 2022-08-15 08:32 | NUR ---
PT. WITH LOW LIZ SCALE AT HIGH RISK, CONTINUE TO FOLLOW PRESSURE INJURY PREVENTION INTERVENTIONS. -POSITIONING: TURN AND REPOSITION PATIENT Q 2H OR SOONER USE PILLOWS TO KEEP BONY PROMINENCES FROM DIRECT CONTACT WITH SURFACES USE REPOSITIONING WEDGES TO PROVIDE 30-DEGREE ANGLE FOR SIDE LYING POSITIONS OFFLOADING OR FOAM DRESSING TO ALL TUBING TO PREVENT MEDICAL DEVICES RELATED PRESSURE INJURY -RE-EVALUATING AND MANAGING INCONTINENCE MONITOR SKIN CONDITION DURING POSITION CHANGE DO NOT MASSAGE REDNESS, BONY PROMINENCES FREQUENT NITISH-CARE AND PROVIDE BARRIER CREAMS PRN IF SOILING MOISTURE CONTROL BY OFFER BED MACEDO/URINAL /ABSORBENT PAD TO WICK AND HOLD MOISTURE KEEP SKIN DRY AND PROTECT FROM FRICTION -MANAGE FRICTION/SHEAR/MOBILITY KEEP HOB AT THE LOWEST LEVEL OF ELEVATION NO MORE THAN 30 DEGREE UNLESS OTHERWISE CONTRAINDICATED USE LIFT SHEET OR TRANSFER DEVICE TO MOVE PATIENT AND PREVENT LATERAL SHEER. PROTECT HEELS, ELBOWS BONY PROMINENCES WITH SKIN BERRIES OR FOAM DRESSING IF EXPOSED TO FRICTION OFFLOAD BILATERAL HEELS BY PLACING PILLOWS UNDER CALVES AT ALL TIMES, UNLESS OTHERWISE CONTRAINDICATED -PRESSURE REDISTRIBUTION SURFACE THERAPY BERE ISOFLEX MATTRESS -NUTRITION: PLEASE FOLLOW RD RECOMMENDATIONS AND OFFER NUTRITION SUPPLEMENTS IF ORDERED. PLEASE CONTACT WOUND CARE NURSE FOR ANY QUESTION AND CHANGE OF WOUND CONDITION.
[2022-08-15] MEDS: MAGNESIUM HYDROXIDE 2400 MG/30 ML UDC GT SCH (09:00)
[2022-08-15] MEDS: POLYETHYLENE GLYCOL 17 GM/PKT GT SCH ×2 (09:00→21:54)
[2022-08-15] MEDS: PANTOPRAZOLE 40 MG INJ VIAL IVP SCH (09:18)
[2022-08-15] MEDS: METOCLOPRAMIDE 10 MG/10 ML SYRP UDC PO SCH ×3 (09:19→17:06)
[2022-08-15] MEDS: BACLOFEN 10 MG TAB PO SCH ×3 (09:19→17:05)
[2022-08-15] MEDS: propylthiouraciL 50 MG TAB PO SCH (09:19)
[2022-08-15] MEDS: DOCUSATE 100 MG/10 ML UDC GT SCH ×2 (09:19→21:54)
[2022-08-15] MEDS: VALPROIC ACID 250 MG/5 ML UDC PO SCH ×3 (09:19→17:06)
[2022-08-15] MEDS: diazePAM 5 MG TAB GT SCH ×3 (09:19→17:05)
[2022-08-15] MEDS: POTASSIUM CHLORIDE 20% 40 MEQ/15 ML UDC GT PRN (10:03)
--- NOTE | 2022-08-15 11:00 | NUR ---
PT WITH BM, BROWN, LOOSE STOOLS. PT CLEANED AND REPOSITIONED. NEEDS ALL MET AT THIS TIME. ALL SAFETY MEASURES IN PLACE.
--- NOTE | 2022-08-15 11:12 | NUR ---
08/15/22 RD INITIAL ASSESSMENT COMPLETED PLEASE REFER TO NUTRITION ASSESSMENT UNDER CARE ACTIVITY FOR ESTIMATED NUTRITIONAL NEEDS. 1. WHEN/IF MEDICALLY APPROPRIATE TO INITIATE TUBE FEEDING, RECOMMEND JEVITY 1.2 WITH A GOAL RATE OF 50 ML/HR WITH PROSOURCE BID -FWF: 150 ML Q6H OR PER MD -START AT 10 ML/HR AND INCREASE BY 10 ML Q4H TOLERATED -WILL PROVIDE 95% ESTIMATED KCAL AND 100% ESTIMATED PROTEIN NEEDS; ADEQUATE 2. MONITOR GI SYMPTOMS 3. RD TO FOLLOW-UP 2-3 DAYS, HIGH RISK LEONCIO SU RD
[2022-08-15] MEDS ORDERED: CALCIUM GLUC 1 GM/50 mL NS BAG 50 ML IV SCH (11:30)
[2022-08-15 12:00] VITALS: BP 115/79
--- NOTE | 2022-08-15 15:45 | NUR ---
PT WITH BM. BROWN, LOOSE STOOLS. PT CLEANED AND REPOSITIONED. HOB ELEVATED. PT RESTLESS. NO SOB NOTED. ON FIO2 32%, TV450, RR14, PEEP 5, WITH O2 SATURATION @99%. NEEDS ALL MET ALL SAFETY PRECAUTIONS IN PLACE.
[2022-08-15 16:00] VITALS: BP 125/83
--- NOTE | 2022-08-15 17:30 | NUR ---
RT AT BEDSIDE.
--- NOTE | 2022-08-15 18:54 | NUR ---
PT WITH NO ACUTE DISTRESS. NO SOB. 02 SATURATION @ 99%. BILATERAL MITTENS WITH GOOD C/S/M. ALL NEEDS MET AT THIS TIME. IVF INFUSING. ALL SAFETY MEASURES IN PLACE. HOURLY ROUNDS CONDUCTED THROUGHOUT MY SHIFT.
--- NOTE | 2022-08-15 19:23 | NUR ---
[facility] FOR CONTINUITY OF CARE.
--- NOTE | 2022-08-15 19:25 | NUR ---
RECEIVED BEDSIDE REPORT FROM DAY SHIFT RN FOR CONTINUITY OF CARE. PT IS AWAKE. PT IS TRACH TO VENT. SETTINGS: FIO2 32%, VT 450, RATE 14, PEEP 5. O2 SAT AT 99%. PT HAS LEFT WRIST 20 GAUGE. PT IS ON D5 1/2 NS AT 100 CC/HR. PT IS ON MITTEN RESTRAINTS. PT IS CURRENTLY NPO EXCEPT MEDS. PT HAS GTUBE IN PLACE.
--- NOTE | 2022-08-15 19:45 | NUR ---
PT RECEIVED FROM DAY SHIFT RT, PT IS AWAKE AND RESTING WITH HOB ELEVATED. PT IS TRACHED WITH 8 PORTEX ON VENT AC/VC 14, 450, +5. 32%. PT IS CURRENTLY STABLE, VENT ALARMS ARE SET AND AUDIBLE, WHEELS LOCKED AND AMBU BAG AT BEDSIDE.
[2022-08-15 20:00] VITALS: BP 117/73
--- NOTE | 2022-08-15 22:08 | NUR ---
SCHEDULE MEDICATIONS GIVEN. NO ADVERSE REACTION NOTED. WILL CONTINUE TO MONITOR THE PT.
[2022-08-16] VITALS: BP 95/70
--- NOTE | 2022-08-16 00:10 | NUR ---
VITAL SIGNS TAKEN AND STABLE. PT NOT IN ANY RESPIRATORY DISTRESS. WILL CONTINUE TO MONITOR THE PT.
--- NOTE | 2022-08-16 03:55 | NUR ---
PT WAS CLEANED AND CHANGED. TOLERATED IT WELL. WILL CONTINUE TO MONITOR THE PT.
[2022-08-16] MEDS: METOPROLOL 50 MG TAB GT SCH ×3 (04:08→21:11)
--- NOTE | 2022-08-16 04:25 | NUR ---
SCHEDULE MEDICATIONS GIVE.N NO ADVERSE REACTION NOTED. WILL CONTINUE TO MONITOR THE PT.
[2022-08-16 04:33] VITALS: BP 111/72
[2022-08-16 06:14] LABS: HEMATOCRIT 23.1 % (36-52); HEMOGLOBIN 7.8 g/dL (12.0-18.0); MEAN CORPUSCULAR HEMOGLOBIN 28 pg (27-31); MEAN CORPUSCULAR HGB CONC 34 g/dL (33-37); MEAN CORPUSCULAR VOLUME 83.3 fL (80-94); PLATELET COUNT (AUTO) 446 K/uL (140-450); RED BLOOD CELL COUNT(AUTO) 2.78 MIL/uL (4.20-6.10); RED CELL DISTRIBUTION WIDTH 18.4 % (11.6-13.7); WHITE BLOOD COUNT (AUTO) 7.9 K/uL (4.8-10.8)
[2022-08-16 06:23] LABS: ANION GAP 14.8 (8-16); CARBON DIOXIDE 22.6 mmol/L (21-32); CREATININE 0.6 mg/dL (0.6-1.3); POTASSIUM 3.4 mmol/L (3.5-5.1)
--- NOTE | 2022-08-16 07:16 | NUR ---
ENDORSED PT TO DAY SHIFT RN FOR CONTINUITY OF CARE. PT IS STABLE.
--- NOTE | 2022-08-16 07:16 | NUR ---
RECEIVED REPORT FROM NIGHTSPAFT NURSE DEVIN FOR CONTINUITY OF CARE. PT IN STABLE CONDITION. PT IS APHASIC AND CAN TRACK WITH HIS EYES BUT DOES NOT FOLLOW DIRECTION. BREATHING IS EVEN, REGULAR AND UNLABORED TRACH TO VENT, WITH FIO2 AT 32%, VT 450, PEEP 5, SPO2 100%. PT IS INCONTINENT OF THE BOWELS AND BLADDER, BEDBOUND WITH FRAIL SKIN. IV ON THE LEFT WRIST CLEAN, DRY AND INTACT RUNNING D5 1/2NS AT 100ML/HR. SKIN INTACT, WITH G-TUBE SITE INTACT. NO SIGNS OF PAIN OR DISCOMFORT NOTED AT THIS TIME.
--- NOTE | 2022-08-16 07:39 | NUR ---
RECEIVED OM A Re-APP R860 VENTILATOR PLUGGED INTO RED OUTLET TOLERATING WELL WITHOUT ADVERSE REACTIONS NOTED TO A PORTED DCT #8 AIRWAY SECURED WITH A MARGO TRACH TIE CUFF PRESSURE CHECKED NOTED AMBI BAG AT BEDSIDE LOC AWAKE STABKE EQUAL CHEST RISE DEEP TRACHEAL SUCTION FOR MODERATE THIN YELLOW SECRETIONS AIRWAY PATENT Addendum: 08/16/22 at 1022 by Alex Khan RT AMBI=AMBU Addendum: 08/16/22 at 1038 by Alex Khan RT SATURATION 100% ON FIO2 OF 32% PEEP 5cmH2O TITRATED FIO2 TO 28% KRISTA/JAYDEN NOTIFIED
--- NOTE | 2022-08-16 07:50 | NUR ---
RT AT THE BEDSIDE, FIO2 TITRATED TO 28%. SPO2 MAINTAINING AT 100%.
[2022-08-16 08:00] VITALS: BP 118/80
--- NOTE | 2022-08-16 08:00 | NUR ---
SOFT MITTEN RESTRAINTS REMOVED PER LIMB FOR ASSESSMENT AND CIRCULATION. SKIN INTACT AND DRY, PT ATTEMPTED TO PUT HANDS ON HIS FACE AND THROAT, REORIENTATED PT. PT DOES NOT APPEAR TO COMPREHEND.
--- NOTE | 2022-08-16 09:30 | NUR ---
PERFORMED ORAL CARE AND ADMINISTERED MEDICATIONS VIA G-TUBE, NO RESIDUAL NOTED. IV BAG AND TUBING CHANGED, D5 1/2NS RUNNING 70ML/HR.
[2022-08-16] MEDS: METOCLOPRAMIDE 10 MG/10 ML SYRP UDC PO SCH ×3 (09:51→17:27)
[2022-08-16] MEDS: DOCUSATE 100 MG/10 ML UDC GT SCH ×2 (09:51→21:10)
[2022-08-16] MEDS: VALPROIC ACID 250 MG/5 ML UDC PO SCH ×3 (09:52→17:27)
[2022-08-16] MEDS: MAGNESIUM HYDROXIDE 2400 MG/30 ML UDC GT SCH (09:52)
[2022-08-16] MEDS: propylthiouraciL 50 MG TAB PO SCH (09:53)
[2022-08-16] MEDS: BACLOFEN 10 MG TAB PO SCH ×3 (09:53→17:27)
[2022-08-16] MEDS: PANTOPRAZOLE 40 MG INJ VIAL IVP SCH (09:53)
[2022-08-16] MEDS: diazePAM 5 MG TAB GT SCH ×3 (09:54→17:27)
[2022-08-16] MEDS: POLYETHYLENE GLYCOL 17 GM/PKT GT SCH ×2 (09:54→21:11)
[2022-08-16] MEDS: POTASSIUM CHLORIDE 20% 40 MEQ/15 ML UDC GT PRN (09:54)
--- NOTE | 2022-08-16 10:00 | NUR ---
SOFT MITTEN RESTRAINTS REMOVED PER LIMB FOR ASSESSMENT AND CIRCULATION. SKIN INTACT AND DRY.
[2022-08-16] MEDS: DEXT 5% / NACL 0.45% 1,000 ML IV SCH (10:22)
--- NOTE | 2022-08-16 11:25 | NUR ---
RECEIVED TELEPHONE REPORT FROM CRISTINE NERI RN FOR CONTINUITY OF CARE. PT STILL IN TELE, WAITING FOR PT TO ARRIVE.
--- NOTE | 2022-08-16 11:25 | NUR ---
ENDORSED PT TO ICU NURSE FABIENNE FOR CONTINUITY OF CARE. PT IN STABLE CONDITION. PAGED RT SUSIE TO ASSIST IN PT TRANSPORTATION, PER RT SUSIE, HE WILL ASSIST IN 30 MINS.
[2022-08-16 12:00] VITALS: BP 114/70
--- NOTE | 2022-08-16 12:00 | NUR ---
SOFT MITTEN RESTRAINTS REMOVED PER LIMB FOR ASSESSMENT AND CIRCULATION. SKIN INTACT AND DRY. NO SIGNS OF PAIN OR DISTRESS NOTED AT THIS TIME.
--- NOTE | 2022-08-16 13:30 | NUR ---
PT ARRIVED TO ICU3 WITH CRISTINE NERI RN AND RT. PT LAYING IN THE BED, AAOX0 NONVERBAL, DOES NOT FOLLOW COMMANDS. TRACH TO VENT, FIO2 32% VT 450 R [address]UBE IN PLACE, CLAMPED. INCONTINENT OF BOWEL AND BLADDER. GENERALIZED WEAKNESS. SKIN INTACT. MITTEN RESTRAINTS IN PLACE. NO S/S INJURY. ORDER EXPIRES AT 1600. SAFETY PRECAUTIONS MET. CALL LIGHT WITHIN REACH. STANDARD ISOLATION. INITIAL ASSESSMENT COMPLETE. WILL CONTINUE TO CLOSELY MONITOR. Addendum: 08/16/22 at 1536 by Yvonne Mora RN SR ON BEDSIDE MONITOR. LW 20G IN PLACE INFUSING D5 1/2 NS AT 70 ML/HR.
--- NOTE | 2022-08-16 13:30 | NUR ---
RT AT THE BEDSIDE TO ASSIST TRANSPORTING PT TO ICU BED 3. ICU NURSE FABIENNE AWARE, ALL BELONGINGS RECONCILED, CHART AND MEDICATIONS SENT WITH PT.
[2022-08-16] MEDS ORDERED: ALBUTEROL SULFATE/IPRATROPIU 3 ML SOL IH PRN (14:00)
--- NOTE | 2022-08-16 15:00 | NUR ---
PT ASLEEP, NO S/S DISTRESS. WILL CONTINUE TO MONITOR.
[2022-08-16 16:00] VITALS: BP 128/62
--- NOTE | 2022-08-16 16:00 | NUR ---
PT CLEANED AND REPOSITIONED, S BRIGHT GREEN BM NOTED W MUCOUS, L VOID NOTED. PT TOLERATED WELL. WILL CONTINUE TO MONITOR.
--- NOTE | 2022-08-16 18:00 | NUR ---
PT WATCHING TV, SO S/S ACUTE DISTRESS. WILL CONTINUE TO CLOSELY MONITOR.
--- NOTE | 2022-08-16 19:11 | NUR ---
ENDORSED BEDSIDE REPORT TO NATALI MCKINLEY RN FOR CONTINUITY OF CARE. ALL QUESTIONS ANSWERED. NO S/S ACUTE DISTRESS AT THIS TIME.
--- NOTE | 2022-08-16 19:30 | NUR ---
RECEIVED PT. FROM DAY SHIFT, JAYDEN TANG. PT. AWAKE, ABLE TO GLANCE AND SMILE AT YOU WHEN YOU TALK TO HIM. NOT KNOWN IF HE UNDERSTANDS, HOWEVER FOLLOW A VERY SIMPLE COMMANDS. LIKE SUCTIONING HIS MOUTH, HE FOLLOWS TO OPEN HIS MOUTH WHEN SUCTIONING CLEAR THICK SECRETIONS. VAP ORAL CARE PROVIDED. PT. VENTILATOR DEPENDENT, CONT. ON TRACH TO VENT A/C VC RATE 14, FIO2 32%, TV 450, PEEP 5 AND O2 SAT 100%. SINUS RHYTHM ON THE MONITOR. PEG TUBE TO LEFT UPPER QUADRANT FLUSHED AND CLAMPED. NPO EXCEPT MEDS. IV TO LEFT WRIST 20G INFUSING D5 1/2NS AT 70 ML/HR. PT. INCONTINENT WITH CLEAR, YELLOW URINE OUTPUT. WITH BILATERAL SOFT MITTENS RESTRAINT, SITE CHECKED AND NO S/S OF INJURY, NO POOR CIRCULATION ON BILATERAL ARMS. PT. REPOSITIONED. PROVIDED SAFE AND QUIET ENVIRONMENT. NO S/S OF PAIN AND WILL CONT. TO MONITOR.
[2022-08-16 20:00] VITALS: BP 111/85
[2022-08-17] VITALS (9 sets, daily range): BP systolic 94–147; BP diastolic 46–92
[2022-08-17] MEDS: DEXT 5% / NACL 0.45% 1,000 ML IV SCH ×2 (02:06→16:06)
[2022-08-17 04:58] LABS: BASOPHILS % (AUTO) 0.7 % (0.0-2.0); EOSINOPHILS # (AUTO) 0.1 K/uL (0-0.4); EOSINOPHILS % (AUTO) 1.4 % (0.0-4.0); HEMATOCRIT 27.1 % (36-52); HEMOGLOBIN 8.9 g/dL (12.0-18.0); LYMPHOCYTES # (AUTO) 1.6 K/uL (2.0-11.5); LYMPHOCYTES % (AUTO) 27.2 % (20.5-51.1); MEAN CORPUSCULAR HEMOGLOBIN 28 pg (27-31); MEAN CORPUSCULAR HGB CONC 33 g/dL (33-37); MEAN CORPUSCULAR VOLUME 83.8 fL (80-94); MONOCYTES # (AUTO) 0.3 K/uL (0.8-1.0); MONOCYTES % (AUTO) 4.9 % (1.7-9.3); NEUTROPHILS % (AUTO) 65.8 % (42.2-75.2); PLATELET COUNT (AUTO) 521 K/uL (140-450); RED BLOOD CELL COUNT(AUTO) 3.23 MIL/uL (4.20-6.10); RED CELL DISTRIBUTION WIDTH 18.2 % (11.6-13.7)
[2022-08-17] MEDS: METOPROLOL 50 MG TAB GT SCH ×3 (05:21→21:19)
[2022-08-17 05:24] LABS: CARBON DIOXIDE 24.5 mmol/L (21-32); CREATININE 0.5 mg/dL (0.6-1.3); POTASSIUM 3.5 mmol/L (3.5-5.1)
--- NOTE | 2022-08-17 07:15 | NUR ---
RECEIVED BEDSIDE REPORT FROM [employer] OPERATOR LOYD CARPENTER. PT. AWAKE, ABLE TO GLANCE AND SMILE AT YOU WHEN YOU TALK TO HIM. NOT KNOWN IF HE UNDERSTANDS, HOWEVER FOLLOW A VERY SIMPLE COMMANDS. LIKE SUCTIONING HIS MOUTH, HE FOLLOWS TO OPEN HIS MOUTH WHEN SUCTIONING CLEAR THICK SECRETIONS. VAP ORAL CARE PROVIDED. PT. TRACH TO VENT, VENTILATOR DEPENDENT, A/C VC RATE 14, FIO2 32%, TV 450, PEEP 5 AND O2 SAT 100%. SINUS RHYTHM ON THE MONITOR. PEG TUBE TO LEFT UPPER QUADRANT FLUSHED AND CLAMPED. NPO EXCEPT MEDS. IV TO LEFT WRIST 20G INFUSING D5 1/2NS AT 70 ML/HR, NO S/S OF INFILTRATION. PT. INCONTINENT WITH CLEAR, YELLOW URINE OUTPUT. WITH BILATERAL SOFT MITTENS RESTRAINT, SITE CHECKED AND NO S/S OF INJURY.
--- NOTE | 2022-08-17 07:28 | NUR ---
REPORT GIVEN TO JAYDEN GILLIS FOR CONTINUITY OF CARE.
[2022-08-17] MEDS: MAGNESIUM HYDROXIDE 2400 MG/30 ML UDC GT SCH (08:40)
[2022-08-17] MEDS: diazePAM 5 MG TAB GT SCH ×3 (08:41→16:59)
[2022-08-17] MEDS: POLYETHYLENE GLYCOL 17 GM/PKT GT SCH ×2 (08:41→21:20)
[2022-08-17] MEDS: VALPROIC ACID 250 MG/5 ML UDC PO SCH ×3 (08:42→16:58)
[2022-08-17] MEDS: PANTOPRAZOLE 40 MG INJ VIAL IVP SCH (08:42)
[2022-08-17] MEDS: BACLOFEN 10 MG TAB PO SCH ×3 (08:43→16:59)
[2022-08-17] MEDS: METOCLOPRAMIDE 10 MG/10 ML SYRP UDC PO SCH ×3 (08:44→16:58)
[2022-08-17] MEDS: DOCUSATE 100 MG/10 ML UDC GT SCH ×2 (08:44→21:19)
[2022-08-17] MEDS: propylthiouraciL 50 MG TAB PO SCH (09:05)
--- NOTE | 2022-08-17 09:15 | NUR ---
DR JIGNA BAEZ AT BEDSIDE. UPDATED PT INFORMATION. ORDERED VELASCO CATHETER INSERTION TO MONITOR INPUT AND OUTPUT.
--- NOTE | 2022-08-17 13:12 | NUR ---
ORDER RECEIVED TO TRANSFER PATIENT TO [facility] FOR G-TUBE REPLACEMENT. PER DR BENITO PATIENT CAN GO TO TELEMETRY BED. CLINICAL PACKET FAXED TO [facility], ALSO SPOKE WITH PARISA AT [facility] ([phone]), DOES NOT ANTICIPATE BED AVAILABILITY TODAY BUT WILL CALL IF THIS CHANGES. ENDORSED CM PHONE NUMBER TO PARISA FOR FOLLOW UP IN AM. Addendum: 08/18/22 at 0732 by Valery Vidal RN RN RN RECEIVED CALL FROM [facility] AT 1930 YESTERDAY, PER [facility] THE CASE WAS REVIEWED BY THEIR SURGEON AND DECLINED, SURGEON STATES THAT THE SURGERY CAN BE DONE HERE.
--- NOTE | 2022-08-17 19:19 | NUR ---
ENDORSED TO CALL CENTER RECRUITER LOYD CARPENTER FOR CONTINUITY OF CARE.
--- NOTE | 2022-08-17 19:30 | NUR ---
RECEIVED PT. FROM DAY SHIFT, JAYDEN GILLIS. PT. WIDE AWAKE AND SMILING WHEN GREETED. NOT KNOWN IF ALERT AND ORIENTED DUE TO DEVELOPMENTAL DELAY, BUT FOLLOW VERY SIMPLE COMMAND LIKE ASKING IF HE WANTS TO WATCH THE CHANNEL THAT HE'S ON, ON TV AND HE WILL SMILE. IF HE LIKES HIS STUFF TOY ROXANNE AND HE SMILE WIDELY. PT. ON TRACT TO VENT A/C VC RATE 14, FIO2 32%, TV 450, PEEP 5 AND O2 SAT 99%. ON SINUS RHYTHM AND IV TO LEFT WRIST 20G INFUSING D5 1/2NS AT 70 ML/HR. PT. ON BILATERAL SOFT MITTEN AND SITE NO S/S OF POOR CIRCULATION, NO S/S OF INJURY. GT FLUSHED AND CLAMPED. NPO EXCEPT MEDS. VELASCO CATHETER INSERTED IN THE AM SHIFT PER MD ORDERED. URINE COLOR CLEAR YELLOW. PER DAY SHIFT RN REPORT, PT. GOT ACCEPTED AT [facility] FOR THE JEJONOSTOMY TUBE PLACEMENT AND THE ACCEPTING DR. WILL BE DR. SANDERS, HOWEVER NO BED YET. VAP ORAL CARE PROVIDED. SKIN INTACT. REPOSITIONED AND PLACED PT. IN COMFORTABLE POSITION. BEDLOCK AND BED ADJUSTED TO THE LOWEST HEIGHT. NO S/S OF PAIN AT THIS TIME. MAKE ALL NEEDS KNOWN. WILL CONT. TO MONITOR.
[2022-08-18] VITALS (18 sets, daily range): BP systolic 96–135; BP diastolic 65–102
[2022-08-18] MEDS: ONDANSETRON 4 MG/2 ML VIAL IVP PRN ×2 (05:08→11:57)
[2022-08-18] MEDS: METOPROLOL 50 MG TAB GT SCH ×3 (05:09→20:39)
--- NOTE | 2022-08-18 05:10 | NUR ---
PT. HOB IN 30 DEGREES WITH PROPER BODY ALIGNMENT IN BED. PT. PLACED HIS FINGERS INSIDE HIS MOUTH AND TRIED TO PUSH HIS FINGERS TO HIS THROAT, DESPITE THE BILATERAL SOFT MITTENS. VOMITED MODERATE AMOUNT OF COFFEE GROUND PINK THIN LIQUID WITH SECRETIONS. PT. NO S/S OF RESPIRATORY DISTRESS POST VOMIT (PLS. SEE V/S FLOWSHEET), NO S/S OF PAIN. GIVEN ZOFRAN 4 MG IVP PRN ORDERED. HEAD OF BED PLACED IN 30 DEGREES. PROVIDED PERSONAL HYGIENE, REPOSITIONED, PLACED IN COMFORTABLE POSITION AND WILL KEEP THE BILATERAL SOFT MITTENS FOR SAFETY. WILL ENDORSE TO THE NEXT SHIFT.
[2022-08-18 05:51] LABS: BASOPHILS # (AUTO) 0.1 K/uL (0.00-0.22); BASOPHILS % (AUTO) 0.4 % (0.0-2.0); EOSINOPHILS % (AUTO) 0.1 % (0.0-4.0); HEMATOCRIT 32.7 % (36-52); HEMOGLOBIN 10.6 g/dL (12.0-18.0); LYMPHOCYTES # (AUTO) 0.9 K/uL (2.0-11.5); MEAN CORPUSCULAR HEMOGLOBIN 27 pg (27-31); MEAN CORPUSCULAR HGB CONC 33 g/dL (33-37); MEAN CORPUSCULAR VOLUME 84.1 fL (80-94); MONOCYTES # (AUTO) 0.3 K/uL (0.8-1.0); MONOCYTES % (AUTO) 2.1 % (1.7-9.3); NEUTROPHILS # (AUTO) 11.8 K/uL (1.8-7.7); NEUTROPHILS % (AUTO) 90.4 % (42.2-75.2); PLATELET COUNT (AUTO) 589 K/uL (140-450); RED BLOOD CELL COUNT(AUTO) 3.89 MIL/uL (4.20-6.10); RED CELL DISTRIBUTION WIDTH 18.4 % (11.6-13.7); WHITE BLOOD COUNT (AUTO) 13.1 K/uL (4.8-10.8)
[2022-08-18 06:47] LABS: ANION GAP 16.4 (8-16); CARBON DIOXIDE 23.6 mmol/L (21-32); CREATININE 0.7 mg/dL (0.6-1.3)
[2022-08-18] MEDS: DEXT 5% / NACL 0.45% 1,000 ML IV SCH ×2 (06:47→21:23)
--- NOTE | 2022-08-18 07:30 | NUR ---
RECEIVED REPORT FROM NIGHT RN LOYD, PT. VENTILATED ON TRACHEOSTOMY, P.E.G. CLAMPED FOR MEDICATIONS ONLY. NPO DUE TO VOMITTING. FOR TRANSFER OUT TO [facility], AWAITING BED VACANCY OF BED FOR GASTRO-JEJUNOSTOMY TUBE. VELASCO CATHETER NO URINE OUTPUT, ONLY 40 MLS. PER REPORT. PT. HAVING DIARRHEA.
--- NOTE | 2022-08-18 07:45 | NUR ---
RECEIVED PT ON ACVC 450,RR14, +5, 28%. WHEELS ARE LOCKED, VENT PLUGGED INTO RED OUTLET, AMBUBAG AT BEDSIDE, ALARMS ARE SET AND AUDIBLE. BREATH SOUNDS ARE COARSE, SUCTION MODERATE AMOUNT OD THICK SPUTUM. PT WILL VOMIT WHEN SUCTIONED WITH THE YANKAUER. SATURATION 99%
--- NOTE | 2022-08-18 08:20 | NUR ---
DR. BENITO CAME AND NOTED DIARRHEA, SOFT ABDOMEN. HOLD LAXATIVES. START TUBE FEEDING.
[2022-08-18] MEDS: DOCUSATE 100 MG/10 ML UDC GT SCH ×2 (09:00→20:39)
[2022-08-18] MEDS: POLYETHYLENE GLYCOL 17 GM/PKT GT SCH ×2 (09:00→20:39)
[2022-08-18] MEDS: MAGNESIUM HYDROXIDE 2400 MG/30 ML UDC GT SCH (09:00)
[2022-08-18] MEDS: METOCLOPRAMIDE 10 MG/10 ML SYRP UDC PO SCH ×3 (09:28→16:41)
[2022-08-18] MEDS: PANTOPRAZOLE 40 MG INJ VIAL IVP SCH (09:29)
[2022-08-18] MEDS: VALPROIC ACID 250 MG/5 ML UDC PO SCH ×3 (09:29→16:40)
[2022-08-18] MEDS: BACLOFEN 10 MG TAB PO SCH ×3 (09:31→16:41)
[2022-08-18] MEDS: diazePAM 5 MG TAB GT SCH ×3 (09:45→16:41)
[2022-08-18] MEDS: propylthiouraciL 50 MG TAB PO SCH (09:45)
--- NOTE | 2022-08-18 11:00 | NUR ---
HOLD TUBE FEEDING PT. STILL VOMITING DARK BROWN, ALMOST BLACK EVERYTIME PT. COUGHS. DR. BENITO CALLED BACK & SAID TO HOLD TUBE FEEDING FOR NOW. LARGE AMOUNT LIQUID PALE YELLOW STOOL, NO BLOOD AT ALL.
[2022-08-18] MEDS: POTASSIUM CHLORIDE 20% 40 MEQ/15 ML UDC GT PRN (11:54)
--- NOTE | 2022-08-18 13:45 | NUR ---
08/18/22 RD FOLLOW UP COMPLETED PLEASE REFER TO NUTRITION ASSESSMENT UNDER CARE ACTIVITY FOR ESTIMATED NUTRITIONAL NEEDS. 1. WHEN/IF MEDICALLY APPROPRIATE TO INITIATE TUBE FEEDING, RECOMMEND JEVITY 1.2 WITH A GOAL RATE OF 50 ML/HR WITH PROSOURCE BID -FWF: 150 ML Q6H OR PER MD -START AT 10 ML/HR AND INCREASE BY 10 ML Q4H TOLERATED -WILL PROVIDE 95% ESTIMATED KCAL AND 100% ESTIMATED PROTEIN NEEDS; ADEQUATE 2. MONITOR GI SYMPTOMS 3. RD TO FOLLOW-UP 2-3 DAYS, HIGH RISK LEONCIO SU RD
--- NOTE | 2022-08-18 15:17 | NUR ---
DC PLANNING: CALLED [facility] SPOKE WITH SIRISHA COGNOS ADMINISTRATOR DISCUSSED THE REQUEST FOR HIGHER LEVEL OF CARE. PER SIRISHA SHE SPOKE WITH DR EDGE AND HE AGREED TO ACCEPT PATIENT AND ATTENDING WILL BE DR MICKI Burrell REQUESTING TRANSFER AGREEMENT TO BE SIGNED. TWILA GUILLEN SIGNED AND FAXED TO [facility]. AWAITING FOR BED AT [facility]. CM TO FOLLOW Addendum: 08/18/22 at 1641 by Yuliya Milner RN DC PLANNING ARRANGED TRANSPORT WITH [facility] PLACE IT WILL CALL. AWAITING FOR BED NUMBER FROM [facility]. CM TO FOLLOW
--- NOTE | 2022-08-18 17:31 | NUR ---
PATIENT ACCEPTED TO [facility] ROOM 293, [facility] NUMBER TO CALL REPORT IS [phone], FAX NUMBER FOR COVID RAPID RESULT IS [phone]. PATIENT TO BE TRANSPORTED BY [facility], , WILL ASK FOR 2030 INSULATION BOARD COATER OPERATOR TIME. ICU AWARE OF PLAN TO TRANSFER PENDING COVID RESULT.
--- NOTE | 2022-08-18 18:07 | NUR ---
PT.FOR TRANSFER TO [facility] ICU REPORT GIVEN TO JAYDEN WYATT [phone], 1CU 2-293. PT. FOR TRANSFER FOR GASTRO-JEJUNOSTOMY.
[2022-08-18] MEDS ORDERED: NACL 0.9% 1,000 ML IV SCH (19:30)
--- NOTE | 2022-08-18 19:30 | NUR ---
RECEIVED PT. FROM DAY SHIFT, JAYDEN HARRIS. PT. AWAKE, CALM AND JUST GLANCING DURING OUR BEDSIDE REPORT. CONT. ON TRACH TO VENT A/C VC RATE 14, FIO2 28%, TV 450, PEEP 5 AND O2 SAT 98%. SINUS RHYTHM ON THE MONITOR. IV TO LEFT WRSIT 20G, INFUSING IVF D5 1/2NS AT 70 ML/HR. GT CLAMPED. CONT. ON BILATERAL SOFT MITTENS, SITE NO S/S OF POOR CIRCULATION, NO S/S OF INJURY. PER DAY SHIFTY RN, PT. ALREADY HAS A BED IN [facility] FOR G-J TUBE PLACEMENT PROCEDURE AND EXPECTED TO BE PICKED UP BY [facility] AT 2029.VELASCO CATHETER INTACT WITH CLEAR YELLOW URINE. SKIN DRY AND INTACT. REPOSITIONED AND NO S/S OF PAIN NOTED AT THIS TIME.
--- NOTE | 2022-08-18 19:30 | NUR ---
ACCORDING TO DAY SHIFT, JAYDEN HARRIS, SHE ALREADY CALLED [facility], GAVE REPORT TO EDMUNDO. PT. WILL BE GOING TO ICU 2-293 AND JUST CALL [facility] ONCE PT. PICKED UP BY
--- NOTE | 2022-08-18 21:26 | NUR ---
PT. PICKED UP BY [facility] AT 2109 GOING TO [facility]. I CALLED [facility] ICU AND NOTIFIED THEM THAT PT. LEFT HERE AT 2109, I SPOKE TO ZULEMA.
[2022-08-19] MEDS ORDERED: Z-GUARD PASTE TP SCH (09:00)
== END 2022-08-18 21:10 | disposition short-term general hospital (02) | DRG 243 ==
LOC: MED 11:36 → MTU 14:24 → MIC 08-16 13:41
PROVIDERS: ADMIT Family Medicine; ATTEND Family Medicine
PROC: 5A1955Z Respiratory Ventilation, Greater than 96 Consecutive Hours (ICD-10-PCS; principal; 2022-08-13)
DX: K20.91 Esophagitis, unspecified with bleeding (principal); J69.0 Pneumonitis due to inhalation of food and vomit; E43 Unspecified severe protein-calorie malnutrition; E87.0 Hyperosmolality and hypernatremia; K31.5 Obstruction of duodenum; J96.10 Chronic respiratory failure, unspecified whether with hypoxia or hypercapnia; E83.51 Hypocalcemia; Z93.0 Tracheostomy status; G40.909 Epilepsy, unspecified, not intractable, without status epilepticus; D64.9 Anemia, unspecified; Z20.822 Contact with and (suspected) exposure to COVID-19; K21.9 Gastro-esophageal reflux disease without esophagitis; I10 Essential (primary) hypertension; E83.42 Hypomagnesemia; E87.6 Hypokalemia; Z86.73 Personal history of transient ischemic attack (TIA), and cerebral infarction without residual deficits; Z68.1 Body mass index [BMI] 19.9 or less, adult; G80.9 Cerebral palsy, unspecified
CPT/HCPCS: 36415; 71045; 80048; 80053; 82948; 83605; 83735; 84484; 85025; 85610; 85730; 86886; 86900; 86901; 87040; 87070; 87081; 87205; 93005; 94002; 94003; 94640; 99285; C9113; J0610; J0696; J1953; J2060; J2405; J2543; J3475; J7060; J8597

== ENCOUNTER 2022-10-25 05:54 | Inpatient (IN) | payer MEDICAID ==
[~2022-10-25] VITALS: Ht 157.5 cm; Wt 37.4 kg
--- NOTE | 2022-10-25 05:56 | NUR ---
PT [facility] ER BED 2
--- NOTE | 2022-10-25 05:56 | NUR ---
PT OFFLOADED TO BED 2. RT PAGED.
--- NOTE | 2022-10-25 06:14 | NUR ---
RECEIVED ON A JumpHawkSCAPE VENTILATOR PLUGGED INTO RED OUTLET TOLERATING WELL WITHOUT ADVERSE REACTIONS NOTED TO A HUGOE DCT #8 AIRWAY SECURED WITH A PORTEX TRACH TIE CUFF PRESSURE CHECKED NOTED AMBU BAG AT BEDSIDE AWAKE GOOD CHEST RISE NO SUCTIONING REQUIRED AT THIS TIME AIRWAY PATENT
--- NOTE | 2022-10-25 06:18 | NUR ---
TRANSFERRED TO RADIOLOGY FOR CT SCAN OF THE ABDOMINAL AND CXR TOLERATED PROCEDURES AND TRANSFERS WELL WITHOUT COMPLICATIONS SATURATION 99% HR 145-146
[2022-10-25] MEDS ORDERED: NACL 0.9% 1,000 ML IV ONE ×2 (06:20→06:25)
[2022-10-25 06:30] VITALS: BP 141/104
--- NOTE | 2022-10-25 06:53 | NUR ---
PT TO CT
--- NOTE | 2022-10-25 07:20 | NUR ---
Patient lying in bed, awake, chest rise and fall symmetrical, no s/s of distress.
[2022-10-25] MEDS ORDERED: PANTOPRAZOLE 40 MG INJ VIAL IVP ONE (07:30)
[2022-10-25] MEDS ORDERED: ACETAMINOPHEN IV ONE ×2 (07:45→08:45)
--- NOTE | 2022-10-25 07:52 | NUR ---
REPORT RECEIVED FROM MAGALIS CARPENTER. ASSUMED CARE AT THIS TIME
--- NOTE | 2022-10-25 07:52 | NUR ---
Change of shift report given to AM shift nurse Valery. AM shift nurse Valery verbalized understanding of report, no further questions.
[2022-10-25] MEDS ORDERED: PIPERACILLIN/TAZOBACTAM 3.375 GM in DEXTROSE 5% 50 ML IV ONE (07:55)
--- NOTE | 2022-10-25 08:00 | NUR ---
Note undone in EDM - 10/25/22 at 1605 by PHSEP 21YO MALE PT BIBA COMMUNITY EXTENDED C/O RAPID HR AND CONSTIPATION X2DAYS. PER [facility], FACILITY STATES PT HAD INCREASE HR OVERNIGHT FROM 130 TO 160. ABDOMEN PRESENTS FIRM AND DISTENDED, ACTIVE X4. PT NON VERBAL, TRACH TO VENT W/ GTUBE IN PLACE. AT ARRIVAL PT W/ FEVER. BED AT LOWEST POSITION, BED RAILS UP X2. SEIZURE PADS IN PLACE. HX: CHRONIC RESPIRATORY FAILURE, GERD, HTN, HYPOTHYROID, ANEMIA NKA
--- NOTE | 2022-10-25 08:00 | NUR ---
21YO MALE PT BIBA COMMUNITY EXTENDED C/O RAPID HR AND CONSTIPATION X2DAYS. PER [facility], FACILITY STATES PT HAD INCREASE HR OVERNIGHT FROM 130 TO 160. ABDOMEN PRESENTS FIRM AND DISTENDED, ACTIVE X4. PT NON VERBAL, TRACH TO VENT W/ GTUBE IN PLACE. AT ARRIVAL PT W/ FEVER. BED AT LOWEST POSITION, BED RAILS UP X2. SEIZURE PADS IN PLACE. HX: CHRONIC RESPIRATORY FAILURE, TACHYCARDIA, GERD, HTN, HYPOTHYROID, ANEMIA, EPILEPSY , CEREBRAL PALSY NKA
[2022-10-25 08:16] LABS: BASOPHILS # (AUTO) 0.1 K/uL (0.00-0.22); BASOPHILS % (AUTO) 0.2 % (0.0-2.0); HEMATOCRIT 52.1 % (36-52); HEMOGLOBIN 16.3 g/dL (12.0-18.0); LYMPHOCYTES # (AUTO) 1.4 K/uL (2.0-11.5); LYMPHOCYTES % (AUTO) 5.8 % (20.5-51.1); MEAN CORPUSCULAR HEMOGLOBIN 25 pg (27-31); MEAN CORPUSCULAR HGB CONC 31 g/dL (33-37); MEAN CORPUSCULAR VOLUME 78.7 fL (80-94); MONOCYTES # (AUTO) 1.5 K/uL (0.8-1.0); MONOCYTES % (AUTO) 6.4 % (1.7-9.3); NEUTROPHILS # (AUTO) 20.8 K/uL (1.8-7.7); NEUTROPHILS % (AUTO) 87.6 % (42.2-75.2); PLATELET COUNT (AUTO) 519 K/uL (140-450); RED BLOOD CELL COUNT(AUTO) 6.62 MIL/uL (4.20-6.10); RED CELL DISTRIBUTION WIDTH 18.3 % (11.6-13.7); WHITE BLOOD COUNT (AUTO) 23.8 K/uL (4.8-10.8)
[2022-10-25] MEDS ORDERED: PIPERACILLIN/TAZOBACTAM 3.375 GM VIAL IV ONE ×2 (08:37→19:49)
[2022-10-25] MEDS ORDERED: PANTOPRAZOLE 40 MG INJ VIAL ONE ×2 (08:38→08:40)
[2022-10-25 08:53] LABS: PROTHROMBIN TIME 11.3 secs (10.8-13.4)
[2022-10-25 08:55] LABS: ALBUMIN 3.6 g/dL (3.4-5.0); ANION GAP 21.2 (8-16); ASPARTATE AMINOTRANSFERASE 51 U/L (15-37); CHLORIDE 105 mmol/L (98-107); CREATININE 2.5 mg/dL (0.6-1.3); GFR ARICAN-AMERICAN 42 mL/min (>90); GLUCOSE 257 mg/dL (74-106); LIPASE 97 U/L (73-393); POTASSIUM 3.2 mmol/L (3.5-5.1); TOTAL BILIRUBIN 0.4 mg/dL (0.0-1.0)
[2022-10-25 09:04] LABS: SODIUM SERUM 156 mmol/L (136-145); UREA NITROGEN, BLOOD 74 mg/dL (7-18)
--- NOTE | 2022-10-25 09:42 | NUR ---
MOVED TO ER BED 8
[2022-10-25 09:53] LABS: APPEARANCE,URINE SL CLOUDY (CLEAR); BILIRUBIN,URINE NEGATIVE (NEGATIVE); BLOOD, URINE 1+ (NEGATIVE); COLOR,URINE YELLOW (YELLOW); LEUKOCYTE ESTERASE ,URINE NEGATIVE (NEGATIVE); NITRITE, URINE NEGATIVE (NEGATIVE); UGLUCOSE NEGATIVE (NEGATIVE)
--- NOTE | 2022-10-25 09:55 | NUR ---
DATA EXAMINATION CLERK ASSIST; TRANSFERRED PATIENT TO ED-8 TOLERATED WELL WITHOUT COMPLICATIONS NOTED
--- NOTE | 2022-10-25 09:59 | NUR ---
NO EVIDENCE OF PULMONARY DISTRESS NOTED GOOD CHEST RISE DEEP TRACHEAL SUCTION FOR LARGE THIN YELLOW SECRETIONS SPUTUM SPECIMEN COLLECTED FOR C&S FORWARDED TO LAB
[2022-10-25 10:07] LABS: WBC,URINE 0-5 /HPF (0-5)
[2022-10-25 10:08] LABS: OTHER CASTS, URINE None Seen /LPF (None Seen)
[2022-10-25] MEDS: PANTOPRAZOLE 80 MG in NACL 0.9% 100 ML IVP SCH ×2 (11:00→20:10)
--- NOTE | 2022-10-25 11:09 | NUR ---
MD NEWMAN MADE AWARE OF PT VITALS VIA HOSPITAL PHONE/TEXT. AWAITING ORDERS
[2022-10-25] MEDS ORDERED: METO50TA21 GT (12:06)
--- NOTE | 2022-10-25 13:36 | NUR ---
WRITTEN ORDERS RECEIVED FROM MD NEWMAN. ORDERS ENTERED AND CARRIED OUT TYLENOL 500MG GT Q4H PRN
[2022-10-25 13:40] VITALS: BP 150/109
[2022-10-25] MEDS ORDERED: ACETAMINOPHEN EXTRA STRENGTH 500 MG TAB ONE (13:44)
[2022-10-25] MEDS ORDERED: CRUSHER, PILL MC ONE (13:44)
[2022-10-25] MEDS ORDERED: ACETAMINOPHEN EXTRA STRENGTH 500 MG TAB GT PRN (13:45)
--- NOTE | 2022-10-25 14:54 | NUR ---
MD NEWMAN MADE AWARE OF VITALS
[2022-10-25] MEDS ORDERED: MAG SULF 2000 MG/WATER PREMIX 50 ML IV PRN (14:55)
[2022-10-25] MEDS ORDERED: POTASSIUM CHLORIDE 10 MEQ TABER PO PRN (14:55)
--- NOTE | 2022-10-25 14:57 | NUR ---
VERBAL ORDERS RECEIVED FROM MD NEWMAN. VERBALIZED BACK , CONFIRMED AND CARRIED OUT 2L NS BOLUS -ONCE UPGRADE TO ICU
[2022-10-25] MEDS ORDERED: HYDROcodone/APAP 7.5/325 MG 1 TAB PO PRN (15:05)
[2022-10-25] MEDS ORDERED: NACL 0.9% 2,000 ML IV ONE (15:05)
[2022-10-25] MEDS ORDERED: ACETAMINOPHEN 325 MG TAB GT PRN (15:05)
[2022-10-25] MEDS ORDERED: ONDANSETRON 4 MG/2 ML VIAL IVP PRN (15:05)
[2022-10-25] MEDS ORDERED: VANCOMYCIN PER PHARMACY MC PRN (15:10)
[2022-10-25] MEDS ORDERED: NACL 0.9% 2,000 ML IV SCH (15:25)
[2022-10-25] MEDS ORDERED: NACL 0.9% 1,000 ML IV SCH (16:00)
[2022-10-25] MEDS ORDERED: BACLOFEN 10 MG TAB PO SCH (17:00)
[2022-10-25] MEDS ORDERED: VANCOMYCIN 750 MG in DEXTROSE 5% 250 ML IV SCH (17:00)
[2022-10-25] MEDS ORDERED: VALPROIC ACID 250 MG GT SCH (17:00)
[2022-10-25] MEDS: CALCIUM ACETATE 667 MG TAB GT SCH (17:28)
[2022-10-25] MEDS: diazePAM 5 MG TAB GT SCH (17:29)
[2022-10-25] MEDS: METOPROLOL 50 MG TAB GT SCH ×2 (17:32→23:38)
--- NOTE | 2022-10-25 17:50 | NUR ---
Patient will be admitted to care of MD NEWMAN. Admited to ICU. Will go to room 1. Belongings list completed. Report to LYNDSEY CARPENTER.
[2022-10-25] MEDS ORDERED: PIPERACILLIN/TAZOBACTAM 3.375 GM in DEXTROSE 5% 50 ML IV SCH ×2 (18:00→21:00)
--- NOTE | 2022-10-25 18:04 | NUR ---
PT TRANSFERRED TO ICU BED 1. A/OX0, NONVERBAL. TRACH TO VENT, ACVC FIO2 40%/VT 400/R 14/PEEP 5. ST ON MONITOR. 22G IV TO R WRIST INFUSING NS AT 120ML/HR AND PROTONIX DRIP AT 10ML/HR. G TUBE IN PLACE, CLAMPED. STANDARD PRECAUTION. BED LOCKED AND IN LOWEST POSITION.
--- NOTE | 2022-10-25 18:16 | NUR ---
The patient's care was reviewed and supervised by [facility] ED, RN.
[2022-10-25 18:17] LABS: CHOL/HDL RATIO 2.8 (1-4.5); FREE T4 (FREE THYROXINE) 0.65 ng/dL (0.76-1.46); THYROID STIMULATING HORMONE 1.13 uIU/mL (0.34-3.74)
--- NOTE | 2022-10-25 18:26 | NUR ---
ATTEMPTED IV INSERTION X2 WITHOUT SUCCESS. NOTIFIED MD WHO ORDERED PICC LINE.
[2022-10-25 18:30] VITALS: BP 153/93
--- NOTE | 2022-10-25 19:14 | NUR ---
ENDORSED BEDSIDE REPORT TO JAYDEN LYNNE FOR CONTINUITY OF CARE.
--- NOTE | 2022-10-25 19:45 | NUR ---
PT A&O X0 WITH HX OF CEREBRAL PALSY. INTUBATED. ABDOMEN DISTENDED. PERIPHERAL IV ACCESS TO RIGHT HAND. INCONTINENT WITH DIAPER ON. PT SEEMS A BIT RESTLESS LYING ON LEFT SIDE AND MOVING HIS HEAD AGAINST THE RAIL. WILL CONTINUE TO FINISH ADMISSION FOR PT.
--- NOTE | 2022-10-25 19:59 | NUR ---
PHONE CALL TO DR PRESTON NEPHRO, COMMUNITY LIFE DIRECTOR IS DR ENGLE.NOTIFIED PHYSICIAN OF THE CONSULT AND THAT PT HAS ORDER FOR PICC LINE PLACEMENT,NEPHRO CLEARANCE NEEDED.UPDATED PT ON PTS PRESENT CONDITION.QUESTIONS ANSWERED.PER , YNES TO INSERT PICC PHI
[2022-10-25 20:00] VITALS: BP 133/91
[2022-10-25] MEDS: DOCUSATE 100 MG/10 ML UDC GT SCH (20:01)
[2022-10-25] MEDS: POLYETHYLENE GLYCOL 17 GM/PKT GT SCH (20:02)
[2022-10-25] MEDS: METOCLOPRAMIDE 10 MG/10 ML SYRP UDC GT SCH (20:03)
[2022-10-25] MEDS: VALPROIC ACID 250 MG/5 ML UDC GT SCH (20:04)
[2022-10-25] MEDS: DEXT 5% / NACL 0.45% 1,000 ML IV SCH (20:11)
[2022-10-25 20:31] VITALS: BP 133/91
[2022-10-25] MEDS ORDERED: DOCUSATE SODIUM 100 MG GELCAP PO SCH (21:00)
[2022-10-25 22:00] VITALS: BP 122/94
[2022-10-25 22:10] LABS: ANION GAP 13.3 (8-16); CREATININE 1.1 mg/dL (0.6-1.3); POTASSIUM 3.3 mmol/L (3.5-5.1)
--- NOTE | 2022-10-25 23:00 | NUR ---
PM MEDS GIVEN. PT ON SOFT RESTRAINTS. NO INJURIES NOTED.
[2022-10-25] MEDS ORDERED: PIPERACILLIN/TAZOBACTAM 2.25 GM VIAL IV ONE (23:50)
[2022-10-26] VITALS (18 sets, daily range): BP systolic 130–167; BP diastolic 70–121
[2022-10-26] MEDS: PIPERACILLIN/TAZOBACTAM 2.25 GM in DEXTROSE 5% 50 ML IV SCH ×4 (00:57→17:15)
--- NOTE | 2022-10-26 01:00 | NUR ---
PT TACHYCARDIAC. CONSISTENT ATTEMPTS TO GET OUT OF RESTRAINTS AND PULL OUT TUBES.
[2022-10-26] MEDS ORDERED: PANTOPRAZOLE 40 MG INJ VIAL ONE (06:58)
[2022-10-26] MEDS ORDERED: PIPERACILLIN/TAZOBACTAM 2.25 GM VIAL IV ONE (07:01)
[2022-10-26] MEDS: METOPROLOL 50 MG TAB GT SCH ×3 (07:06→17:13)
[2022-10-26] MEDS: PANTOPRAZOLE 80 MG in NACL 0.9% 100 ML IVP SCH ×2 (07:07→17:14)
--- NOTE | 2022-10-26 07:25 | NUR ---
REPORT GIVEN TO AM SHIFT JAYDEN ATKINSON.
--- NOTE | 2022-10-26 07:30 | NUR ---
Received pt awake, nonverbal. Trach to vent settings AC/VC TV 400 rate 14 PEEP 5 FiO2@40%. Sinus tachy on the monitor. G-tube intact and clamped. Incontinent bowel and bladder. Peripheral IV 20 gauge on left forearm intact and infusing Protonix@8ml/hr. Peripheral IV 22 gauge on right hand intact and infusing D51/2NS@50ml/hr. Bilat soft restraints in place. Safety precautions in place.
--- NOTE | 2022-10-26 07:50 | NUR ---
Seen and examined by Dr. Rai.
--- NOTE | 2022-10-26 08:07 | NUR ---
RECEIVED ON A Cloud ElementsSCAP R860 VENTILATOR PLUGGED INTO RED OUTLET TOLERATING WELL WITHOUT ADVERSE REACTIONS NOTED TO A PORTEX DCT #8 AIRWAY SECURED WITH A MARGO TRACH TIE CUFF PRESSURE CHECKED NOTED AMBU BAG AT BEDSIDE IRRITABLE PATIENT NOTED WITH GASTRIC EMESIS CHINA/RN NOTIFIED DEEP TRACHEAL SUCTION FOR COPIOUS THIN YELLOW/GREEN SECRETIONS AIRWAY PATENT
[2022-10-26] MEDS: CALCIUM ACETATE 667 MG TAB GT SCH ×3 (08:32→16:11)
[2022-10-26] MEDS: DOCUSATE 100 MG/10 ML UDC GT SCH (08:32)
[2022-10-26] MEDS: VALPROIC ACID 250 MG/5 ML UDC GT SCH ×3 (08:33→16:11)
[2022-10-26] MEDS: MAGNESIUM HYDROXIDE 2400 MG/30 ML UDC GT SCH (08:34)
[2022-10-26] MEDS: BACLOFEN 10 MG TAB GT SCH ×3 (08:34→16:11)
[2022-10-26] MEDS: POLYETHYLENE GLYCOL 17 GM/PKT GT SCH ×2 (08:34→20:02)
[2022-10-26] MEDS: METOCLOPRAMIDE 10 MG/10 ML SYRP UDC GT SCH ×3 (08:35→16:11)
[2022-10-26] MEDS: MULTIVITAMIN/MINERALS 1 TAB GT SCH (08:35)
[2022-10-26] MEDS: diazePAM 5 MG TAB GT SCH ×3 (08:36→16:12)
[2022-10-26] MEDS: ZINC SULF 220 MG CAP GT SCH (08:36)
[2022-10-26 08:49] LABS: BASOPHILS % (AUTO) 0.3 % (0.0-2.0); LYMPHOCYTES # (AUTO) 1.2 K/uL (2.0-11.5); LYMPHOCYTES % (AUTO) 8.8 % (20.5-51.1); MEAN CORPUSCULAR HEMOGLOBIN 24 pg (27-31); MEAN CORPUSCULAR HGB CONC 32 g/dL (33-37); MONOCYTES # (AUTO) 1.2 K/uL (0.8-1.0); MONOCYTES % (AUTO) 8.4 % (1.7-9.3); NEUTROPHILS # (AUTO) 11.6 K/uL (1.8-7.7); NEUTROPHILS % (AUTO) 82.5 % (42.2-75.2); PLATELET COUNT (AUTO) 390 K/uL (140-450); RED BLOOD CELL COUNT(AUTO) 4.94 MIL/uL (4.20-6.10); RED CELL DISTRIBUTION WIDTH 17.7 % (11.6-13.7)
--- NOTE | 2022-10-26 08:49 | NUR ---
PATIENT HAS BEEN SCREENED AND CATEGORIZED HIGH NUTRITION RISK. PATIENT WILL BE SEEN WITHIN 1-2 DAYS OF ADMISSION. 10/25/22-10/27/[address] REFERRAL RECEIVED FOR [facility]on OR LOWER
[2022-10-26] MEDS: propylthiouraciL 50 MG TAB PO SCH (08:56)
[2022-10-26] MEDS ORDERED: NON-FORMULARY ITEM (Multivitamin with Minerals (Multivitamins with Minerals) 1 TAB) GT SCH (09:00)
[2022-10-26] MEDS ORDERED: PANTOPRAZOLE 40 MG INJ VIAL IVP SCH (09:00)
[2022-10-26] MEDS ORDERED: PANTOPRAZOLE 40 MG TABEC PO SCH (09:00)
[2022-10-26 09:03] LABS: CARBON DIOXIDE 33.3 mmol/L (21-32); CREATININE 0.8 mg/dL (0.6-1.3); POTASSIUM 3.3 mmol/L (3.5-5.1)
[2022-10-26 09:07] LABS: MAGNESIUM 3.6 mg/dL (1.8-2.4)
[2022-10-26 09:08] LABS: VANCOMYCIN,RANDOM 11.1 ug/ml
[2022-10-26] MEDS: POTASSIUM CHLORIDE 20% 40 MEQ/15 ML UDC GT PRN (09:13)
--- NOTE | 2022-10-26 10:00 | NUR ---
Spoke to Dr. Boswell on phone and updated pt information. New orders received for GT to gravity, 2 enemas and call back if pt still constipated.
--- NOTE | 2022-10-26 10:55 | NUR ---
AWAKE INTERMITTENT IRRITABLY GOOD CHEST RISE DEEP TRACHEAL SUCTION FOR MODERATE THIN YELLOW/GREEN SECRETIONS AIRWAY PATENT
--- NOTE | 2022-10-26 11:00 | NUR ---
Dr. De Guzman at bedside examining patient. New orders received.
--- NOTE | 2022-10-26 11:27 | NUR ---
10/26/22 RD INITIAL ASSESSMENT COMPLETED. PLEASE REFER TO NUTRITION ASSESSMENT UNDER CARE ACTIVITY FOR ESTIMATED NUTRITIONAL NEEDS. 1.WHEN/IF MEDICALLY APPROPRIATE, RECOMMEND JEVITY 1.2 AARON FOR FIBER CONTENT WITH A GOAL RATE OF 45 ML/HR -FWF 60 ML Q8H OR PER MD -START AT 10 ML/HR AND INCREASE BY 10 ML Q4H UNTIL GOAL RATE IS REACHED. THIS WILL PROVIDE 1296 KCAL, 59 GRAMS OF PROTEIN, AND 1080 ML VOLUME, MEETING 100% OF KCAL AND 96% OF PROTEIN NEEDS; ADEQUATE. 2. MONITOR NPO STATUS 3. RD TO FOLLOW-UP 2-3 DAYS, HIGH RISK ANA WYATT RD
--- NOTE | 2022-10-26 11:30 | NUR ---
KUB done at bedside.
[2022-10-26] MEDS ORDERED: bisacodyL 10 MG SUPP RC SCH (12:00)
[2022-10-26] MEDS: LORazepam 2 MG/ML VIAL IM/IVP PRN (12:16)
--- NOTE | 2022-10-26 13:28 | NUR ---
Dr. Childers at bedside examining patient.
[2022-10-26] MEDS ORDERED: SODIUM PHOSPHATE 118 ML ENEM RC SCH (14:00)
--- NOTE | 2022-10-26 14:08 | NUR ---
RESTING WELL GOOD CHEST RISE DEEP TRACHEAL SUCTION FOR SMALL THIN YELLOW/GREEN SECRETIONS AIRWAY PATENT
[2022-10-26] MEDS: DEXT 5% / NACL 0.45% 1,000 ML IV SCH (16:05)
--- NOTE | 2022-10-26 18:38 | NUR ---
Reported KUB results to Dr. De Guzman and Dr. Boswell.
--- NOTE | 2022-10-26 18:51 | NUR ---
Dr. Boswell called back regarding KUB results. New orders received. Per Dr. Boswell, clamp G-tube for 2 hours after administering G-tube medications, then open G-tube to gravity.
--- NOTE | 2022-10-26 19:10 | NUR ---
Seen and examined by Dr. Hawk.
--- NOTE | 2022-10-26 19:15 | NUR ---
Endorsed to car shifter nurse Mandy for continuity of care.
--- NOTE | 2022-10-26 19:15 | NUR ---
SLEEPING , AWAKEABLE BY TOUCH AND SOUND , EASILY BACK TO SLEEP - GOT VALIUM 3 HRS AGO / GT . W/ G TUBE CONNECTING TO DRAINAGE BAG DRAINING BY GRAVITY DRAINING GREENISH DISCHARGE , BLOATED AND FIRM ABDOMEN , PER AM NURSE PT HAD BM . IV SITE INTACT AND PATENT , W/ ONGOING PROTONIX TIV . NPO . TRACH TO VENT , O2 SAT WNL , ON TELE MONITOR - ST . WILL CONT. TO MONITOR .
[2022-10-26] MEDS: POTASSIUM CHL 20 MEQ / DEXT 5% 1,000 ML IV SCH (20:01)
[2022-10-26] MEDS ORDERED: METOPROLOL 5 MG/5 ML VIAL IV SCH ×2 (21:18→21:55)
--- NOTE | 2022-10-26 21:22 | NUR ---
REFERRED TO DR. MCFARLAND HR 132 , SCREEN SHOT THE LATEST EKG RESULT BP 160/110 - PER DR. MCFARLAND METOPROLOL 5MG TIV STAT - WILL CARRY OUT .
--- NOTE | 2022-10-26 23:51 | NUR ---
PT IS W/ PRIMARY IVF D5W PLUS KCL 20MEQ - PER PHARMACIST LAMBERT IT IS OK TO GIVE THE ZOSYN PIGGYBACK W/ THAT PRIMARY IVF . WILL CARRY OUT .
[2022-10-27] VITALS (16 sets, daily range): BP systolic 90–160; BP diastolic 49–116
[2022-10-27] MEDS: LORazepam 2 MG/ML VIAL IM/IVP PRN ×3 (00:19→15:51)
--- NOTE | 2022-10-27 00:20 | NUR ---
PT IS STILL KEEPING PUT HIS FINGERS TO HIS MOUTH TO INDUCE VOMITING , INSPITE OF PT IS ON BILAT . SOFT WRIST , PT MAKES A WAY TO PUT HIS FINGERS IN HIS MOUTH BY MOVING HIS BODY SO THAT HIS MOUTH WILL BE CLOSER TO HIS RESTRAINST ARM , KEEP BANGING THE HEAD AGAINST THE PILLOW , BP 154/102 , HR 128 , RR 20 , O2 SAT 99 % - WILL MEDICATE .
[2022-10-27] MEDS: PIPERACILLIN/TAZOBACTAM 2.25 GM in DEXTROSE 5% 50 ML IV SCH ×6 (00:41→23:26)
[2022-10-27] MEDS: METOPROLOL 50 MG TAB GT SCH ×6 (01:05→23:26)
--- NOTE | 2022-10-27 01:34 | NUR ---
RECEIVED ON A CARESCAPE R860 VENTILATOR PLUGGED INTO RED OUTLET TOLERATING WELL WITHOUT ADVERSE REACTIONS NOTED TO A PORTEX DCT #8 AIRWAY SECURED WITH TRACH TIES CUFF PRESSURE CHECKED NOTED AMBU BAG AT BEDSIDE. PT WAS RESTLESS. AT SECOND VENT CHECK (173), TRACH CARE WAS PERFORMED BECAUSE DRAIN SPONGES AND TRACH TIES WERE COVERED IN GREEN SECTIONS. ALSO ALANIS AND TUBING WERE FILLED WITH SECRETIONS. REPLACED ALANIS, DRAIN SPONGES, AND OMNIFLEX.
[2022-10-27] MEDS: PANTOPRAZOLE 80 MG in NACL 0.9% 100 ML IVP SCH ×4 (03:09→22:17)
--- NOTE | 2022-10-27 04:00 | NUR ---
ROUNDS , NO S/SX OF ACUTE DISTRESS NOTED , WILL CONT. TO MONITOR .
[2022-10-27 06:01] LABS: ANION GAP 15.1 (8-16); CARBON DIOXIDE 37.4 mmol/L (21-32); CREATININE 0.9 mg/dL (0.6-1.3); POTASSIUM 3.5 mmol/L (3.5-5.1)
[2022-10-27 06:06] LABS: BASOPHILS % (AUTO) 0.3 % (0.0-2.0); EOSINOPHILS % (AUTO) 0.1 % (0.0-4.0); HEMATOCRIT 37.5 % (36-52); HEMOGLOBIN 12.1 g/dL (12.0-18.0); LYMPHOCYTES # (AUTO) 1.3 K/uL (2.0-11.5); LYMPHOCYTES % (AUTO) 12.7 % (20.5-51.1); MEAN CORPUSCULAR HEMOGLOBIN 25 pg (27-31); MEAN CORPUSCULAR HGB CONC 32 g/dL (33-37); MEAN CORPUSCULAR VOLUME 76.7 fL (80-94); NEUTROPHILS # (AUTO) 7.9 K/uL (1.8-7.7); NEUTROPHILS % (AUTO) 76.9 % (42.2-75.2); PLATELET COUNT (AUTO) 339 K/uL (140-450); RED BLOOD CELL COUNT(AUTO) 4.89 MIL/uL (4.20-6.10); WHITE BLOOD COUNT (AUTO) 10.3 K/uL (4.8-10.8)
[2022-10-27 06:14] LABS: PHOSPHORUS 4.4 mg/dL (2.5-4.9)
--- NOTE | 2022-10-27 06:32 | NUR ---
SHED. MED THRU GT GIVEN THEN CLAMPPED THE G TUBE - WILL ENDORSE TO AM NURSE SHE HAVE TO UNCLAMP THE G TUBE AFTER 2HRS AND DRAIN IT BT GRAVITY . Addendum: 10/27/22 at 0728 by Mandy Healy RN marybeth contreras verbalizes understanding .
--- NOTE | 2022-10-27 07:24 | NUR ---
got report from the night nurse, pt is sleeping breathing via track vent.[email or web address]
--- NOTE | 2022-10-27 07:27 | NUR ---
endorsed pt for cont. of care . Addendum: 10/27/22 at 0728 by Mandy Healy RN giovanni ortiz nurse's note is time error entry , instead of 07 - [email or web address]
[2022-10-27] MEDS: POTASSIUM CHL 20 MEQ / DEXT 5% 1,000 ML IV SCH (07:54)
[2022-10-27] MEDS: CALCIUM ACETATE 667 MG TAB GT SCH ×3 (08:19→16:27)
[2022-10-27] MEDS: ZINC SULF 220 MG CAP GT SCH (08:19)
[2022-10-27] MEDS: VALPROIC ACID 250 MG/5 ML UDC GT SCH ×3 (08:20→16:26)
[2022-10-27] MEDS: MAGNESIUM HYDROXIDE 2400 MG/30 ML UDC GT SCH (08:20)
[2022-10-27] MEDS: METOCLOPRAMIDE 10 MG/10 ML SYRP UDC GT SCH ×3 (08:20→16:27)
[2022-10-27] MEDS: POLYETHYLENE GLYCOL 17 GM/PKT GT SCH (08:21)
[2022-10-27] MEDS: BACLOFEN 10 MG TAB GT SCH ×3 (08:42→16:29)
[2022-10-27] MEDS: MULTIVITAMIN/MINERALS 1 TAB GT SCH (08:43)
[2022-10-27] MEDS: propylthiouraciL 50 MG TAB PO SCH (08:44)
[2022-10-27] MEDS: diazePAM 5 MG TAB GT SCH ×3 (08:44→16:27)
[2022-10-27] MEDS ORDERED: SODIUM PHOSPHATE 118 ML ENEM RC SCH (09:00)
[2022-10-27] MEDS ORDERED: POTASSIUM CHLORIDE 10 MEQ TABER PO SCH (12:48)
[2022-10-27] MEDS ORDERED: POTASSIUM CHLORIDE 20% 40 MEQ/15 ML UDC PO SCH (12:49)
[2022-10-27] MEDS: DEXTROSE 5% 1,000 ML IV SCH ×2 (13:03→20:36)
[2022-10-27 17:43] LABS: ANION GAP 11.5 (8-16); CARBON DIOXIDE 39.9 mmol/L (21-32); CREATININE 0.9 mg/dL (0.6-1.3); POTASSIUM 3.4 mmol/L (3.5-5.1)
[2022-10-27] MEDS: POTASSIUM CHLORIDE 20% 40 MEQ/15 ML UDC GT PRN (18:43)
--- NOTE | 2022-10-27 18:51 | NUR ---
PT HAD A GOOD DAY HAD ENAMA X2 AND ALSO OTHER RECTAL ENEMA WITH 1000 CC BY GI ORDER, A LOT OF WATERY BM, PT ABD IS SOFTER, PT LOOKS BETTER AND SMILED IN THE AFTERNOON. NOW HE IS SLEEPING COMFORTABLY.[id number]
[2022-10-27] MEDS ORDERED: KCL 20 MEQ/WATER INJ PREMIX 100 ML IV ONE (19:20)
--- NOTE | 2022-10-27 20:00 | NUR ---
ASSUMED CARE OF THIS PATIENT AND ASSESSMENT DONE AND COMPLETED.HE HAS PERIOS OF CONFUSION AND AGITATION..REMAINS ON RESTRAINTS TO PREVENT FROM PULLING OUT VITAL LINES.GTUBE PATENT AND INTACT WITH DRAINAGE ATTACHED TO BAG.TRACH TO VENT WITH NO CHANGES ON SETTINGS.INCONTINENT OF BOWEL AND BLADDER.ON PROTONIX DRIP AT 10ML/HOUR.WILL CONTINUE TO PROCEED WITH CURRENT PLAN OF CARE.
--- NOTE | 2022-10-27 22:22 | NUR ---
2199 TRACH CARE DONE. ALANIS AND HME CHANGED. TRACH TIE AND GAUZE CHANGED.CLEANED PT NECK
[2022-10-28] VITALS (11 sets, daily range): BP systolic 100–153; BP diastolic 32–107
[2022-10-28 05:47] LABS: BASOPHILS # (AUTO) 0.1 K/uL (0.00-0.22); BASOPHILS % (AUTO) 0.5 % (0.0-2.0); EOSINOPHILS # (AUTO) 0.2 K/uL (0-0.4); EOSINOPHILS % (AUTO) 1.1 % (0.0-4.0); HEMATOCRIT 42.1 % (36-52); HEMOGLOBIN 13.4 g/dL (12.0-18.0); LYMPHOCYTES # (AUTO) 1.8 K/uL (2.0-11.5); LYMPHOCYTES % (AUTO) 11.6 % (20.5-51.1); MEAN CORPUSCULAR HEMOGLOBIN 25 pg (27-31); MEAN CORPUSCULAR HGB CONC 32 g/dL (33-37); MEAN CORPUSCULAR VOLUME 77.1 fL (80-94); MONOCYTES # (AUTO) 0.8 K/uL (0.8-1.0); MONOCYTES % (AUTO) 5.2 % (1.7-9.3); NEUTROPHILS # (AUTO) 12.4 K/uL (1.8-7.7); NEUTROPHILS % (AUTO) 81.6 % (42.2-75.2); PLATELET COUNT (AUTO) 386 K/uL (140-450); RED BLOOD CELL COUNT(AUTO) 5.46 MIL/uL (4.20-6.10); RED CELL DISTRIBUTION WIDTH 17.7 % (11.6-13.7); WHITE BLOOD COUNT (AUTO) 15.2 K/uL (4.8-10.8)
[2022-10-28 06:16] LABS: ANION GAP 14.4 (8-16); CARBON DIOXIDE 39.2 mmol/L (21-32); POTASSIUM 3.6 mmol/L (3.5-5.1)
[2022-10-28 06:27] LABS: PHOSPHORUS 3.7 mg/dL (2.5-4.9)
--- NOTE | 2022-10-28 06:50 | NUR ---
HELPED TRANSPORT PT FROM ICU TO TELE BED 125B. PT BAGGED THROUGHOUT TRANSPORT. ONCE IN ROOM PLACED BACK ON VENT AT PREVIOUS SETTINGS OF: RR144, VT 400, PEEP +5, FIO2 30. NO CHANGES MADE TO ALARM SETTINGS. PT WAS VERY AGGITATED - SHAKING HEAD AND ARMS. PT TRIED TO STICK HAND DOWN THROAT. RN STATED SHE WOULD ADMINISTER VALIUM AND THEN ATAVAN TO CALM PT DOWN.
--- NOTE | 2022-10-28 07:00 | NUR ---
WILL ENDORSE TO INCOMING DAY SHIFT RN.
[2022-10-28 07:20] LABS: MAGNESIUM 4.4 mg/dL (1.8-2.4)
[2022-10-28] MEDS ORDERED: LEVOFLOXACIN 500 MG/D5W PREMIX 100 ML IV SCH (09:00)
[2022-10-28] MEDS: MAGNESIUM HYDROXIDE 2400 MG/30 ML UDC GT SCH (09:00)
[2022-10-28] MEDS: ZINC SULF 220 MG CAP GT SCH (10:16)
[2022-10-28] MEDS: MULTIVITAMIN/MINERALS 1 TAB GT SCH (10:16)
[2022-10-28] MEDS: VALPROIC ACID 250 MG/5 ML UDC GT SCH ×3 (10:17→17:26)
[2022-10-28] MEDS: METOCLOPRAMIDE 10 MG/10 ML SYRP UDC GT SCH ×3 (10:17→17:26)
[2022-10-28] MEDS: propylthiouraciL 50 MG TAB PO SCH (10:18)
[2022-10-28] MEDS: BACLOFEN 10 MG TAB GT SCH ×3 (10:18→17:26)
[2022-10-28] MEDS: CALCIUM ACETATE 667 MG TAB GT SCH ×3 (10:18→17:25)
[2022-10-28] MEDS: DEXT 5% / NACL 0.45% 1,000 ML IV SCH ×2 (10:19→23:00)
[2022-10-28] MEDS: diazePAM 5 MG TAB GT SCH ×3 (10:19→17:26)
[2022-10-28] MEDS: LORazepam 2 MG/ML VIAL IM/IVP PRN ×3 (11:27→23:05)
[2022-10-28] MEDS: METOPROLOL 50 MG TAB GT SCH ×3 (12:21→23:06)
[2022-10-28] MEDS: PIPERACILLIN/TAZOBACTAM 2.25 GM in DEXTROSE 5% 50 ML IV SCH ×3 (12:22→23:29)
--- NOTE | 2022-10-28 16:00 | NUR ---
PT. WITH LOW LIZ SCALE AT HIGH RISK, CONTINUE TO FOLLOW PRESSURE INJURY PREVENTION INTERVENTIONS. -POSITIONING: TURN AND REPOSITION PATIENT Q 2H OR SOONER USE PILLOWS TO KEEP BONY PROMINENCES FROM DIRECT CONTACT WITH SURFACES USE REPOSITIONING WEDGES TO PROVIDE 30-DEGREE ANGLE FOR SIDE LYING POSITIONS OFFLOADING OR FOAM DRESSING TO ALL TUBING TO PREVENT MEDICAL DEVICES RELATED PRESSURE INJURY -RE-EVALUATING AND MANAGING INCONTINENCE MONITOR SKIN CONDITION DURING POSITION CHANGE DO NOT MASSAGE REDNESS, BONY PROMINENCES FREQUENT NITISH-CARE AND PROVIDE BARRIER CREAMS PRN IF SOILING MOISTURE CONTROL BY OFFER BED MACEDO/URINAL /ABSORBENT PAD TO WICK AND HOLD MOISTURE KEEP SKIN DRY AND PROTECT FROM FRICTION -MANAGE FRICTION/SHEAR/MOBILITY KEEP HOB AT THE LOWEST LEVEL OF ELEVATION NO MORE THAN 30 DEGREE UNLESS OTHERWISE CONTRAINDICATED USE LIFT SHEET OR TRANSFER DEVICE TO MOVE PATIENT AND PREVENT LATERAL SHEER. PROTECT HEELS, ELBOWS BONY PROMINENCES WITH SKIN BERRIES OR FOAM DRESSING IF EXPOSED TO FRICTION OFFLOAD BILATERAL HEELS BY PLACING PILLOWS UNDER CALVES AT ALL TIMES, UNLESS OTHERWISE CONTRAINDICATED -PRESSURE REDISTRIBUTION SURFACE THERAPY BERE ISOFLEX MATTRESS -NUTRITION: PLEASE FOLLOW RD RECOMMENDATIONS AND OFFER NUTRITION SUPPLEMENTS IF ORDERED. PLEASE CONTACT WOUND CARE NURSE FOR ANY QUESTION AND CHANGE OF WOUND CONDITION
--- NOTE | 2022-10-28 17:00 | NUR ---
CALLED AND UPDATED PATIENT'S CONDITION. ORDERED TO START J-TUBE FEEDING OF PEPTAMEN 1.5 1 CAN 3X A DAY BOLUS WITH 100CC FLUSH AFTER BOLUS. MADE AWARE THAT NO PEPTAMEN 1.5 AVAILABLE PER MD TO CONSULT DIETARY FOR ALTERNATIVE. WILL ENDORSE TO PM SHIFT.
[2022-10-28 17:05] LABS: APPEARANCE,URINE SL CLOUDY (CLEAR); BILIRUBIN,URINE 1+ (NEGATIVE); BLOOD, URINE NEGATIVE (NEGATIVE); COLOR,URINE YELLOW (YELLOW); LEUKOCYTE ESTERASE ,URINE TRACE (NEGATIVE); NITRITE, URINE NEGATIVE (NEGATIVE); UGLUCOSE NEGATIVE (NEGATIVE)
--- NOTE | 2022-10-28 17:10 | NUR ---
PT MOVED TO ROOM 124 A SO THAT NURSES COULD KEEP A BETTER EYE ON HIM SINCE HE IS IN RESTRAINTS.
[2022-10-28 17:18] LABS: WBC,URINE 0-5 /HPF (0-5); YEAST,URINE Few /HPF (None Seen)
[2022-10-28 17:19] LABS: OTHER CASTS, URINE None Seen /LPF (None Seen)
--- NOTE | 2022-10-28 19:30 | NUR ---
RECEIVED FROM DAY RN FOR CONTINUITY OF CARE. PT ASLEEP, ON TRACH TO VENT WITH FIO2 AT 30%,O2 SAT AT 99%. BREATHING EQUAL AND UNLABORED.PT ON BILATERAL WRIST RESTRAINTS. NO EVIDENCE OF INJURY FROM RESTRAINTS. IV ON L FA INFILTRATED. ALL PRECAUTIONS IN PLACE. CALL LIGHT WITHIN REACH. WILL CONTINUE TO MONITOR.
[2022-10-29] VITALS: BP 121/88
--- NOTE | 2022-10-29 | NUR ---
IV site infiltrated. Restarted on R FA G20 . Successful after 3 attempts. Resumed current IVF of D5.45NS and regulated @ 75MLS per hour. Will observe for any signs of infiltration.
--- NOTE | 2022-10-29 00:30 | NUR ---
SCHEDULED MEDICATIONS GIVEN. PT TOLERATED WELL. WILL CONTINUE TO MONITOR.
[2022-10-29 04:00] VITALS: BP 135/102
[2022-10-29 06:06] LABS: BASOPHILS % (AUTO) 0.4 % (0.0-2.0); EOSINOPHILS # (AUTO) 0.4 K/uL (0-0.4); EOSINOPHILS % (AUTO) 3.8 % (0.0-4.0); HEMATOCRIT 34.7 % (36-52); HEMOGLOBIN 11.1 g/dL (12.0-18.0); LYMPHOCYTES # (AUTO) 1.7 K/uL (2.0-11.5); LYMPHOCYTES % (AUTO) 15.9 % (20.5-51.1); MEAN CORPUSCULAR HEMOGLOBIN 25 pg (27-31); MEAN CORPUSCULAR HGB CONC 32 g/dL (33-37); MEAN CORPUSCULAR VOLUME 76.1 fL (80-94); MONOCYTES # (AUTO) 0.4 K/uL (0.8-1.0); NEUTROPHILS # (AUTO) 8.1 K/uL (1.8-7.7); NEUTROPHILS % (AUTO) 75.9 % (42.2-75.2); PLATELET COUNT (AUTO) 333 K/uL (140-450); RED BLOOD CELL COUNT(AUTO) 4.56 MIL/uL (4.20-6.10); RED CELL DISTRIBUTION WIDTH 17.3 % (11.6-13.7); WHITE BLOOD COUNT (AUTO) 10.6 K/uL (4.8-10.8)
[2022-10-29 06:22] LABS: CARBON DIOXIDE 34.7 mmol/L (21-32); CREATININE 0.6 mg/dL (0.6-1.3)
[2022-10-29 06:38] LABS: MAGNESIUM 3.5 mg/dL (1.8-2.4); PHOSPHORUS 3.6 mg/dL (2.5-4.9)
[2022-10-29] MEDS: METOPROLOL 50 MG TAB GT SCH ×4 (06:38→23:45)
[2022-10-29] MEDS: PIPERACILLIN/TAZOBACTAM 2.25 GM in DEXTROSE 5% 50 ML IV SCH (06:38)
--- NOTE | 2022-10-29 07:03 | NUR ---
PT IS STABLE. NO ACUTE EVENTS THROUGHOUT THE NIGHT.NO S/SX OF DISTRESS NOTED. ALL NEEDS ATTENDED. DENIES PAIN AT THIS TIME. ALL PRECAUTIONS IN PLACE. CALL LIGHT WITHIN REACH. WILL ENDORSE TO AM SHIFT NURSE.
[2022-10-29 07:06] LABS: POTASSIUM 2.7 mmol/L (3.5-5.1)
[2022-10-29 08:00] VITALS: BP 109/78
[2022-10-29] MEDS: LORazepam 2 MG/ML VIAL IM/IVP PRN ×2 (08:11→22:21)
[2022-10-29] MEDS: CALCIUM ACETATE 667 MG TAB GT SCH ×3 (09:00→17:51)
[2022-10-29] MEDS ORDERED: POTASSIUM CHLORIDE 40 MEQ, LIDOCAINE 1% 25 MG in NACL 0.9% 250 ML IV SCH (09:30)
--- NOTE | 2022-10-29 09:30 | NUR ---
DR. SHANKS SEEN AND EXAMINED THE PATIENT. PER DR. SHANKS TO KEEPP PATIENT NPO AND HOLD TUBE FEEDING UNTIL FURTHER ORDER.
[2022-10-29] MEDS: PANTOPRAZOLE 40 MG INJ VIAL IV SCH (09:50)
[2022-10-29] MEDS: VALPROIC ACID 250 MG/5 ML UDC GT SCH ×3 (09:50→17:52)
[2022-10-29] MEDS: BACLOFEN 10 MG TAB GT SCH ×3 (09:50→17:51)
[2022-10-29] MEDS: diazePAM 5 MG TAB GT SCH ×3 (09:50→17:51)
[2022-10-29] MEDS: propylthiouraciL 50 MG TAB PO SCH (09:50)
[2022-10-29] MEDS: METOCLOPRAMIDE 10 MG/10 ML SYRP UDC GT SCH ×3 (09:50→17:52)
[2022-10-29] MEDS: ZINC SULF 220 MG CAP GT SCH (09:50)
[2022-10-29] MEDS: MULTIVITAMIN/MINERALS 1 TAB GT SCH (09:50)
[2022-10-29] MEDS: MAGNESIUM HYDROXIDE 2400 MG/30 ML UDC GT SCH (09:51)
[2022-10-29 12:00] VITALS: BP 135/78
[2022-10-29] MEDS: DEXT 5% / NACL 0.45% 1,000 ML IV SCH ×2 (12:20→23:46)
--- NOTE | 2022-10-29 15:53 | NUR ---
10/29/22 RD FOLLOW UP COMPLETED PLEASE REFER TO NUTRITION ASSESSMENT UNDER CARE ACTIVITY FOR ESTIMATED NUTRITIONAL NEEDS. 1.WHEN/IF MEDICALLY APPROPRIATE, RECOMMEND VITAL AF 1.2 WITH A GOAL RATE OF 60 ML/HR -FWF 150 ML Q8H OR PER MD -START AT 10 ML/HR AND INCREASE BY 10 ML Q4H UNTIL GOAL RATE IS REACHED. THIS WILL PROVIDE 1440 ML TOTAL VOLUME, 1728 KCAL, AND 105 GRAMS OF PROTEIN, MEETING 100% OF KCAL AND PROTEIN NEEDS; ADEQUATE. 2. MONITOR NPO STATUS 3. CONSULT RD PRN 4. RD TO FOLLOW-UP 2-3 DAYS, HIGH RISK REVIEWED BY LEONCIO SU RD
[2022-10-29 16:00] VITALS: BP 130/97
--- NOTE | 2022-10-29 18:07 | NUR ---
PATIENT REMAINS STABLE THROUGHOUT THE SHIFT. VENT SETTINGS ORDERED TOLERATING WELL. BILATERAL SOFT WRISTS RESTRAINTS CHECKED AND RELEASED EVERY 2 HOURS FOR 15 MINUTES. NO INJURIES NOTED. CHANGED AND REPOSITIONED EVERY 2 HOURS. ALL NEEDS ANTICIPATED AND MET. WILL CONTINUE PLAN OF CARE.
--- NOTE | 2022-10-29 19:25 | NUR ---
RECEIVED FROM DAY RN FOR CONTINUITY OF CARE. PT ASLEEP, ON TRACH TO VENT WITH FIO2 AT 26%,O2 SAT AT 100%. BREATHING EQUAL AND UNLABORED.PT ON BILATERAL WRIST RESTRAINTS. NO EVIDENCE OF INJURY FROM RESTRAINTS. IV ON R FA G20, RUNNING FLUIDS PER MD ORDER. ALL PRECAUTIONS IN PLACE. CALL LIGHT WITHIN REACH. WILL CONTINUE TO MONITOR.
[2022-10-29 20:00] VITALS: BP 99/58
--- NOTE | 2022-10-29 21:00 | NUR ---
SCHEDULED MEDICATIONS GIVEN. PT TOLERATED WELL. WILL CONTINUE TO MONITOR.
[2022-10-29] MEDS: MEROPENEM 1,000 MG in NACL 0.9% 100 ML IV SCH (21:14)
--- NOTE | 2022-10-29 23:53 | NUR ---
SCHEDULED MEDICATIONS GIVEN. PT TOLERATED WELL. WILL CONTINUE TO MONITOR.
[2022-10-30] VITALS: BP 107/78
--- NOTE | 2022-10-30 03:34 | NUR ---
PT IS AWAKE IN BED. NO S/SX OF DISTRESS NOTED. WILL CONTINUE TO MONITOR.
[2022-10-30] MEDS ORDERED: Z-GUARD PASTE TP NR (04:45)
[2022-10-30 04:48] VITALS: BP 116/83
[2022-10-30] MEDS ORDERED: Z-GUARD PASTE TP ONE (04:49)
[2022-10-30] MEDS: MEROPENEM 1,000 MG in NACL 0.9% 100 ML IV SCH ×3 (05:13→20:55)
[2022-10-30] MEDS: METOPROLOL 50 MG TAB GT SCH ×3 (05:25→18:35)
[2022-10-30 05:27] LABS: BASOPHILS % (AUTO) 0.3 % (0.0-2.0); EOSINOPHILS # (AUTO) 0.3 K/uL (0-0.4); EOSINOPHILS % (AUTO) 2.7 % (0.0-4.0); HEMATOCRIT 33.3 % (36-52); HEMOGLOBIN 10.9 g/dL (12.0-18.0); LYMPHOCYTES # (AUTO) 1.7 K/uL (2.0-11.5); LYMPHOCYTES % (AUTO) 15.9 % (20.5-51.1); MEAN CORPUSCULAR HEMOGLOBIN 25 pg (27-31); MEAN CORPUSCULAR HGB CONC 33 g/dL (33-37); MEAN CORPUSCULAR VOLUME 76.2 fL (80-94); MONOCYTES # (AUTO) 0.4 K/uL (0.8-1.0); MONOCYTES % (AUTO) 3.7 % (1.7-9.3); NEUTROPHILS # (AUTO) 8.5 K/uL (1.8-7.7); NEUTROPHILS % (AUTO) 77.4 % (42.2-75.2); PLATELET COUNT (AUTO) 321 K/uL (140-450); RED BLOOD CELL COUNT(AUTO) 4.37 MIL/uL (4.20-6.10); RED CELL DISTRIBUTION WIDTH 17.5 % (11.6-13.7)
[2022-10-30 05:59] LABS: ANION GAP 9.6 (8-16); CARBON DIOXIDE 33.5 mmol/L (21-32); CREATININE 0.5 mg/dL (0.6-1.3); POTASSIUM 3.1 mmol/L (3.5-5.1)
[2022-10-30 06:20] LABS: MAGNESIUM 2.7 mg/dL (1.8-2.4); PHOSPHORUS 2.6 mg/dL (2.5-4.9)
[2022-10-30 08:00] VITALS: BP 134/52
--- NOTE | 2022-10-30 08:00 | NUR ---
RECEIVED PATIENT IN BED, APPEARS RESTLESS. NOT IN ANY FORM OF DISTRESS. TRACH TO VENT WITH SETTINGS ORDERED. BILATERAL SOFT WRISTS RESTRAINTS IN PLACE. CHECKED AND RELEASED FOR 15 MINUTES. NO INJURY NOTED. REPOSITIONED FOR COMFORT. SAFETY MEASURES MAINTAINED. WILL CONTINUE TO MONITOR.
[2022-10-30] MEDS: CALCIUM ACETATE 667 MG TAB GT SCH ×3 (08:30→17:47)
[2022-10-30] MEDS: propylthiouraciL 50 MG TAB PO SCH (09:55)
[2022-10-30] MEDS: BACLOFEN 10 MG TAB GT SCH ×3 (09:55→17:47)
[2022-10-30] MEDS: diazePAM 5 MG TAB GT SCH ×3 (09:55→17:48)
[2022-10-30] MEDS: PANTOPRAZOLE 40 MG INJ VIAL IV SCH (09:55)
[2022-10-30] MEDS: METOCLOPRAMIDE 10 MG/10 ML SYRP UDC GT SCH ×3 (09:55→17:47)
[2022-10-30] MEDS: MULTIVITAMIN/MINERALS 1 TAB GT SCH (09:55)
[2022-10-30] MEDS: ZINC SULF 220 MG CAP GT SCH (09:55)
[2022-10-30] MEDS: VALPROIC ACID 250 MG/5 ML UDC GT SCH ×3 (09:55→17:47)
[2022-10-30] MEDS: MAGNESIUM HYDROXIDE 2400 MG/30 ML UDC GT SCH (09:55)
[2022-10-30 12:00] VITALS: BP 135/64
[2022-10-30] MEDS: DEXT 5% / NACL 0.45% 1,000 ML IV SCH (15:00)
[2022-10-30 16:00] VITALS: BP 131/52
[2022-10-30] MEDS: POTASSIUM CHLORIDE 20% 40 MEQ/15 ML UDC GT PRN (18:35)
--- NOTE | 2022-10-30 19:15 | NUR ---
RECEIVED BEDSIDE REPORT FROM DAY SHIFT RN FOR CONTINUITY OF CARE. PT IS AWAKE NONVERBAL. PT NOT IN ANY RESPIRATORY DISTRESS. PT IS TRACH TO VENT. SETTINGS: FIO2 30%, TV 400, RATE 14, PEEP 5. PT INCONTINENT TO BOWEL AND BLADDER. PT HAS GTUBE ON WITH NO FEEDING AT THIS TIME. BED AT THE LOWEST POSITION. HEAD OF THE BED RAISED. SAFETY PRECAUTIONS TAKEN. WILL CONTINUE TO MONITOR THE PT.
[2022-10-30 20:00] VITALS: BP 119/62
--- NOTE | 2022-10-30 20:55 | NUR ---
SCHEDULE MEDICATION GIVEN. NO ADVERSE REACTION NOTED. WILL CONTINUE TO MONITOR THE PT
[2022-10-31] VITALS (7 sets, daily range): BP systolic 105–142; BP diastolic 22–91
[2022-10-31] MEDS: METOPROLOL 50 MG TAB GT SCH ×5 (00:24→23:44)
--- NOTE | 2022-10-31 00:30 | NUR ---
PT WAS CLEANED AND CHANGED. PT TOLERATED IT WELL. PT HAD BM MODERATE AMOUNT. BROWN IN COLOR. PT SATING 98%. NOT IN ANY RESPIRATORY DISTRESS. WILL CONTINUE TO MONITOR THE PT.
[2022-10-31] MEDS: MEROPENEM 1,000 MG in NACL 0.9% 100 ML IV SCH ×3 (04:13→20:17)
--- NOTE | 2022-10-31 04:15 | NUR ---
SCHEDULE MEDICATIONS GIVEN. NO ADVERSE REACTION NOTED. WILL CONTINUE TO MONITOR THE PT.
[2022-10-31] MEDS: DEXT 5% / NACL 0.45% 1,000 ML IV SCH ×2 (04:20→17:21)
--- NOTE | 2022-10-31 06:00 | NUR ---
PT TRANSPORTED TO ICU BED 2. REPORT GIVEN. PT IS STABLE.
--- NOTE | 2022-10-31 06:00 | NUR ---
RECEIVED PT TRANSFERRED FROM TELEMETRY ROOM 124 VIA BED. ACCOMPANIED BY AN RN ND A SENIOR ANDROID SOFTWARE ENGINEER. PT IS AWAKE AND ALERT BUT NONE VERBAL. BOBBING HIS HEAD. HE IS CHRONIC TRACH TO VENT WITH SETTINGS AC TV 400, RATE 14, FIO2 30%A ND A PEEP OF 5 . HE'S CURRENTLY NPO. HE HAS A JEJUNOSTOMY TUBE FOR FEEDING . HE'S NPO PENDING CLERANCE FOR SMALL BOWEL OBSTRUCTION. DR. EVERETT SAW THE PT ON THE 10/30/22 AND THE XRAY HE SAID SHOWED A DISTAL SMALL BOWEL OBSTRUCTION VERSUS A SEVERE ILEUS. . PT HAS A HEP LOCK IN THE LOWER RIGHT FOREARM i hung aa d5.45ns at 75 cc/hour. he had his last bowel movement today. he doesn't have a trevizo cath; he's diapered. plans for him is to return to the snf once the bowel obstruction is resolved.
--- NOTE | 2022-10-31 06:59 | NUR ---
vital signstemp 97.6,p 84,bp 126/91, 58, spo2/100
--- NOTE | 2022-10-31 07:00 | NUR ---
RECEIVED PT ON AC 14,400,+5,30%. VENT WHEELS ARE LOCKED, PLUGGED INTO RED OUTLET. ALARMS ARE SET AND AUDIBLE. AMBUBAG AT BEDSIDE. SATURATION 99%, COARSE BREATH SOUNDS, SUCTIONED SCANT CLEAR SECRETIONS. GOOD CHEST RISE AND NO DISTRESS NOTED. WILL CONTINUE TO MONITOR.
--- NOTE | 2022-10-31 07:30 | NUR ---
Received report on pt. Pt awake, unable to follow commands, somewhat uncooperative with care. No acute signs of distress or pain noted, though pt does move head frequently and arms. Pt trach to vent. Pt with bilateral soft wrist restraints in place for safety. IV right FA intact, patent, with IVF infusing. Pt incontinent of bladder and bowel.
[2022-10-31 08:15] LABS: CARBON DIOXIDE 24.9 mmol/L (21-32); CREATININE 0.5 mg/dL (0.6-1.3); POTASSIUM 3.9 mmol/L (3.5-5.1)
[2022-10-31 08:26] LABS: BASOPHILS % (AUTO) 0.3 % (0.0-2.0); EOSINOPHILS # (AUTO) 0.1 K/uL (0-0.4); HEMATOCRIT 36.5 % (36-52); HEMOGLOBIN 11.5 g/dL (12.0-18.0); LYMPHOCYTES # (AUTO) 1.7 K/uL (2.0-11.5); LYMPHOCYTES % (AUTO) 11.5 % (20.5-51.1); MEAN CORPUSCULAR HEMOGLOBIN 24 pg (27-31); MEAN CORPUSCULAR HGB CONC 31 g/dL (33-37); MEAN CORPUSCULAR VOLUME 76.7 fL (80-94); MONOCYTES # (AUTO) 0.6 K/uL (0.8-1.0); MONOCYTES % (AUTO) 3.9 % (1.7-9.3); NEUTROPHILS # (AUTO) 11.9 K/uL (1.8-7.7); NEUTROPHILS % (AUTO) 83.3 % (42.2-75.2); PLATELET COUNT (AUTO) 330 K/uL (140-450); RED BLOOD CELL COUNT(AUTO) 4.76 MIL/uL (4.20-6.10); RED CELL DISTRIBUTION WIDTH 17.5 % (11.6-13.7); WHITE BLOOD COUNT (AUTO) 14.3 K/uL (4.8-10.8)
[2022-10-31] MEDS: VALPROIC ACID 250 MG/5 ML UDC GT SCH ×3 (09:16→17:18)
[2022-10-31] MEDS: BACLOFEN 10 MG TAB GT SCH ×3 (09:16→17:18)
[2022-10-31] MEDS: PANTOPRAZOLE 40 MG INJ VIAL IV SCH (09:16)
[2022-10-31] MEDS: MULTIVITAMIN/MINERALS 1 TAB GT SCH (09:17)
[2022-10-31] MEDS: ZINC SULF 220 MG CAP GT SCH (09:17)
[2022-10-31] MEDS: diazePAM 5 MG TAB GT SCH ×3 (09:17→17:19)
[2022-10-31] MEDS: METOCLOPRAMIDE 10 MG/10 ML SYRP UDC GT SCH ×3 (09:18→17:18)
[2022-10-31] MEDS: MAGNESIUM HYDROXIDE 2400 MG/30 ML UDC GT SCH (09:21)
[2022-10-31] MEDS: CALCIUM ACETATE 667 MG TAB GT SCH ×3 (09:22→17:18)
[2022-10-31] MEDS: propylthiouraciL 50 MG TAB PO SCH (11:00)
--- NOTE | 2022-10-31 15:23 | NUR ---
10/31/22 RD FOLLOW UP COMPLETED PLEASE REFER TO NUTRITION ASSESSMENT UNDER CARE ACTIVITY FOR ESTIMATED NUTRITIONAL NEEDS. 1. WHEN PT BEGINS TUBE FEEDING, RECOMMEND VITAL AF 1.2 @45 ML/HR, FWF 150 Q6H 2. RECOMMEND HUDSON BID - WITH HUDSON BID, WILL PROVIDE 1456 KCAL, 86 G PROTEIN, AND 1475 ML FREE WATER AND WILL MEET 90% ESTIMATED CALORIE NEEDS AND 100% ESTIMATED PROTEIN NEEDS. 3. MONITOR RESIDUALS, LAB VALUES, AND WEIGHTS. 4. RD TO FOLLOW-UP 2-3 DAYS, HIGH RISK REVIEWED BY LEOCNIO SU RD
--- NOTE | 2022-10-31 19:08 | NUR ---
No acute changes during shift, pt in no signs of pain or distress. Endorsed plan of care to RN.
--- NOTE | 2022-10-31 19:30 | NUR ---
ASSUMED CARE OF PT.INITIAL ASSESSMENT COMPLETED.PT AWAKE, OPENS EYES SPONTANEOUSLY BUT NOT FOLLOWING COMMANDS.SR ON MONITOR.TRACH TO VENT AC VC FIO2 28% TV400 RATE 14 PEEP 5.W/RT F/A PERIPHERAL IV G20 INTACT.PATENT.INFUSING ORDERED IVF.W/G TUBE CLAMPED.WILL START TUBE FEEDING ORDERED.PT INCONTINENT OF URINE.W/BILATERAL SOFT WRIST RESTRAINTS.NO S/SX OF INJURIES NOTED.SKIN INTACT.WILL CONTINUE TO CLOSELY MONITOR PT
--- NOTE | 2022-10-31 20:00 | NUR ---
PTS ABDOMEN SOFT, NON TENDER.TUBE FEEDING STARTED.DR MEYER, GI, AT BEDSIDE.AWARE OF TUBE FEEDING,UPDATED ON PTS PRESENT CONDITION.QUESTIONS ANSWERED.NO NEW ORDER
--- NOTE | 2022-10-31 21:00 | NUR ---
oral care using vap kit rendered. due medication administered.
[2022-11-01] VITALS (11 sets, daily range): BP systolic 117–149; BP diastolic 70–103
--- NOTE | 2022-11-01 | NUR ---
ORAL CARE USING VAP KIT RENDERED, 10ML RESIDUALS NOTED, TUBE FEEDING INCREASED TO 20ML/HR.WILL CONTINUE TO MONITOR
--- NOTE | 2022-11-01 02:40 | NUR ---
SEEN AND EXAMINED BY DR BLACKWOOD,ID.NO NEW ORDERS
--- NOTE | 2022-11-01 04:00 | NUR ---
PTS CONDITION REMAINS UNCHANGED.ORAL CARE DONE.NO VOMITING NOTED.FLACC 0
[2022-11-01] MEDS: MEROPENEM 1,000 MG in NACL 0.9% 100 ML IV SCH ×2 (05:07→13:48)
[2022-11-01] MEDS: METOPROLOL 50 MG TAB GT SCH ×3 (05:09→17:10)
[2022-11-01] MEDS: DEXT 5% / NACL 0.45% 1,000 ML IV SCH (05:14)
[2022-11-01 05:27] LABS: BASOPHILS % (AUTO) 0.3 % (0.0-2.0); EOSINOPHILS # (AUTO) 0.2 K/uL (0-0.4); EOSINOPHILS % (AUTO) 1.9 % (0.0-4.0); HEMATOCRIT 38.4 % (36-52); HEMOGLOBIN 12.1 g/dL (12.0-18.0); LYMPHOCYTES # (AUTO) 1.9 K/uL (2.0-11.5); LYMPHOCYTES % (AUTO) 16.7 % (20.5-51.1); MEAN CORPUSCULAR HEMOGLOBIN 25 pg (27-31); MEAN CORPUSCULAR HGB CONC 32 g/dL (33-37); MEAN CORPUSCULAR VOLUME 77.8 fL (80-94); MONOCYTES # (AUTO) 0.5 K/uL (0.8-1.0); MONOCYTES % (AUTO) 4.6 % (1.7-9.3); NEUTROPHILS # (AUTO) 8.8 K/uL (1.8-7.7); NEUTROPHILS % (AUTO) 76.5 % (42.2-75.2); PLATELET COUNT (AUTO) 253 K/uL (140-450); RED BLOOD CELL COUNT(AUTO) 4.93 MIL/uL (4.20-6.10); RED CELL DISTRIBUTION WIDTH 17.8 % (11.6-13.7); WHITE BLOOD COUNT (AUTO) 11.5 K/uL (4.8-10.8)
[2022-11-01 05:36] LABS: ANION GAP 10.3 (8-16); CARBON DIOXIDE 25.4 mmol/L (21-32); CREATININE 0.5 mg/dL (0.6-1.3); POTASSIUM 3.7 mmol/L (3.5-5.1)
--- NOTE | 2022-11-01 05:41 | NUR ---
BM NOTED, LARGE AMT OF LIQUID TO SOFT BROWNISH STOOL.PT CHANGED.REPOSITIONED.FLACC 0
--- NOTE | 2022-11-01 07:15 | NUR ---
Received report on pt. Pt awake, nonverbal, unable to follow commands. Pt in no signs of pain or distress, trach to vent, FiO2 28%. IV site intact, patent, IV fluid infusing. JT with feeding, tolerating well, 30 ml residual. Afebrile.
[2022-11-01] MEDS: propylthiouraciL 50 MG TAB PO SCH (09:00)
[2022-11-01] MEDS ORDERED: MERO1VIA15 IV ×2 (09:17→15:22)
[2022-11-01] MEDS: PANTOPRAZOLE 40 MG INJ VIAL IV SCH (09:19)
[2022-11-01] MEDS: VALPROIC ACID 250 MG/5 ML UDC GT SCH ×3 (09:19→17:12)
[2022-11-01] MEDS: MULTIVITAMIN/MINERALS 1 TAB GT SCH (09:20)
[2022-11-01] MEDS: diazePAM 5 MG TAB GT SCH ×3 (09:20→17:13)
[2022-11-01] MEDS: MAGNESIUM HYDROXIDE 2400 MG/30 ML UDC GT SCH (09:20)
[2022-11-01] MEDS: BACLOFEN 10 MG TAB GT SCH ×3 (09:20→17:13)
[2022-11-01] MEDS: METOCLOPRAMIDE 10 MG/10 ML SYRP UDC GT SCH ×3 (09:21→17:12)
[2022-11-01] MEDS: ZINC SULF 220 MG CAP GT SCH (09:23)
[2022-11-01] MEDS: CALCIUM ACETATE 667 MG TAB GT SCH ×3 (09:24→17:13)
--- NOTE | 2022-11-01 09:30 | NUR ---
Noted incontinence void. Pura care and linen change done. Tolerated well.
--- NOTE | 2022-11-01 10:00 | NUR ---
Pt tolerating tube feeding, no residual noted. Increased tube feeding rate to 45 ml/hr.
--- NOTE | 2022-11-01 12:00 | NUR ---
Pt asleep, arousable, no signs of pain or distress noted.
--- NOTE | 2022-11-01 15:07 | NUR ---
CCT/RT TRANSPORT ARRANGED WITH [facility] ([phone]), SWATCH CLERK TIME 1715. PAT[place] [facility] [facility].
--- NOTE | 2022-11-01 15:07 | NUR ---
Report for transfer/discharge to [facility] given to Ira CARPENTER. Pt will be under care of Dr. Petty and will go to room 1C.
--- NOTE | 2022-11-01 15:15 | NUR ---
Attempted to call pt's father Raffy Anderson but phone line is disconnected. Made call to Ladonna Youssef listed on contact list, spoke with Ladonna's academic support assistant who states that pt's father may be out of town in [place], has limited contact, and confirmed that his number is disconnected; also states pt has a regional supervisor case loading who is also involved with care. Phone call made to [facility] and left voicemail.
--- NOTE | 2022-11-01 15:35 | NUR ---
Received call from Renae Mehta, on-score caller from [facility]. Informed Renae regarding pt's orders for discharge and updated on pt condition. Renae states she will inform rn field case manager for pt.
--- NOTE | 2022-11-01 17:45 | NUR ---
Pt noted with large BM and void. Perform madie care and linen change. Foam dressing applied to sacrum for protection, skin intact, applied moisture barrier cream. Pt tolerated well.
--- NOTE | 2022-11-01 17:56 | NUR ---
Discharge Pt discharge to [facility] via [facility], report given to CCT RN. Pt stable in no signs of pain or distress. Belongings sent with pt. Pt to go to room 1C, report given to Ira RN at [facility].
== END 2022-11-01 17:45 | DRG 720 ==
LOC: MED 05:54 → MTU 09:48 → MIC 16:48 → MMU 10-28 06:50 → MTU 10-28 15:45 → MIC 10-31 05:50
PROC: 5A1955Z Respiratory Ventilation, Greater than 96 Consecutive Hours (ICD-10-PCS; principal; 2022-10-25)
DX: A41.9 Sepsis, unspecified organism (principal); J96.20 Acute and chronic respiratory failure, unspecified whether with hypoxia or hypercapnia; J69.0 Pneumonitis due to inhalation of food and vomit; R65.21 Severe sepsis with septic shock; E43 Unspecified severe protein-calorie malnutrition; N17.9 Acute kidney failure, unspecified; E87.20 Acidosis, unspecified; E83.51 Hypocalcemia; K56.7 Ileus, unspecified; K76.82 Hepatic encephalopathy; G80.9 Cerebral palsy, unspecified; G40.909 Epilepsy, unspecified, not intractable, without status epilepticus; E03.9 Hypothyroidism, unspecified; K21.00 Gastro-esophageal reflux disease with esophagitis, without bleeding; K44.9 Diaphragmatic hernia without obstruction or gangrene; E87.0 Hyperosmolality and hypernatremia; E87.6 Hypokalemia; Z20.822 Contact with and (suspected) exposure to COVID-19; D75.839 Thrombocytosis, unspecified; I10 Essential (primary) hypertension; K56.41 Fecal impaction; G91.9 Hydrocephalus, unspecified; R13.10 Dysphagia, unspecified; Z93.1 Gastrostomy status; Z68.1 Body mass index [BMI] 19.9 or less, adult; Z93.0 Tracheostomy status; Z98.2 Presence of cerebrospinal fluid drainage device
CPT/HCPCS: 36415; 71045; 74018; 74250; 80048; 80053; 80184; 80202; 81001; 82140; 82150; 82948; 83036; 83605; 83690; 83735; 83880; 84100; 84439; 84443; 84484; 85025; 85610; 85730; 86886; 86900; 86901; 87040; 87070; 87081; 87086; 87205; 89220; 93005; 94002; 94003; 96361; 96365; 96375; 99291; C9113; J2001; J2060; J2185; J2405; J2543; J3370; J3480; J3490; J7030; J7042; J7060; J7070; J8597; Q0092

== ENCOUNTER 2022-11-05 21:33 | Inpatient (IN) | payer MEDICAID ==
[~2022-11-05] VITALS: Ht 157.5 cm; Wt 38.6 kg
[~2022-11-05 21:33] MED LIST changes: +MERO1VIA15 IV; +METO50TA21 GT; -METO50TA99 GT
[2022-11-05 21:35] VITALS: BP 161/110
--- NOTE | 2022-11-05 21:35 | NUR ---
ANNE ALS TO BED #10
[2022-11-05 21:40] VITALS: BP 141/86
[2022-11-05] MEDS ORDERED: levETIRAcetam 1,000 MG in NACL 0.9% 100 ML IV ONE (21:50)
[2022-11-05] MEDS ORDERED: NACL 0.9% 1,000 ML IV ONE ×2 (22:10→23:35)
[2022-11-05] MEDS ORDERED: levETIRAcetam 100 MG/ML VIAL IV ONE ×2 (22:30→22:31)
--- NOTE | 2022-11-05 22:45 | NUR ---
LAB AT BEDSIDE FOR BLOOD DRAW.
[2022-11-05 22:59] LABS: BASOPHILS # (AUTO) 0.1 K/uL (0.00-0.22); BASOPHILS % (AUTO) 0.5 % (0.0-2.0); EOSINOPHILS % (AUTO) 0.1 % (0.0-4.0); HEMATOCRIT 36.5 % (36-52); HEMOGLOBIN 11.5 g/dL (12.0-18.0); LYMPHOCYTES # (AUTO) 0.7 K/uL (2.0-11.5); LYMPHOCYTES % (AUTO) 2.8 % (20.5-51.1); MEAN CORPUSCULAR HEMOGLOBIN 24 pg (27-31); MEAN CORPUSCULAR HGB CONC 31 g/dL (33-37); MEAN CORPUSCULAR VOLUME 77.2 fL (80-94); MONOCYTES # (AUTO) 0.7 K/uL (0.8-1.0); MONOCYTES % (AUTO) 2.8 % (1.7-9.3); NEUTROPHILS # (AUTO) 23.7 K/uL (1.8-7.7); NEUTROPHILS % (AUTO) 93.8 % (42.2-75.2); PLATELET COUNT (AUTO) 416 K/uL (140-450); RED BLOOD CELL COUNT(AUTO) 4.72 MIL/uL (4.20-6.10); RED CELL DISTRIBUTION WIDTH 18.3 % (11.6-13.7)
[2022-11-05 23:11] LABS: WHITE BLOOD COUNT (AUTO) 25.3 K/uL (4.8-10.8)
[2022-11-05 23:12] LABS: ANION GAP 13.9 (8-16); CARBON DIOXIDE 27.7 mmol/L (21-32); CREATININE 0.5 mg/dL (0.6-1.3); POTASSIUM 4.6 mmol/L (3.5-5.1)
[2022-11-05 23:47] LABS: APPEARANCE,URINE CLEAR (CLEAR); BILIRUBIN,URINE NEGATIVE (NEGATIVE); BLOOD, URINE NEGATIVE (NEGATIVE); COLOR,URINE YELLOW (YELLOW); LEUKOCYTE ESTERASE ,URINE NEGATIVE (NEGATIVE); NITRITE, URINE NEGATIVE (NEGATIVE); UGLUCOSE TRACE (NEGATIVE)
[2022-11-06] MEDS ORDERED: LORazepam 2 MG/ML VIAL IVP PRN (00:15)
[2022-11-06] MEDS ORDERED: cefTRIAXone 1,000 MG VIAL ONE (00:16)
--- NOTE | 2022-11-06 00:24 | NUR ---
SWAB COLLECTED AND SENT TO LAB
--- NOTE | 2022-11-06 01:46 | NUR ---
Patient will be admitted to care of [facility]. Admited to TELEMETRY. Will go to room 119B. Belongings list completed. Report to
[2022-11-06 01:50] VITALS: BP 129/105
--- NOTE | 2022-11-06 02:00 | NUR ---
RECEIVED PT FROM ER, ARRIVED VIA GURNEY. PT AWAKE, ON TRACH TO VENT, FIO2 40%. BREATHING EQUAL AND UNLABORED. HEART RATE IS AT 130'S ON TELE MONITOR. R UPPER ARM PICC IN PLACE. SKIN WARM, DRY AND INTACT. MRSA SWAB DONE. ALL PRECAUTIONS IN PLACE. WILL CONTINUE TO MONITOR.
--- NOTE | 2022-11-06 02:15 | NUR ---
MESSAGED DR REGARDING PATIENT'S HEART RATE AT 130'S. AWAITING RESPONSE.
[2022-11-06 04:00] VITALS: BP 160/111
[2022-11-06] MEDS ORDERED: PIPERACILLIN/TAZOBACTAM 2.25 GM VIAL IV ONE (04:53)
[2022-11-06] MEDS: PIPERACILLIN/TAZOBACTAM 2.25 GM in DEXTROSE 5% 50 ML IV SCH ×3 (05:07→21:51)
--- NOTE | 2022-11-06 05:18 | NUR ---
MESSAGED REGARDING PATIENT'S HEART RATE AT 140'S. AND PATIENT PULLING OUT TUBES. DR ORDERED TO START NS@60ML/HR AND BILATERAL WRIST RESTRAINTS. WILL CONTINUE TO MONITOR.
--- NOTE | 2022-11-06 05:30 | NUR ---
SCHEDULE MEDICATION GIVEN. PT TOLERATED WELL. WILL CONTINUE TO MONITOR.
[2022-11-06] MEDS: NACL 0.9% 1,000 ML IV SCH ×2 (06:46→23:04)
--- NOTE | 2022-11-06 07:10 | NUR ---
[facility] FOR CONTINUITY OF CARE. PT IS STABLE.
--- NOTE | 2022-11-06 07:35 | NUR ---
PT IS STABLE. NO ACUTE EVENTS THROUGHOUT THE NIGHT.ALL NEEDS MET. ALL PRECAUTIONS IN PLACE.NO S/SX OF DISTRESS NOTED. CALL LIGHT WITHIN REACH.ALL PRECAUTIONS IN PLACE. WILL ENDORSE TO DAY SHIFT RN.
[2022-11-06 08:00] VITALS: BP 143/85
[2022-11-06] MEDS ORDERED: DOCUSATE SODIUM 100 MG GELCAP PO PRN (08:10)
[2022-11-06] MEDS ORDERED: ONDANSETRON 4 MG/2 ML VIAL IVP PRN (08:10)
[2022-11-06] MEDS ORDERED: ACETAMINOPHEN 325 MG TAB PO PRN (08:10)
[2022-11-06] MEDS ORDERED: MORPHINE SULFATE 2 MG/ML SYR IVP PRN (08:10)
[2022-11-06] MEDS ORDERED: MAG SULF 2000 MG/WATER PREMIX 50 ML IV PRN (08:10)
[2022-11-06] MEDS ORDERED: ZOLPIDEM 10 MG TAB PO PRN (08:10)
[2022-11-06] MEDS ORDERED: POTASSIUM CHLORIDE 10 MEQ TABER PO PRN (08:10)
[2022-11-06] MEDS ORDERED: VANCOMYCIN PER PHARMACY MC PRN (08:15)
[2022-11-06] MEDS: BACLOFEN 10 MG TAB PO SCH ×3 (09:00→17:41)
[2022-11-06] MEDS: POLYETHYLENE GLYCOL 17 GM/PKT GT SCH ×2 (09:00→21:50)
[2022-11-06 09:55] LABS: HEMATOCRIT 36.5 % (36-52); HEMOGLOBIN 11.7 g/dL (12.0-18.0); MEAN CORPUSCULAR HEMOGLOBIN 25 pg (27-31); MEAN CORPUSCULAR HGB CONC 32 g/dL (33-37); MEAN CORPUSCULAR VOLUME 76.5 fL (80-94); PLATELET COUNT (AUTO) 415 K/uL (140-450); RED BLOOD CELL COUNT(AUTO) 4.77 MIL/uL (4.20-6.10); WHITE BLOOD COUNT (AUTO) 18.3 K/uL (4.8-10.8)
[2022-11-06] MEDS: VANCOMYCIN 750 MG in DEXTROSE 5% 250 ML IV SCH (10:00)
[2022-11-06 10:03] LABS: ANION GAP 13.2 (8-16); CARBON DIOXIDE 28.6 mmol/L (21-32); CREATININE 0.5 mg/dL (0.6-1.3); POTASSIUM 3.8 mmol/L (3.5-5.1)
--- NOTE | 2022-11-06 10:45 | NUR ---
PATIENT HAS BEEN SCREENED AND CATEGORIZED HIGH NUTRITION RISK. PATIENT WILL BE SEEN WITHIN 1-2 DAYS OF ADMISSION. FROYLAN RECEIVED NUTRITION CONSULT FOR TF REVIEWED BY LEONCIO SU RD
[2022-11-06] MEDS: METOCLOPRAMIDE 10 MG TAB PO SCH ×3 (11:15→17:41)
[2022-11-06] MEDS: diazePAM 5 MG TAB GT SCH ×3 (11:15→17:41)
[2022-11-06] MEDS: propylthiouraciL 50 MG TAB PO SCH (11:15)
[2022-11-06] MEDS: ZINC SULF 220 MG CAP GT SCH (11:16)
[2022-11-06] MEDS: DIVALPROEX SPRINKLES 125 MG CAPDR PO SCH ×2 (11:16→21:51)
[2022-11-06] MEDS: MAGNESIUM HYDROXIDE 2400 MG/30 ML UDC GT SCH (11:19)
[2022-11-06] MEDS: DOCUSATE 100 MG/10 ML UDC GT SCH ×2 (11:19→21:50)
[2022-11-06 12:00] VITALS: BP 140/96
[2022-11-06] MEDS: METOPROLOL 50 MG TAB GT SCH ×3 (12:00→23:19)
[2022-11-06 15:28] LABS: LYMPHOCYTES % (MANUAL) 6 % (20-46); MONOCYTES % (MANUAL) 3 % (5-12)
[2022-11-06 16:00] VITALS: BP 151/97
--- NOTE | 2022-11-06 16:48 | NUR ---
11/06/22 RD INITIAL ASSESSMENT COMPLETED PLEASE REFER TO NUTRITION ASSESSMENT UNDER CARE ACTIVITY FOR ESTIMATED NUTRITIONAL NEEDS. 1.WHEN/IF MEDICALLY APPROPRIATE, RECOMMEND VITAL AF 1.2 WITH A GOAL RATE OF 55 ML/HR, FWF 150 ML Q6H OR PER MD TOLERATED -START AT 10 ML/HR AND INCREASE BY 10 ML Q4H UNTIL GOAL RATE IS REACHED. -RECOMMEND HUDSON BID FOR LOW LIZ SCORE (PROVIDES 180 KCAL AND 5G PROTEIN DAILY) -WITH HUDSON BID, THIS WILL PROVIDE 1320 ML TOTAL VOLUME, 1764 KCAL, 99 GM OF PROTEIN, AND 1663 ML FREE WATER MEETING 100% OF ESTIMATED KCAL AND PROTEIN NEEDS; ADEQUATE. 2. MONITOR NPO STATUS 3. CONSULT RD PRN 4. RD TO FOLLOW-UP 2-3 DAYS, HIGH REVIEWED BY LEONCIO SU RD
[2022-11-06 20:00] VITALS: BP 131/90
--- NOTE | 2022-11-06 21:18 | NUR ---
RECEIVED PT TRACH TO VENT WITH A PORTEX 8 AIRWAY PATENT AND SECURE ON A GE CARESCAPE R860 VENTILATOR SETTINGS AC PRVC VT400, RR14, PEEP+5, FIO2 36%. NO SIGNS OF RESPIRATORY DISTRESS NOTED AT THIS TIME PT'S CURRENT SPO2 98%. ANTERIOR AUSCULTATION REVEALED BS COARSE CRACKLES, DEEP TRACHEAL SXN FOR MOD PALE/YELLOW THICK SECRETIONS. HOB ELEVATED, AMBU BAG AT BEDSIDE, VENT PLUGGED INTO RED OUTLET, ALARMS ARE ON AND AUDIBLE. WILL CONTINUE TO MONITOR.
[2022-11-06] MEDS: LORazepam 2 MG/ML VIAL IVP PRN (23:48)
[2022-11-07] VITALS: BP 125/86
[2022-11-07 04:00] VITALS: BP 131/100
[2022-11-07] MEDS: PIPERACILLIN/TAZOBACTAM 2.25 GM in DEXTROSE 5% 50 ML IV SCH ×3 (04:49→21:29)
[2022-11-07 05:56] LABS: BASOPHILS # (AUTO) 0.1 K/uL (0.00-0.22); BASOPHILS % (AUTO) 0.4 % (0.0-2.0); EOSINOPHILS % (AUTO) 0.2 % (0.0-4.0); HEMATOCRIT 34.8 % (36-52); HEMOGLOBIN 11.1 g/dL (12.0-18.0); LYMPHOCYTES # (AUTO) 2.5 K/uL (2.0-11.5); LYMPHOCYTES % (AUTO) 14.8 % (20.5-51.1); MEAN CORPUSCULAR HEMOGLOBIN 24 pg (27-31); MEAN CORPUSCULAR HGB CONC 32 g/dL (33-37); MEAN CORPUSCULAR VOLUME 76.4 fL (80-94); MONOCYTES # (AUTO) 0.9 K/uL (0.8-1.0); MONOCYTES % (AUTO) 5.5 % (1.7-9.3); NEUTROPHILS # (AUTO) 13.4 K/uL (1.8-7.7); NEUTROPHILS % (AUTO) 79.1 % (42.2-75.2); PLATELET COUNT (AUTO) 397 K/uL (140-450); RED BLOOD CELL COUNT(AUTO) 4.56 MIL/uL (4.20-6.10); RED CELL DISTRIBUTION WIDTH 18.5 % (11.6-13.7); WHITE BLOOD COUNT (AUTO) 16.9 K/uL (4.8-10.8)
[2022-11-07] MEDS: METOPROLOL 50 MG TAB GT SCH ×3 (06:23→18:24)
[2022-11-07 06:56] LABS: ANION GAP 13.7 (8-16); CARBON DIOXIDE 29.6 mmol/L (21-32); CREATININE 0.5 mg/dL (0.6-1.3); POTASSIUM 3.3 mmol/L (3.5-5.1)
--- NOTE | 2022-11-07 07:30 | NUR ---
RECEIVED PT ON PRVC 400,RR14,+5,36%. VENT WHEELS ARE LOCKED, PLUGGED INTO RED OUTLET, AMBUBAG AT BEDSIDE, ALARMS ARE SET AND AUDIBLE. SATURATION 98%, ON AUSCULTATION BREATH SOUNDS ARE COARSE. SUCTIONED MODERATE AMOUNT OF THICK PALE YELLOW SECRETIONS. WILL CONTINUE TO MONITOR.
--- NOTE | 2022-11-07 07:38 | NUR ---
GOT REPORT FROM THE NIGHT NURSE PT IS SLEEPING NO SOB.[id number]
[2022-11-07 08:00] VITALS: BP_SYST 132; BP_DIAS 79; BP_DIAS 87
[2022-11-07] MEDS: MAGNESIUM HYDROXIDE 2400 MG/30 ML UDC GT SCH (09:52)
[2022-11-07] MEDS: POLYETHYLENE GLYCOL 17 GM/PKT GT SCH ×2 (09:53→21:28)
[2022-11-07] MEDS: BACLOFEN 10 MG TAB PO SCH ×3 (09:53→18:24)
[2022-11-07] MEDS: METOCLOPRAMIDE 10 MG TAB PO SCH ×3 (09:54→18:24)
[2022-11-07] MEDS: ZINC SULF 220 MG CAP GT SCH (09:54)
[2022-11-07] MEDS: diazePAM 5 MG TAB GT SCH ×3 (09:54→18:25)
[2022-11-07] MEDS: DOCUSATE 100 MG/10 ML UDC GT SCH ×2 (09:54→21:28)
[2022-11-07] MEDS: propylthiouraciL 50 MG TAB PO SCH (09:54)
[2022-11-07] MEDS: DIVALPROEX SPRINKLES 125 MG CAPDR PO SCH ×2 (09:55→21:28)
[2022-11-07] MEDS: VANCOMYCIN 750 MG in DEXTROSE 5% 250 ML IV SCH (09:58)
--- NOTE | 2022-11-07 10:14 | NUR ---
PT. WITH LOW LIZ SCALE AT MODERATE TO HIGH RISK, CONTINUE TO FOLLOW PRESSURE INJURY PREVENTION INTERVENTIONS. PT. ADMITTED WITH MOISTURE ASSOCIATED SKIN DAMAGE(MASD) TO: B/L GROINS, MEDIAL THIGHS AND SCROTAL, SKIN REDNESS, PEELING. CONTRACTURES TO LOWER EXTREMITIES. PT. SKIN THIN EASILY TO TORN. CONSTANTLY MOVING/ FRICTIONS TO ELBOWS, SACRAL AND HEELS RECOMMENDATIONS: -APPLY HYDRAGUARD TO B/L GROINS, MEDIAL THIGHS AND SCROTAL BID AND PRN IF SOILING -APPLY FOAM DRESSING TO ALL BONY AREAS INCLUDES BUT NOT LIMITED TO SCAPULARS ELBOWS, SACRAL,MEDIAL KNEES AND HEELS QD AND PRN IF SOILING -POSITIONING: TURN AND REPOSITION PATIENT Q 2H OR SOONER USE PILLOWS TO KEEP BONY PROMINENCES FROM DIRECT CONTACT WITH SURFACES USE REPOSITIONING WEDGES TO PROVIDE 30-DEGREE ANGLE FOR SIDE LYING POSITIONS OFFLOADING OR FOAM DRESSING TO ALL TUBING TO PREVENT MEDICAL DEVICES RELATED PRESSURE INJURY -RE-EVALUATING AND MANAGING INCONTINENCE MONITOR SKIN CONDITION DURING POSITION CHANGE DO NOT MASSAGE REDNESS, BONY PROMINENCES FREQUENT NITISH-CARE AND PROVIDE BARRIER CREAMS PRN IF SOILING MOISTURE CONTROL BY OFFER BED MACEDO/URINAL /ABSORBENT PAD TO WICK AND HOLD MOISTURE KEEP SKIN DRY AND PROTECT FROM FRICTION -MANAGE FRICTION/SHEAR/MOBILITY KEEP HOB AT THE LOWEST LEVEL OF ELEVATION NO MORE THAN 30 DEGREE UNLESS OTHERWISE CONTRAINDICATED USE LIFT SHEET OR TRANSFER DEVICE TO MOVE PATIENT AND PREVENT LATERAL SHEER. PROTECT HEELS, ELBOWS BONY PROMINENCES WITH SKIN BERRIES OR FOAM DRESSING IF EXPOSED TO FRICTION OFFLOAD BILATERAL HEELS BY PLACING PILLOWS UNDER CALVES AT ALL TIMES, UNLESS OTHERWISE CONTRAINDICATED -PRESSURE REDISTRIBUTION SURFACE THERAPY BERE ISOFLEX MATTRESS -NUTRITION: PLEASE FOLLOW RD RECOMMENDATIONS AND OFFER NUTRITION SUPPLEMENTS IF ORDERED.
[2022-11-07] MEDS: POTASSIUM CHLORIDE 20% 40 MEQ/15 ML UDC GT PRN (10:55)
[2022-11-07 12:00] VITALS: BP 136/79
[2022-11-07] MEDS: HYDRAGUARD CREAM TP SCH (12:22)
[2022-11-07] MEDS: FOAM DRESSING TP SCH (12:22)
[2022-11-07 16:00] VITALS: BP 135/90
[2022-11-07 20:00] VITALS: BP 128/94
--- NOTE | 2022-11-07 21:28 | NUR ---
ADMINISTERED SCHEDULED DUE MEDICATIONS.
[2022-11-08] VITALS: BP 139/93
[2022-11-08] MEDS: METOPROLOL 50 MG TAB GT SCH ×4 (00:42→17:06)
[2022-11-08] MEDS: HYDRAGUARD CREAM TP SCH ×2 (01:00→12:24)
[2022-11-08 04:00] VITALS: BP 144/107
[2022-11-08] MEDS: PIPERACILLIN/TAZOBACTAM 2.25 GM in DEXTROSE 5% 50 ML IV SCH ×3 (05:28→21:35)
--- NOTE | 2022-11-08 06:49 | NUR ---
PATIENT AWAKE, TRACH TO VENT SETTING: FIO2 36 RATE 14 PEEP 5. NO S/S OF RESPIRATORY DISTRESS. BREATHING NORMAL WITH SYMMETRICAL RISE AND FALL OF THE CHEST. ON BILATERAL SOFT WRIST RESTRAINTS, RELEASED Q2H FOR CIRCULATION. IV ACCESS ON THE TYRA MIDLINE. TUBE FEEDING RUNNING 55 ML/HR TOLERATING WELL. PATIENT HAD X2 BM WATERY, CLEANED AND CHANGED. ALL SAFETY PRECAUTIONS ARE IN PLACE.
--- NOTE | 2022-11-08 07:19 | NUR ---
GAVE REPORT TO NURSE FERNANDES FOR CONTINUITY OF CARE. PT STABLE.
--- NOTE | 2022-11-08 07:30 | NUR ---
RECEIVED REPORT FROM QUALITY CONTROL SCIENTIST NURSE FOR CONTINUITY OF CARE, POC DISCUSSED. PT IS STABLE IN BED WITH CHEST RISING AND FALLING EVEN AND UNLABORED WITH VENT SETTINGS OF VT 400, RATE 14, PEEP OF 5, FIO2 OF 36. ALL SAFETY MEASURES IN PLACE, CALL LIGHT WITHIN REACH. WILL CONTINUE TO MONITOR.
[2022-11-08 08:00] VITALS: BP 128/91
[2022-11-08] MEDS: DOCUSATE 100 MG/10 ML UDC GT SCH ×2 (08:58→21:00)
[2022-11-08] MEDS: MAGNESIUM HYDROXIDE 2400 MG/30 ML UDC GT SCH (08:58)
[2022-11-08] MEDS: DIVALPROEX SPRINKLES 125 MG CAPDR PO SCH ×2 (08:59→21:35)
[2022-11-08] MEDS: propylthiouraciL 50 MG TAB PO SCH (08:59)
[2022-11-08] MEDS: diazePAM 5 MG TAB GT SCH ×3 (08:59→17:06)
[2022-11-08] MEDS: METOCLOPRAMIDE 10 MG TAB PO SCH ×3 (08:59→17:06)
[2022-11-08] MEDS: ZINC SULF 220 MG CAP GT SCH (08:59)
[2022-11-08] MEDS: BACLOFEN 10 MG TAB PO SCH ×3 (09:00→17:06)
[2022-11-08] MEDS: POLYETHYLENE GLYCOL 17 GM/PKT GT SCH ×2 (09:00→21:00)
--- NOTE | 2022-11-08 09:30 | NUR ---
DARIA MEDICATION ADMINISTERED PER MD ORDER, PT TOLERATED ADMINISTRATION. NO RESIDUAL NOTED, FLUSHED WITH 5CC PRIOR TO AND AFTER ADMINISTRATION. IV PATENT AND INTACT RUNNING TKO. ALL SAFETY MEASURES IN PLACE, CALL LIGHT WITHIN REACH. WILL CONTINUE TO MONITOR.
--- NOTE | 2022-11-08 11:48 | NUR ---
ROUNDED ON PT, PT IS ASLEEP IN BED WITH NO ACUTE S/S OF DISTRESS. CHEST RISING AND FALLING SATING AT 98%. ALL SAFETY MEASURES IN PLACE, CALL LIGHT WITHIN REACH. WILL CONTINUE TO MONITOR.
[2022-11-08 12:00] VITALS: BP 128/91
--- NOTE | 2022-11-08 13:41 | NUR ---
DARIA MEDICATION ADMINISTERED PER MD ORDER, PT TOLERATED ADMINISTRATION. NO RESIDUAL, FLUSHED WITH 5 CC PRIOR TO AND AFTER ADMINISTRATION. NEW TUBE FEEDING AND LINE STARTED. NEW IV FLUID STARTED. ALL SAFETY MEASURES IN PLACE, CALL LIGHT WITHIN REACH. WILL CONTINUE TO MONITOR.
--- NOTE | 2022-11-08 15:01 | NUR ---
LARGE BM NOTED, NEW SHEETS AND GOWN PROVIDED. PERICARE AND SPONGE BATH PROVIDED BY RN AND SANITARY LANDFILL SUPERVISOR. PT REMAINED STABLE. ALL NEEDS HAVE BEEN MET. ALL SAFETY MEASURES IN PLACE, CALL LIGHT WITHIN REACH. WILL CONTINUE TO MONITOR.
[2022-11-08 16:00] VITALS: BP 133/93
--- NOTE | 2022-11-08 17:00 | NUR ---
ALL DARIA MEDICATION ADMINISTERED PER MD ORDER, PT TOLERATED ADMINISTRATION. NO RESIDUAL NOTED, FLUSHED WITH 5 CC PRIOR TO AND AFTER ADMINISTRATION. ALL SAFETY MEASURES IN PLACE, CALL LIGHT WITHIN REACH. WILL CONTINUE TO MONITOR.
--- NOTE | 2022-11-08 18:55 | NUR ---
PT HAS REMAINED STABLE, ALL NEEDS HAVE BEEN MET. WILL ENDORSE TO INFORMATION SYSTEMS SPECIALIST NURSE AT 1900.
[2022-11-08 20:00] VITALS: BP 115/80
--- NOTE | 2022-11-08 20:06 | NUR ---
PATIENT IN BED AWAKE WITH TRACH TO VENT. NO DISTRESS. BREATHING NORMAL UNLABORED. PATIENT APPEARS COMFORTABLE. TUBE FEEDING RUNNING WELL. SAFETY MEASURES IN PLACE. CALL LIGHT WITHIN REACH.
--- NOTE | 2022-11-08 21:35 | NUR ---
SCHEDULED MEDICATIONS ADMINISTERED ORDERED.
[2022-11-09] VITALS: BP 109/71
[2022-11-09] MEDS: METOPROLOL 50 MG TAB GT SCH ×4 (00:41→17:14)
[2022-11-09] MEDS: HYDRAGUARD CREAM TP SCH ×2 (01:23→12:43)
[2022-11-09 04:00] VITALS: BP 134/93
[2022-11-09] MEDS: PIPERACILLIN/TAZOBACTAM 2.25 GM in DEXTROSE 5% 50 ML IV SCH ×3 (05:08→21:45)
--- NOTE | 2022-11-09 07:17 | NUR ---
GAVE REPORT TO DAY SHIFT NURSE DENA FOR CONTINUITY OF CARE. PATIENT STABLE.
--- NOTE | 2022-11-09 07:30 | NUR ---
RECEIVED REPORT FROM PRISON LIBRARIAN NURSE FOR CONTINUITY OF CARE, POC DISCUSSED. PT IS IN BED ON RESTRAINTS, NEURO CHECK COMPLETED. ALL NIGHT EVENTS DISCUSSED. PT IS STABLE ON TRACH TO VENT WITH NEW FIO2 OF 30. SATING AT 100% HEART RATE AT 103. ON TELE MONITOR. ALL SAFETY MEASURES IN PLACE, CALL LIGHT WITHIN REACH. WILL CONTINUE TO MONITOR.
[2022-11-09 08:00] VITALS: BP 136/90
[2022-11-09] MEDS: DIVALPROEX SPRINKLES 125 MG CAPDR PO SCH ×2 (09:30→21:46)
[2022-11-09] MEDS: BACLOFEN 10 MG TAB PO SCH ×3 (09:30→17:14)
[2022-11-09] MEDS: METOCLOPRAMIDE 10 MG TAB PO SCH ×3 (09:30→17:14)
[2022-11-09] MEDS: diazePAM 5 MG TAB GT SCH ×3 (09:30→17:13)
[2022-11-09] MEDS: ZINC SULF 220 MG CAP GT SCH (09:30)
[2022-11-09] MEDS: propylthiouraciL 50 MG TAB PO SCH (09:30)
[2022-11-09] MEDS: DOCUSATE 100 MG/10 ML UDC GT SCH ×2 (09:31→21:00)
[2022-11-09] MEDS: POLYETHYLENE GLYCOL 17 GM/PKT GT SCH ×2 (09:31→21:00)
[2022-11-09] MEDS: MAGNESIUM HYDROXIDE 2400 MG/30 ML UDC GT SCH (09:31)
[2022-11-09 12:00] VITALS: BP 136/88
--- NOTE | 2022-11-09 15:20 | NUR ---
PT STABLE IN BED WITH ALL SAFETY MEASURES IN PLACE, CALL LIGHT WITHIN REACH. WILL CONTINUE TO MONITOR.
[2022-11-09 16:00] VITALS: BP 136/90
--- NOTE | 2022-11-09 17:50 | NUR ---
CALLED RT IN REGARD TO PT VENT ALARM GOING OFF. UPON ASSESSMENT, BP WAS 136/90, 97%, 94 HR. PT CONTINUES TO MOVE HEAD BACK AND FORTH
--- NOTE | 2022-11-09 18:04 | NUR ---
RT AT BEDSIDE AND HAS CHECKED THE PTS SETTING. STATES PT IS STABLE, SUCTIONING COMPLETED.
--- NOTE | 2022-11-09 18:24 | NUR ---
CALLED RT AGAIN IN REGARDS TO PTS VENT MACHINE. RT ASSESSED
--- NOTE | 2022-11-09 19:42 | NUR ---
FOUND PATIENT ALERT AND RESTING COMFORTABLY. PATIENT USING CARESCAPE VENT SETTINGS PRVC 400, F 14, +5 AND FIO2 30%. AMBU BAG SUCTION AND FLOWMETER AT BEDSIDE. VENT PLUGGED INTO RED OUTLET. ALARMS ARE ON AND AUDIBLE. NO RESPIRATORY DISTRESS NOTED. WILL CONTINUE TO MONITOR PATIENT.
[2022-11-09 20:00] VITALS: BP 123/86
--- NOTE | 2022-11-09 21:45 | NUR ---
ADMINISTERED SCHEDULED MEDICATIONS PER MD ORDER.
[2022-11-09] MEDS ORDERED: Z-GUARD PASTE TP PRN (22:50)
--- NOTE | 2022-11-09 22:56 | NUR ---
11/09/22 RD FOLLOW UP COMPLETED. PLEASE REFER TO NUTRITION ASSESSMENT UNDER CARE ACTIVITY FOR ESTIMATED NUTRITIONAL NEEDS. 1.CONTINUE VITAL AF 1.2 @ 55 ML/HR PT TOLERATES - FWF 150 ML Q6H OR PER MD 2.RECOMMEND PROSOURCE BID FOR LOW LIZ SCORE (PROVIDES 120 KCAL AND 30G PROTEIN DAILY) -WITH PROSOURCE BID, THIS WILL PROVIDE 1320 ML VOLUME, 1704 KCAL,99 GM OF PROTEIN, AND 1071 ML FREE WATER MEETING 100% OF ESTIMATED KCAL AND PROTEIN NEEDS; ADEQUATE. 3.MONITOR GI SYMPTOMS 4.CONSULT RD PRN 5.RD TO FOLLOW-UP 2-3 DAYS, HIGH RISK ANA WYATT RD
[2022-11-10 00:55] VITALS: BP 124/86
[2022-11-10] MEDS: Z-GUARD PASTE TP SCH ×2 (01:00→13:57)
[2022-11-10 04:00] VITALS: BP 129/76
[2022-11-10] MEDS: PIPERACILLIN/TAZOBACTAM 2.25 GM in DEXTROSE 5% 50 ML IV SCH ×3 (05:11→21:19)
[2022-11-10] MEDS: METOPROLOL 50 MG TAB GT SCH ×4 (05:12→17:44)
[2022-11-10 05:50] LABS: BASOPHILS % (AUTO) 0.4 % (0.0-2.0); EOSINOPHILS # (AUTO) 0.1 K/uL (0-0.4); EOSINOPHILS % (AUTO) 1.3 % (0.0-4.0); HEMATOCRIT 32.3 % (36-52); HEMOGLOBIN 10.4 g/dL (12.0-18.0); LYMPHOCYTES # (AUTO) 2.2 K/uL (2.0-11.5); LYMPHOCYTES % (AUTO) 19.3 % (20.5-51.1); MEAN CORPUSCULAR HEMOGLOBIN 24 pg (27-31); MEAN CORPUSCULAR HGB CONC 32 g/dL (33-37); MEAN CORPUSCULAR VOLUME 75.9 fL (80-94); MONOCYTES # (AUTO) 0.6 K/uL (0.8-1.0); MONOCYTES % (AUTO) 4.9 % (1.7-9.3); NEUTROPHILS # (AUTO) 8.6 K/uL (1.8-7.7); NEUTROPHILS % (AUTO) 74.1 % (42.2-75.2); PLATELET COUNT (AUTO) 355 K/uL (140-450); RED BLOOD CELL COUNT(AUTO) 4.25 MIL/uL (4.20-6.10); RED CELL DISTRIBUTION WIDTH 19.1 % (11.6-13.7); WHITE BLOOD COUNT (AUTO) 11.6 K/uL (4.8-10.8)
--- NOTE | 2022-11-10 07:10 | NUR ---
RECEIVED REPORT FROM INNOVATION MANAGER NURSE EARNEST FOR CONTINUITY OF CARE. PT STABLE AND RESTING IN BED. ALL SAFETY MEASURES MEET AND WILL CONTINUE TO MONITOR.
--- NOTE | 2022-11-10 07:14 | NUR ---
GAVE REPORT TO DAY SHIFT NURSE RADHA FOR CONTINUITY OF CARE. PATIENT IS AFEBRILE, NO DISTRESS, TRACH TO VENT WITH TUBE FEEDING OF VITAL AF 1.2 RUNNING 55 ML/HR.
[2022-11-10 07:19] LABS: ANION GAP 14.5 (8-16); CARBON DIOXIDE 28.9 mmol/L (21-32); CREATININE 0.4 mg/dL (0.6-1.3); POTASSIUM 3.4 mmol/L (3.5-5.1)
[2022-11-10 08:00] VITALS: BP 130/78
[2022-11-10] MEDS: MAGNESIUM HYDROXIDE 2400 MG/30 ML UDC GT SCH (09:00)
[2022-11-10] MEDS: POLYETHYLENE GLYCOL 17 GM/PKT GT SCH ×2 (09:00→21:00)
[2022-11-10] MEDS: FOAM DRESSING TP SCH (09:00)
[2022-11-10] MEDS: DOCUSATE 100 MG/10 ML UDC GT SCH ×2 (09:00→21:00)
[2022-11-10] MEDS: POTASSIUM CHLORIDE 20% 40 MEQ/15 ML UDC GT PRN (10:16)
[2022-11-10] MEDS: propylthiouraciL 50 MG TAB PO SCH (10:16)
[2022-11-10] MEDS: BACLOFEN 10 MG TAB PO SCH ×3 (10:17→17:44)
[2022-11-10] MEDS: DIVALPROEX SPRINKLES 125 MG CAPDR PO SCH ×2 (10:17→21:19)
[2022-11-10] MEDS: diazePAM 5 MG TAB GT SCH ×3 (10:17→17:44)
[2022-11-10] MEDS: METOCLOPRAMIDE 10 MG TAB PO SCH ×3 (10:17→17:44)
[2022-11-10] MEDS: ZINC SULF 220 MG CAP GT SCH (10:18)
[2022-11-10 12:00] VITALS: BP 94/58
--- NOTE | 2022-11-10 12:00 | NUR ---
PT RESTING IN BED WITH NO SIGNS OF DISTRESS AT THIS TIME. ALL NEEDS MET AT THIS TIME. WILL CONTINUE TO MONITOR.
[2022-11-10 16:00] VITALS: BP 135/68
--- NOTE | 2022-11-10 16:00 | NUR ---
PT SLEEPING AND STABLE.
[2022-11-10 20:00] VITALS: BP 97/71
--- NOTE | 2022-11-10 21:19 | NUR ---
SCHEDULED MEDICATIONS DUE ADMINISTERED.
[2022-11-10] MEDS: levETIRAcetam 100 MG/ML ORASYR GT SCH (21:20)
[2022-11-11] VITALS: BP_SYST 124; BP_SYST 98; BP_DIAS 74; BP_DIAS 78
[2022-11-11] MEDS: Z-GUARD PASTE TP SCH ×2 (01:00→13:16)
--- NOTE | 2022-11-11 02:10 | NUR ---
RN CALLED RT TO BEDSIDE FOR DESATURATION. FOUND PATIENT SATING AT 80%. UPON INSPECTION OF PULSE OX PROBE I MADE SURE THE CONNECTION WAS ALIGNED AND ONCE REPLUGGED IN PATIENT WAS SATING AT 100%. AUSCULTATED PATIENT AND HEARD COARSE BREATH SOUNDS, SUCTION PATIENT AND OBTAINED SMALL THIN FROTHY SECRETIONS. PATIENT WAS RECEIVING GOOD LUNG VOLUMES AND NOT UNDER AN APPARENT RESPIRATORY DISTRESS. WILL CONTINUE TO MONITOR PATIENT.
[2022-11-11 04:00] VITALS: BP 130/87
[2022-11-11] MEDS: PIPERACILLIN/TAZOBACTAM 2.25 GM in DEXTROSE 5% 50 ML IV SCH ×3 (05:16→20:47)
[2022-11-11 05:29] LABS: BASOPHILS % (AUTO) 0.5 % (0.0-2.0); EOSINOPHILS # (AUTO) 0.1 K/uL (0-0.4); HEMATOCRIT 31.1 % (36-52); HEMOGLOBIN 10.2 g/dL (12.0-18.0); LYMPHOCYTES # (AUTO) 2.1 K/uL (2.0-11.5); LYMPHOCYTES % (AUTO) 21.1 % (20.5-51.1); MEAN CORPUSCULAR HEMOGLOBIN 25 pg (27-31); MEAN CORPUSCULAR HGB CONC 33 g/dL (33-37); MEAN CORPUSCULAR VOLUME 74.7 fL (80-94); MONOCYTES # (AUTO) 0.4 K/uL (0.8-1.0); MONOCYTES % (AUTO) 3.6 % (1.7-9.3); NEUTROPHILS # (AUTO) 7.5 K/uL (1.8-7.7); NEUTROPHILS % (AUTO) 73.8 % (42.2-75.2); PLATELET COUNT (AUTO) 339 K/uL (140-450); RED BLOOD CELL COUNT(AUTO) 4.17 MIL/uL (4.20-6.10); RED CELL DISTRIBUTION WIDTH 19.4 % (11.6-13.7); WHITE BLOOD COUNT (AUTO) 10.1 K/uL (4.8-10.8)
[2022-11-11] MEDS: METOPROLOL 50 MG TAB GT SCH ×4 (05:39→17:59)
[2022-11-11 06:06] LABS: ANION GAP 15.3 (8-16); CARBON DIOXIDE 26.4 mmol/L (21-32); CREATININE 0.4 mg/dL (0.6-1.3); POTASSIUM 3.7 mmol/L (3.5-5.1)
--- NOTE | 2022-11-11 07:04 | NUR ---
PATIENT IS AWAKE WITH OPEN EYES. TRACH TO VENT. NO SOB. RESPIRATION EVEN UNLABORED. TUBE FEEDING RUNNING WELL. ALL SAFETY MEASURES ARE IN PLACE. CALL LIGHT WITHIN REACH. PT HAD X1 BM DURING THE SHIFT, CLEANED , CHANGED AND REPOSITIONED. WILL ENDORSE PT TO AM SHIFT.
--- NOTE | 2022-11-11 07:05 | NUR ---
RECEIVED PT FROM NIGHT NURSE FOR CONTINUITY OF CARE. PT IS STABLE
[2022-11-11 08:00] VITALS: BP 107/72
[2022-11-11] MEDS: levETIRAcetam 100 MG/ML ORASYR GT SCH ×2 (09:00→20:47)
[2022-11-11] MEDS: MAGNESIUM HYDROXIDE 2400 MG/30 ML UDC GT SCH (09:00)
[2022-11-11] MEDS: POLYETHYLENE GLYCOL 17 GM/PKT GT SCH ×2 (09:00→20:47)
[2022-11-11] MEDS: propylthiouraciL 50 MG TAB PO SCH (10:15)
[2022-11-11] MEDS: ZINC SULF 220 MG CAP GT SCH (10:15)
[2022-11-11] MEDS: diazePAM 5 MG TAB GT SCH ×3 (10:15→17:59)
[2022-11-11] MEDS: BACLOFEN 10 MG TAB PO SCH ×3 (10:15→17:59)
[2022-11-11] MEDS: METOCLOPRAMIDE 10 MG TAB PO SCH ×3 (10:15→17:59)
[2022-11-11] MEDS: DOCUSATE 100 MG/10 ML UDC GT SCH ×2 (10:16→20:46)
[2022-11-11 12:00] VITALS: BP 132/95
[2022-11-11] MEDS: DIVALPROEX SPRINKLES 125 MG CAPDR PO SCH ×2 (13:16→17:59)
--- NOTE | 2022-11-11 15:10 | NUR ---
DC PLANNING PATIENT ATTEMPTED TO MEET WITH PATIENT AT BEDSIDE HOWEVER, PATIENT IS NONVERBAL. SW OUTREACHED TO PATIENTS [facility]AY CARE FACILITY. CAPRI SPOKE WITH PAULETTE ([facility] WIG MAKER) WHO REPORTS. PATIENT HAS BEEN IN HALF-WAY CARE SINCE 02/15/22. PATIENT IS TRAYC/VENT DEPENDENT AND HAS G-TUBE IN PLACE. PATIENT IS TOTAL CARE AND IS BEDBOUND, CARE PROVIDED BY [facility] STAFF. PATIENT IS [facility] CONNECTED; [facility] WORKER ASAD FERREIRA [phone]. PAULETTE REPORTS THAT FATHER IS NOT ACTIVE IN PATIENTS CARE. PAULETTE REPORTS ATTEMPTING TO GET FATHERS UPDATED PHONE NUMBER FROM [facility] WORKER HOWEVER, PHONE NUMBER IS NOT A WORKING PHONE NUMBER. PAULETTE REPORTS ALL MEDICAL CONSENTS ARE PROVIDED BY [facility]. DC PLAN IS FOR PATIENT TO RETURN BACK TO [facility] ONCE MEDICALLY CLEARED. Addendum: 11/11/22 at 1512 by Carlitos GILMORE Amended: Links added.
[2022-11-11 16:00] VITALS: BP 95/54
--- NOTE | 2022-11-11 19:20 | NUR ---
ENDORSED PT TO CHILD GUIDANCE COUNSELOR NURSE ANNA FOR CONTINUITY OF CARE. PT STABLE.
--- NOTE | 2022-11-11 19:30 | NUR ---
RECEIVED PT IN BED AWAKE. NO S/SX OF PAIN NOR DISCOMFORT. TRACH TO VENT WITH SETTING [id number], SAT 100%. NO S/SX OF ACUTE RESPIRATORY DISTRESS NOTED. G-TUBE PLACEMENT VERIFIED VIA AUSCULTATION, NO RESIDUAL AT THIS TIME, HEAD OF THE BED ELEVATED. SKIN WARM AND DRY TO TOUCH. SAFETY PRECAUTIONS IN PLACE,CALL LIGHT IN REACH.
[2022-11-11 20:00] VITALS: BP 143/95
--- NOTE | 2022-11-11 22:30 | NUR ---
PATIENT IS ASLEEP. NO S/SX OF DISTRESS. HEAD OF THE BED ELEVATED.
[2022-11-12] VITALS: BP 121/62
--- NOTE | 2022-11-12 | NUR ---
VITRAL SIGNS TAKEN AND DOCUMENTED. INCONTINENT OF URINE, PERINEAL CARE RENDERED.
[2022-11-12] MEDS: METOPROLOL 50 MG TAB GT SCH ×3 (00:59→12:00)
[2022-11-12] MEDS: Z-GUARD PASTE TP SCH ×2 (00:59→13:00)
[2022-11-12 04:00] VITALS: BP 101/80
--- NOTE | 2022-11-12 04:00 | NUR ---
VITAL SIGNS TAKEN AND DOCUMENTED. INCONTINENT OF URINE, AM CARE RENDERED. REPOSITIONED PT. SAFETY PRECAUTION IN PLACE.
[2022-11-12] MEDS: PIPERACILLIN/TAZOBACTAM 2.25 GM in DEXTROSE 5% 50 ML IV SCH ×2 (04:27→13:00)
[2022-11-12 05:48] LABS: BASOPHILS # (AUTO) 0.1 K/uL (0.00-0.22); BASOPHILS % (AUTO) 0.9 % (0.0-2.0); EOSINOPHILS # (AUTO) 0.2 K/uL (0-0.4); EOSINOPHILS % (AUTO) 2.9 % (0.0-4.0); HEMATOCRIT 29.6 % (36-52); HEMOGLOBIN 9.8 g/dL (12.0-18.0); LYMPHOCYTES # (AUTO) 2.2 K/uL (2.0-11.5); LYMPHOCYTES % (AUTO) 31.4 % (20.5-51.1); MEAN CORPUSCULAR HEMOGLOBIN 25 pg (27-31); MEAN CORPUSCULAR HGB CONC 33 g/dL (33-37); MEAN CORPUSCULAR VOLUME 74.6 fL (80-94); MONOCYTES # (AUTO) 0.3 K/uL (0.8-1.0); MONOCYTES % (AUTO) 4.5 % (1.7-9.3); NEUTROPHILS # (AUTO) 4.3 K/uL (1.8-7.7); NEUTROPHILS % (AUTO) 60.3 % (42.2-75.2); PLATELET COUNT (AUTO) 337 K/uL (140-450); RED BLOOD CELL COUNT(AUTO) 3.97 MIL/uL (4.20-6.10); RED CELL DISTRIBUTION WIDTH 19.5 % (11.6-13.7); WHITE BLOOD COUNT (AUTO) 7.1 K/uL (4.8-10.8)
--- NOTE | 2022-11-12 06:11 | NUR ---
AM CARE RENDERED. NO DISTRESS NOTED. ALL NEEDS ATTENDED TO. SAFETY PRECAUTIONS MAINTAINED DURING THE SHIFT, CALL LIGHT REMAINS WITHIN REACH.
[2022-11-12 06:33] LABS: ANION GAP 13.8 (8-16); CARBON DIOXIDE 27.4 mmol/L (21-32); CREATININE 0.5 mg/dL (0.6-1.3); POTASSIUM 4.2 mmol/L (3.5-5.1)
[2022-11-12] MEDS: levETIRAcetam 100 MG/ML ORASYR GT SCH (08:35)
[2022-11-12] MEDS: DOCUSATE 100 MG/10 ML UDC GT SCH (08:35)
[2022-11-12] MEDS: MAGNESIUM HYDROXIDE 2400 MG/30 ML UDC GT SCH (08:36)
[2022-11-12] MEDS: POLYETHYLENE GLYCOL 17 GM/PKT GT SCH (08:37)
[2022-11-12] MEDS: diazePAM 5 MG TAB GT SCH ×2 (08:37→13:50)
[2022-11-12] MEDS: ZINC SULF 220 MG CAP GT SCH (08:38)
[2022-11-12] MEDS: DIVALPROEX SPRINKLES 125 MG CAPDR PO SCH ×2 (08:38→13:50)
[2022-11-12] MEDS: BACLOFEN 10 MG TAB PO SCH ×2 (08:39→13:51)
[2022-11-12] MEDS: METOCLOPRAMIDE 10 MG TAB PO SCH ×2 (08:39→13:51)
[2022-11-12] MEDS: propylthiouraciL 50 MG TAB PO SCH (08:39)
--- NOTE | 2022-11-12 10:08 | NUR ---
RECEIVED ON A Performance GenomicsSCAPE R860 VENTILATOR WITH COMPRESSOR ON PLUGGED INTO RED OUTLET TOLERATING WELL WITHOUT ADVERSE REACTIONS NOTED TO A PORTEX DCT #8 AIRWAY SECURED WITH A MARGO TRACH TIE CUFF PRESSURE CHECKED NOTED AMBU BAG AT BEDSIDE STABLE GOOD CHEST RISE DEEP TRACHEAL SUCTION FOR MODERATE THIN PALE YELLOW SECRETIONS AIRWAY PATENT
[2022-11-12] MEDS ORDERED: PHEN20EL30 PO (10:27)
[2022-11-12] MEDS ORDERED: LEVE500T9 PO (10:27)
[2022-11-12] MEDS: LORazepam 2 MG/ML VIAL IVP PRN (11:45)
--- NOTE | 2022-11-12 13:45 | NUR ---
STABEL EQUAL CHEST RISE DEEP TRACHEAL SUCTION FOR SMALL THIN PALE YELLOW SECRETIONS AIRWAY PATENT Addendum: 11/12/22 at 1717 by Alex Khan RT STABEL=STABLE
--- NOTE | 2022-11-12 13:48 | NUR ---
DC PLANNING: PATIENT IS RETURNING TO [facility] ROOM 24B # TO GIVE REPORT [phone] ARRANGED TRANSPORT WITH [facility] PRODUCTION HELPER TIME BETWEEN 45-1 HR. NOTIFIED ANUPAM CARPENTER . CM FOLLOW
[2022-11-12 14:37] VITALS: BP 122/67
--- NOTE | 2022-11-12 15:30 | NUR ---
PATIENT WAS DISCHARGED TO [facility]. REPORT GIVEN TO DARY CARPENTER. STABLE UPON DISCHARGE
--- NOTE | 2022-11-18 16:12 | NUR ---
PT DC'D TO [facility] ON 11/12/22 AT 1507
== END 2022-11-12 15:05 | DRG 720 ==
LOC: MED 21:33 → MTU 11-06 00:14
PROVIDERS: ADMIT Family Medicine; ATTEND Family Medicine
PROC: 5A1955Z Respiratory Ventilation, Greater than 96 Consecutive Hours (ICD-10-PCS; principal; 2022-11-05)
PROC: 4A00X4Z Measurement of Central Nervous Electrical Activity, External Approach (ICD-10-PCS; 2022-11-11)
DX: A41.9 Sepsis, unspecified organism (principal); J96.20 Acute and chronic respiratory failure, unspecified whether with hypoxia or hypercapnia; J69.0 Pneumonitis due to inhalation of food and vomit; E87.0 Hyperosmolality and hypernatremia; D64.9 Anemia, unspecified; G80.9 Cerebral palsy, unspecified; R73.9 Hyperglycemia, unspecified; J40 Bronchitis, not specified as acute or chronic; D69.6 Thrombocytopenia, unspecified; Z20.822 Contact with and (suspected) exposure to COVID-19; G40.409 Other generalized epilepsy and epileptic syndromes, not intractable, without status epilepticus; K21.9 Gastro-esophageal reflux disease without esophagitis; K20.90 Esophagitis, unspecified without bleeding; E87.8 Other disorders of electrolyte and fluid balance, not elsewhere classified; I10 Essential (primary) hypertension; E03.9 Hypothyroidism, unspecified; Z79.899 Other long term (current) drug therapy; Z93.0 Tracheostomy status; Z93.1 Gastrostomy status
CPT/HCPCS: 36415; 71045; 80048; 81003; 83036; 83605; 83735; 84484; 85025; 87040; 87070; 87081; 87205; 89220; 93005; 94003; 95816; 96361; 96365; 96375; 99291; J0696; J1953; J2060; J2405; J2543; J3370; J7060; J8597; Q0092

== ENCOUNTER 2022-12-21 15:03 | Inpatient (IN) | payer MEDICAID ==
[~2022-12-21] VITALS: Ht 147.3 cm; Wt 45.4 kg
[~2022-12-21 15:03] MED LIST changes: +LEVE500T9 PO
--- NOTE | 2022-12-21 15:04 | NUR ---
BIBA BLS TO ER BED 8
[2022-12-21 15:11] VITALS: BP 127/99
--- NOTE | 2022-12-21 16:05 | NUR ---
21 y/o male biba from [facility] for G-tube malfunction. Patient is noted to have a g-tube and is trach to vent dependent. Per [facility], staff said his G-tube is leaking. Patient has no signs of distress noted. Medical History: Chronic Respiratory Failure, Cerebral Palsy, Epilepsy, COPD, Anemia, Respiratory Dependent. NKDA
--- NOTE | 2022-12-21 17:25 | NUR ---
Per ekta Youngblood to use midline.
--- NOTE | 2022-12-21 17:28 | NUR ---
Lab at bedside.
--- NOTE | 2022-12-21 17:38 | NUR ---
Attempted to call [facility], executive receptionist infomed me to call back again.
--- NOTE | 2022-12-21 17:40 | NUR ---
Called [facility] for a med list, clerical receptionist is unable to transfer me to anyone who can help. Informed me to call back in 15 minutes.
[2022-12-21 17:56] LABS: BASOPHILS # (AUTO) 0.1 K/uL (0.00-0.22); BASOPHILS % (AUTO) 0.5 % (0.0-2.0); EOSINOPHILS # (AUTO) 0.2 K/uL (0-0.4); EOSINOPHILS % (AUTO) 1.4 % (0.0-4.0); HEMATOCRIT 32.8 % (36-52); HEMOGLOBIN 10.8 g/dL (12.0-18.0); LYMPHOCYTES # (AUTO) 2.1 K/uL (2.0-11.5); LYMPHOCYTES % (AUTO) 16.2 % (20.5-51.1); MEAN CORPUSCULAR HEMOGLOBIN 25 pg (27-31); MEAN CORPUSCULAR HGB CONC 33 g/dL (33-37); MEAN CORPUSCULAR VOLUME 76.8 fL (80-94); MONOCYTES # (AUTO) 0.7 K/uL (0.8-1.0); MONOCYTES % (AUTO) 5.7 % (1.7-9.3); NEUTROPHILS # (AUTO) 9.8 K/uL (1.8-7.7); NEUTROPHILS % (AUTO) 76.2 % (42.2-75.2); PLATELET COUNT (AUTO) 364 K/uL (140-450); RED BLOOD CELL COUNT(AUTO) 4.28 MIL/uL (4.20-6.10); RED CELL DISTRIBUTION WIDTH 18.2 % (11.6-13.7); WHITE BLOOD COUNT (AUTO) 12.8 K/uL (4.8-10.8)
[2022-12-21 18:19] LABS: ALBUMIN 3.5 g/dL (3.4-5.0); ANION GAP 10.3 (8-16); CARBON DIOXIDE 29.3 mmol/L (21-32); CREATININE 0.5 mg/dL (0.6-1.3); POTASSIUM 3.6 mmol/L (3.5-5.1)
--- NOTE | 2022-12-21 18:20 | NUR ---
Patient was turned and repositioned. Fresh diaper applied.
[2022-12-21 18:42] LABS: TOTAL BILIRUBIN 0.2 mg/dL (0.0-1.0)
[2022-12-21] MEDS ORDERED: ROB1 GT (19:14)
[2022-12-21] MEDS ORDERED: ONDA-188 IV (19:14)
[2022-12-21] MEDS ORDERED: CALC667T8 GT ×2 (19:14→19:33)
--- NOTE | 2022-12-21 19:20 | NUR ---
Report given to NIDA Padilla for transfer of care.
[2022-12-21] MEDS ORDERED: ASCO500T95 GT (19:33)
[2022-12-21] MEDS ORDERED: DIAZ10TA7 GT (19:33)
[2022-12-21] MEDS ORDERED: DOCU50LI8 GT (19:33)
--- NOTE | 2022-12-21 19:35 | NUR ---
med rec complete.
[2022-12-21] MEDS ORDERED: DIVALPROEX SPRINKLES 125 MG CAPDR PO SCH (21:00)
[2022-12-21 22:00] VITALS: BP 141/96
--- NOTE | 2022-12-21 23:35 | NUR ---
PT IN ROOM AND ON FLAKER OPERATOR, AWAKE AND SMILING, AWAITING ADMISSION
[2022-12-21] MEDS ORDERED: ZOLPIDEM 5 MG TAB PO PRN (23:40)
[2022-12-21] MEDS ORDERED: DOCUSATE SODIUM 100 MG GELCAP PO PRN (23:40)
[2022-12-21] MEDS ORDERED: HYDROcodone/APAP 7.5/325 MG 1 TAB PO PRN (23:40)
[2022-12-21] MEDS ORDERED: guaiFENesin DM 200/20 MG-10 ML 10 ML UDC PO PRN (23:40)
[2022-12-21] MEDS ORDERED: ONDANSETRON 4 MG/2 ML VIAL IM/IVP PRN (23:40)
--- NOTE | 2022-12-22 00:15 | NUR ---
PT CARE PROVIDED AND REPOSTIONED FOR COMFORT
[2022-12-22 00:38] LABS: PROTHROMBIN TIME 10.9 secs (10.8-13.4)
[2022-12-22 00:58] LABS: AMYLASE 94 U/L (25-115); CHOL/HDL RATIO 2.7 (1-4.5); FREE T4 (FREE THYROXINE) 0.77 ng/dL (0.76-1.46); HDL CHOLESTEROL 38 mg/dL (40-60); LDL (CALC) 53 mg/dL (60-100); LIPASE 147 U/L (73-393); PHOSPHORUS 4.3 mg/dL (2.5-4.9); THYROID STIMULATING HORMONE 2.45 uIU/mL (0.34-3.74); TRIGLYCERIDES 54 mg/dL (30-150)
--- NOTE | 2022-12-22 02:55 | NUR ---
PT CARE PROVIDED AND REPOSITIONED FOR COMFORT
[2022-12-22 04:00] VITALS: BP 137/92
--- NOTE | 2022-12-22 04:15 | NUR ---
PT AWAKE AND ALERT IN BED. AWAITING ADMISSION
[2022-12-22 06:27] LABS: BASOPHILS # (AUTO) 0.1 K/uL (0.00-0.22); BASOPHILS % (AUTO) 0.5 % (0.0-2.0); EOSINOPHILS # (AUTO) 0.1 K/uL (0-0.4); EOSINOPHILS % (AUTO) 0.5 % (0.0-4.0); HEMATOCRIT 38.1 % (36-52); HEMOGLOBIN 12.5 g/dL (12.0-18.0); LYMPHOCYTES # (AUTO) 1.6 K/uL (2.0-11.5); LYMPHOCYTES % (AUTO) 13.2 % (20.5-51.1); MEAN CORPUSCULAR HEMOGLOBIN 25 pg (27-31); MEAN CORPUSCULAR HGB CONC 33 g/dL (33-37); MEAN CORPUSCULAR VOLUME 76.7 fL (80-94); MONOCYTES # (AUTO) 0.5 K/uL (0.8-1.0); MONOCYTES % (AUTO) 4.3 % (1.7-9.3); NEUTROPHILS % (AUTO) 81.5 % (42.2-75.2); PLATELET COUNT (AUTO) 414 K/uL (140-450); RED BLOOD CELL COUNT(AUTO) 4.97 MIL/uL (4.20-6.10); RED CELL DISTRIBUTION WIDTH 18.5 % (11.6-13.7); WHITE BLOOD COUNT (AUTO) 12.3 K/uL (4.8-10.8)
[2022-12-22 06:46] LABS: ANION GAP 15.5 (8-16); CARBON DIOXIDE 29.5 mmol/L (21-32); CREATININE 0.6 mg/dL (0.6-1.3)
--- NOTE | 2022-12-22 07:40 | NUR ---
REPORT RECEIVED FROM DEMETRI ALVA. ASSUMED CARE AT THIS TIME
--- NOTE | 2022-12-22 07:40 | NUR ---
Pt report given to GEORGE ALVA. Transfer of care at this time.
--- NOTE | 2022-12-22 08:12 | NUR ---
Patient will be admitted to care of MD SHANKS. Admited to TELE. Will go to room 122B. Belongings list completed. Report to KENNEDI CARPENTER .
--- NOTE | 2022-12-22 08:30 | NUR ---
RECEIVED REPORT FROM ER NURSE. AOX0, UNABLE TO MAKE NEEDS KNOWN. TRACH TO VENT. HX OF cerebral paLsy, epilepsy, hypertension, hyperthyroid, chronic respiratory failure, trach+ vent. ADMITTING DX GT MALFUNCTION. NO S/S OF PAIN, NO RESPIRATORY DISTRESS. GT SITE WITH BLANCHABLE REDNESS. WITH SELF INFLICTED SCRATCHES ON FOREHEAD. APPEARS SCABBED
[2022-12-22] MEDS: levETIRAcetam 1,000 MG in NACL 0.9% 100 ML IV SCH ×2 (09:41→22:17)
--- NOTE | 2022-12-22 10:20 | NUR ---
PATIENT HAS BEEN SCREENED AND CATEGORIZED HIGH NUTRITION RISK. PATIENT WILL BE SEEN WITHIN 1-2 DAYS OF ADMISSION. / LEONCIO SU RD
[2022-12-22 11:25] VITALS: BP 143/91
--- NOTE | 2022-12-22 12:26 | NUR ---
12/22/22 RD INITIAL ASSESSMENT COMPLETED PLEASE REFER TO NUTRITION ASSESSMENT UNDER CARE ACTIVITY FOR ESTIMATED NUTRITIONAL NEEDS. 1. WHEN/IF MEDICALLY APPROPRIATE TO START TUBE FEEDING, RECOMMEND VITAL 1.2 WITH A GOAL RATE OF 50ML/HR -FWF: 150ML Q6H -START AT 10ML/HR AND INCREASE BY 10ML Q4H TOLERATED -WILL PROVIDE 1200ML TOTAL VOLUME, 1440KCAL, 90G PROTEIN, 1573ML FREE WATER, MEETING 100% OF ESTIMATED NUTRITIONAL NEEDS 2. CONSULT RD PRN 3. RD TO FOLLOW-UP 2-3 DAYS, HIGH RISK LEONCIO SU RD
--- NOTE | 2022-12-22 14:30 | NUR ---
DC PLANNING SW OUTREACHED TO [facility] TO GATHER COLLATERAL INFORMATION HOWEVER,[facility] ADMIN CURRENTLY OUT OF OFFICE FOR HOLIDAY.
[2022-12-22] MEDS ORDERED: Z-GUARD PASTE TP ONE (15:24)
--- NOTE | 2022-12-22 15:30 | NUR ---
WITH BMX1, PER CARE DONE, TURNED AND REPOSITIONED
[2022-12-22 16:00] VITALS: BP 134/77
[2022-12-22] MEDS ORDERED: Z-GUARD PASTE TP SCH (16:30)
[2022-12-22 20:00] VITALS: BP 127/72
--- NOTE | 2022-12-22 23:01 | NUR ---
NOTIFIED DR SHANKS RE ELEVATED HR (125). AWAITING ORDERS.
[2022-12-22] MEDS ORDERED: levETIRAcetam 1,000 MG in NACL 0.9% 100 ML IV SCH (23:50)
[2022-12-23] VITALS: BP 127/68
[2022-12-23] MEDS ORDERED: METOPROLOL 5 MG/5 ML VIAL IV SCH (02:08)
--- NOTE | 2022-12-23 02:47 | NUR ---
HR at 119 when metoprolol 5mg ivp administered. Currently HR at 108. Held p.o. dose. Will re-eval from 0500 through 0700 for administration of next dose of metoprolol.
[2022-12-23 05:36] LABS: BASOPHILS % (AUTO) 0.3 % (0.0-2.0); EOSINOPHILS % (AUTO) 0.2 % (0.0-4.0); HEMOGLOBIN 11.7 g/dL (12.0-18.0); LYMPHOCYTES # (AUTO) 1.4 K/uL (2.0-11.5); LYMPHOCYTES % (AUTO) 7.9 % (20.5-51.1); MEAN CORPUSCULAR HEMOGLOBIN 25 pg (27-31); MEAN CORPUSCULAR HGB CONC 32 g/dL (33-37); MEAN CORPUSCULAR VOLUME 77.1 fL (80-94); MONOCYTES % (AUTO) 5.7 % (1.7-9.3); NEUTROPHILS # (AUTO) 14.7 K/uL (1.8-7.7); NEUTROPHILS % (AUTO) 85.9 % (42.2-75.2); PLATELET COUNT (AUTO) 400 K/uL (140-450); RED BLOOD CELL COUNT(AUTO) 4.67 MIL/uL (4.20-6.10); RED CELL DISTRIBUTION WIDTH 18.9 % (11.6-13.7); WHITE BLOOD COUNT (AUTO) 17.1 K/uL (4.8-10.8)
[2022-12-23 06:11] LABS: CARBON DIOXIDE 25.4 mmol/L (21-32); CREATININE 0.6 mg/dL (0.6-1.3); POTASSIUM 3.4 mmol/L (3.5-5.1)
[2022-12-23] MEDS: DEXT 5% / NACL 0.45% 1,000 ML IV SCH ×2 (06:55→21:23)
[2022-12-23] MEDS: METOPROLOL 50 MG TAB GT SCH ×5 (07:05→23:52)
[2022-12-23 08:00] VITALS: BP 123/79
--- NOTE | 2022-12-23 08:50 | NUR ---
WOUND CARE NOTE: PT. ADMITTED WITH GT NITISH-STOMA SKIN RED, MOIST. PT. WITH LOW LIZ SCALE AT MODERATE TO HIGH RISK, CONTINUE TO FOLLOW PRESSURE INJURY PREVENTION INTERVENTIONS. -CLEANSE GT NITISH-STOMA SKIN WITH NS, PAT DRY APPLY Z-GUARD AND COVER WITH DRY DRESSING QD AND PRN IF SOILING -POSITIONING: TURN AND REPOSITION PATIENT Q 2H OR SOONER USE PILLOWS TO KEEP BONY PROMINENCES FROM DIRECT CONTACT WITH SURFACES USE REPOSITIONING WEDGES TO PROVIDE 30-DEGREE ANGLE FOR SIDE LYING POSITIONS OFFLOADING OR FOAM DRESSING TO ALL TUBING TO PREVENT MEDICAL DEVICES RELATED PRESSURE INJURY -RE-EVALUATING AND MANAGING INCONTINENCE MONITOR SKIN CONDITION DURING POSITION CHANGE DO NOT MASSAGE REDNESS, BONY PROMINENCES FREQUENT NITISH-CARE AND PROVIDE BARRIER CREAMS PRN IF SOILING MOISTURE CONTROL BY OFFER BED MACEDO/URINAL /ABSORBENT PAD TO WICK AND HOLD MOISTURE KEEP SKIN DRY AND PROTECT FROM FRICTION -MANAGE FRICTION/SHEAR/MOBILITY KEEP HOB AT THE LOWEST LEVEL OF ELEVATION NO MORE THAN 30 DEGREE UNLESS OTHERWISE CONTRAINDICATED USE LIFT SHEET OR TRANSFER DEVICE TO MOVE PATIENT AND PREVENT LATERAL SHEER. PROTECT HEELS, ELBOWS BONY PROMINENCES WITH SKIN BERRIES OR FOAM DRESSING IF EXPOSED TO FRICTION OFFLOAD BILATERAL HEELS BY PLACING PILLOWS UNDER CALVES AT ALL TIMES, UNLESS OTHERWISE CONTRAINDICATED -PRESSURE REDISTRIBUTION SURFACE THERAPY BERE ISOFLEX MATTRESS -NUTRITION: PLEASE FOLLOW RD RECOMMENDATIONS AND OFFER NUTRITION SUPPLEMENTS IF ORDERED. PLEASE CONTACT WOUND CARE NURSE FOR ANY QUESTION AND CHANGE OF WOUND CONDITION
[2022-12-23] MEDS ORDERED: levETIRAcetam 100 MG/ML ORASYR GT SCH (09:00)
[2022-12-23] MEDS: levETIRAcetam 1,000 MG in NACL 0.9% 100 ML IV SCH ×2 (09:00→21:12)
[2022-12-23] MEDS ORDERED: PANTOPRAZOLE 40 MG TABEC PO SCH (09:00)
[2022-12-23 09:06] LABS: T4 (THYROXINE) 5.3 ug/dL (4.5-12.0)
[2022-12-23] MEDS: DOCUSATE 100 MG/10 ML UDC GT SCH ×2 (10:15→20:17)
[2022-12-23] MEDS: VALPROIC ACID 250 MG/5 ML UDC GT SCH ×3 (10:15→17:58)
[2022-12-23] MEDS: GLYCOPYRROLATE 1 MG TAB GT SCH ×3 (10:16→17:59)
[2022-12-23] MEDS: POLYETHYLENE GLYCOL 17 GM/PKT GT SCH ×2 (10:16→20:17)
[2022-12-23] MEDS: ASCORBIC ACID 500 MG TAB GT SCH (10:18)
[2022-12-23] MEDS: diazePAM 5 MG TAB GT SCH ×3 (10:18→17:59)
[2022-12-23] MEDS: ZINC SULF 220 MG CAP GT SCH (10:18)
[2022-12-23] MEDS: BACLOFEN 10 MG TAB PO SCH ×3 (10:20→17:59)
[2022-12-23] MEDS: METOCLOPRAMIDE 10 MG TAB PO SCH ×3 (10:22→18:00)
[2022-12-23] MEDS: POTASSIUM CHLORIDE 10 MEQ TABER PO PRN (10:25)
[2022-12-23] MEDS: propylthiouraciL 50 MG TAB PO SCH (10:32)
[2022-12-23 12:00] VITALS: BP 133/86
[2022-12-23] MEDS: PIPERACILLIN/TAZOBACTAM 3.375 GM in DEXTROSE 5% 50 ML IV SCH ×2 (13:09→20:16)
--- NOTE | 2022-12-23 15:41 | NUR ---
DC PLANNING PATIENT IS NONVERBAL THEREFORE, [facility] [place] [facility] [place] SPOKE WITH PAULETTE TO GATHER COLLAT INFO. PER PAULETTE, PT IS IN CARE HOME CARE CARE HOME CARE SINCE 02/15/22. PATIENT IS TRAYC/VENT DEPENDENT AND HAS G-TUBE IN PLACE. PATIENT IS TOTAL CARE AND IS BEDBOUND, CARE PROVIDED [place] [facility] [place]. PATIENT IS [facility] CONNECTED; [facility] WORKER ASAD FERREIRA [phone]. PAULETTE REPORTS THAT FATHER IS NOT ACTIVE IN PATIENTS CARE. PAULETTE REPORTS ATTEMPTING TO GET FATHERS UPDATED PHONE NUMBER FROM [facility] WORKER HOWEVER, PHONE NUMBER IS NOT A WORKING PHONE NUMBER. PAULETTE REPORTS ALL MEDICAL CONSENTS ARE PROVIDED BY [facility]. DC PLAN IS FOR PATIENT TO RETURN BACK [place] [facility] [place]CE MEDICALLY CLEARED. Addendum: 12/23/22 at 1542 by Carlitos GILMORE Amended: Links added.
[2022-12-23 16:00] VITALS: BP 108/79
--- NOTE | 2022-12-23 19:30 | NUR ---
RECEIVED PT FROM MORNING SHIFT NURSE. PT IS APHASIC AND BEDBOUND. PT IS ON TRACH TO VENT WITH FI02-30%, VT-400, RATE OF 14 AND PEEP OF 5. PT HAS G-TUBE RUNNING AT VITAL AF 1.2 RUNNING AT 10ML/HE WITH WATER FLUSH OF 100 EVERY 6HRS. PT HAS RIGHT UPPER ARM MIDLINE RUNNING AT NS AT TKO. PT SKIN IS INTACT. MORNING NURSE, DIDN'T DOCUMENT KEPPRA AND DIDN'T HANG THE D5 1/2 NS. NO S/S OF RESPIRATORY DISTRESS NOTED. ALL SAFETY MEASURES IMPLEMENTED. BED IN LOW POSITION. BED WHEELS ON LOCKED AND CALL LIGHT WITHIN REACH.
[2022-12-23 20:00] VITALS: BP 105/76
--- NOTE | 2022-12-23 20:17 | NUR ---
SCHEDULED AND PRESCRIBED MEDICATION WAS GIVEN TO PT PER MD ORDER. ALL SAFETY MEASURES IMPLEMENTED. BED IN LOW POSITION, BED WHEELS ON LOCKED AND CALL LIGHT WITHIN REACH.
--- NOTE | 2022-12-23 21:12 | NUR ---
SCHEDULED KEPPRA WAS GIVEN TO PT PER MD ORDER. ALL SAFETY MEASURES IMPLEMENTED. BED IN LOW POSITION. BED WHEELS ON LOCKED AND CALL LIGHT WITHIN REACH.
--- NOTE | 2022-12-23 23:52 | NUR ---
SCHEDULED AND PRESCRIBE MEDICATION WAS GIVEN TO PT PER MD ORDER. ALL SAFETY MEASURES IMPLEMENTED. BED IN LOW POSITION. BED WHEELS ON LOCKED AND CALL LIGHT WITHIN REACH.
[2022-12-23] MEDS: ACETAMINOPHEN 325 MG TAB PO PRN (23:54)
--- NOTE | 2022-12-23 23:54 | NUR ---
PRN TYLENOL WAAS GIVEN TO PT DUE TO FEVER OF 101.6 ALL SAFETY MEASURES IMPLEMENTED. BED IN LOW POSITION. BED WHEELS ON LOCKED AND CALL LIGHT WITHIN REACH.
[2022-12-24] VITALS: BP 115/53
--- NOTE | 2022-12-24 00:54 | NUR ---
AFTER 1 HR OF GIVING TYLENOL PT LATEST TEMP IS 99.5 ALL SAFETY MEASURES IMPLEMENTED. BED IN LOW POSITION. BED WHEELS ON LOCKED AND CALL LIGHT WITHIN REACH.
--- NOTE | 2022-12-24 02:00 | NUR ---
PT IS SLEEPING. CHEST RISE AND FALL SYMMETRICALLY NOTED. RESPIRATION IS EVEN AND UNLABORED. ALL SAFETY MEASURES IMPLEMENTED. BED IN LOW POSITION, BED WHEELS ON LOCK AND CALL LIGHT WITHIN REACH.
[2022-12-24 04:00] VITALS: BP 111/87
--- NOTE | 2022-12-24 04:00 | NUR ---
MORNING CARE WAS DONE TO PT. CHANGED LINENS, GOWN AND CHUCKS. NO RESPIRATORY DISTRESS NOTED. ALL SAFETY MEASURES IMPLEMENTED. BED IN LOW POSITION, BED WHEELS ON LOCK AND CALL LIGHT WITHIN REACH.
[2022-12-24] MEDS: PIPERACILLIN/TAZOBACTAM 3.375 GM in DEXTROSE 5% 50 ML IV SCH ×3 (04:53→20:26)
[2022-12-24] MEDS: METOPROLOL 50 MG TAB GT SCH ×4 (05:05→23:26)
--- NOTE | 2022-12-24 05:05 | NUR ---
ALL SCHEDULED AND PRESCRIBED MEDICATION WAS GIVEN TO PT PER MD ORDER. ALL SAFETY MEASURES IMPLEMENTED. BED IN LOW POSITION, BED WHEELS ON LOCK AND CALL LIGHT WITHIN REACH.
[2022-12-24 05:14] LABS: BASOPHILS # (AUTO) 0.1 K/uL (0.00-0.22); BASOPHILS % (AUTO) 0.2 % (0.0-2.0); HEMATOCRIT 33.6 % (36-52); LYMPHOCYTES # (AUTO) 1.4 K/uL (2.0-11.5); MEAN CORPUSCULAR HEMOGLOBIN 25 pg (27-31); MEAN CORPUSCULAR HGB CONC 33 g/dL (33-37); MEAN CORPUSCULAR VOLUME 76.4 fL (80-94); MONOCYTES # (AUTO) 1.5 K/uL (0.8-1.0); MONOCYTES % (AUTO) 6.2 % (1.7-9.3); NEUTROPHILS # (AUTO) 21.3 K/uL (1.8-7.7); NEUTROPHILS % (AUTO) 87.6 % (42.2-75.2); PLATELET COUNT (AUTO) 340 K/uL (140-450); RED BLOOD CELL COUNT(AUTO) 4.39 MIL/uL (4.20-6.10); RED CELL DISTRIBUTION WIDTH 18.4 % (11.6-13.7); WHITE BLOOD COUNT (AUTO) 24.3 K/uL (4.8-10.8)
[2022-12-24 05:29] LABS: ANION GAP 13.8 (8-16); CARBON DIOXIDE 29.5 mmol/L (21-32); CREATININE 0.8 mg/dL (0.6-1.3); POTASSIUM 3.3 mmol/L (3.5-5.1)
[2022-12-24] MEDS: POTASSIUM CHLORIDE 10 MEQ TABER PO PRN (06:40)
--- NOTE | 2022-12-24 06:40 | NUR ---
K-DUR 40 MEQ WAS GIVEN TO THE PT DUE POTASSIUM LEVEL IS 3.3. ALL SAFETY MEASURES IMPLEMENTED. BED IN LOW POSITION, BED WHEELS ON LOCK AND CALL LIGHT WITHIN REACH.
--- NOTE | 2022-12-24 07:00 | NUR ---
RECEIVED PT ON ACVC. 400,F14,+5,30%. VENT WHEELS ARE LOCKED,PLUGGED INTO RED OUTLET, AMBUBAG AT BEDSIDE,ALARMS ARE SET AND AUDIBLE. SATURATION 96%, BREATH SOUNDS ARE COARSE. SUCTIONED THICK YELLOW SECRETIONS. WILL CONTINUE TO MONITOR.
--- NOTE | 2022-12-24 07:20 | NUR ---
PT IS STABLE. ENDORSED PT TO THE MORNING SHIFT NURSE FOR CONTINUITY OF CARE.
--- NOTE | 2022-12-24 07:50 | NUR ---
RECEIVED PT CARE AND REPORT FROM MANNY CARPENTER. PT IS RESTING IN BED ON LEFT SIDE, APHASIC, TRACH TO VENT. NO VISIBLE S/S OF DISTRESS, DISCOMFORT, PAIN OR SOB. FEEDING RUNNING AT 10ML/HR. CALL LIGHT IS WITHIN REACH, ALL NEEDS MET AT THIS TIME.
[2022-12-24 08:00] VITALS: BP 105/57
[2022-12-24] MEDS ORDERED: VANCOMYCIN PER PHARMACY MC PRN (08:20)
[2022-12-24] MEDS: DOCUSATE 100 MG/10 ML UDC GT SCH ×2 (09:11→20:25)
[2022-12-24] MEDS: VALPROIC ACID 250 MG/5 ML UDC GT SCH ×3 (09:12→16:58)
[2022-12-24] MEDS: POLYETHYLENE GLYCOL 17 GM/PKT GT SCH ×2 (09:12→20:25)
[2022-12-24] MEDS: LANSOPRAZOLE 30 MG CAPDR GT SCH (09:13)
[2022-12-24] MEDS: GLYCOPYRROLATE 1 MG TAB GT SCH ×3 (09:13→17:00)
[2022-12-24] MEDS: ZINC SULF 220 MG CAP GT SCH (09:14)
[2022-12-24] MEDS: ASCORBIC ACID 500 MG TAB GT SCH (09:14)
[2022-12-24] MEDS: diazePAM 5 MG TAB GT SCH ×3 (09:14→17:00)
[2022-12-24] MEDS: propylthiouraciL 50 MG TAB PO SCH (09:15)
[2022-12-24] MEDS: METOCLOPRAMIDE 10 MG TAB PO SCH ×3 (09:15→17:00)
[2022-12-24] MEDS: BACLOFEN 10 MG TAB PO SCH ×3 (09:15→16:59)
[2022-12-24] MEDS: levETIRAcetam 1,000 MG in NACL 0.9% 100 ML IV SCH ×2 (09:47→21:22)
[2022-12-24] MEDS: VANCOMYCIN 750 MG in DEXTROSE 5% 250 ML IV SCH ×2 (09:50→22:09)
[2022-12-24 12:00] VITALS: BP 94/69
[2022-12-24] MEDS: DEXT 5% / NACL 0.45% 1,000 ML IV SCH (12:31)
--- NOTE | 2022-12-24 13:10 | NUR ---
KUB FOR PATIENT TO CHECK G-TUBE PLACEMENT.
[2022-12-24] MEDS: Z-GUARD PASTE TP SCH (13:24)
[2022-12-24 16:00] VITALS: BP 114/77
--- NOTE | 2022-12-24 18:34 | NUR ---
PATIENT IS RESTING WITH OU CLOSED ON LEFT SIDE. NO SIGNIFICANT EVENTS OR CHANGES TO CONDITION THROUGHOUT SHIFT. PT HAS REMAINED STABLE. AFEBRILE. NO VISIBLE S/S OF DISTRESS, DISCOMFORT, PAIN OR SOB. CALL LIGHT IS WITHIN REACH, ALL NEEDS MET AT THIS TIME. WILL ENDORSE TO NOC SHIFT NURSE.
--- NOTE | 2022-12-24 19:20 | NUR ---
RECEIVED PT FROM MORNING SHIFT NURSE. PT IS APHASIC AND BEDBOUND. PT IS ON TRACH TO VENT WITH FI02-30%, VT-400, RATE OF 14 AND PEEP OF 5. PT HAS G-TUBE RUNNING AT VITAL AF 1.2 RUNNING AT 10ML/HE WITH WATER FLUSH OF 100 EVERY 6HRS. PT HAS RIGHT UPPER ARM MIDLINE RUNNING WITH D5 1/2NS AT 70ML/HR. PT SKIN IS INTACT. NO S/S OF RESPIRATORY DISTRESS NOTED. ALL SAFETY MEASURES IMPLEMENTED. BED IN LOW POSITION. BED WHEELS ON LOCKED AND CALL LIGHT WITHIN REACH.
[2022-12-24 20:00] VITALS: BP 98/63
--- NOTE | 2022-12-24 20:26 | NUR ---
SCHEDULED AND PRESCRIBED MEDICATION WAS GIVEN TO PT PER MD ORDER. ALL SAFETY MEASURES IMPLEMENTED. BED IN LOW POSITION. BED WHEELS ON LOCKED AND CALL LIGHT WITHIN REACH.
--- NOTE | 2022-12-24 21:22 | NUR ---
SCHEDULED AND PRESCRIBED KEPPRA WAS GIVEN TO PT PER MD ORDER. ALL SAFETY MEASURES IMPLEMENTED. BED IN LOW POSITION. BED WHEELS ON LOCKED AND CALL LIGHT WITHIN REACH.
[2022-12-25] VITALS: BP 133/60
[2022-12-25] MEDS: Z-GUARD PASTE TP SCH ×2 (01:19→12:21)
[2022-12-25] MEDS: DEXT 5% / NACL 0.45% 1,000 ML IV SCH ×2 (01:53→16:07)
--- NOTE | 2022-12-25 02:00 | NUR ---
PT IS SLEEPING. CHEST RISE AND FALL SYMMETRICALLY NOTED. RESPIRATION IS EVEN AND UNLABORED. ALL SAFETY MEASURES IMPLEMENTED. BED IN LOW POSITION. BED WHEELS ON LOCKED AND CALL LIGHT WITHIN REACH.
[2022-12-25 04:00] VITALS: BP 146/88
--- NOTE | 2022-12-25 04:00 | NUR ---
MORNING CARE WAS DONE TO PT. CHANGED LINENS, GOWN AND CHUCKS. ALL SAFETY MEASURES IMPLEMENTED. BED IN LOW POSITION. BED WHEELS ON LOCKED AND CALL LIGHT WITHIN REACH.
[2022-12-25] MEDS: PIPERACILLIN/TAZOBACTAM 3.375 GM in DEXTROSE 5% 50 ML IV SCH ×3 (04:56→22:37)
[2022-12-25] MEDS: ACETAMINOPHEN 325 MG TAB PO PRN (04:57)
--- NOTE | 2022-12-25 04:57 | NUR ---
TYLENOL WAS GIVEN TO PT DUE TO PT TEMP IS 101.2 ALL SAFETY MEASURES IMPLEMENTED. BED IN LOW POSITION. BED WHEELS ON LOCKED AND CALL LIGHT WITHIN REACH.
[2022-12-25 05:46] LABS: BASOPHILS % (AUTO) 0.2 % (0.0-2.0); EOSINOPHILS % (AUTO) 0.1 % (0.0-4.0); HEMATOCRIT 31.6 % (36-52); HEMOGLOBIN 10.3 g/dL (12.0-18.0); LYMPHOCYTES # (AUTO) 1.3 K/uL (2.0-11.5); LYMPHOCYTES % (AUTO) 6.6 % (20.5-51.1); MEAN CORPUSCULAR HEMOGLOBIN 25 pg (27-31); MEAN CORPUSCULAR HGB CONC 33 g/dL (33-37); MEAN CORPUSCULAR VOLUME 77.6 fL (80-94); MONOCYTES # (AUTO) 0.8 K/uL (0.8-1.0); MONOCYTES % (AUTO) 4.4 % (1.7-9.3); NEUTROPHILS # (AUTO) 16.9 K/uL (1.8-7.7); NEUTROPHILS % (AUTO) 88.7 % (42.2-75.2); PLATELET COUNT (AUTO) 292 K/uL (140-450); RED BLOOD CELL COUNT(AUTO) 4.07 MIL/uL (4.20-6.10); RED CELL DISTRIBUTION WIDTH 18.1 % (11.6-13.7)
[2022-12-25] MEDS: METOPROLOL 50 MG TAB GT SCH ×3 (06:00→18:21)
[2022-12-25 06:18] LABS: ANION GAP 13.9 (8-16); CARBON DIOXIDE 28.2 mmol/L (21-32); CREATININE 0.6 mg/dL (0.6-1.3); POTASSIUM 3.1 mmol/L (3.5-5.1)
--- NOTE | 2022-12-25 06:35 | NUR ---
PT LATEST TEMP IS 98.8 AFTER GIVING TYLENOL
--- NOTE | 2022-12-25 07:11 | NUR ---
PT IS STABLE. ENDORSED PT TO THE MORNING SHIFT NURSE FOR CONTINUITY OF CARE.
--- NOTE | 2022-12-25 07:20 | NUR ---
RECEIVED PT ON 400,F14,+5,30%. VENT WHEELS ARE LOCKED, PLUGGED INTO RED OUTLET, AMBUBAG AT BEDSIDE, ALARMS ARE SET AND AUDIBLE. SATURATION 96%. BREATH SOUNDS ARE COARSE. WILL CONTINUE TO MONITOR.
--- NOTE | 2022-12-25 07:30 | NUR ---
RECEIVED PT CARE AND REPORT FROM PAOLA CARPENTER. PT IS RESTING IN BED ON RIGHT SIDE WITH OU CLOSED. NO VISIBLE S/S OF DISTRESS, DISCOMFORT PAIN OR SOB. TRACH TO VENT. FEEDING RUNNING ORDERED WITH NO S/S OF NAUSEA OR INTOLERANCE. CALL LIGHT IS WITHIN REACH, ALL NEEDS MET AT THIS TIME.
[2022-12-25 08:00] VITALS: BP 144/79
--- NOTE | 2022-12-25 08:01 | NUR ---
TEXTED DR. BENITO TO REPORT POTASSIUM LEVEL OF 3.1 THIS MORNING. INFORMED DOCTOR THAT POTASSIUM LEVEL WAS 3.3 YESTERDAY AND WAS COVERED WITH K-DUR 40MEQ STANDING ORDER. AWAITING ORDERS.
[2022-12-25] MEDS: levETIRAcetam 1,000 MG in NACL 0.9% 100 ML IV SCH ×2 (08:15→22:00)
[2022-12-25] MEDS ORDERED: KCL 20 MEQ IN 100 mL PREMIX 200 ML IV SCH (09:00)
[2022-12-25] MEDS ORDERED: SCOPOLAMINE 1.5 MG/72 HR PATCH TD SCH (09:00)
[2022-12-25] MEDS: VANCOMYCIN 750 MG in DEXTROSE 5% 250 ML IV SCH ×2 (09:45→23:59)
[2022-12-25] MEDS: VALPROIC ACID 250 MG/5 ML UDC GT SCH ×3 (09:46→18:21)
[2022-12-25] MEDS: LANSOPRAZOLE 30 MG CAPDR GT SCH (09:47)
[2022-12-25] MEDS: METOCLOPRAMIDE 10 MG TAB PO SCH ×3 (09:47→18:21)
[2022-12-25] MEDS: GLYCOPYRROLATE 1 MG TAB GT SCH ×3 (09:47→18:22)
[2022-12-25] MEDS: propylthiouraciL 50 MG TAB PO SCH (09:47)
[2022-12-25] MEDS: BACLOFEN 10 MG TAB PO SCH ×3 (09:47→18:21)
[2022-12-25] MEDS: DOCUSATE 100 MG/10 ML UDC GT SCH ×2 (09:47→22:15)
[2022-12-25] MEDS: ASCORBIC ACID 500 MG TAB GT SCH (09:47)
[2022-12-25] MEDS: ZINC SULF 220 MG CAP GT SCH (09:48)
[2022-12-25] MEDS: diazePAM 5 MG TAB GT SCH ×3 (09:48→18:22)
[2022-12-25] MEDS: POLYETHYLENE GLYCOL 17 GM/PKT GT SCH ×2 (09:54→22:15)
[2022-12-25 12:00] VITALS: BP 112/65
--- NOTE | 2022-12-25 12:44 | NUR ---
DR. WOOTEN STATED THAT PATIENT IS CLEARED FROM HIS END. TEXTED DR. BENITO TO INFORM.
--- NOTE | 2022-12-25 15:24 | NUR ---
12/25/22 RD FOLLOW UP COMPLETED PLEASE REFER TO NUTRITION ASSESSMENT UNDER CARE ACTIVITY FOR ESTIMATED NUTRITIONAL NEEDS. 1. WHEN/IF MEDICALLY APPROPRIATE, RECOMMEND INCREASING RATE TO VITAL 1.2 WITH A GOAL RATE OF 50ML/HR TO MEET ESTIMATED NEEDS -FWF: 150ML Q6H -START AT 10ML/HR AND INCREASE BY 10ML Q4H TOLERATED -WILL PROVIDE 1200ML TOTAL VOLUME, 1440KCAL, 90G PROTEIN, 1573ML FREE WATER, MEETING 100% OF ESTIMATED NUTRITIONAL NEEDS 2. CONSULT RD PRN 3. RD TO FOLLOW-UP 2-3 DAYS, HIGH RISK REVIEWED BY LEONCIO SU RD
[2022-12-25 16:00] VITALS: BP 99/63
--- NOTE | 2022-12-25 18:38 | NUR ---
PT IS RESTING IN BED ON RIGHT SIDE WITH OU CLOSED. NO VISIBLE S/S OF DISTRESS, DISCOMFORT, PAIN OR SOB. CALL LIGHT IS WITHIN REACH, ALL NEEDS HAVE BEEN MET AT THIS TIME. NO EVENTS DURING SHIFT, PATIENT HAS REMAINED STABLE. TRACH TO VENT, FEEDING RUNNING VIA G-TUBE AT 10ML/HR. CALL LIGHT IS WITHIN REACH, ALL NEEDS MET AT THIS TIME.
--- NOTE | 2022-12-25 19:00 | NUR ---
RECEIVED PATIENT LYING ON THE BED, HOB ELEVATED. PATIENT IS TRACH TO VENT, SETTING F102 30%, VT 400, RATE 14 AND PEEP 5. VITAL AF 1.2 RUNNING VIA G TUBE @10ML HR. IV SITE ON RIGHT UPPER ARM MIDLINE. NO SIGNS OF DISTRESS NOTED, ALL SAFETY MEASURES IN PLACE.
[2022-12-25 20:00] VITALS: BP 122/83
--- NOTE | 2022-12-25 21:31 | NUR ---
MD ORDERED CT OF ABDOMEN AND PELVIS WITHOUT CONTRAST, PATIENT TAKEN TO RADIOLOGY DEPT. PATIENT IN STABLE CONDITION.
[2022-12-26] VITALS: BP 124/83
--- NOTE | 2022-12-26 00:30 | NUR ---
SCHEDULED MEDICATIONS GIVEN ORDERED. BEDSIDE CARE DONE. NO SIGNS OF PAIN/DISCOMFORT , NO SIGNS OF DISTRESS NOTED. SAFETY MEASURES IN PLACE.
[2022-12-26] MEDS: Z-GUARD PASTE TP SCH ×2 (01:24→12:32)
[2022-12-26 04:00] VITALS: BP 115/71
--- NOTE | 2022-12-26 04:58 | NUR ---
BEDSIDE CARE DONE, MOUTH CARE DONE. SCHEDULED ANTIBIOTIC GIVEN ORDERED.
[2022-12-26] MEDS: PIPERACILLIN/TAZOBACTAM 3.375 GM in DEXTROSE 5% 50 ML IV SCH ×2 (05:00→12:32)
[2022-12-26] MEDS: METOPROLOL 50 MG TAB GT SCH ×3 (05:16→12:31)
[2022-12-26 05:39] LABS: BASOPHILS # (AUTO) 0.1 K/uL (0.00-0.22); BASOPHILS % (AUTO) 0.5 % (0.0-2.0); EOSINOPHILS # (AUTO) 0.1 K/uL (0-0.4); EOSINOPHILS % (AUTO) 0.8 % (0.0-4.0); HEMATOCRIT 29.2 % (36-52); HEMOGLOBIN 9.4 g/dL (12.0-18.0); LYMPHOCYTES # (AUTO) 1.8 K/uL (2.0-11.5); LYMPHOCYTES % (AUTO) 13.7 % (20.5-51.1); MEAN CORPUSCULAR HEMOGLOBIN 25 pg (27-31); MEAN CORPUSCULAR HGB CONC 32 g/dL (33-37); MEAN CORPUSCULAR VOLUME 78.1 fL (80-94); MONOCYTES # (AUTO) 0.8 K/uL (0.8-1.0); MONOCYTES % (AUTO) 5.6 % (1.7-9.3); NEUTROPHILS # (AUTO) 10.7 K/uL (1.8-7.7); NEUTROPHILS % (AUTO) 79.4 % (42.2-75.2); PLATELET COUNT (AUTO) 290 K/uL (140-450); RED BLOOD CELL COUNT(AUTO) 3.74 MIL/uL (4.20-6.10); WHITE BLOOD COUNT (AUTO) 13.5 K/uL (4.8-10.8)
[2022-12-26] MEDS: DEXT 5% / NACL 0.45% 1,000 ML IV SCH (05:52)
[2022-12-26 06:24] LABS: ANION GAP 9.4 (8-16); CARBON DIOXIDE 30.2 mmol/L (21-32); CREATININE 0.5 mg/dL (0.6-1.3); POTASSIUM 3.6 mmol/L (3.5-5.1)
[2022-12-26] MEDS ORDERED: VANCOMYCIN 750 MG in DEXTROSE 5% 250 ML IV SCH (07:00)
--- NOTE | 2022-12-26 07:23 | NUR ---
ENDORSED PATIENT TO DAY NURSE FOR CONTINUITY OF CARE. NEEDS MET THROUGHOUT THE SHIFT. PATIENT IN STABLE CONDITION.
--- NOTE | 2022-12-26 07:25 | NUR ---
RECEIVED BEDSIDE REPORT FOR CONTINUITY OF CARE. PT A/OX0, APHASIC. TRACH TO VENT AC/VC FIO2 30%, VT 400, RR 14, PEEP 5. SR ON MONITOR. TYRA MIDLINE IN PLACE WITH NS TKO. G TUBE TO TUBE FEEDING VITAL AF. STANDARD PRECAUTION. BED LOCKED AND IN LOWEST POSITION.
--- NOTE | 2022-12-26 07:42 | NUR ---
RECEIVED ON A [employer]APE R860 VENTILATOR PLUGGED INTO RED OUTLET TOLERATING WELL WITHOUT ADVERSE REACTIONS NOTED TO A PORTEX DCT #8 AIRWAY SECURED WITH A MARGO TRACH TIE CUFF PRESSURE CHECKED NOTED AMB BAG AT BEDSIDE STABLE GOOD CHEST RISE DEEP TRACHEAL SUCTION FOR MODERATE THICK PALE WHITE SECRETIONS AIRWAY PATENT
[2022-12-26 08:00] VITALS: BP 123/73
[2022-12-26] MEDS ORDERED: Vancomycin Per Pharmacy MC (09:12)
[2022-12-26] MEDS ORDERED: PIPE1SOL IV (09:12)
[2022-12-26] MEDS: levETIRAcetam 1,000 MG in NACL 0.9% 100 ML IV SCH (10:20)
[2022-12-26] MEDS: DOCUSATE 100 MG/10 ML UDC GT SCH (10:20)
[2022-12-26] MEDS: diazePAM 5 MG TAB GT SCH ×2 (10:21→12:29)
[2022-12-26] MEDS: POLYETHYLENE GLYCOL 17 GM/PKT GT SCH (10:21)
[2022-12-26] MEDS: VALPROIC ACID 250 MG/5 ML UDC GT SCH ×2 (10:21→12:29)
[2022-12-26] MEDS: METOCLOPRAMIDE 10 MG TAB PO SCH ×2 (10:22→12:30)
[2022-12-26] MEDS: GLYCOPYRROLATE 1 MG TAB GT SCH ×2 (10:22→12:30)
[2022-12-26] MEDS: propylthiouraciL 50 MG TAB PO SCH (10:22)
[2022-12-26] MEDS: LANSOPRAZOLE 30 MG CAPDR GT SCH (10:22)
[2022-12-26] MEDS: ASCORBIC ACID 500 MG TAB GT SCH (10:23)
[2022-12-26] MEDS: ZINC SULF 220 MG CAP GT SCH (10:23)
[2022-12-26] MEDS: BACLOFEN 10 MG TAB PO SCH ×2 (10:23→12:29)
--- NOTE | 2022-12-26 10:55 | NUR ---
SLIGHT AGITATION GOOD CHEST RISE DEEP TRACHEAL SUCTION FOR MODERATE THI PALE YELLOW SECRETINS AIRWAY PATENT Addendum: 12/26/22 at 1306 by Alex Khan RT THI=THIN
[2022-12-26 12:00] VITALS: BP 115/78
--- NOTE | 2022-12-26 12:10 | NUR ---
DC PLANNING: [place]IENT HAS A [place] [facility] [place] [facility] [place] DC KITCHEN FOOD SERVER TO FOLLOW Addendum: 12/26/22 at 1231 by MORAIMA PINO DC KITCHEN FOOD SERVER:PARRISH: SPO[place] WITH [place] [facility] [place] BE[place] IN [place] [facility] [place] [address] [place] [address] PT WILL BE GOING TO ROOM [facility]. UNDER THE CARE OF DOCTOR IS DR. JASSO. NUMBER FOR REPORT . [facility] TRANSPORTATION WAS SET UP WITH ABRAHAM AT [facility] WITH A 1500 HEAD COUNSELOR TIME. PT NURSE LYNDSEY ASWELL PT PTN WAS NOTIFIED OF THE ABOVE INFORMATION.
--- NOTE | 2022-12-26 12:23 | NUR ---
CALLED REPORT TO [facility] [place], JEANIE,
[2022-12-26 14:14] VITALS: BP 115/78
--- NOTE | 2022-12-26 14:37 | NUR ---
STABLE RESTING COMFORTABLY GOOD CHEST RISE DEEP TRACHEAL SUCTION FOR SMALL THICK PALE YELLOW SECRETIONS AIRWAY PATENT
--- NOTE | 2022-12-26 15:01 | NUR ---
[facility] AT BEDSIDE. PT HAD BM. CLEANED WITH EXCELSIOR PICKER. TRANSPORT TO [facility].
== END 2022-12-26 15:05 | DRG 720 ==
LOC: MED 15:03 → MTU 21:11
PROVIDERS: ADMIT Student in an Organized Health Care Education/Training Program; ATTEND Student in an Organized Health Care Education/Training Program
PROC: 5A1955Z Respiratory Ventilation, Greater than 96 Consecutive Hours (ICD-10-PCS; principal; 2022-12-21)
PROC: 0DH63UZ Insertion of Feeding Device into Stomach, Percutaneous Approach (ICD-10-PCS; 2022-12-21)
DX: A41.9 Sepsis, unspecified organism (principal); J18.9 Pneumonia, unspecified organism; E43 Unspecified severe protein-calorie malnutrition; E87.0 Hyperosmolality and hypernatremia; J96.10 Chronic respiratory failure, unspecified whether with hypoxia or hypercapnia; E83.51 Hypocalcemia; K94.23 Gastrostomy malfunction; E87.1 Hypo-osmolality and hyponatremia; G40.909 Epilepsy, unspecified, not intractable, without status epilepticus; I10 Essential (primary) hypertension; E03.9 Hypothyroidism, unspecified; K21.9 Gastro-esophageal reflux disease without esophagitis; Z20.822 Contact with and (suspected) exposure to COVID-19; D64.9 Anemia, unspecified; R13.10 Dysphagia, unspecified; E87.6 Hypokalemia; D75.839 Thrombocytosis, unspecified; Z74.01 Bed confinement status; Z68.20 Body mass index [BMI] 20.0-20.9, adult
CPT/HCPCS: 36415; 71045; 74018; 80048; 80053; 80202; 82150; 83036; 83690; 83735; 83880; 84100; 84436; 84439; 84443; 84479; 84484; 85025; 85610; 85730; 87081; 93005; 94002; 94003; 99285; J0694; J1953; J2405; J2543; J3370; J3480; J3490; J7060; J8597; Q0092

== ENCOUNTER 2024-03-13 21:18 | Inpatient (IN) | payer MEDICAID, OTHER ==
[~2024-03-13] VITALS: Ht 152.4 cm; Wt 50.3 kg
[2024-03-13 21:18] VITALS: BP 106/69; PULSE 120; RESP 23; TEMP 101.1; O2SAT 100
[~2024-03-13 21:18] MED LIST changes: +ASCO500T95 GT; -CALC667C3 PO; +CALC667T8 GT; +DIAZ-950 GT; -DIAZ10TA7 GT; -DOCU150L25 GT; +DOCU50LI8 GT; -MAGN400S60 GT; -MERO1VIA15 IV; +ONDA-188 IV; +PHEN20EL PO; -PHEN20EL30 PO; +PIPE1SOL IV; +ROB1 GT; +Vancomycin Per Pharmacy MC
[2024-03-13 21:28] VITALS: BP 129/86; PULSE 119; PULSE 131; RESP 14; O2SAT 98; O2SAT 99
[2024-03-13] MEDS ORDERED: IBUPROFEN 600 MG TAB ONE (21:31)
[2024-03-13 21:43] LABS: APPEARANCE,URINE CLEAR (CLEAR); BILIRUBIN,URINE 1+ (NEGATIVE); BLOOD, URINE NEGATIVE (NEGATIVE); COLOR,URINE YELLOW (YELLOW); LEUKOCYTE ESTERASE ,URINE NEGATIVE (NEGATIVE); NITRITE, URINE NEGATIVE (NEGATIVE); PROTEIN,URINE 3+ (NEGATIVE); UGLUCOSE NEGATIVE (NEGATIVE)
[2024-03-13] MEDS ORDERED: cefTRIAXone 1,000 MG VIAL ONE (21:43)
[2024-03-13] MEDS: NACL 0.9% 2,000 ML IV ONE (21:46)
[2024-03-13] MEDS: IBUPROFEN 600 MG TAB PO ONE (21:46)
[2024-03-13 21:50] LABS: ICTOTEST NEGATIVE (NEGATIVE)
[2024-03-13 21:51] LABS: HEMATOCRIT 39.4 % (36-52); HEMOGLOBIN 13.2 g/dL (12.0-18.0); MEAN CORPUSCULAR HEMOGLOBIN 30 pg (27-31); MEAN CORPUSCULAR HGB CONC 34 g/dL (33-37); MEAN CORPUSCULAR VOLUME 90.2 fL (80-94); PLATELET COUNT (AUTO) 187 K/uL (140-450); RED BLOOD CELL COUNT(AUTO) 4.37 MIL/uL (4.20-6.10); RED CELL DISTRIBUTION WIDTH 14.1 % (11.6-13.7)
[2024-03-13 21:51] LABS: BACTERIA,URINE FEW /HPF (None Seen); FINE GRANULAR CASTS,URINE 2 /LPF (None Seen); MUCUS,URINE 1+ /LPF (None Seen); RBC,URINE 0-5 /HPF (0-5); SQUAMOUS EPITHELIAL CELL,UR 0-3 (FEW) /LPF (0-3 (FEW)); TRICHOMONAS,URINE None Seen /HPF (None Seen); WBC,URINE 0-5 /HPF (0-5); YEAST,URINE None Seen /HPF (None Seen)
[2024-03-13 21:53] LABS: WHITE BLOOD COUNT (AUTO) 26.9 K/uL (4.8-10.8)
[2024-03-13 22:02] LABS: INR 0.95 (0.8-1.2); PARTIAL THROMBOPLASTIN TIME 32.1 secs (22-35.6)
[2024-03-13 22:20] LABS: LACTIC ACID 3.5 mmol/L (0.4-2.0)
[2024-03-13 22:21] LABS: BLOOD GAS PH 7.471 (7.35-7.45)
[2024-03-13 22:21] LABS: LYMPHOCYTES % (MANUAL) 7 % (20-46); PLATELET ESTIMATE ADEQUATE
[2024-03-13 22:22] LABS: BLOOD GAS PCO2 54.9 mmHg (35-45); BLOOD GAS PO2 38.3 mmHg (75-100)
[2024-03-13 22:23] LABS: BLOOD GAS BASE EXCESS 13.3 mmol/L (-2.0-2.0); BLOOD GAS HCO3 39.1 mmol/L (22-26)
[2024-03-13 22:24] LABS: BLOOD GAS O2 SAT% 75.9 % (92.0-98.5)
[2024-03-13 22:31] LABS: ANION GAP 8.9 (8-16); CALCIUM 8.4 mg/dL (8.5-10.1); CARBON DIOXIDE 38.5 mmol/L (21-32); CREATININE 0.9 mg/dL (0.6-1.3); POTASSIUM 3.4 mmol/L (3.5-5.1)
[2024-03-14] VITALS (12 sets, daily range): BP systolic 115–139; BP diastolic 62–96; PULSE 82–133; RESP 18–22; TEMP 97.3–100; O2SAT 94–100
[2024-03-14 00:06] LABS: ALANINE AMINOTRANSFERASE 154 U/L (12-78); ALBUMIN 2.3 g/dL (3.4-5.0); ALKALINE PHOSPHATASE 107 U/L (50-136); ASPARTATE AMINOTRANSFERASE 140 U/L (15-37); CREATINE KINASE, TOTAL 365 U/L (39-308); TOTAL PROTEIN, SERUM 8.5 g/dL (6.4-8.2)
[2024-03-14] MEDS ORDERED: HYDROcodone/APAP 5/325 MG 1 TAB TAB PO PRN (00:35)
[2024-03-14] MEDS ORDERED: MAGNESIUM OXIDE 400 MG TAB PO PRN (00:45)
[2024-03-14] MEDS ORDERED: MAG SULF 2000 MG/WATER PREMIX 50 ML IV PRN (00:45)
[2024-03-14] MEDS ORDERED: VANCOMYCIN PER PHARMACY MC PRN (00:45)
[2024-03-14] MEDS ORDERED: ONDANSETRON 4 MG/2 ML VIAL IVP PRN (00:45)
[2024-03-14] MEDS ORDERED: PIPERACILLIN/TAZOBACTAM 3.375 GM VIAL IV ONE ×2 (00:53→04:21)
[2024-03-14] MEDS: PIPERACILLIN/TAZOBACTAM 3.375 GM in DEXTROSE 5% 50 ML IV ONE (01:03)
[2024-03-14 03:08] LABS: FLU A ANTIGEN POSITIVE (NEGATIVE); FLU B ANTIGEN NEGATIVE (NEGATIVE)
[2024-03-14] MEDS: PIPERACILLIN/TAZOBACTAM 3.375 GM in DEXTROSE 5% 50 ML IV SCH ×2 (05:13→12:52)
[2024-03-14] MEDS: MORPHINE SULFATE 4 MG/ML SYR IVP PRN (06:09)
[2024-03-14] MEDS ORDERED: VALPROIC ACID 250 MG GT SCH (09:00)
[2024-03-14] MEDS ORDERED: NON-FORMULARY ITEM (Levetiracetam* (Keppra Xr*) 1 TAB) PO SCH (09:00)
[2024-03-14] MEDS: levETIRAcetam 100 MG/ML ORASYR GT SCH (10:06)
[2024-03-14] MEDS: VALPROIC ACID 250 MG/5 ML UDC GT SCH (10:07)
[2024-03-14] MEDS: DOCUSATE 100 MG/10 ML UDC GT SCH (10:08)
[2024-03-14] MEDS: propylthiouraciL 50 MG TAB PO SCH (10:08)
[2024-03-14] MEDS: BACLOFEN 10 MG TAB GT SCH (10:09)
[2024-03-14] MEDS: ASCORBIC ACID 500 MG TAB GT SCH (10:09)
[2024-03-14] MEDS: ACETAMINOPHEN 325 MG TAB PO PRN (10:10)
[2024-03-14] MEDS: POLYETHYLENE GLYCOL 17 GM/PKT GT SCH (10:10)
[2024-03-14] MEDS: LACTATED RINGERS 1,000 ML IV SCH (10:11)
[2024-03-14] MEDS: LANSOPRAZOLE 30 MG CAPDR GT SCH (10:32)
[2024-03-14] MEDS: OSELTAMIVIR PHOSPHATE 75 MG CAP GT SCH (10:32)
[2024-03-14] MEDS: VANCOMYCIN 750 MG in DEXTROSE 5% 250 ML IV SCH (10:52)
[2024-03-14] MEDS: METOPROLOL 50 MG TAB GT SCH (12:53)
[2024-03-14] MEDS: diazePAM 5 MG TAB GT SCH (12:53)
[2024-03-14] MEDS ORDERED: ALBUTEROL SULFATE/IPRATROPIU 3 ML SOL IH SCH (13:00)
[2024-03-14] MEDS ORDERED: BUDESONIDE 0.5 MG/2 ML NEBU INH SCH (19:30)
[2024-03-14] MEDS: MEDS-TO-BEDS MC SCH (21:53)
[2024-03-15] VITALS (13 sets, daily range): BP systolic 115–154; BP diastolic 66–96; PULSE 63–125; RESP 18–24; TEMP 97.5–98.9; O2SAT 92–100
[2024-03-15 05:31] LABS: ALBUMIN 1.8 g/dL (3.4-5.0); ANION GAP 9.3 (8-16); CALCIUM 8.2 mg/dL (8.5-10.1); CARBON DIOXIDE 34.3 mmol/L (21-32); CREATININE 0.8 mg/dL (0.6-1.3); MAGNESIUM 3.2 mg/dL (1.8-2.4); TOTAL BILIRUBIN 0.4 mg/dL (0.0-1.0); TOTAL PROTEIN, SERUM 7.1 g/dL (6.4-8.2)
[2024-03-15 05:34] LABS: BASOPHILS # (AUTO) 0.1 K/uL (0.00-0.22); BASOPHILS % (AUTO) 0.3 % (0.0-2.0); EOSINOPHILS # (AUTO) 0.4 K/uL (0-0.4); EOSINOPHILS % (AUTO) 1.6 % (0.0-4.0); HEMATOCRIT 30.5 % (36-52); HEMOGLOBIN 10.1 g/dL (12.0-18.0); LYMPHOCYTES # (AUTO) 1.3 K/uL (2.0-11.5); LYMPHOCYTES % (AUTO) 5.7 % (20.5-51.1); MEAN CORPUSCULAR HEMOGLOBIN 30 pg (27-31); MEAN CORPUSCULAR HGB CONC 33 g/dL (33-37); MEAN CORPUSCULAR VOLUME 88.9 fL (80-94); MONOCYTES # (AUTO) 0.8 K/uL (0.8-1.0); MONOCYTES % (AUTO) 3.8 % (1.7-9.3); NEUTROPHILS # (AUTO) 19.8 K/uL (1.8-7.7); NEUTROPHILS % (AUTO) 88.6 % (42.2-75.2); PLATELET COUNT (AUTO) 190 K/uL (140-450); RED BLOOD CELL COUNT(AUTO) 3.43 MIL/uL (4.20-6.10); RED CELL DISTRIBUTION WIDTH 13.9 % (11.6-13.7); WHITE BLOOD COUNT (AUTO) 22.3 K/uL (4.8-10.8)
[2024-03-15 05:50] LABS: POTASSIUM 2.6 mmol/L (3.5-5.1)
[2024-03-15] MEDS: KCL 20 MEQ IN 100 mL PREMIX 200 ML IV PRN (06:38)
[2024-03-15] MEDS ORDERED: MEDS-TO-BEDS MC SCH (09:00)
[2024-03-15] MEDS: DEXT 5% / NACL 0.45% 1,000 ML IV SCH (10:40)
[2024-03-15] MEDS: POTASSIUM CHLORIDE 20% 40 MEQ/15 ML UDC GT SCH (12:20)
[2024-03-16] VITALS (14 sets, daily range): BP systolic 115–148; BP diastolic 67–82; PULSE 82–123; RESP 16–23; TEMP 96.6–98.9; O2SAT 98–100
[2024-03-16 09:05] LABS: BASOPHILS # (AUTO) 0.1 K/uL (0.00-0.22); BASOPHILS % (AUTO) 0.3 % (0.0-2.0); EOSINOPHILS # (AUTO) 0.1 K/uL (0-0.4); EOSINOPHILS % (AUTO) 0.3 % (0.0-4.0); HEMATOCRIT 32.5 % (36-52); HEMOGLOBIN 10.9 g/dL (12.0-18.0); LYMPHOCYTES # (AUTO) 1.3 K/uL (2.0-11.5); MEAN CORPUSCULAR HEMOGLOBIN 30 pg (27-31); MEAN CORPUSCULAR HGB CONC 34 g/dL (33-37); MEAN CORPUSCULAR VOLUME 88.4 fL (80-94); MONOCYTES # (AUTO) 0.8 K/uL (0.8-1.0); MONOCYTES % (AUTO) 3.1 % (1.7-9.3); NEUTROPHILS # (AUTO) 22.8 K/uL (1.8-7.7); NEUTROPHILS % (AUTO) 91.3 % (42.2-75.2); PLATELET COUNT (AUTO) 236 K/uL (140-450); RED BLOOD CELL COUNT(AUTO) 3.67 MIL/uL (4.20-6.10); RED CELL DISTRIBUTION WIDTH 13.9 % (11.6-13.7)
[2024-03-16 09:23] LABS: ALBUMIN 1.8 g/dL (3.4-5.0); ANION GAP 8.9 (8-16); CALCIUM 8.4 mg/dL (8.5-10.1); CARBON DIOXIDE 33.2 mmol/L (21-32); CREATININE 0.9 mg/dL (0.6-1.3); MAGNESIUM 2.9 mg/dL (1.8-2.4); POTASSIUM 3.1 mmol/L (3.5-5.1); TOTAL BILIRUBIN 0.3 mg/dL (0.0-1.0); TOTAL PROTEIN, SERUM 7.7 g/dL (6.4-8.2)
[2024-03-16] MEDS: QUEtiapine FUMARATE 25 MG TAB PO SCH (10:45)
[2024-03-17] VITALS (13 sets, daily range): BP systolic 107–151; BP diastolic 67–89; PULSE 83–129; RESP 16–23; TEMP 97.3–99.5; O2SAT 97–100
[2024-03-17 05:52] LABS: BASOPHILS # (AUTO) 0.1 K/uL (0.00-0.22); BASOPHILS % (AUTO) 0.3 % (0.0-2.0); EOSINOPHILS # (AUTO) 0.1 K/uL (0-0.4); EOSINOPHILS % (AUTO) 0.5 % (0.0-4.0); HEMATOCRIT 28.9 % (36-52); HEMOGLOBIN 9.9 g/dL (12.0-18.0); LYMPHOCYTES # (AUTO) 1.1 K/uL (2.0-11.5); LYMPHOCYTES % (AUTO) 5.1 % (20.5-51.1); MEAN CORPUSCULAR HEMOGLOBIN 30 pg (27-31); MEAN CORPUSCULAR HGB CONC 34 g/dL (33-37); MONOCYTES # (AUTO) 0.8 K/uL (0.8-1.0); MONOCYTES % (AUTO) 3.8 % (1.7-9.3); NEUTROPHILS # (AUTO) 20.1 K/uL (1.8-7.7); NEUTROPHILS % (AUTO) 90.3 % (42.2-75.2); PLATELET COUNT (AUTO) 260 K/uL (140-450); RED BLOOD CELL COUNT(AUTO) 3.29 MIL/uL (4.20-6.10); WHITE BLOOD COUNT (AUTO) 22.2 K/uL (4.8-10.8)
[2024-03-17 08:15] LABS: ALBUMIN 1.6 g/dL (3.4-5.0); ANION GAP 16.2 (8-16); CALCIUM 8.2 mg/dL (8.5-10.1); CARBON DIOXIDE 27.3 mmol/L (21-32); MAGNESIUM 2.4 mg/dL (1.8-2.4); TOTAL BILIRUBIN 0.2 mg/dL (0.0-1.0); TOTAL PROTEIN, SERUM 7.2 g/dL (6.4-8.2)
[2024-03-17 08:17] LABS: POTASSIUM 2.5 mmol/L (3.5-5.1)
[2024-03-17] MEDS: POTASSIUM CHLORIDE 10 MEQ TABER PO PRN (08:38)
[2024-03-17] MEDS ORDERED: POTASSIUM CHLORIDE 20% 40 MEQ/15 ML UDC GT SCH (11:09)
[2024-03-18] VITALS (14 sets, daily range): BP systolic 96–147; BP diastolic 54–90; PULSE 56–119; RESP 16–22; TEMP 97.5–99.5; O2SAT 96–100
[2024-03-18 09:21] LABS: ALBUMIN 1.7 g/dL (3.4-5.0); ANION GAP 11.8 (8-16); CALCIUM 8.6 mg/dL (8.5-10.1); CARBON DIOXIDE 29.2 mmol/L (21-32); CREATININE 1.1 mg/dL (0.6-1.3); MAGNESIUM 2.2 mg/dL (1.8-2.4); TOTAL BILIRUBIN 0.2 mg/dL (0.0-1.0); TOTAL PROTEIN, SERUM 7.6 g/dL (6.4-8.2)
[2024-03-18 09:24] LABS: BASOPHILS % (AUTO) 0.2 % (0.0-2.0); EOSINOPHILS # (AUTO) 0.2 K/uL (0-0.4); HEMATOCRIT 30.2 % (36-52); LYMPHOCYTES # (AUTO) 1.6 K/uL (2.0-11.5); LYMPHOCYTES % (AUTO) 8.8 % (20.5-51.1); MEAN CORPUSCULAR HEMOGLOBIN 29 pg (27-31); MEAN CORPUSCULAR HGB CONC 33 g/dL (33-37); MEAN CORPUSCULAR VOLUME 88.7 fL (80-94); MONOCYTES # (AUTO) 0.8 K/uL (0.8-1.0); MONOCYTES % (AUTO) 4.4 % (1.7-9.3); NEUTROPHILS # (AUTO) 15.5 K/uL (1.8-7.7); NEUTROPHILS % (AUTO) 85.6 % (42.2-75.2); PLATELET COUNT (AUTO) 380 K/uL (140-450); RED BLOOD CELL COUNT(AUTO) 3.41 MIL/uL (4.20-6.10); RED CELL DISTRIBUTION WIDTH 13.9 % (11.6-13.7); WHITE BLOOD COUNT (AUTO) 18.1 K/uL (4.8-10.8)
[2024-03-18] MEDS ORDERED: Vancomycin Per Pharmacy MC (14:03)
[2024-03-18] MEDS ORDERED: PIPE1SOL IV (14:03)
[2024-03-19] VITALS: BP 110/69; PULSE 115; RESP 23; TEMP 98.5; O2SAT 97
[2024-03-19 00:09] VITALS: PULSE 83; O2SAT 96
== END 2024-03-19 06:59 | disposition home or self-care (01) | DRG 720 ==
LOC: MED 21:18 → MMU 03-14 00:41
PROVIDERS: ADMIT Internal Medicine; ATTEND Internal Medicine
PROC: 5A1955Z Respiratory Ventilation, Greater than 96 Consecutive Hours (ICD-10-PCS; principal; 2024-03-14)
DX: A41.9 Sepsis, unspecified organism (principal); J96.21 Acute and chronic respiratory failure with hypoxia; J95.851 Ventilator associated pneumonia; J10.08 Influenza due to other identified influenza virus with other specified pneumonia; E87.0 Hyperosmolality and hypernatremia; G40.909 Epilepsy, unspecified, not intractable, without status epilepticus; R13.10 Dysphagia, unspecified; G80.9 Cerebral palsy, unspecified; J20.9 Acute bronchitis, unspecified; K21.9 Gastro-esophageal reflux disease without esophagitis; R62.50 Unspecified lack of expected normal physiological development in childhood; Z20.822 Contact with and (suspected) exposure to COVID-19; F79 Unspecified intellectual disabilities; J15.1 Pneumonia due to Pseudomonas; I10 Essential (primary) hypertension; Z93.0 Tracheostomy status; Z99.11 Dependence on respirator [ventilator] status; Z93.1 Gastrostomy status; Z98.2 Presence of cerebrospinal fluid drainage device; Z86.73 Personal history of transient ischemic attack (TIA), and cerebral infarction without residual deficits; B96.89 Other specified bacterial agents as the cause of diseases classified elsewhere
CPT/HCPCS: 36415; 36600; 71045; 80048; 80053; 80076; 80202; 81001; 82550; 82553; 82803; 83605; 83735; 83880; 84484; 85025; 85610; 85730; 87040; 87070; 87081; 87086; 87186; 87205; 89220; 93005; 94002; 94003; 96365; 96375; 99291; J0696; J1644; J2270; J2543; J3370; J3480; J7060